=== PATIENT | female | born 1945 | race African-American/Black ===

== ENCOUNTER 2016-09-10 10:45 | Inpatient (IN) ==
--- NOTE | 2016-09-10 11:02 | Emergency Department Note ---
START Narrative - START START: START note for a 70-year-old female that was sent to the emergency department per her court magistrate orders from dialysis after having laboratory results drawn this morning at 0545. The patient was found to have a critically low calcium of 5.0. She states that she did have her full course of dialysis after blood work was drawn. At this time, she does complain of numbness and tingling of her feet and toes as well as hands and fingers bilaterally. Denies any shortness of breath, chest pain, or the sensation of any palpitations. Care of this patient will be transferred to Dr. Graham due to mid-level shift change.
--- NOTE | 2016-09-10 11:06 | Emergency Department Note ---
Disposition Clinical Impression: Weakness, Hypocalcemia Disposition: Admitted As Inpatient Condition: Good Time of Disposition: 12:05 General Adult HPI - General Chief complaint: ED General Medical Stated complaint: Low calcium Time Seen by Provider: 09/10/16 10:58 Source: patient Limitations: no limitations Nursing Notes Reviewed: Yes Vital Signs Reviewed: Yes - History of Present Illness HPI Narrative: 70-year-old female with end-stage renal disease with Thursday dialysis sent in by Dr. Russo for abnormal outpatient calcium of 5 today. She admits to feeling rundown over the last few days with mild sensation of numbness and tingling to her hands and feet bilaterally. Otherwise, she denies any symptoms including headache, confusion, fevers, chest pain or shortness of breath, nausea, vomiting, diarrhea, abdominal pain, change in bowel movements. Patient does not make urine. No rashes or edema. She has not missed any dialysis sessions. She does note that she started Prolia, an injection for osteoporosis about 10 days ago. Pain Scale: 0 - Related Data Home Medications Medication Instructions Recorded Confirmed Acetaminophen [Tylenol] 325 - 650 mg PO Q4HR PRN 03/02/15 09/10/16 Atorvastatin [Lipitor] 10 mg PO HS 03/02/15 09/10/16 Folic Acid 1 mg PO DAILY 03/02/15 09/10/16 Omeprazole [PriLOSEC] 40 mg PO DAILY 03/02/15 09/10/16 Sodium Bicarbonate 650 mg PO BID 03/02/15 09/10/16 predniSONE [Prednisone] 2.5 mg PO BID 03/02/15 09/10/16 Amiodarone [Cordarone] 200 mg PO DAILY 09/18/15 09/10/16 Aspirin 81 mg PO DAILY 12/17/15 09/10/16 B Complex W-C No.20/Folic Acid 1 mg PO DAILY 12/17/15 09/10/16 [Nephrocaps Softgel] Metoprolol [Lopressor] 25 mg PO Q12HR 12/17/15 09/10/16 Ondansetron HCl [Zofran] 4 mg PO Q8HR PRN 12/17/15 09/10/16 traMADol [Ultram] 50 mg PO Q12HR PRN 12/17/15 09/10/16 Carvedilol 12.5 mg PO BID 02/19/16 09/10/16 Loperamide [Imodium] 2 mg PO Q8H PRN 02/19/16 09/10/16 Oxygen 2 l IH HS 02/19/16 09/10/16 Renal Vitamin [Renal Caps Softgel] 1 mg PO DAILY 02/19/16 09/10/16 Amlodipine Besylate 10 mg PO DAILY 09/10/16 09/10/16 Cyclosporine, Modified [Gengraf] 75 mg PO BID 09/10/16 09/10/16 Denosumab [Prolia (For Outpatient 60 mg SQ [id number] 09/10/16 09/10/16 Infusion)] Hydralazine HCl 50 mg PO TID 09/10/16 09/10/16 Oxycodone HCl/Acetaminophen 1 tab PO Q4H PRN 09/10/16 09/10/16 [Percocet 5-325 mg Tablet] Allergies Allergy/AdvReac Type Severity Reaction Status Date / Time Penicillins [PCN] Allergy Hives Verified 06/27/16 14:43 All systems ED: reviewed and negative except as stated. Past Medical History - Past Medical History Attestation: Yes The following information was validated with the patient. Source: patient Medical history: Reports: arthritis, atrial fibrillation, dialysis, osteoporosis , renal disease Surgical history: Reports: appendectomy, herniorrhaphy, other Psychiatric history: Reports: no psych history MEDICAL ANTHROPOLOGY DIRECTOR history: Reports: no MEDICAL ANTHROPOLOGY DIRECTOR history - Social History Smoking Status: Never smoker Smokeless Tobacco Status: No Alcohol use: Reports: none Drug use: Reports: none Physical Exam - Head Head exam: atraumatic, normocephalic, normal inspection - Eye Eye exam: Present: normal appearance, PERRL, EOMI - ENT ENT exam: normal exam, normal oropharynx, mucous membranes moist - Neck Neck exam: Present: normal inspection, full ROM, trachea midline - Chest Chest inspection: Present: normal inspection, symmetric chest wall rise - Respiratory Respiratory exam: Clear to auscultation bilaterally without wheezes rales or rhonchi Cardiovascular Cardiovascular exam: Present: regular rate, normal rhythm, normal heart sounds - Abdominal Exam Abdominal exam: Present: soft, Non-Tender. Absent: tenderness, distention, guarding, rebound, rigidity - Extremities Exam Extremities exam: Present: normal inspection, full ROM - Expanded Lower Extremity Exam Hip/Pelvis exam: Present: normal inspection, full ROM - Back Exam Back exam: Present: normal inspection, full ROM. Absent: tenderness, CVA tenderness (R), CVA tenderness (L) - Neurological Exam Neurological exam: Present: alert, oriented X3, CN II-XII intact. Diffuse hyporeflexivity. Chovstek sign negative. - Psychiatric Psychiatric exam: Present: normal affect, normal mood - Skin Skin exam: Present: warm, dry, intact, normal color - General Limitations: no limitations General appearance: alert, in no apparent distress Course - Reevaluation(s) Reevaluation #1: Calcium is 5.8 here. Patient has no abnormal vitals. Normal exam other than mild global weakness. She will need admitted for the severe hypocalcemia. Case was discussed with Dr. Russo who recommends starting with 1 g of calcium gluconate in the emergency department. Patient will need further calcium while in the hospital. She also requested that we had a PTH and vitamin D hydroxy labs. Case was discussed with Dr. Sims accepting hospitalist. He will follow PTH and vitamin D levels. Time: 12:05 Vital Signs Temperature 99 F 09/10/16 10:47 Pulse Rate 77 09/10/16 10:47 Respiratory Rate 20 09/10/16 10:47 Blood Pressure 111/48 09/10/16 10:47 O2 Sat by Pulse Oximetry 97 09/10/16 10:47 Temperature 98.4 F 09/10/16 14:51 Pulse Rate 76 09/10/16 14:51 Respiratory Rate 16 09/10/16 14:51 Blood Pressure 128/55 09/10/16 14:51 O2 Sat by Pulse Oximetry 96 09/10/16 14:51 Oxygen Delivery Oxygen Delivery Room Air Medical Decision Making - Lab Data Result diagrams: 09/10/16 11:26 09/10/16 11:26 Lab Results 09/10/16 09/10/16 09/10/16 Range/Units 11:26 11:26 12:15 WBC 8.6 (4.3-11.1) K/mcL RBC 3.22 L (3.82-4.97) M/mcL Hgb 10.2 L (11.5-15.4) g/dL Hct 32.6 L (35.3-44.9) % MCV 101.2 H (83.0-100.0) fL MCH 31.7 (28.0-33.3) pg MCHC 31.3 L (31.6-35.5) g/dL RDW 15.9 H (11.5-14.5) % Plt Count 180 (140-400) K/mcL MPV 8.4 L (9.4-12.4) fL Immature Gran % 0.7 (0-4) % Seg Neutrophils % 70.3 % Lymphocytes % 16.6 % Monocytes % 11.1 % Eosinophils % 1.0 % Basophils % 0.3 % Neutrophils # 6.0 (1.6-8.9) K/mcL Lymphocytes # 1.4 (0.6-4.6) K/mcL Monocytes # 1.0 (0.0-1.3) K/mcL Eosinophils # 0.1 (0.0-0.6) K/mcL Basophils # 0.0 (0.0-0.2) K/mcL Sodium 140 (136-145) mEq/L Potassium 3.4 L (3.5-4.5) mEq/L Chloride 102 (98-109) mEq/L Carbon Dioxide 28 (19-29) mEq/L BUN 12 (7-20) mg/dL Creatinine 2.71 H (0.57-1.11) mg/dL Est GFR ( Amer) 21 L (> 60) Est GFR (Non-Af Amer) 17 L (> 60) BUN/Creatinine Ratio 4 L (6-26) Glucose 112 H (70-99) mg/dL Calculated Osmolality 291 (280-300) Calcium 5.8 L* D (8.6-10.8) mg/dL Phosphorus 1.3 L (2.3-4.7) mg/dL Magnesium 1.6 (1.6-2.6) mg/dL Total Bilirubin 0.5 (0.2-1.2) mg/dL AST 15 (5-34) Units/L ALT 9 (0-55) Units/L Alkaline Phosphatase 81 (38-126) Units/L Serum Total Protein 6.3 (6.0-8.3) g/dL Albumin 2.4 L (3.5-5.0) g/dL Globulin 3.9 H (2.4-3.5) g/dL Albumin/Globulin Ratio 0.6 L (1.1-2.2) 25-OH Vitamin D Total 19 L (30-80) ng/mL PTH Intact (8.5-72.5) pg/ml 09/10/16 Range/Units 12:15 WBC (4.3-11.1) K/mcL RBC (3.82-4.97) M/mcL Hgb (11.5-15.4) g/dL Hct (35.3-44.9) % MCV (83.0-100.0) fL MCH (28.0-33.3) pg MCHC (31.6-35.5) g/dL RDW (11.5-14.5) % Plt Count (140-400) K/mcL MPV (9.4-12.4) fL Immature Gran % (0-4) % Seg Neutrophils % % Lymphocytes % % Monocytes % % Eosinophils % % Basophils % % Neutrophils # (1.6-8.9) K/mcL Lymphocytes # (0.6-4.6) K/mcL Monocytes # (0.0-1.3) K/mcL Eosinophils # (0.0-0.6) K/mcL Basophils # (0.0-0.2) K/mcL Sodium (136-145) mEq/L Potassium (3.5-4.5) mEq/L Chloride (98-109) mEq/L Carbon Dioxide (19-29) mEq/L BUN (7-20) mg/dL Creatinine (0.57-1.11) mg/dL Est GFR ( Amer) (> 60) Est GFR (Non-Af Amer) (> 60) BUN/Creatinine Ratio (6-26) Glucose (70-99) mg/dL Calculated Osmolality (280-300) Calcium (8.6-10.8) mg/dL Phosphorus (2.3-4.7) mg/dL Magnesium (1.6-2.6) mg/dL Total Bilirubin (0.2-1.2) mg/dL AST (5-34) Units/L ALT (0-55) Units/L Alkaline Phosphatase (38-126) Units/L Serum Total Protein (6.0-8.3) g/dL Albumin (3.5-5.0) g/dL Globulin (2.4-3.5) g/dL Albumin/Globulin Ratio (1.1-2.2) 25-OH Vitamin D Total (30-80) ng/mL PTH Intact 833.6 H (8.5-72.5) pg/ml - EKG Data EKG #1 EKG attestation: Yes I reviewed and interpreted this EKG. EKG results narrative: Normal sinus rhythm at 76 with left axis deviation. No ST elevation or depression. There is diffuse nonspecific T-wave flattening. T-wave flattening is mildly increased from last EKG on 07/01/2016. Attestation Statement - Attestation Attestation: I examined this patient and my medical decision-making was reviewed with the PHOTOGRAPHIC AIDE/PA/Advanced Practice Nurse/Resident Physician. I agree with the documented findings, disposition and treatment plan as described except to the extent set forth below. Patient emergency department with a low calcium. Was sent in from dialysis. Level was checked prior and she completed her entire cycle. On exam she is awake and alert sitting up in bed, pleasant and conversant in no acute distress. Lungs clear. Abdomen soft. Neurologically intact. Plan. Calcium recheck was 5. Discussed with her credit counselor. We will infuse calcium gluconate. Admitted to medicine. 30 minutes of critical care exclusive of separately billable procedures.
[2016-09-10 11:32] LABS: Basophils % 0.3 %; Eosinophils # 0.1 K/mcL (0.0-0.6); Hematocrit 32.6 % (35.3-44.9); Hemoglobin 10.2 g/dL (11.5-15.4); Immature Granulocytes % 0.7 % (0-4); Lymphocytes # 1.4 K/mcL (0.6-4.6); Lymphocytes % 16.6 %; Mean Corpuscular HGB Conc 31.3 g/dL (31.6-35.5); Mean Corpuscular Hemoglobin 31.7 pg (28.0-33.3); Mean Corpuscular Volume 101.2 fL (83.0-100.0); Mean Platelet Volume 8.4 fL (9.4-12.4); Monocytes % 11.1 %; Platelet Count 180 K/mcL (140-400); Red Blood Count 3.22 M/mcL (3.82-4.97); Red Cell Distribution Width 15.9 % (11.5-14.5); Segmented Neutrophils % 70.3 %
[2016-09-10 11:45] LABS: Albumin 2.4 g/dL (3.5-5.0); Albumin/Globulin Ratio 0.6 (1.1-2.2); Bilirubin,Total 0.5 mg/dL (0.2-1.2); Globulin 3.9 g/dL (2.4-3.5); Magnesium 1.6 mg/dL (1.6-2.6); Phosphorous 1.3 mg/dL (2.3-4.7); Potassium 3.4 mEq/L (3.5-4.5); Total Protein 6.3 g/dL (6.0-8.3)
[2016-09-10 11:47] LABS: Calcium 5.8 mg/dL (8.6-10.8)
[2016-09-10] MEDS ORDERED: Calcium Gluconate 1,000 MG in D5% in Water 100 ML IVPB ONE ×2 (11:55→17:03)
[2016-09-10] MEDS ORDERED: Naloxone 0.4 MG/ML INJ IVP PRN (12:15)
[2016-09-10] MEDS ORDERED: Ondansetron ODT 4 MG TAB.RAPDIS PO PRN (13:29)
[2016-09-10] MEDS ORDERED: traMADol 50 MG TABLET PO PRN (13:29)
[2016-09-10] MEDS ORDERED: *HR* OxyCODONE/APAP 5/325 TABLET PO PRN (13:29)
--- NOTE | 2016-09-10 13:36 | Internal Med History&Physical ---
<Radha Rivero J - Last Filed: 09/10/16 14:10> Date of Encounter: 09/10/16 Time of Encounter: 13:34 Assessment and Plan (1) Hypocalcemia Current visit: Yes Status: Acute found to be hypocalcemic post-HD labs. Ca 5.8 on arrival, calcium gluconate given in the ED. Symptomatic paresthesias of the hands and feet. Monitor on tele , serial CMP. Replace Calcium PRN (2) ESRD (end stage renal disease) Current visit: No Status: Chronic per hx. Anuric. Follows with Dr. Russo. HD M/W/F. Hx failed kidney transplant ( cont home prednisone). Consult Nephrology (3) Hypertension Current visit: No Status: Chronic per hx. BP controlled. Medication list showed 2 BBs (patient conflirmed taking both). Will stop Metoprolol, cont Carvedilol. Cont all other home BP medication. Monitor BP and titrate PRN Qualifiers: Hypertension type: secondary to other renal disorders Qualified Code(s): I15.1 - Hypertension secondary to other renal disorders; N28.89 - Other specified disorders of kidney and ureter (4) A-fib Current visit: No Status: Acute per hx. Rate controlled. Not on anticoagulation with previous abnormal bleeding. Cont home BB, amiodarone. Qualifiers: Atrial fibrillation type: paroxysmal Qualified Code(s): I48.0 - Paroxysmal atrial fibrillation (5) Anemia Current visit: Yes Status: Acute of chronic disease. Hgb 10.2 which appears to be at baseline. Intermittently monitor Qualifiers: Anemia type: other cause Other causes of anemia: chronic disease, kidney Qualified Code(s): N18.9 - Chronic kidney disease, unspecified; D63.1 - Anemia in chronic kidney disease (6) DVT prophylaxis Current visit: Yes Status: Acute heparin Internal Medicine - H&P: HPI Chief complaint: numbness to bilateral feet and hands Admitted From: Home Plans for Post Hospital Care: Home History of present illness: Ms. Moore is a 70 year old female with PMH ESRD on HD, HTN, atrial fibrillation and osteoporosis who presented to [facility] on 09/10/2016 from HD session with critically low calcium. IV calcium was started in the ED and she was placed in observation status for continued electrolyte monitoring. Information obtaiemd from chart review an patient report. Patient says she " feel fine" and actually wants to go home but is agreeable to stay. Says she was at HD session today when routine labs showed critically low calcium. She reports numbness and tingling to bilateral feet and hands earlier but denies on my exam. No CP, no SOB, no ABD pain, no N/V/D Past Med Surg Social Fam HX - Past Medical History Medical history: arthritis, atrial fibrillation, dialysis, osteoporosis, renal disease Psychiatric history: no psych history - Past Surgical History Surgical History: appendectomy, herniorrhaphy, other - Social History Smoking Status: Never smoker Smokeless Tobacco Status: No Alcohol use: none Drug use: none - Additional Family History Additional family history: reviewed and noncontributory Internal Medicine - H&P: Meds Acetaminophen [Tylenol] 325 - 650 mg PO Q4HR PRN 03/02/15 [History] Atorvastatin [Lipitor] 10 mg PO HS 03/02/15 [History] Folic Acid 1 mg PO DAILY 03/02/15 [History] Omeprazole [PriLOSEC] 40 mg PO DAILY 03/02/15 [History] PredniSONE [Prednisone] 2.5 mg PO BID 03/02/15 [History] Sodium Bicarbonate 650 mg PO BID 03/02/15 [History] Amiodarone [Cordarone] 200 mg PO DAILY 09/18/15 [History] Aspirin 81 mg PO DAILY 12/17/15 [History] B Complex W-C No.20/Folic Acid [Nephrocaps Softgel] 1 mg PO DAILY 12/17/15 [ History] Metoprolol [Lopressor] 25 mg PO Q12HR 12/17/15 [History] Ondansetron HCl [Zofran] 4 mg PO Q8HR PRN 12/17/15 [History] traMADol [Ultram] 50 mg PO Q12HR PRN 12/17/15 [History] Carvedilol 12.5 mg PO BID 02/19/16 [History] Loperamide [Imodium] 2 mg PO Q8H PRN 02/19/16 [History] Oxygen 2 l IH HS 02/19/16 [History] Renal Vitamin [Renal Caps Softgel] 1 mg PO DAILY 02/19/16 [History] Amlodipine Besylate 10 mg PO DAILY 09/10/16 [History] Cyclosporine, Modified [Gengraf] 75 mg PO BID 09/10/16 [History] Denosumab [Prolia (For Outpatient Infusion)] 60 mg SQ [id number] 09/10/16 [History ] Hydralazine HCl 50 mg PO TID 09/10/16 [History] Oxycodone HCl/Acetaminophen [Percocet 5-325 mg Tablet] 1 tab PO Q4H PRN [History] Allergies Penicillins [PCN] Allergy (Verified 06/27/16 14:43) Hives All Systems PM: A 10-system review of systems was performed and is negative for pertinent findings except as documented above in the HPI. - Constitutional Constitutional: no chills, no fever(s), no night sweats - EENT Eyes: no change in vision, no discharge, no pain, no photophobia Ears: no ear discharge, no ear pain, no tinnitus Nose, mouth and throat: no dysphagia, no nasal discharge, no neck pain, no sore throat - Cardiovascular Cardiovascular ROS IM: no chest pain, no diaphoresis, no dyspnea, no lightheadedness, no palpitations, no syncope - Respiratory Respiratory: no cough, no dyspnea, no wheezing, no excessive phlegm production - Gastrointestinal Gastrointestinal: no abdominal pain, no diarrhea, no hematemesis, no hematochezia, no melena, no nausea, no vomiting - Genitourinary Genitourinary: no change in urinary stream, no dysuria, no flank pain, no hematuria - Musculoskeletal Musculoskeletal ROS IM: no numbness, no tingling - Integumentary Integumentary IM: no rash, no unusual bruising - Neurological Neurological ROS: paresthesias, no confusion, no convulsions, no focal weakness , no numbness, no tingling, no tremor(s) - Hematologic/Lymphatic Hematologic/Lymphatic: no easy bruising - Constitutional Vitals: Temp Pulse Resp BP Pulse Ox 99 F 77 18 129/51 96 09/10/16 10:47 09/10/16 11:51 09/10/16 13:02 09/10/16 13:02 09/10/16 11:51 General appearance: Present: A&O X 3, no acute distress - Head Head exam: Present: atraumatic, normocephalic - Eye Eye exam: Present: PERRL, conjuntiva pink, sclera anicteric Pupils: Present: PERRL - Neck Neck exam general surgery: Present: supple, trachea midline. Absent: lymphadenopathy - Respiratory Respiratory exam: Present: CTAB. Absent: accessory muscle use, rales, rhonchi, wheezes - Cardiovascular Cardiovascular exam: Present: RRR, +S1, +S2. Absent: diastolic murmur, gallop, rubs, systolic murmur - GI/Abdominal GI/Abdominal exam: Present: normal bowel sounds, soft, no peritoneal signs. Absent: distended, tenderness - Extremities Exam Extremities exam: Present: warm, radial pulses palpable and symetrical. Absent : calf tenderness, cyanotic, pedal edema Additional comments: left arm fistula +/+ - Neurological Exam Neurological exam: Present: CN II-XII intact, oriented X3, no focal deficits. Absent: pronater drift, facial droop, speech deficit - Skin Skin exam: Present: dry, intact Internal Med - H&P Results - Labs CBC & Chem 7: 09/10/16 11:26 09/10/16 11:26 <Stalin Sims - Last Filed: 09/10/16 15:06> Date of Encounter: 09/10/16 Time of Encounter: 14:00 Internal Medicine - H&P: HPI History of present illness: Ms. Moore is a 70 year old female All Systems PM: A 10-system review of systems was performed and is negative for pertinent findings except as documented above in the HPI. - Constitutional Vitals: Temp Pulse Resp BP Pulse Ox 98.4 F 76 16 128/55 96 09/10/16 14:51 09/10/16 14:51 09/10/16 14:51 09/10/16 14:51 09/10/16 14:51 Internal Med - H&P Results - Labs CBC & Chem 7: 09/10/16 11:26 09/10/16 11:26 - Attending Attestation I examined this patient and my medical decision-making was reviewed with the nurse practitioner. I agree with the documented history of present illness, review of systems, past medical, surgical social and family histories and examination findings, disposition and treatment plan as described above except to any changes set forth below. 70-year-old female patient with history of end-stage renal disease was sent over after dialysis due to hypocalcemia. Patient complaining of some paresthesias associated with it. She has just received a dose of Prolia recently for osteoporosis. On examination, patient has a normal heart rate and rhythm, no tremors. Normal sensation and normal strength. Symptomatic Hypocalcemia: Likely due to the use of Prolia. Calcium is 5.8. Corrected calcium is 7.1. Received calcium gluconate in the ER. We will follow calcium levels and replace as needed. Monitor for arrhythmia with telemetry. End-stage renal disease on hemodialysis: Patient was dialyzed today. Consult nephrology for dialysis needs.
--- NOTE | 2016-09-10 15:27 | Electrocardiograph Report ---
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
[2016-09-10] MEDS: hydrALAZINE 25 MG TABLET PO SCH ×2 (16:11→21:34)
[2016-09-10 16:49] LABS: Albumin 2.3 g/dL (3.5-5.0); Albumin/Globulin Ratio 0.6 (1.1-2.2); Bilirubin,Total 0.4 mg/dL (0.2-1.2); Globulin 3.7 g/dL (2.4-3.5); Potassium 3.8 mEq/L (3.5-4.5)
[2016-09-10 16:53] LABS: Calcium 5.9 mg/dL (8.6-10.8)
--- NOTE | 2016-09-10 18:19 | Nephrology Consult Note ---
Date of Encounter: 09/10/16 Time of Encounter: 06:15 Assessment and Plan (1) Hypocalcemia Status: Acute s/p 1gram calcium gluconate in the ED and another planned by primary team Ok to start calcium orally as well, repeat calcium again today. Check ionized calcium as well Will start vitamin d with ergocalciferol Replete phosphorus (2) Hyperparathyroidism Status: Chronic Worse than previous which was 400s as of last month likely due to acute hypocalcemia Will consider giving calcitriol inpatinet and resume hectorol outpatient (3) Vitamin D deficiency Status: Acute Will start ergocalciferol weekly (4) Hypophosphatemia Status: Acute Will replete. Not on phos binder at present (5) ESRD (end stage renal disease) Status: Chronic next HD planned for thursday with higher calcium bath. s/p treatment today outpatient History of Present Illness - Reason for Consult Consult date: 09/10/16 end stage renal disease Requesting physician: Radha Rivero - History of Present Illness 70 y o female with PMH of ESRD on HD after failed renal transplant, HTN, Afib and osteoporosis admitted with generalized weakness and critically low calcium and phosphorous noted on HD labs and verified on repeat 2 days later. Patient reports receiving prolia infusion recently for her osetoporosis ordered by her pcp. She denies any prior history. Her calcium levels have been typically around 8-9 on monthly labs. She also reports tingling up her arms as well. No N/ V/D/C. No fevers or chills. Past Med Surg Social Fam HX - Past Medical History Medical history: arthritis, atrial fibrillation, dialysis, osteoporosis, renal disease Psychiatric history: no psych history - Past Surgical History Surgical History: appendectomy, herniorrhaphy, other - Social History Smoking Status: Never smoker Smokeless Tobacco Status: No Alcohol use: none Drug use: none - Family History Mother Living Status: Hx Family Cardiac Disorders: Yes Medications and Allergies Acetaminophen [Tylenol] 325 - 650 mg PO Q4HR PRN 03/02/15 [History] Atorvastatin [Lipitor] 10 mg PO HS 03/02/15 [History] Folic Acid 1 mg PO DAILY 03/02/15 [History] Omeprazole [PriLOSEC] 40 mg PO DAILY 03/02/15 [History] predniSONE [Prednisone] 2.5 mg PO BID 03/02/15 [History] Amiodarone [Cordarone] 200 mg PO DAILY 09/18/15 [History] Aspirin 81 mg PO DAILY 12/17/15 [History] B Complex W-C No.20/Folic Acid [Nephrocaps Softgel] 1 mg PO DAILY 12/17/15 [ History] Metoprolol [Lopressor] 12.5 mg PO Q12HR 12/17/15 [History] Ondansetron HCl [Zofran] 4 mg PO Q8HR PRN 12/17/15 [History] traMADol [Ultram] 50 mg PO Q12HR PRN 12/17/15 [History] Carvedilol 12.5 mg PO BID 02/19/16 [History] Loperamide [Imodium] 2 mg PO Q8H PRN 02/19/16 [History] Oxygen 2 l IH HS 02/19/16 [History] Renal Vitamin [Renal Caps Softgel] 1 mg PO DAILY 02/19/16 [History] Amlodipine Besylate 10 mg PO DAILY 09/10/16 [History] Cyclosporine, Modified [Gengraf] 75 mg PO BID 09/10/16 [History] Denosumab [Prolia (For Outpatient Infusion)] 60 mg SQ [id number] 09/10/16 [History ] Hydralazine HCl 50 mg PO TID 09/10/16 [History] Ergocalciferol (VITAMIN D2) [Drisdol (50,000 Unit)] 50,000 unit PO QWEEK #4 capsule 09/12/16 [Rx] Calcium Carbonate [Tums] 1,000 mg PO QID 30 Days 09/18/16 [Rx] Oxycodone HCl/Acetaminophen [Percocet 5-325 mg Tablet] 1 tab PO Q4H PRN #20 tablet 09/18/16 [Rx] Allergies Penicillins [PCN] Allergy (Verified 09/14/16 15:26) Hives Review of Systems All Systems: reviewed and no additional remarkable complaints except as stated ( 10 systems reviewed) Exam - Vital Signs Vital signs: Initial Vital Signs Temp Pulse Resp BP Pulse Ox 99 F 77 20 111/48 97 09/10/16 10:47 09/10/16 10:47 09/10/16 10:47 09/10/16 10:47 09/10/16 10:47 Vital Signs - Last 8 Hours Temp Pulse Resp BP Pulse Ox 09/10/16 14:51 98.4 F 76 16 128/55 96 09/10/16 14:02 98.7 F 77 18 128/55 93 09/10/16 13:02 18 129/51 Intake and Output 09/10/16 09/10/16 09/10/16 07:59 15:59 23:59 Intake Total 240 / 240 Balance 240 / 240 Intake: Oral 240 / 240 Other: Meal Dinner Percent of Meal Consumed 100% Weight 61.745 kg Patient Weight 09/10/16 23:59 Weight 61.745 kg - General Appearance General appearance: chronically ill (NAD) EENT: ATNC, mucous membranes moist Neck: no JVD, supple Respiratory: clear Cardiology: no edema, normal S1, normal S2 - Dialysis Access Dialysis Vascular Access: Arteriovenous Fistula thrill: Yes bruit: Yes Gastrointestinal: no tenderness, no guarding Integumentary: no rash, warm and dry Neurologic: no focal deficit Musculoskeletal: no deformities Psychiatric: mood/affect appropriate Results - Lab Results 09/11/16 04:45 09/12/16 04:38 Most recent lab results Calcium 5.9 mg/dL (8.6-10.8) L* 09/10/16 16:18 Phosphorus 1.3 mg/dL (2.3-4.7) L 09/10/16 11:26 Magnesium 1.6 mg/dL (1.6-2.6) 09/10/16 11:26 Consult Discharge Plan - Plan Instructions: Hypocalcemia (DC), Weakness (GEN), Anemia (GEN) Referrals: Abdi Deng MD [Primary Care Provider] - 09/17/16 3:00 pm (Web requested ) Prescriptions: Ergocalciferol (VITAMIN D2) [Drisdol (50,000 Unit)] 50,000 unit PO QWEEK #4 capsule
[2016-09-10] MEDS: CycloSPORINE, Mod (Neoral) 25 MG CAPSULE PO SCH (21:34)
[2016-09-10] MEDS: predniSONE 5 MG TABLET PO SCH (21:35)
[2016-09-11 05:43] LABS: Basophils % 0.4 %; Eosinophils # 0.1 K/mcL (0.0-0.6); Eosinophils % 1.7 %; Hematocrit 34.9 % (35.3-44.9); Hemoglobin 10.9 g/dL (11.5-15.4); Immature Granulocytes % 0.5 % (0-4); Lymphocytes # 1.4 K/mcL (0.6-4.6); Lymphocytes % 18.7 %; Mean Corpuscular HGB Conc 31.2 g/dL (31.6-35.5); Mean Corpuscular Hemoglobin 31.9 pg (28.0-33.3); Mean Platelet Volume 8.4 fL (9.4-12.4); Monocytes # 0.9 K/mcL (0.0-1.3); Monocytes % 11.8 %; Platelet Count 178 K/mcL (140-400); Red Blood Count 3.42 M/mcL (3.82-4.97); Red Cell Distribution Width 16.7 % (11.5-14.5); Segmented Neutrophils % 66.9 %
[2016-09-11 05:59] LABS: Potassium 4.4 mEq/L (3.5-4.5)
[2016-09-11 06:18] LABS: Calcium 5.8 mg/dL (8.6-10.8)
[2016-09-11] MEDS ORDERED: Calcium Gluconate 2,000 MG in D5% in Water 100 ML IVPB ONE (06:32)
[2016-09-11] MEDS: Aspirin 81 MG TAB.CHEW PO SCH (08:07)
[2016-09-11] MEDS: CycloSPORINE, Mod (Neoral) 25 MG CAPSULE PO SCH ×2 (08:07→21:19)
[2016-09-11] MEDS: Renal Vitamin 1 MG CAPSULE PO SCH (08:08)
[2016-09-11] MEDS: *HR* Amiodarone 200 MG TABLET PO SCH (08:08)
[2016-09-11] MEDS: Folic Acid 1 MG TABLET PO SCH (08:08)
[2016-09-11] MEDS: hydrALAZINE 25 MG TABLET PO SCH ×3 (08:09→21:19)
[2016-09-11] MEDS: amLODIPine 5 MG TABLET PO SCH (08:10)
[2016-09-11] MEDS: predniSONE 5 MG TABLET PO SCH ×2 (08:20→21:19)
[2016-09-11] MEDS ORDERED: Renal Vitamin 1 MG CAPSULE PO SCH (09:00)
[2016-09-11] MEDS ORDERED: *HR* OxyCODONE/APAP 5/325 TABLET PO PRN (10:42)
[2016-09-11] MEDS ORDERED: traMADol 50 MG TABLET PO PRN (10:42)
--- NOTE | 2016-09-11 14:40 | Internal Med Progress Note ---
Date of Encounter: 09/11/16 Time of Encounter: 14:38 - Assessment and plan (1) Hypocalcemia Current Visit: Yes Status: Acute Assessment and plan: severe symtpomatic hypocalcemia with hypophosphatemia in setting of esrd on hd and recent therapy with prolia. will continue monitoring calcium levles and follow nephrology recommendations. supplement calcium accordingly and HD arrangement as per nephrology. (2) ESRD (end stage renal disease) Current Visit: No Status: Chronic (3) DVT prophylaxis Current Visit: Yes Status: Acute (4) Hypophosphatemia Current Visit: Yes Status: Acute - Subjective Interval history: 1st ecounter with the patient. feels better, no more tingling. - Constitutional Vitals: Temp Pulse Resp BP Pulse Ox 98.1 F 70 16 141/52 91 09/11/16 11:09 09/11/16 11:09 09/11/16 11:09 09/11/16 11:09 09/11/16 11:09 General appearance: Present: A&O X 3, no acute distress - Head Head exam: Present: atraumatic, normocephalic - Eye Eye exam: Present: PERRL, conjuntiva pink, sclera anicteric Pupils: Present: PERRL - Neck Neck exam general surgery: Present: supple, trachea midline. Absent: lymphadenopathy - Respiratory Respiratory exam: Present: CTAB. Absent: accessory muscle use, rales, rhonchi, wheezes - Cardiovascular Cardiovascular exam: Present: RRR, +S1, +S2. Absent: diastolic murmur, gallop, rubs, systolic murmur - GI/Abdominal GI/Abdominal exam: Present: normal bowel sounds, soft, no peritoneal signs. Absent: distended, tenderness - Extremities Exam Extremities exam: Present: warm, radial pulses palpable and symetrical. Absent : calf tenderness, cyanotic, pedal edema - Neurological Exam Neurological exam: Present: CN II-XII intact, oriented X3, no focal deficits. Absent: pronater drift, facial droop, speech deficit - Skin Skin exam: Present: dry, intact Internal Medicine: Result - Labs CBC & Chem 7: 09/11/16 04:45 09/11/16 04:45 Labs: Short CBC 09/11/16 Range/Units 04:45 WBC 7.4 (4.3-11.1) K/mcL Hgb 10.9 L (11.5-15.4) g/dL Hct 34.9 L (35.3-44.9) % Plt Count 178 (140-400) K/mcL Neutrophils # 5.0 (1.6-8.9) K/mcL BMP 09/10/16 09/11/16 09/11/16 16:18 04:45 11:49 Sodium 136 137 Potassium 3.8 4.4 Chloride 98 99 Carbon Dioxide 26 25 BUN 15 24 H Creatinine 3.17 H 4.16 H Glucose 166 H 101 H Calcium 5.9 L* 5.8 L* 6.1 L Liver Function 09/10/16 Range/Units 16:18 Total Bilirubin 0.4 (0.2-1.2) mg/dL AST 14 (5-34) Units/L ALT 8 (0-55) Units/L Alkaline Phosphatase 80 (38-126) Units/L Albumin 2.3 L (3.5-5.0) g/dL Consult Discharge Plan - Plan Referrals: Abdi Deng MD [Primary Care Provider] - 09/17/16 3:00 pm (Web requested )
--- NOTE | 2016-09-11 16:13 | Nephrology Progress Note ---
Date of Encounter: 09/11/16 Time of Encounter: 14:00 - Assessment and Plan (1) Hypocalcemia Current Visit: Yes Status: Acute Calcium slightly improved but ionized calcium still quite low, continue po calcium supplements s/p ergocalciferol yesterday, will continue weekly (2) Hyperparathyroidism Current Visit: Yes Status: Acute Will address in outpatient HD with hectorol to be adjusted. Will give a dose of calcitriol now (3) Vitamin D deficiency Current Visit: Yes Status: Acute s/p ergocalciferol (4) Hypophosphatemia Current Visit: Yes Status: Acute being repleted with neutraphos (5) ESRD (end stage renal disease) Current Visit: No Status: Chronic next HD planned tomorrow with higher calcium bath (typically runs of 2.0 ca bath ) Subjective Interval history: Pt seen and examined with at bedside feels a little with her weakness and tingling in her fingers. Objective - Vital Signs Vital signs: Vital Signs Temp Pulse Resp BP Pulse Ox 09/11/16 15:46 98.5 F 69 16 135/48 93 Intake and Output 09/11/16 09/11/16 09/11/16 07:59 15:59 23:59 Intake Total 320 / 1040 Balance 320 / 1040 Intake: Oral 320 / 1040 Other: Meal Lunch Percent of Meal Consumed 100% - General Appearance General appearance: Present: chronically ill (NAD), frail EENT: Present: ATNC, mucous membranes moist Neck: Present: no JVD, supple Respiratory: Present: clear Cardiology: Present: no edema, normal S1, normal S2 Dialysis Vascular Access: Arteriovenous Fistula thrill: Yes bruit: Yes Gastrointestinal: Present: no tenderness, no guarding Integumentary: Present: no rash, warm and dry Neurologic: Present: no focal deficit Musculoskeletal: Present: no deformities Psychiatric: Present: mood/affect appropriate, cooperative - Lab 09/11/16 04:45 09/11/16 04:45 Most recent lab results Calcium 6.1 mg/dL (8.6-10.8) L 09/11/16 11:49 Phosphorus 1.3 mg/dL (2.3-4.7) L 09/10/16 11:26 Magnesium 1.6 mg/dL (1.6-2.6) 09/10/16 11:26 Consult Discharge Plan - Plan Referrals: Abdi Deng MD [Primary Care Provider] - 09/17/16 3:00 pm (Web requested )
[2016-09-11] MEDS: *HR* Heparin 5,000 UNIT/ML VIAL SQ SCH (17:39)
[2016-09-12 05:01] LABS: Ionized Calcium 0.75 mmol/L (1.15-1.35)
[2016-09-12 05:11] LABS: Calcium 6.2 mg/dL (8.6-10.8); Magnesium 1.9 mg/dL (1.6-2.6); Potassium 4.9 mEq/L (3.5-4.5)
[2016-09-12] MEDS: Folic Acid 1 MG TABLET PO SCH (06:00)
[2016-09-12] MEDS: Aspirin 81 MG TAB.CHEW PO SCH (06:00)
[2016-09-12] MEDS: CycloSPORINE, Mod (Neoral) 25 MG CAPSULE PO SCH (06:01)
[2016-09-12] MEDS: predniSONE 5 MG TABLET PO SCH (06:01)
[2016-09-12] MEDS: Renal Vitamin 1 MG CAPSULE PO SCH (06:02)
[2016-09-12] MEDS: *HR* Heparin 5,000 UNIT/ML VIAL SQ SCH (06:02)
[2016-09-12] MEDS ORDERED: 0.9 % Sodium Chloride 250 ML IVC PRN (07:05)
--- NOTE | 2016-09-12 10:22 | Nephrology Progress Note ---
Date of Encounter: 09/12/16 Time of Encounter: 08:45 - Assessment and Plan (1) ESRD (end stage renal disease) Status: Chronic HD today for clearance Higher Calcium bath today for the hypocalcemia, that I suspect was secondary to recent bisphosphate. Ergocalciferol and the calcitriol will help raise the serum Ca over time in the coming weeks as well. Would continue Ergocalciferol 50k weekly upon discharge Replete the hypophosphatemia Next HD is planned for Thursday (2) Hyperparathyroidism Status: Acute (3) Hypocalcemia Status: Acute Higher Ca Bath and Ergocalciferol. I've called the outpt HD unit with instructions/verbal orders to increase the Ca bath on dialysis to 2.5 x3 consecutive treatments. (4) Hypophosphatemia Status: Acute (5) Vitamin D deficiency Status: Acute (6) Hypertension Status: Chronic Qualifiers: Hypertension type: secondary to other renal disorders Qualified Code(s): I15.1 - Hypertension secondary to other renal disorders; N28.89 - Other specified disorders of kidney and ureter Subjective Principal diagnosis: ESRD, Hypocalcemia Interval history: Pt was s/e. She did not affirm N/V/D. Was found to have hypocalcemia after bisphosphonate. She did not affirm CP or dyspnea. Objective - Vital Signs Vital signs: Vital Signs Temp Pulse Resp BP Pulse Ox 09/12/16 08:43 95 09/12/16 06:53 98.2 F 77 16 138/51 95 09/12/16 04:13 97.4 F L 74 16 105/57 94 09/12/16 00:05 98.0 F 73 14 126/47 93 09/11/16 21:14 97.7 F 106 15 146/51 95 09/11/16 15:46 98.5 F 69 16 135/48 93 Intake and Output 09/11/16 09/12/16 09/12/16 23:59 07:59 15:59 Intake Total 240 / 240 20 / 20 700 / 700 Output Total 0 / 0 Balance 240 / 240 20 / 20 700 / 700 Intake: Oral 240 / 240 20 / 20 700 / 700 Output: Urine 0 / 0 Other: Meal Dinner Breakfast Percent of Meal Consumed 80% 100% Weight 61.5 kg Patient Weight 09/12/16 23:59 Weight 61.5 kg - General Appearance General appearance: Present: well-developed, well-nourished, appears started age EENT: Present: ATNC, PERRL, mucous membranes moist Neck: Present: supple Cardiology: Present: no edema, regular rate, regular rhythm, normal S1, normal S2 Gastrointestinal: Present: normoactive bowel sounds, no tenderness, no guarding Integumentary: Present: no rash, warm and dry Neurologic: Present: no focal deficit, no asterixis, alert and oriented x3 Musculoskeletal: Present: no deformities, no erythema, no cyanosis Psychiatric: Present: mood/affect appropriate, cooperative - Lab 09/11/16 04:45 09/12/16 04:38 Most recent lab results Calcium 6.2 mg/dL (8.6-10.8) L 09/12/16 04:38 Phosphorus 1.8 mg/dL (2.3-4.7) L 09/12/16 04:38 Magnesium 1.9 mg/dL (1.6-2.6) 09/12/16 04:38 Consult Discharge Plan - Plan Instructions: Hypocalcemia (DC), Weakness (GEN), Anemia (GEN) Referrals: Abdi Deng MD [Primary Care Provider] - 09/17/16 3:00 pm (Web requested ) Prescriptions: Ergocalciferol (VITAMIN D2) [Drisdol (50,000 Unit)] 50,000 unit PO QWEEK #4 capsule
[2016-09-12] MEDS: hydrALAZINE 25 MG TABLET PO SCH (10:59)
[2016-09-12] MEDS: amLODIPine 5 MG TABLET PO SCH (13:08)
[2016-09-12 13:09] VITALS: BP 91/74
[2016-09-12] MEDS: *HR* Amiodarone 200 MG TABLET PO SCH (13:09)
--- NOTE | 2016-09-12 13:14 | Discharge Summary ---
Date of Encounter: 09/12/16 Time of Encounter: 13:13 - Discharge Diagnosis (1) Hypocalcemia Priority: Primary Status: Acute (2) ESRD (end stage renal disease) Priority: Secondary Status: Chronic (3) DVT prophylaxis Priority: Secondary Status: Acute (4) Hypophosphatemia Priority: Secondary Status: Acute - Discharge Medications Prescriptions: Ergocalciferol (VITAMIN D2) [Drisdol (50,000 Unit)] 50,000 unit PO QWEEK #4 capsule Home Medications: Acetaminophen [Tylenol] 325 - 650 mg PO Q4HR PRN 03/02/15 [History] Atorvastatin [Lipitor] 10 mg PO HS 03/02/15 [History] Folic Acid 1 mg PO DAILY 03/02/15 [History] Omeprazole [PriLOSEC] 40 mg PO DAILY 03/02/15 [History] Sodium Bicarbonate 650 mg PO BID 03/02/15 [History] predniSONE [Prednisone] 2.5 mg PO BID 03/02/15 [History] Amiodarone [Cordarone] 200 mg PO DAILY 09/18/15 [History] Aspirin 81 mg PO DAILY 12/17/15 [History] B Complex W-C No.20/Folic Acid [Nephrocaps Softgel] 1 mg PO DAILY 12/17/15 [ History] Metoprolol [Lopressor] 25 mg PO Q12HR 12/17/15 [History] Ondansetron HCl [Zofran] 4 mg PO Q8HR PRN 12/17/15 [History] traMADol [Ultram] 50 mg PO Q12HR PRN 12/17/15 [History] Carvedilol 12.5 mg PO BID 02/19/16 [History] Loperamide [Imodium] 2 mg PO Q8H PRN 02/19/16 [History] Oxygen 2 l IH HS 02/19/16 [History] Renal Vitamin [Renal Caps Softgel] 1 mg PO DAILY 02/19/16 [History] Amlodipine Besylate 10 mg PO DAILY 09/10/16 [History] Cyclosporine, Modified [Gengraf] 75 mg PO BID 09/10/16 [History] Denosumab [Prolia (For Outpatient Infusion)] 60 mg SQ [id number] 09/10/16 [History ] Hydralazine HCl 50 mg PO TID 09/10/16 [History] Oxycodone HCl/Acetaminophen [Percocet 5-325 mg Tablet] 1 tab PO Q4H PRN [History] Ergocalciferol (VITAMIN D2) [Drisdol (50,000 Unit)] 50,000 unit PO QWEEK #4 capsule 09/12/16 [Rx] Allergies/Adverse Reactions: Allergies Penicillins [PCN] Allergy (Verified 06/27/16 14:43) Hives Date of admission: 09/11/16 13:10 Primary care physician: Abdi Deng MD Consults: 09/12/16 07:15 Consult to Dialysis [CONS] ONCE Discharging clinician: Luis Enrique Freeman Anticipated date of discharge: 09/12/16 - Patient Status Disposition: Home Health Service Condition: Good Functional capacity at discharge: independent ambulation Overall status at discharge: patient is back to baseline - Discharge Instructions Follow Up With: Abdi Deng MD [Primary Care Provider] - 09/17/16 3:00 pm (Web requested ) - Diet and Activity Activity: increase activity as tolerated Diet: advance to your usual diet Interval History: Ms. Moore is a 70 year old female with PMH ESRD on HD, HTN, atrial fibrillation and osteoporosis who presented to [facility] on 09/10/2016 from HD session with critically low calcium. IV calcium was started in the ED and she was placed in observation status for continued electrolyte monitoring. Information obtaiemd from chart review an patient report. Patient says she " feel fine" and actually wants to go home but is agreeable to stay. Says she was at HD session today when routine labs showed critically low calcium. She reports numbness and tingling to bilateral feet and hands earlier but denies on my exam. No CP, no SOB, no ABD pain, no N/V/D Hospital course: Ms. Moore is a 70 year old female severe symtpomatic hypocalcemia with hypophosphatemia in setting of esrd on hd and recent therapy with prolia. HD today for clearance Higher Calcium bath today for the hypocalcemia, that I suspect was secondary to recent bisphosphate. Ergocalciferol and the calcitriol will help raise the serum Ca over time in the coming weeks as well. Would continue Ergocalciferol 50k weekly upon discharge Replete the hypophosphatemia Next HD is planned for Thursday Discharge home today. D/W patient. - Time Spent with Patient Total time spent providing and/or coordinating discharge services: - Constitutional Vitals: Temp Pulse Resp BP Pulse Ox 98.3 F 76 16 91/74 91 09/12/16 13:08 09/12/16 13:08 09/12/16 13:08 09/12/16 13:08 09/12/16 13:08 General appearance: Present: A&O X 3, no acute distress - Head Head exam: Present: atraumatic, normocephalic - Eye Eye exam: Present: PERRL, conjuntiva pink, sclera anicteric Pupils: Present: PERRL - Neck Neck exam general surgery: Present: supple, trachea midline. Absent: lymphadenopathy - Respiratory Respiratory exam: Present: CTAB. Absent: accessory muscle use, rales, rhonchi, wheezes - Cardiovascular Cardiovascular exam: Present: RRR, +S1, +S2. Absent: diastolic murmur, gallop, rubs, systolic murmur - GI/Abdominal GI/Abdominal exam: Present: normal bowel sounds, soft, no peritoneal signs. Absent: distended, tenderness - Extremities Exam Extremities exam: Present: warm, radial pulses palpable and symetrical. Absent : calf tenderness, cyanotic, pedal edema - Neurological Exam Neurological exam: Present: CN II-XII intact, oriented X3, no focal deficits. Absent: pronater drift, facial droop, speech deficit - Skin Skin exam: Present: dry, intact
--- NOTE | 2016-09-12 13:30 | Physician Discharge Referral ---
Home Health/Hosp Referral Info Transfer to: Home Health - Diagnosis (1) Hypocalcemia Status: Acute (2) ESRD (end stage renal disease) Status: Chronic (3) DVT prophylaxis Status: Acute (4) Hypophosphatemia Status: Acute - Respiratory Orders Smoking Cessation: Smoking cessation has been advised. For more information, call the [place] Tobacco Quit Line at 9-723-CCBE-NOW. - Diet/Nutrition Diet/Nutrition Orders: Renal - Activity Activity Orders: Ambulate - Services Needed Following services are medically necessary services: Nursing, Home Health Aide, Physical Therapy - Transfer Medications Prescriptions: Ergocalciferol (VITAMIN D2) [Drisdol (50,000 Unit)] 50,000 unit PO QWEEK #4 capsule Home Medications: Acetaminophen [Tylenol] 325 - 650 mg PO Q4HR PRN 03/02/15 [History] Atorvastatin [Lipitor] 10 mg PO HS 03/02/15 [History] Folic Acid 1 mg PO DAILY 03/02/15 [History] Omeprazole [PriLOSEC] 40 mg PO DAILY 03/02/15 [History] Sodium Bicarbonate 650 mg PO BID 03/02/15 [History] predniSONE [Prednisone] 2.5 mg PO BID 03/02/15 [History] Amiodarone [Cordarone] 200 mg PO DAILY 09/18/15 [History] Aspirin 81 mg PO DAILY 12/17/15 [History] B Complex W-C No.20/Folic Acid [Nephrocaps Softgel] 1 mg PO DAILY 12/17/15 [ History] Metoprolol [Lopressor] 25 mg PO Q12HR 12/17/15 [History] Ondansetron HCl [Zofran] 4 mg PO Q8HR PRN 12/17/15 [History] traMADol [Ultram] 50 mg PO Q12HR PRN 12/17/15 [History] Carvedilol 12.5 mg PO BID 02/19/16 [History] Loperamide [Imodium] 2 mg PO Q8H PRN 02/19/16 [History] Oxygen 2 l IH HS 02/19/16 [History] Renal Vitamin [Renal Caps Softgel] 1 mg PO DAILY 02/19/16 [History] Amlodipine Besylate 10 mg PO DAILY 09/10/16 [History] Cyclosporine, Modified [Gengraf] 75 mg PO BID 09/10/16 [History] Denosumab [Prolia (For Outpatient Infusion)] 60 mg SQ [id number] 09/10/16 [History ] Hydralazine HCl 50 mg PO TID 09/10/16 [History] Oxycodone HCl/Acetaminophen [Percocet 5-325 mg Tablet] 1 tab PO Q4H PRN [History] Ergocalciferol (VITAMIN D2) [Drisdol (50,000 Unit)] 50,000 unit PO QWEEK #4 capsule 09/12/16 [Rx] Allergies/Adverse Reactions: Allergies Penicillins [PCN] Allergy (Verified 06/27/16 14:43) Hives Certification: Further, I certify that my clinical findings support that this patient is homebound (i.e. absences from home require considerable and taxing effort and are for medical reasons or christian services or infrequently or short duration when for other reasons) because: Homebound Reason: Patient requires assistance of a person or device to safely leave home, Leaving home requires considerable and taxing effort due to condition, Severity of cardiac or pulmonary status limits activity tolerance Attestation: My signature below is to certify that this patient is under my care and that I, or nurse practitioner, or a physician's medicine assistant working with me, has a face-to -face encounter with this patient.
== END 2016-09-12 14:15 | disposition home health service (06) | DRG 640 ==
LOC: EMEROO 10:45 → 2ANU 10:45
PROVIDERS: ADMIT Internal Medicine; ATTEND Internal Medicine

== ENCOUNTER 2016-09-14 07:50 | Observation (INO) ==
[2016-09-14] MEDS ORDERED: *HR* Morphine 2 MG/ML SYRINGE IM ONE (08:06)
[2016-09-14] MEDS ORDERED: *HR* Morphine 2 MG/ML SYRINGE IVP ONE ×2 (08:09→09:58)
[2016-09-14 08:46] LABS: Basophils % 0.1 %; Eosinophils # 0.2 K/mcL (0.0-0.6); Hematocrit 35.4 % (35.3-44.9); Hemoglobin 11.1 g/dL (11.5-15.4); Immature Granulocytes % 0.4 % (0-4); Lymphocytes # 1.1 K/mcL (0.6-4.6); Lymphocytes % 16.4 %; Mean Corpuscular HGB Conc 31.4 g/dL (31.6-35.5); Mean Corpuscular Hemoglobin 32.2 pg (28.0-33.3); Mean Corpuscular Volume 102.6 fL (83.0-100.0); Mean Platelet Volume 8.3 fL (9.4-12.4); Monocytes # 0.8 K/mcL (0.0-1.3); Monocytes % 11.3 %; Neutrophils # 4.8 K/mcL (1.6-8.9); Platelet Count 166 K/mcL (140-400); Red Blood Count 3.45 M/mcL (3.82-4.97); Red Cell Distribution Width 16.7 % (11.5-14.5); Segmented Neutrophils % 68.8 %
[2016-09-14 08:59] LABS: Calcium 6.1 mg/dL (8.6-10.8)
--- NOTE | 2016-09-14 09:34 | Emergency Department Note ---
Disposition Clinical Impression: Back pain, UTI (urinary tract infection) Disposition: Admitted As Inpatient Condition: Good Referrals: Abdi Deng MD [Primary Care Provider] - Forms: ED Satisfaction Letter Time of Disposition: 10:30 General Adult HPI - General Chief complaint: ED Back Pain/Injury Stated complaint: Unable to walk Source: patient, family, EMS Mode of arrival: ambulatory Limitations: no limitations, physical limitation Nursing Notes Reviewed: Yes Vital Signs Reviewed: Yes - History of Present Illness HPI Narrative: 70-year-old female presents with concerns of increasing back pain and inability to walk. Patient states she was in her usual state of health when 2 days ago she was unable to stand and walk. Patient has been able to move from the chair to a bedside commode with significant pain and a large amount help at home. Step daughter is at home but she is unable to care for the patient throughout the day. Patient denies recent trauma. She denies fever, chills, nausea, vomiting, diarrhea. Patient states she has never had this difficulty before however she does have an MRI in the system from 1 month ago secondary to back pain. Patient states that this is significantly different than the pain is much worse and she is unable to walk. No trauma or cumulative trauma, no recent unexplained weight loss, unexplained fever, IVDU, prolonged steroids, focal neurologic deficits with progress for disabling symptoms or perineal paresthesias or incontinence, not present more than 6 weeks, and no history of AAA. Pain Scale: 10 - Related Data Home Medications Medication Instructions Recorded Confirmed Acetaminophen [Tylenol] 325 - 650 mg PO Q4HR PRN 03/02/15 09/10/16 Atorvastatin [Lipitor] 10 mg PO HS 03/02/15 09/10/16 Folic Acid 1 mg PO DAILY 03/02/15 09/10/16 Omeprazole [PriLOSEC] 40 mg PO DAILY 03/02/15 09/10/16 Sodium Bicarbonate 650 mg PO BID 03/02/15 09/10/16 predniSONE [Prednisone] 2.5 mg PO BID 03/02/15 09/10/16 Amiodarone [Cordarone] 200 mg PO DAILY 09/18/15 09/10/16 Aspirin 81 mg PO DAILY 12/17/15 09/10/16 B Complex W-C No.20/Folic Acid 1 mg PO DAILY 12/17/15 09/10/16 [Nephrocaps Softgel] Metoprolol [Lopressor] 25 mg PO Q12HR 12/17/15 09/10/16 Ondansetron HCl [Zofran] 4 mg PO Q8HR PRN 12/17/15 09/10/16 traMADol [Ultram] 50 mg PO Q12HR PRN 12/17/15 09/10/16 Carvedilol 12.5 mg PO BID 02/19/16 09/10/16 Loperamide [Imodium] 2 mg PO Q8H PRN 02/19/16 09/10/16 Oxygen 2 l IH HS 02/19/16 09/10/16 Renal Vitamin [Renal Caps Softgel] 1 mg PO DAILY 02/19/16 09/10/16 Amlodipine Besylate 10 mg PO DAILY 09/10/16 09/10/16 Cyclosporine, Modified [Gengraf] 75 mg PO BID 09/10/16 09/10/16 Denosumab [Prolia (For Outpatient 60 mg SQ [id number] 09/10/16 09/10/16 Infusion)] Hydralazine HCl 50 mg PO TID 09/10/16 09/10/16 Oxycodone HCl/Acetaminophen 1 tab PO Q4H PRN 09/10/16 09/10/16 [Percocet 5-325 mg Tablet] Previous Rx's Medication Instructions Recorded Ergocalciferol (VITAMIN D2) 50,000 unit PO QWEEK #4 capsule 09/12/16 [Drisdol (50,000 Unit)] Allergies Allergy/AdvReac Type Severity Reaction Status Date / Time Penicillins [PCN] Allergy Hives Verified 06/27/16 14:43 All systems ED: reviewed and negative except as stated. Constitutional: Denies: fever, chills, weakness Cardiovascular: Denies: chest pain, palpitations Respiratory: Denies: cough, dyspnea, wheezes Gastrointestinal: Reports: abdominal pain. Denies: nausea, vomiting Musculoskeletal: Reports: back pain Integumentary: Denies: rash, abrasion Neurological: Denies: headache, weakness Psychiatric: Denies: anxiety, depression Endocrine: Denies: fatigue, heat or cold intolerance Past Medical History - Past Medical History Attestation: Yes The following information was validated with the patient. Source: patient Medical history: Reports: arthritis, atrial fibrillation, diabetes, dialysis, osteoporosis, renal disease Surgical history: Reports: appendectomy, herniorrhaphy, other Psychiatric history: Reports: no psych history ELECTRONIC PAGINATION SYSTEM OPERATOR history: Reports: no ELECTRONIC PAGINATION SYSTEM OPERATOR history - Social History Smoking Status: Never smoker Smokeless Tobacco Status: No Alcohol use: Reports: none Drug use: Reports: none Physical Exam General: Alert and in no acute distress Skin: Warm, dry, intact Head: Normocephalic and atraumatic Neck: Supple, trachea midline and no tenderness Cardiovascular: RRR, no murmur, normal perfusion Respiratory: CTAB, no wheezing, cough, or respiratory distress Musculoskeletal: Normal strength, tenderness to palpation of the L4 midline and right paravertebral musculature. Patient had a MRI of the lumbar spine which showed mild disc protrusion but did not show spinal compression. Patient denies recent injury or other problems in the back. GI: Soft, nontender, nondistended. Bowel sounds present Neuro: A&O to person, place, time and situation. No focal deficits noted on exam Psychiatric: cooperative and appropriate mood and affect. - General Limitations: physical limitation General appearance: alert Course Vital Signs Temperature 97.9 F 09/14/16 07:51 Pulse Rate 72 09/14/16 07:51 Respiratory Rate 18 09/14/16 07:51 Blood Pressure 159/80 09/14/16 07:51 O2 Sat by Pulse Oximetry 95 09/14/16 07:51 Temperature 97.9 F 09/14/16 07:51 Pulse Rate 64 09/14/16 10:07 Respiratory Rate 16 09/14/16 10:07 Blood Pressure 126/56 09/14/16 10:07 O2 Sat by Pulse Oximetry 93 09/14/16 10:07 Oxygen Delivery Oxygen Delivery Room Air Medical Decision Making - MDM Narrative Medical decision making narrative: CT shows a bilateral pleural effusion however patient denies shortness of breath or chest pain or cough or fever. CT also shows mild thickening of the bladder wall and nursing staff had return of purulent material on the straight catheterization. Although I am unable to have a urine sample because the patient does not produce significant amount of urine her symptoms fit with urinary tract infection and the CT supports a possible cystitis. Patient will be started on ceftriaxone emergency department. She states that she has taken cephalosporins in the past without difficulty. Patient was given multiple doses of opiate medication in the emergency department with moderate improvement of her pain however she is still unable to ambulate and will require admission for further care and observation. - Medical Records Medical records reviewed: Yes I reviewed the patient's medical records. - Lab Data Lab results reviewed: Yes I reviewed the patient's lab results. Result diagrams: 09/14/16 08:38 09/14/16 08:38 Lab Results 09/14/16 09/14/16 Range/Units 08:38 08:38 WBC 7.0 (4.3-11.1) K/mcL RBC 3.45 L (3.82-4.97) M/mcL Hgb 11.1 L (11.5-15.4) g/dL Hct 35.4 (35.3-44.9) % MCV 102.6 H (83.0-100.0) fL MCH 32.2 (28.0-33.3) pg MCHC 31.4 L (31.6-35.5) g/dL RDW 16.7 H (11.5-14.5) % Plt Count 166 (140-400) K/mcL MPV 8.3 L (9.4-12.4) fL Immature Gran % 0.4 (0-4) % Seg Neutrophils % 68.8 % Lymphocytes % 16.4 % Monocytes % 11.3 % Eosinophils % 3.0 % Basophils % 0.1 % Neutrophils # 4.8 (1.6-8.9) K/mcL Lymphocytes # 1.1 (0.6-4.6) K/mcL Monocytes # 0.8 (0.0-1.3) K/mcL Eosinophils # 0.2 (0.0-0.6) K/mcL Basophils # 0.0 (0.0-0.2) K/mcL Sodium 135 L (136-145) mEq/L Potassium 5.0 H (3.5-4.5) mEq/L Chloride 94 L (98-109) mEq/L Carbon Dioxide 27 (19-29) mEq/L BUN 36 H (7-20) mg/dL Creatinine 5.50 H (0.57-1.11) mg/dL Est GFR ( Amer) 9 L (> 60) Est GFR (Non-Af Amer) 8 L (> 60) BUN/Creatinine Ratio 7 (6-26) Glucose 93 (70-99) mg/dL Calculated Osmolality 288 (280-300) Calcium 6.1 L (8.6-10.8) mg/dL - Radiology Data Radiology results reviewed: Yes I reviewed the patient's radiology results. - EKG Data EKG #1 EKG attestation: Yes I reviewed and interpreted this EKG. EKG results narrative: ECG - interpreted by ED physician. Rate 69, normal sinus rhythm, no STEMI, PA, QT intervals, and QRS within normal limits
[2016-09-14] MEDS ORDERED: Naloxone 0.4 MG/ML INJ IVP PRN (10:38)
[2016-09-14] MEDS ORDERED: Ondansetron ODT 4 MG TAB.RAPDIS PO PRN (13:09)
[2016-09-14] MEDS ORDERED: Acetaminophen 325 MG TABLET PO PRN (13:09)
[2016-09-14] MEDS ORDERED: traMADol 50 MG TABLET PO PRN (13:09)
--- NOTE | 2016-09-14 14:37 | Internal Med History&Physical ---
Date of Encounter: 09/14/16 Time of Encounter: 14:15 Assessment and Plan (1) Back pain Current visit: Yes Status: Acute Patient with acute low back pain and decreased ambulatory capacity as a result of pain. History of hypocalcemia, osteoporosis and recent Prolia injection. Given the new acute symptoms, will repeat MRI of the lumbar spine to look for any abnormalities. Pain control. Physical therapy evaluation. Patient may require placement to skilled rehabilitation. Qualifiers: Back pain location: low back pain Chronicity: acute Back pain laterality : midline Sciatica presence: unspecified whether sciatica present Qualified Code(s): M54.5 - Low back pain (2) UTI (urinary tract infection) Current visit: Yes Status: Acute Urinalysis appears to show an acute urinary tract infection and cystitis per CT scan findings of gallbladder wall thickening. However patient is a dialysis patient and makes minimal urine and can have abnormal urinalysis at baseline. We will continue antibiotics for now and await culture results. Qualifiers: Urinary tract infection type: acute cystitis Hematuria presence: without hematuria Qualified Code(s): N30.00 - Acute cystitis without hematuria (3) Hypocalcemia Current visit: Yes Status: Acute Check ionized calcium. We will replace with intravenous calcium gluconate (4) ESRD (end stage renal disease) Current visit: Yes Status: Chronic Consult nephrology for dialysis needs. (5) Hypertension Current visit: Yes Status: Chronic Well controlled. Monitor blood pressure and resume home medications. Qualifiers: Hypertension type: secondary to other renal disorders Qualified Code(s): I15.1 - Hypertension secondary to other renal disorders; N28.89 - Other specified disorders of kidney and ureter Internal Medicine - H&P: HPI Chief complaint: Severe back pain and difficulty ambulating Admitted From: Emergency Dept Plans for Post Hospital Care: Transfer Group Home Facility History of present illness: Ms. Moore is a 70 year old female patient with history of end-stage renal disease, hypocalcemia related to recent Prolia injection, osteoporosis, hypertension, hyperlipidemia presented to the ER with complaints of severe back pain along with difficulty ambulating. Her pain began yesterday afternoon and has been progressively getting worse. She is having difficulty performing her activities of daily living at home. She rates the pain 10 out of 10 in severity at its worst. She denies any lower extremity weakness or numbness. No bowel or bladder incontinence. She gets dialyzed on a Thursday and Thursday schedule. She had just been discharged from the hospital 2 days back following an admission for hypocalcemia. At that time she received calcium gluconate and was discharged on oral vitamin D supplements. She felt fine on the day of the discharge and was able to ambulate well. She has had chronic back pain in the past and underwent MRI of the lumbar spine in August which showed mild disc protrusion without any spinal compression. However her current pain is much worse than her chronic pain. She denies any trauma or lifting any heavy objects or weights Past Med Surg Social Fam HX - Past Medical History Attestation: Yes The following information was validated with the patient. Source: patient, old records reviewed Medical history: arthritis, atrial fibrillation, diabetes, dialysis, osteoporosis, renal disease Psychiatric history: no psych history - Past Surgical History Surgical History: appendectomy, herniorrhaphy, other - Social History Smoking Status: Never smoker Smokeless Tobacco Status: No Alcohol use: none Drug use: none - Family History Mother Living Status: Hx Family Cardiac Disorders: Yes Internal Medicine - H&P: Meds Acetaminophen [Tylenol] 325 - 650 mg PO Q4HR PRN 03/02/15 [History] Atorvastatin [Lipitor] 10 mg PO HS 03/02/15 [History] Folic Acid 1 mg PO DAILY 03/02/15 [History] Omeprazole [PriLOSEC] 40 mg PO DAILY 03/02/15 [History] predniSONE [Prednisone] 2.5 mg PO BID 03/02/15 [History] Amiodarone [Cordarone] 200 mg PO DAILY 09/18/15 [History] Aspirin 81 mg PO DAILY 12/17/15 [History] B Complex W-C No.20/Folic Acid [Nephrocaps Softgel] 1 mg PO DAILY 12/17/15 [ History] Metoprolol [Lopressor] 25 mg PO Q12HR 12/17/15 [History] Ondansetron HCl [Zofran] 4 mg PO Q8HR PRN 12/17/15 [History] traMADol [Ultram] 50 mg PO Q12HR PRN 12/17/15 [History] Carvedilol 12.5 mg PO BID 02/19/16 [History] Loperamide [Imodium] 2 mg PO Q8H PRN 02/19/16 [History] Oxygen 2 l IH HS 02/19/16 [History] Renal Vitamin [Renal Caps Softgel] 1 mg PO DAILY 02/19/16 [History] Amlodipine Besylate 10 mg PO DAILY 09/10/16 [History] Cyclosporine, Modified [Gengraf] 75 mg PO BID 09/10/16 [History] Denosumab [Prolia (For Outpatient Infusion)] 60 mg SQ [id number] 09/10/16 [History ] Hydralazine HCl 50 mg PO TID 09/10/16 [History] Oxycodone HCl/Acetaminophen [Percocet 5-325 mg Tablet] 1 tab PO Q4H PRN [History] Ergocalciferol (VITAMIN D2) [Drisdol (50,000 Unit)] 50,000 unit PO QWEEK #4 capsule 09/12/16 [Rx] Allergies Penicillins [PCN] Allergy (Verified 06/27/16 14:43) Hives All Systems PM: A 10-system review of systems was performed and is negative for pertinent findings except as documented above in the HPI. - Constitutional Constitutional: weakness, no chills, no fever(s), no night sweats - EENT Eyes: no change in vision, no discharge, no pain, no photophobia Ears: no ear discharge, no ear pain, no tinnitus Nose, mouth and throat: no dysphagia, no nasal discharge, no neck pain, no sore throat - Cardiovascular Cardiovascular ROS IM: no chest pain, no diaphoresis, no dyspnea, no lightheadedness, no palpitations, no syncope - Respiratory Respiratory: no cough, no dyspnea, no wheezing, no excessive phlegm production - Gastrointestinal Gastrointestinal: no abdominal pain, no diarrhea, no hematemesis, no hematochezia, no melena, no nausea, no vomiting - Genitourinary Genitourinary: no change in urinary stream, no dysuria, no flank pain, no hematuria - Musculoskeletal Musculoskeletal ROS IM: back pain - Integumentary Integumentary IM: no rash, no unusual bruising - Neurological Neurological ROS: no confusion, no convulsions, no focal weakness, no numbness, no tingling, no tremor(s) - Hematologic/Lymphatic Hematologic/Lymphatic: no easy bruising - Constitutional Vitals: Temp Pulse Resp BP Pulse Ox 99 F 63 18 134/63 91 09/14/16 12:46 05/14/17 12:46 09/14/16 12:46 09/14/16 12:46 09/14/16 13:15 General appearance: Present: cooperative, mild distress, A&O X 3, answers questions appropriately - Respiratory Respiratory exam: Present: CTAB. Absent: accessory muscle use, rales, rhonchi, wheezes - Cardiovascular Cardiovascular exam: Present: RRR, +S1, +S2. Absent: diastolic murmur, gallop, rubs, systolic murmur - GI/Abdominal GI/Abdominal exam: Present: normal bowel sounds, soft, no peritoneal signs. Absent: distended, tenderness - Extremities Exam Extremities exam: Present: warm, radial pulses palpable and symetrical. Absent : calf tenderness, cyanotic, pedal edema Additional comments: Pain in her back during straight leg raise test bilaterally but greater on the left - Neurological Exam Neurological exam: Present: alert, oriented X3, no focal deficits. Absent: facial droop, speech deficit - Psychiatric Psychiatric exam: Present: normal affect, normal mood - Skin Skin exam: Present: dry, intact Internal Med - H&P Results - Labs CBC & Chem 7: 09/14/16 08:38 09/14/16 08:38 - Impressions Impressions Abdomen/Pelvis CT 09/14/16 08:12 IMPRESSION: 1. Moderate bilateral pleural effusions, with compressive atelectasis of the bilateral lower lobes. 2. Moderate hiatal hernia. Cardiomegaly. 3. Pancreatic atrophy, with stable 3.5 cm cystic lesion arising from the body of the pancreas. This could be further evaluated by MRI with pancreatic mass protocol, if not previously performed. 4. Cholelithiasis, with retained stone present in the distal common bile duct, stable. 5. Severe atrophy of the [place] kidneys. 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 There is mild dilatation of the transplanted ureter, with no significant pelvicaliectasis at this time. 6. Mild wall thickening of the urinary bladder. D/ / 09/14/2016 09:43:43 Andres Harmon MD / jose e Interpreting Provider: Andres Harmon MD Chest X-Ray 09/14/16 09:37 IMPRESSION: Aeration of the lungs is improved compared to the prior chest x-ray 07/02/2016 with some remaining right pleural effusion and left basilar opacity that could be due to atelectasis and/or effusion. D/ / Mc Glynn MD / Mc Glynn MD Interpreting Provider: Mc Glynn MD - Attending Attestation This document has been at least partially created by PingMD recognition technology by Dr. Sims. Errors in grammar, wording or other phrases may exist. If errors are found after the documentation is signed, they will be addressed individually in the addendum section of this document when appropriate.
[2016-09-14] MEDS ORDERED: Calcium Gluconate 2,000 MG in D5% in Water 100 ML IVPB ONE (14:51)
[2016-09-14] MEDS: hydrALAZINE 25 MG TABLET PO SCH ×2 (15:19→20:24)
[2016-09-14] MEDS: *HR* Heparin 5,000 UNIT/ML VIAL SQ SCH (17:41)
[2016-09-14] MEDS: *HR* OxyCODONE/APAP 5/325 TABLET PO PRN (17:48)
[2016-09-14] MEDS: CycloSPORINE, Mod (Neoral) 25 MG CAPSULE PO SCH (20:24)
[2016-09-14] MEDS: predniSONE 5 MG TABLET PO SCH (20:24)
--- NOTE | 2016-09-14 21:53 | Electrocardiograph Report ---
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
[2016-09-15 04:56] LABS: Basophils % 0.6 %; Eosinophils # 0.3 K/mcL (0.0-0.6); Eosinophils % 4.1 %; Hematocrit 32.9 % (35.3-44.9); Hemoglobin 10.3 g/dL (11.5-15.4); Immature Granulocytes % 0.7 % (0-4); Lymphocytes # 1.2 K/mcL (0.6-4.6); Lymphocytes % 17.9 %; Mean Corpuscular HGB Conc 31.3 g/dL (31.6-35.5); Mean Corpuscular Hemoglobin 32.1 pg (28.0-33.3); Mean Corpuscular Volume 102.5 fL (83.0-100.0); Mean Platelet Volume 8.7 fL (9.4-12.4); Monocytes # 0.9 K/mcL (0.0-1.3); Monocytes % 13.3 %; Neutrophils # 4.3 K/mcL (1.6-8.9); Platelet Count 157 K/mcL (140-400); Red Blood Count 3.21 M/mcL (3.82-4.97); Red Cell Distribution Width 16.3 % (11.5-14.5); Segmented Neutrophils % 63.4 %
[2016-09-15 05:19] LABS: Potassium 5.9 mEq/L (3.5-4.5)
[2016-09-15 05:21] LABS: Calcium 5.9 mg/dL (8.6-10.8)
[2016-09-15] MEDS: *HR* Heparin 5,000 UNIT/ML VIAL SQ SCH ×2 (05:34→18:19)
[2016-09-15] MEDS ORDERED: Calcium Gluconate 2,000 MG in D5% in Water 100 ML IVPB ONE (05:47)
[2016-09-15] MEDS: CycloSPORINE, Mod (Neoral) 25 MG CAPSULE PO SCH ×2 (06:35→21:02)
[2016-09-15] MEDS: predniSONE 5 MG TABLET PO SCH ×2 (06:35→21:02)
[2016-09-15] MEDS ORDERED: 0.9 % Sodium Chloride 250 ML IVC PRN (07:53)
[2016-09-15] MEDS: Folic Acid 1 MG TABLET PO SCH (08:01)
[2016-09-15] MEDS: Aspirin 81 MG TAB.CHEW PO SCH (08:01)
[2016-09-15] MEDS: Renal Vitamin 1 MG CAPSULE PO SCH (08:01)
[2016-09-15] MEDS: *HR* OxyCODONE/APAP 5/325 TABLET PO PRN (08:11)
[2016-09-15] MEDS ORDERED: Renal Vitamin 1 MG CAPSULE PO SCH (09:00)
--- NOTE | 2016-09-15 09:14 | Nephrology Consult Note ---
Date of Encounter: 09/16/16 Time of Encounter: 09:15 Assessment and Plan (1) ESRD (end stage renal disease) Current Visit: Yes Status: Chronic HD today Follow BID calcium (2) Hypocalcemia Current Visit: Yes Status: Acute She will need ongoing IV calcium repletion (3) Back pain Current Visit: Yes Status: Acute As per primary Qualifiers: Back pain location: low back pain Chronicity: acute Back pain laterality : midline Sciatica presence: unspecified whether sciatica present Qualified Code(s): M54.5 - Low back pain (4) Hypertension Current Visit: Yes Status: Chronic Resume home antihypertensive Rx Qualifiers: Hypertension type: secondary to other renal disorders Qualified Code(s): I15.1 - Hypertension secondary to other renal disorders; N28.89 - Other specified disorders of kidney and ureter (5) Hyperparathyroidism Current Visit: No Status: Chronic Resume home Rx History of Present Illness - Reason for Consult Consult date: 09/16/16 end stage renal disease Requesting physician: Hal Bui - Chief Complaint ESRD, Hypocalcemia - History of Present Illness Phyllis Moore is a very pleasant 70 y/o AAF with a pmh of ESRD on HD // who presented with LE weakness. She last had HD on Thursday. Her primary gold stamper is Dr. Russo and she dialyzes at [facility] every M// for 180 min. The LE weakness started a few weeks ago after receiving an osteoporsis medication. She did not affirm N/V/D or uremic symptoms. She did not affirm CP, shortness of breath but has experienced generalized fatigue. Past Med Surg Social Fam HX - Past Medical History Medical history: arthritis, atrial fibrillation, diabetes, dialysis, osteoporosis, renal disease Psychiatric history: no psych history - Past Surgical History Surgical History: appendectomy, herniorrhaphy, other - Social History Smoking Status: Never smoker Smokeless Tobacco Status: No Alcohol use: none Drug use: none - Family History Mother Living Status: Hx Family Cardiac Disorders: Yes Medications and Allergies Acetaminophen [Tylenol] 325 - 650 mg PO Q4HR PRN 03/02/15 [History] Atorvastatin [Lipitor] 10 mg PO HS 03/02/15 [History] Folic Acid 1 mg PO DAILY 03/02/15 [History] Omeprazole [PriLOSEC] 40 mg PO DAILY 03/02/15 [History] predniSONE [Prednisone] 2.5 mg PO BID 03/02/15 [History] Amiodarone [Cordarone] 200 mg PO DAILY 09/18/15 [History] Aspirin 81 mg PO DAILY 12/17/15 [History] B Complex W-C No.20/Folic Acid [Nephrocaps Softgel] 1 mg PO DAILY 12/17/15 [ History] Metoprolol [Lopressor] 12.5 mg PO Q12HR 12/17/15 [History] Ondansetron HCl [Zofran] 4 mg PO Q8HR PRN 12/17/15 [History] traMADol [Ultram] 50 mg PO Q12HR PRN 12/17/15 [History] Carvedilol 12.5 mg PO BID 02/19/16 [History] Loperamide [Imodium] 2 mg PO Q8H PRN 02/19/16 [History] Oxygen 2 l IH HS 02/19/16 [History] Renal Vitamin [Renal Caps Softgel] 1 mg PO DAILY 02/19/16 [History] Amlodipine Besylate 10 mg PO DAILY 09/10/16 [History] Cyclosporine, Modified [Gengraf] 75 mg PO BID 09/10/16 [History] Denosumab [Prolia (For Outpatient Infusion)] 60 mg SQ [id number] 09/10/16 [History ] Hydralazine HCl 50 mg PO TID 09/10/16 [History] Oxycodone HCl/Acetaminophen [Percocet 5-325 mg Tablet] 1 tab PO Q4H PRN [History] Ergocalciferol (VITAMIN D2) [Drisdol (50,000 Unit)] 50,000 unit PO QWEEK #4 capsule 09/12/16 [Rx] Allergies Penicillins [PCN] Allergy (Verified 09/14/16 15:26) Hives Review of Systems All Systems: reviewed and no additional remarkable complaints except as stated Exam - Vital Signs Vital signs: Initial Vital Signs Temp Pulse Resp BP Pulse Ox 97.9 F 72 18 159/80 95 09/14/16 07:51 09/14/16 07:51 09/14/16 07:51 09/14/16 07:51 09/14/16 07:51 Vital Signs - Last 8 Hours Temp Pulse Resp BP Pulse Ox 09/15/16 07:06 97.6 F 64 16 134/47 94 09/15/16 05:15 97.9 F 64 16 97/52 97 Intake and Output 09/14/16 09/15/16 09/15/16 23:59 07:59 15:59 Other: Weight 64.9 kg Patient Weight 09/15/16 23:59 Weight 64.9 kg - General Appearance General appearance: well-developed, appears started age, chronically ill, fatigue, frail EENT: ATNC, PERRL, mucous membranes moist Neck: supple Respiratory: clear Cardiology: no edema, regular rate, regular rhythm, normal S1, normal S2 - Dialysis Access Dialysis Vascular Access: Arteriovenous Graft (Left) thrill: Yes bruit: Yes Gastrointestinal: normoactive bowel sounds, no tenderness, no guarding Integumentary: no rash, warm and dry Neurologic: no asterixis, alert and oriented x3 Musculoskeletal: no deformities, no erythema, no clubbing Psychiatric: cooperative Results - Lab Results 09/15/16 04:06 09/15/16 04:06 Most recent lab results Calcium 5.9 mg/dL (8.6-10.8) L* 09/15/16 04:06 I reviewed the above auto generated data Consult Discharge Plan - Plan Referrals: Abdi Deng MD [Primary Care Provider] - (please call when patient have definite discharge date)
[2016-09-15 12:02] LABS: Ionized Calcium 0.83 mmol/L (1.15-1.35)
[2016-09-15 12:06] LABS: Calcium 6.5 mg/dL (8.6-10.8)
[2016-09-15] MEDS ORDERED: 0.9 % Sodium Chloride 2,000 ML ONE (13:13)
[2016-09-15] MEDS: hydrALAZINE 25 MG TABLET PO SCH ×3 (14:38→21:04)
[2016-09-15] MEDS: amLODIPine 5 MG TABLET PO SCH (14:49)
[2016-09-15] MEDS: *HR* Amiodarone 200 MG TABLET PO SCH (14:49)
--- NOTE | 2016-09-15 17:24 | Internal Med Progress Note ---
Date of Encounter: 09/15/16 Time of Encounter: 17:22 - Assessment and plan (1) ESRD (end stage renal disease) Current Visit: Yes Status: Chronic Assessment and plan: renal on board for maintenance HD. s/p HD today. (2) Weakness Current Visit: No Status: Acute Assessment and plan: Patient c/o acute low back pain and decreased ambulatory capacity as a result of pain. History of hypocalcemia, osteoporosis and recent Prolia injection. MRI lumbar spine shows mild multilevel degenerative spondylosis, no significant lumbar spinal canal or neural foraminal stenosis. PT/OT recommends inpatient rehab. Patient may require placement to skilled rehabilitation (3) Hypocalcemia Current Visit: Yes Status: Acute Assessment and plan: improved after HD. possible 2/2 ESRD. renal following. - Time Spent With Patient 25 - 35 minutes - Subjective Interval history: patient seen at the bedside, reports generalized weakness and says she has back pain she denies chest pain or sob, no cough or fever. she was recently dc from the hospital. - Constitutional Vitals: Temp Pulse Resp BP Pulse Ox 98.6 F 66 16 119/67 94 09/15/16 16:26 09/15/16 16:26 09/15/16 16:26 09/15/16 16:26 09/15/16 16:26 General appearance: Present: cooperative, A&O X 3, answers questions appropriately Exam: - Respiratory Respiratory exam: Present: CTAB. Absent: accessory muscle use, rales, rhonchi, wheezes - Cardiovascular Cardiovascular exam: Present: RRR, +S1, +S2. Absent: diastolic murmur, gallop, rubs, systolic murmur - GI/Abdominal GI/Abdominal exam: Present: normal bowel sounds, soft, no peritoneal signs. Absent: distended, tenderness - Extremities Exam Extremities exam: Present: warm, radial pulses palpable and symetrical. Absent : calf tenderness, cyanotic, pedal edema - Neurological Exam Neurological exam: Present: alert, oriented X3, no focal deficits. Absent: facial droop, speech deficit - Psychiatric Psychiatric exam: Present: normal affect, normal mood - Skin Skin exam: Present: dry, intact Internal Medicine: Result - Labs CBC & Chem 7: 09/15/16 04:06 09/15/16 04:06 Labs: Short CBC 09/15/16 Range/Units 04:06 WBC 6.8 (4.3-11.1) K/mcL Hgb 10.3 L (11.5-15.4) g/dL Hct 32.9 L (35.3-44.9) % Plt Count 157 (140-400) K/mcL Neutrophils # 4.3 (1.6-8.9) K/mcL BMP 09/15/16 09/15/16 04:06 11:15 Sodium 133 L Potassium 5.9 H Chloride 95 L Carbon Dioxide 25 BUN 45 H Creatinine 6.51 H Glucose 87 Calcium 5.9 L* 6.5 L - Impressions Impressions Lumbar Spine MRI 09/15/16 09:21 IMPRESSION: Mild multilevel degenerative spondylosis. Shallow disc bulge at L4-L5. No significant lumbar spinal canal or neural foraminal stenosis. D/ / Kylie Demarco MD / Kylie Demarco MD Interpreting Provider: Kylie Demarco MD Consult Discharge Plan - Plan Referrals: Abdi Deng MD [Primary Care Provider] - (please call when patient have definite discharge date)
[2016-09-15 18:07] LABS: Calcium 6.8 mg/dL (8.6-10.8)
[2016-09-15 18:44] LABS: Ionized Calcium 0.8 mmol/L (1.15-1.35)
[2016-09-16] MEDS: *HR* OxyCODONE/APAP 5/325 TABLET PO PRN ×3 (00:50→20:39)
[2016-09-16 05:24] LABS: Basophils % 0.5 %; Eosinophils # 0.2 K/mcL (0.0-0.6); Eosinophils % 3.8 %; Hematocrit 33.6 % (35.3-44.9); Hemoglobin 10.6 g/dL (11.5-15.4); Immature Granulocytes % 0.3 % (0-4); Lymphocytes # 1.1 K/mcL (0.6-4.6); Lymphocytes % 19.6 %; Mean Corpuscular HGB Conc 31.5 g/dL (31.6-35.5); Mean Corpuscular Volume 101.5 fL (83.0-100.0); Mean Platelet Volume 8.9 fL (9.4-12.4); Monocytes # 0.8 K/mcL (0.0-1.3); Monocytes % 14.1 %; Neutrophils # 3.6 K/mcL (1.6-8.9); Platelet Count 134 K/mcL (140-400); Red Blood Count 3.31 M/mcL (3.82-4.97); Red Cell Distribution Width 15.9 % (11.5-14.5); Segmented Neutrophils % 61.7 %
[2016-09-16 05:25] LABS: Ionized Calcium 0.74 mmol/L (1.15-1.35)
[2016-09-16] MEDS: *HR* Heparin 5,000 UNIT/ML VIAL SQ SCH ×2 (05:31→17:22)
[2016-09-16 05:34] LABS: Calcium 6.5 mg/dL (8.6-10.8)
[2016-09-16 06:01] LABS: Calcium 6.6 mg/dL (8.6-10.8); Potassium 5.2 mEq/L (3.5-4.5)
--- NOTE | 2016-09-16 08:41 | Nephrology Progress Note ---
Date of Encounter: 09/16/16 Time of Encounter: 08:39 - Assessment and Plan (1) ESRD (end stage renal disease) Current Visit: Yes Status: Chronic Plan for HD tomorrow Continue renal diet Avoid nephrotoxins if possible (2) Back pain Current Visit: Yes Status: Acute per primary team Qualifiers: Back pain location: low back pain Chronicity: acute Back pain laterality : midline Sciatica presence: unspecified whether sciatica present Qualified Code(s): M54.5 - Low back pain (3) Hypocalcemia Current Visit: Yes Status: Acute Continue IV calcium Subjective Principal diagnosis: ESRD on dialysis, hypocalcemia, severe back pain Interval history: Patient seen and examined. States she is feeling better but continues with back pain. Objective - Vital Signs Vital signs: Vital Signs Temp Pulse Resp BP Pulse Ox 09/16/16 06:25 98.6 F 60 18 112/45 94 09/16/16 03:45 98.3 F 64 17 115/41 96 09/15/16 23:53 98.1 F 66 16 119/39 97 09/15/16 21:05 96 09/15/16 19:44 98.0 F 63 15 103/52 95 09/15/16 16:26 98.6 F 66 16 119/67 94 09/15/16 14:45 97.9 F 70 16 134/64 96 09/15/16 14:10 97.7 F 14 114/52 09/15/16 14:05 103/42 09/15/16 13:50 99/45 09/15/16 13:35 113/48 09/15/16 13:20 105/41 09/15/16 13:05 106/41 09/15/16 12:50 105/44 09/15/16 12:35 98/42 09/15/16 12:20 114/47 09/15/16 12:05 112/46 09/15/16 11:50 123/50 09/15/16 11:43 97.7 F 63 16 112/46 93 09/15/16 11:35 126/52 09/15/16 11:20 129/51 09/15/16 11:05 97.7 F 14 128/52 Intake and Output 09/15/16 09/16/16 09/16/16 23:59 07:59 15:59 Intake Total 700 / 700 Output Total 100 / 100 Balance 600 / 600 Intake: Oral 700 / 700 Output: Urine 100 / 100 Other: Meal Dinner Percent of Meal Consumed 50% Weight 63.8 kg Patient Weight 09/16/16 23:59 Weight 63.8 kg - General Appearance General appearance: Present: chronically ill, frail EENT: Present: ATNC, mucous membranes moist, hearing intact, vision intact Neck: Present: supple Respiratory: Present: clear Cardiology: Present: no edema, normal S1, normal S2 Dialysis Vascular Access: Arteriovenous Fistula Gastrointestinal: Present: no tenderness, no guarding Integumentary: Present: warm and dry Neurologic: Present: no focal deficit, alert and oriented x3 Psychiatric: Present: mood/affect appropriate, cooperative - Lab 09/16/16 05:09 09/16/16 05:09 Most recent lab results Calcium 6.6 mg/dL (8.6-10.8) L 09/16/16 05:09 Consult Discharge Plan - Plan Referrals: Abdi Deng MD [Primary Care Provider] - (please call when patient have definite discharge date)
[2016-09-16] MEDS: amLODIPine 5 MG TABLET PO SCH (09:12)
[2016-09-16] MEDS: Renal Vitamin 1 MG CAPSULE PO SCH (09:12)
[2016-09-16] MEDS: Folic Acid 1 MG TABLET PO SCH (09:12)
[2016-09-16] MEDS: *HR* Amiodarone 200 MG TABLET PO SCH (09:13)
[2016-09-16] MEDS: hydrALAZINE 25 MG TABLET PO SCH ×3 (09:13→20:35)
[2016-09-16] MEDS: Aspirin 81 MG TAB.CHEW PO SCH (09:13)
[2016-09-16] MEDS: CycloSPORINE, Mod (Neoral) 25 MG CAPSULE PO SCH ×2 (09:30→20:39)
[2016-09-16] MEDS: predniSONE 5 MG TABLET PO SCH ×2 (09:30→20:40)
--- NOTE | 2016-09-16 13:35 | Internal Med Progress Note ---
Date of Encounter: 09/16/16 Time of Encounter: 13:33 - Assessment and plan (1) ESRD (end stage renal disease) Current Visit: Yes Status: Chronic Assessment and plan: renal on board for maintenance HD. s/p HD yesterday, will follow recommendations (2) Weakness Current Visit: No Status: Acute Assessment and plan: Patient c/o acute low back pain and decreased ambulatory capacity as a result of pain. History of hypocalcemia, osteoporosis and recent Prolia injection. MRI lumbar spine shows mild multilevel degenerative spondylosis, no significant lumbar spinal canal or neural foraminal stenosis. PT/OT recommends inpatient rehab. Patient may require placement to skilled rehabilitation. Agreeable to go to [facility], will follow up with social work. (3) Hypocalcemia Current Visit: Yes Status: Acute Assessment and plan: improved after HD. possible 2/2 ESRD. renal following. 4 times a day calcium supplementation as per renal. (4) Cholelithiasis Current Visit: Yes Status: Acute Assessment and plan: CT abdomen done on this admission shows cholelithiasis with distal CBD stone. LFTs done week back shows normal bilirubin and liver enzymes. Discussed with Dr. Marte, will order MRCP, if CBD stone confirmed, will need to get ERCP Qualifiers: Cholelithiasis location: gallbladder and bile duct Cholecystitis presence: without cholecystitis Biliary obstruction: without biliary obstruction Qualified Code(s): K80.70 - Calculus of gallbladder and bile duct without cholecystitis without obstruction - Subjective Interval history: patient seen at the bedside, reports generalized weakness and back pain she denies chest pain or sob, no cough or fever. PT OT recommended inpatient rehabilitation, patient agreeing to go to [facility] if accepted. - Constitutional Vitals: Temp Pulse Resp BP Pulse Ox 98.7 F 58 18 138/66 90 09/16/16 11:43 09/16/16 11:43 09/16/16 11:43 09/16/16 11:43 09/16/16 11:43 General appearance: Present: cooperative, A&O X 3, answers questions appropriately Exam: Exam: - Respiratory Respiratory exam: Present: CTAB. Absent: accessory muscle use, rales, rhonchi, wheezes - Cardiovascular Cardiovascular exam: Present: RRR, +S1, +S2. Absent: diastolic murmur, gallop, rubs, systolic murmur - GI/Abdominal GI/Abdominal exam: Present: normal bowel sounds, soft, no peritoneal signs. Absent: distended, tenderness - Extremities Exam Extremities exam: Present: warm, radial pulses palpable and symetrical. Absent : calf tenderness, cyanotic, pedal edema - Neurological Exam Neurological exam: Present: alert, oriented X3, no focal deficits. Absent: facial droop, speech deficit - Psychiatric Psychiatric exam: Present: normal affect, normal mood - Skin Skin exam: Present: dry, intact Internal Medicine: Result - Labs CBC & Chem 7: 09/16/16 05:09 09/16/16 05:09 Labs: Short CBC 09/16/16 Range/Units 05:09 WBC 5.8 (4.3-11.1) K/mcL Hgb 10.6 L (11.5-15.4) g/dL Hct 33.6 L (35.3-44.9) % Plt Count 134 L (140-400) K/mcL Neutrophils # 3.6 (1.6-8.9) K/mcL BMP 09/15/16 09/16/16 09/16/16 17:48 05:09 05:09 Sodium 131 L Potassium 5.2 H Chloride 93 L Carbon Dioxide 26 BUN 27 H D Creatinine 4.53 H Glucose 105 H Calcium 6.8 L 6.5 L 6.6 L Consult Discharge Plan - Plan Referrals: Abdi Deng MD [Primary Care Provider] - (please call when patient have definite discharge date)
[2016-09-16 17:19] LABS: Ionized Calcium 0.76 mmol/L (1.15-1.35)
[2016-09-16 17:21] LABS: Calcium 6.1 mg/dL (8.6-10.8)
[2016-09-17] MEDS: *HR* OxyCODONE/APAP 5/325 TABLET PO PRN ×4 (00:21→21:08)
[2016-09-17] MEDS: CycloSPORINE, Mod (Neoral) 25 MG CAPSULE PO SCH ×2 (06:20→21:08)
[2016-09-17] MEDS: Aspirin 81 MG TAB.CHEW PO SCH (06:21)
[2016-09-17] MEDS: predniSONE 5 MG TABLET PO SCH ×2 (06:21→21:08)
[2016-09-17] MEDS: Folic Acid 1 MG TABLET PO SCH (06:21)
[2016-09-17] MEDS: *HR* Heparin 5,000 UNIT/ML VIAL SQ SCH ×2 (06:22→17:28)
[2016-09-17] MEDS: Renal Vitamin 1 MG CAPSULE PO SCH (06:22)
[2016-09-17] MEDS ORDERED: 0.9 % Sodium Chloride 250 ML IVC PRN (08:01)
[2016-09-17 10:14] LABS: Basophils % 0.7 %; Immature Granulocytes % 0.7 % (0-4); Mean Corpuscular HGB Conc 31.5 g/dL (31.6-35.5)
[2016-09-17 10:16] LABS: Eosinophils # 0.1 K/mcL (0.0-0.6); Eosinophils % 4.8 %; Hematocrit 29.2 % (35.3-44.9); Hemoglobin 9.2 g/dL (11.5-15.4); Lymphocytes # 0.7 K/mcL (0.6-4.6); Lymphocytes % 43.5 %; Mean Corpuscular Hemoglobin 31.7 pg (28.0-33.3); Mean Corpuscular Volume 100.7 fL (83.0-100.0); Mean Platelet Volume 8.9 fL (9.4-12.4); Monocytes # 0.1 K/mcL (0.0-1.3); Monocytes % 6.1 %; Neutrophils # 0.7 K/mcL (1.6-8.9); Platelet Count 136 K/mcL (140-400); Red Cell Distribution Width 15.1 % (11.5-14.5); Segmented Neutrophils % 44.2 %
[2016-09-17 10:25] LABS: Calcium 6.2 mg/dL (8.6-10.8); Potassium 4.4 mEq/L (3.5-4.5)
--- NOTE | 2016-09-17 10:56 | Nephrology Progress Note ---
Date of Encounter: 09/18/16 Time of Encounter: 10:20 - Assessment and Plan (1) ESRD (end stage renal disease) Current Visit: Yes Status: Chronic HD today for clearance. Using a 3Ca bath (2) Hypocalcemia Current Visit: Yes Status: Acute Using a higher Ca bath (3) Back pain Current Visit: Yes Status: Acute As per primary. Qualifiers: Back pain location: low back pain Chronicity: acute Back pain laterality : midline Sciatica presence: unspecified whether sciatica present Qualified Code(s): M54.5 - Low back pain (4) Hypertension Current Visit: Yes Status: Chronic Continue home Rx Qualifiers: Hypertension type: secondary to other renal disorders Qualified Code(s): I15.1 - Hypertension secondary to other renal disorders; N28.89 - Other specified disorders of kidney and ureter (5) Hyperparathyroidism Current Visit: No Status: Chronic Continue home Rx Subjective Principal diagnosis: ESRD on dialysis, hypocalcemia, severe back pain Interval history: Pt was s/e while on HD. She did not affirm N/V/D or uremic symptoms. Objective - Vital Signs Vital signs: Vital Signs Temp Pulse Resp BP Pulse Ox 09/17/16 07:39 97.8 F 58 16 108/52 94 09/17/16 03:37 98.1 F 58 16 115/42 97 09/16/16 23:19 97.9 F 57 16 99/37 93 09/16/16 19:56 98.3 F 57 16 103/40 92 09/16/16 15:59 98.6 F 61 18 116/42 91 09/16/16 11:43 98.7 F 58 18 138/66 90 Intake and Output 09/16/16 09/17/16 09/17/16 23:59 07:59 15:59 Other: # Voids 1 Weight 59.3 kg Patient Weight 09/17/16 23:59 Weight 59.3 kg - General Appearance General appearance: Present: well-developed, well-nourished, appears started age EENT: Present: ATNC, PERRL Neck: Present: supple Respiratory: Present: clear Cardiology: Present: regular rate, normal S1, normal S2 Gastrointestinal: Present: normoactive bowel sounds, no tenderness Integumentary: Present: no rash, warm and dry Neurologic: Present: no focal deficit, no asterixis Musculoskeletal: Present: no deformities Psychiatric: Present: mood/affect appropriate, cooperative - Lab 09/17/16 09:50 09/18/16 04:54 Most recent lab results Calcium 6.2 mg/dL (8.6-10.8) L 09/17/16 09:50 Consult Discharge Plan - Plan Referrals: Abdi Deng MD [Primary Care Provider] - (please call when patient have definite discharge date)
[2016-09-17 10:57] LABS: Platelet Estimate Slight Decrease (Normal)
[2016-09-17] MEDS ORDERED: 0.9 % Sodium Chloride 2,000 ML ONE (12:27)
[2016-09-17] MEDS: hydrALAZINE 25 MG TABLET PO SCH ×3 (12:32→21:12)
[2016-09-17] MEDS: amLODIPine 5 MG TABLET PO SCH (13:19)
[2016-09-17] MEDS: *HR* Amiodarone 200 MG TABLET PO SCH (13:19)
--- NOTE | 2016-09-17 17:13 | Internal Med Progress Note ---
Date of Encounter: 09/17/16 Time of Encounter: 17:10 - Assessment and plan (1) ESRD (end stage renal disease) Current Visit: Yes Status: Chronic Assessment and plan: renal on board for maintenance HD. s/p HD today, will follow recommendations (2) Weakness Current Visit: No Status: Acute Assessment and plan: Patient c/o acute low back pain and decreased ambulatory capacity as a result of pain. History of hypocalcemia, osteoporosis and recent Prolia injection. MRI lumbar spine shows mild multilevel degenerative spondylosis, no significant lumbar spinal canal or neural foraminal stenosis. PT/OT recommends inpatient rehab. Patient may require placement to skilled rehabilitation. Agreeable to go to [facility], will follow up with social work. (3) Hypocalcemia Current Visit: Yes Status: Acute Assessment and plan: improved . possible 2/2 ESRD. renal following. 4 times a day calcium supplementation as per renal. (4) Cholelithiasis Current Visit: Yes Status: Acute Assessment and plan: CT abdomen done on this admission shows cholelithiasis with distal CBD stone. LFTs done week back shows normal bilirubin and liver enzymes. Discussed with Dr. Marte, MRCP showed pancreatic calcification and no CBD stone, no need of ERCP at this time. Qualifiers: Cholelithiasis location: gallbladder and bile duct Cholecystitis presence: without cholecystitis Biliary obstruction: without biliary obstruction Qualified Code(s): K80.70 - Calculus of gallbladder and bile duct without cholecystitis without obstruction - Subjective Interval history: patient seen at the bedside, reports persistent back pain, s/p HD today she denies chest pain or sob, no cough or fever. PT OT recommended inpatient rehabilitation, patient agreeing to go to [facility] if accepted. - Constitutional Vitals: Temp Pulse Resp BP Pulse Ox 98.6 F 71 16 125/61 95 09/17/16 15:24 09/17/16 15:24 09/17/16 12:45 09/17/16 15:24 09/17/16 15:24 General appearance: Present: cooperative, A&O X 3, answers questions appropriately Exam: neck- supple chest- b/lc lear, noadded sounds CVS-s1 and s2, nomr//g abd-soft, non tender, bs are present ext- b/l pedal edema neuro- no focal defecits Internal Medicine: Result - Labs CBC & Chem 7: 09/17/16 09:50 09/17/16 09:50 Labs: Short CBC 09/17/16 Range/Units 09:50 WBC 1.5 L D (4.3-11.1) K/mcL Hgb 9.2 L (11.5-15.4) g/dL Hct 29.2 L (35.3-44.9) % Plt Count 136 L (140-400) K/mcL Neutrophils # 0.7 L (1.6-8.9) K/mcL BMP 09/16/16 09/17/16 17:03 09:50 Sodium 132 L Potassium 4.4 Chloride 94 L Carbon Dioxide 29 BUN 35 H Creatinine 4.85 H Glucose 152 H Calcium 6.1 L 6.2 L Consult Discharge Plan - Plan Referrals: Abdi Deng MD [Primary Care Provider] - (please call when patient have definite discharge date)
[2016-09-18] MEDS: *HR* Heparin 5,000 UNIT/ML VIAL SQ SCH (05:13)
[2016-09-18 05:54] LABS: Calcium 6.8 mg/dL (8.6-10.8); Potassium 4.8 mEq/L (3.5-4.5)
[2016-09-18] MEDS: Renal Vitamin 1 MG CAPSULE PO SCH (07:51)
[2016-09-18] MEDS: Aspirin 81 MG TAB.CHEW PO SCH (07:51)
[2016-09-18] MEDS: CycloSPORINE, Mod (Neoral) 25 MG CAPSULE PO SCH (07:51)
[2016-09-18] MEDS: *HR* Amiodarone 200 MG TABLET PO SCH (07:51)
[2016-09-18] MEDS: predniSONE 5 MG TABLET PO SCH (07:51)
[2016-09-18] MEDS: hydrALAZINE 25 MG TABLET PO SCH ×2 (07:52→14:38)
[2016-09-18] MEDS: amLODIPine 5 MG TABLET PO SCH (07:52)
[2016-09-18] MEDS: Folic Acid 1 MG TABLET PO SCH (07:52)
[2016-09-18 08:16] LABS: Basophils % 0.5 %; Eosinophils # 0.2 K/mcL (0.0-0.6); Hematocrit 32.4 % (35.3-44.9); Hemoglobin 10.1 g/dL (11.5-15.4); Immature Granulocytes % 0.2 % (0-4); Lymphocytes # 1.1 K/mcL (0.6-4.6); Lymphocytes % 20.6 %; Mean Corpuscular HGB Conc 31.2 g/dL (31.6-35.5); Mean Corpuscular Hemoglobin 31.6 pg (28.0-33.3); Mean Corpuscular Volume 101.3 fL (83.0-100.0); Mean Platelet Volume 8.9 fL (9.4-12.4); Monocytes # 0.8 K/mcL (0.0-1.3); Monocytes % 13.9 %; Platelet Count 152 K/mcL (140-400); Red Cell Distribution Width 15.1 % (11.5-14.5); Segmented Neutrophils % 60.8 %
[2016-09-18 08:18] LABS: Neutrophils # 3.3 K/mcL (1.6-8.9)
--- NOTE | 2016-09-18 08:24 | Nephrology Progress Note ---
Date of Encounter: 09/18/16 Time of Encounter: 08:20 - Assessment and Plan (1) ESRD (end stage renal disease) Current Visit: Yes Status: Chronic Plan for HD tomorrow Continue renal diet Avoid nephrotoxins if possible (2) Back pain Current Visit: Yes Status: Acute per primary team Qualifiers: Back pain location: low back pain Chronicity: acute Back pain laterality : midline Sciatica presence: unspecified whether sciatica present Qualified Code(s): M54.5 - Low back pain (3) Hypocalcemia Current Visit: Yes Status: Acute Ca+ now up to 6.8; now taking Tums p.o. TID Oral route takes longer but IV Ca+ not the best choice in ESRD patients. Ergocalciferol 50,000 units one tab every week Subjective Principal diagnosis: ESRD on dialysis, hypocalcemia, severe back pain Interval history: Patient seen and examined. States she is feeling ok today. Will be discharged to a rehab center. Objective - Vital Signs Vital signs: Vital Signs Temp Pulse Resp BP Pulse Ox 09/18/16 08:01 96 09/18/16 07:42 98.1 F 58 16 119/60 96 09/18/16 03:46 98.4 F 58 16 104/57 100 09/17/16 23:46 98.8 F 64 16 125/48 98 09/17/16 19:17 98.6 F 64 16 107/45 94 09/17/16 17:27 65 118/55 09/17/16 15:24 98.6 F 71 125/61 95 09/17/16 12:45 97.8 F 16 127/50 09/17/16 12:40 104/46 09/17/16 12:25 116/41 09/17/16 12:10 107/49 09/17/16 11:55 117/54 09/17/16 11:40 103/51 09/17/16 11:25 107/50 09/17/16 11:10 115/45 09/17/16 10:55 108/50 09/17/16 10:40 99/44 09/17/16 10:25 96/53 09/17/16 10:10 98/44 09/17/16 09:55 115/45 09/17/16 09:40 97.8 F 16 125/53 Intake and Output 09/17/16 09/18/16 09/18/16 23:59 07:59 15:59 Output Total 0 / 0 0 / 0 Balance 0 / 0 0 / 0 Output: Urine 0 / 0 0 / 0 Other: Stool Size Moderate Stool Consistency soft Stool Color Brown # Bowel Movements 0 Weight 59.5 kg Patient Weight 09/18/16 23:59 Weight 59.5 kg - General Appearance General appearance: Present: cachectic, chronically ill, frail EENT: Present: ATNC, mucous membranes moist, hearing intact, vision intact Neck: Present: supple Respiratory: Present: clear Cardiology: Present: no edema, normal S1, normal S2 Dialysis Vascular Access: Arteriovenous Fistula Gastrointestinal: Present: no tenderness, no guarding Integumentary: Present: warm and dry Neurologic: Present: alert and oriented x3 Psychiatric: Present: mood/affect appropriate, cooperative - Lab 09/18/16 04:54 09/18/16 04:54 Most recent lab results Calcium 6.8 mg/dL (8.6-10.8) L 09/18/16 04:54 Consult Discharge Plan - Plan Referrals: Abdi Deng MD [Primary Care Provider] - (please call when patient have definite discharge date)
--- NOTE | 2016-09-18 10:57 | Discharge Summary ---
Date of Encounter: 09/18/16 Time of Encounter: 10:55 - Discharge Diagnosis (1) ESRD (end stage renal disease) Priority: Secondary Status: Chronic (2) Weakness Priority: Primary Status: Acute (3) Hypocalcemia Priority: Primary Status: Acute (4) Cholelithiasis Priority: Secondary Status: Acute Qualifiers: Cholelithiasis location: gallbladder and bile duct Cholecystitis presence: without cholecystitis Biliary obstruction: without biliary obstruction Qualified Code(s): K80.70 - Calculus of gallbladder and bile duct without cholecystitis without obstruction - Discharge Medications Prescriptions: Calcium Carbonate [Tums] 1,000 mg PO QID 30 Days Oxycodone HCl/Acetaminophen [Percocet 5-325 mg Tablet] 1 tab PO Q4H PRN #20 tablet PRN Reason: Pain Home Medications: Acetaminophen [Tylenol] 325 - 650 mg PO Q4HR PRN 03/02/15 [History] Atorvastatin [Lipitor] 10 mg PO HS 03/02/15 [History] Folic Acid 1 mg PO DAILY 03/02/15 [History] Omeprazole [PriLOSEC] 40 mg PO DAILY 03/02/15 [History] predniSONE [Prednisone] 2.5 mg PO BID 03/02/15 [History] Amiodarone [Cordarone] 200 mg PO DAILY 09/18/15 [History] Aspirin 81 mg PO DAILY 12/17/15 [History] B Complex W-C No.20/Folic Acid [Nephrocaps Softgel] 1 mg PO DAILY 12/17/15 [ History] Metoprolol [Lopressor] 12.5 mg PO Q12HR 12/17/15 [History] Ondansetron HCl [Zofran] 4 mg PO Q8HR PRN 12/17/15 [History] traMADol [Ultram] 50 mg PO Q12HR PRN 12/17/15 [History] Carvedilol 12.5 mg PO BID 02/19/16 [History] Loperamide [Imodium] 2 mg PO Q8H PRN 02/19/16 [History] Oxygen 2 l IH HS 02/19/16 [History] Renal Vitamin [Renal Caps Softgel] 1 mg PO DAILY 02/19/16 [History] Amlodipine Besylate 10 mg PO DAILY 09/10/16 [History] Cyclosporine, Modified [Gengraf] 75 mg PO BID 09/10/16 [History] Denosumab [Prolia (For Outpatient Infusion)] 60 mg SQ [id number] 09/10/16 [History ] Hydralazine HCl 50 mg PO TID 09/10/16 [History] Ergocalciferol (VITAMIN D2) [Drisdol (50,000 Unit)] 50,000 unit PO QWEEK #4 capsule 09/12/16 [Rx] Calcium Carbonate [Tums] 1,000 mg PO QID 30 Days 09/18/16 [Rx] Oxycodone HCl/Acetaminophen [Percocet 5-325 mg Tablet] 1 tab PO Q4H PRN #20 tablet 09/18/16 [Rx] Allergies/Adverse Reactions: Allergies Penicillins [PCN] Allergy (Verified 09/14/16 15:26) Hives Procedures/tests Complete & Pending: Procedures Performed prior 72 hours Category Date Time Status MRCP [MR abdomen wo con] [MR] Routine MRI 09/16/16 11:20 Draft Date of admission: 09/14/16 11:50 Primary care physician: Abdi Deng MD Consults: 09/14/16 13:03 Consult to Nutrition [CONS] Routine Comment: Consulting Provider: NUTRITION Reason for Dietary Consult: MST Score 09/14/16 14:51 Consult to Nephrology [CONS] Routine Consulting Provider: Kidney Debbie/AIDA/JEANNE/LUL Reason for Consult: ESRD pt for DIalysis needs Time Notified: 14:51 Call Completed: Yes 09/15/16 08:00 Consult to Dialysis [CONS] ONCE 09/17/16 08:15 Consult to Dialysis [CONS] ONCE Discharging clinician: Hal Bui Anticipated date of discharge: 09/18/16 - Patient Status Disposition: Transfer Inpatient Rehab Fac Condition: Fair Functional capacity at discharge: uses cane/walker Overall status at discharge: patient is progressing back to baseline - Discharge Instructions Follow Up With: Abdi Deng MD [Primary Care Provider] - (please call when patient have definite discharge date) - Diet and Activity Activity: as per physical therapy Diet: advance to your usual diet Interval History: CMs. Moore is a 70 year old female patient with history of end-stage renal disease, hypocalcemia related to recent Prolia injection, osteoporosis, hypertension, hyperlipidemia presented to the ER with complaints of severe back pain along with difficulty ambulating. She gets dialyzed on a Thursday and Thursday schedule. She had just been discharged from the hospital 2 days back following an admission for hypocalcemia. At that time she received calcium gluconate and was discharged on oral vitamin D supplements. She felt fine on the day of the discharge and was able to ambulate well. She has had chronic back pain in the past and underwent MRI of the lumbar spine in August which showed mild disc protrusion without any spinal compression. However her current pain is much worse than her chronic pain. She denies any trauma or lifting any heavy objects or weights. MRI lumbar spine shows mild multilevel degenerative spondylosis, no significant lumbar spinal canal or neural foraminal stenosis. PT/OT recommends inpatient rehab. The calcium levels are better and she is started on oral supplement. CT abd showed gallstones and possible distal CBD stone, GI was consulted and MRCP was done. However MRCP confirmed that what appeared distal CBD stone in the CAT scan was actually a pancreatic calcification. she still has some back pain however there is no acute pathology in the MRI of the lumbar spine, she is being discharged today in stable condition to [facility]. Hospital course: Ms. Moore is a 70 year old female Time spent discussing smoking cessation with patient: more than 10 minutes - Time Spent with Patient Total time spent providing and/or coordinating discharge services: Greater than 30 minutes - Constitutional Vitals: Temp Pulse Resp BP Pulse Ox 98.1 F 58 16 119/60 96 09/18/16 07:42 09/18/16 07:42 09/18/16 07:42 09/18/16 07:42 09/18/16 08:01 General appearance: Present: cooperative, A&O X 3, answers questions appropriately Exam: neck- supple chest- b/lc lear, noadded sounds CVS-s1 and s2, nomr//g abd-soft, non tender, bs are present ext- b/l pedal edema neuro- no focal defecits
--- NOTE | 2016-09-18 10:58 | Physician Discharge Referral ---
ExtendedCare Referral Info Transfer To: ECF Provider in Charge: claudine sevilla Institutional Level of Care: Intermediate - MR - Diagnosis (1) ESRD (end stage renal disease) Status: Chronic (2) Weakness Status: Acute (3) Hypocalcemia Status: Acute (4) Cholelithiasis Status: Acute - Transfer Medications Prescriptions: Calcium Carbonate [Tums] 1,000 mg PO QID 30 Days Home Medications: Acetaminophen [Tylenol] 325 - 650 mg PO Q4HR PRN 03/02/15 [History] Atorvastatin [Lipitor] 10 mg PO HS 03/02/15 [History] Folic Acid 1 mg PO DAILY 03/02/15 [History] Omeprazole [PriLOSEC] 40 mg PO DAILY 03/02/15 [History] predniSONE [Prednisone] 2.5 mg PO BID 03/02/15 [History] Amiodarone [Cordarone] 200 mg PO DAILY 09/18/15 [History] Aspirin 81 mg PO DAILY 12/17/15 [History] B Complex W-C No.20/Folic Acid [Nephrocaps Softgel] 1 mg PO DAILY 12/17/15 [ History] Metoprolol [Lopressor] 12.5 mg PO Q12HR 12/17/15 [History] Ondansetron HCl [Zofran] 4 mg PO Q8HR PRN 12/17/15 [History] traMADol [Ultram] 50 mg PO Q12HR PRN 12/17/15 [History] Carvedilol 12.5 mg PO BID 02/19/16 [History] Loperamide [Imodium] 2 mg PO Q8H PRN 02/19/16 [History] Oxygen 2 l IH HS 02/19/16 [History] Renal Vitamin [Renal Caps Softgel] 1 mg PO DAILY 02/19/16 [History] Amlodipine Besylate 10 mg PO DAILY 09/10/16 [History] Cyclosporine, Modified [Gengraf] 75 mg PO BID 09/10/16 [History] Denosumab [Prolia (For Outpatient Infusion)] 60 mg SQ [id number] 09/10/16 [History ] Hydralazine HCl 50 mg PO TID 09/10/16 [History] Oxycodone HCl/Acetaminophen [Percocet 5-325 mg Tablet] 1 tab PO Q4H PRN [History] Ergocalciferol (VITAMIN D2) [Drisdol (50,000 Unit)] 50,000 unit PO QWEEK #4 capsule 09/12/16 [Rx] Calcium Carbonate [Tums] 1,000 mg PO QID 30 Days 09/18/16 [Rx] Allergies/Adverse Reactions: Allergies Penicillins [PCN] Allergy (Verified 09/14/16 15:26) Hives - Respiratory Orders Smoking Cessation: Smoking cessation has been advised. For more information, call the [place] Tobacco Quit Line at 7-801-HPDY-NOW. - Advance Directives Code Status: Full Code - Rehabiliation Orders Rehab Potential: Fair Rehab Orders: Evaluation for Physical Therapy, Evaluation for Occupational Therapy - Diet Orders Renal CERTIFICATION: I certify that the transfer of the above named patient to an Extended Care Facility is necessary for the continuing treatment of the diagnosis listed. The above information is true and accurate reflection of patient's current condition. Confidential - Redisclosure prohibited without a patient's written consent.
[2016-09-18 11:55] VITALS: BP 103/57
== END 2016-09-18 14:47 ==
LOC: 2ANU 07:50 → EMEROO 07:50 → 2ANU 12:16
PROVIDERS: ADMIT Internal Medicine; ATTEND Internal Medicine

== ENCOUNTER 2016-10-14 12:50 | Inpatient (IN) ==
--- NOTE | 2016-10-14 13:00 | Emergency Department Note ---
Disposition Clinical Impression: Hyperkalemia, Renal failure, Bradycardia Disposition: Admitted As Inpatient Condition: Serious Referrals: NO,PCP [Non-Partnered Physician] - Forms: ED Satisfaction Letter Time of Disposition: 15:42 General Adult HPI - General Chief complaint: ED Weakness Stated complaint: Lethargic Time Seen by Provider: 10/14/16 12:53 Source: patient, EMS Mode of arrival: EMS Limitations: no limitations Nursing Notes Reviewed: Yes Vital Signs Reviewed: Yes - History of Present Illness HPI Narrative: 70 year-old dialysis patient who was at the [facility] and was having generalized weakness and some lethargy and was sent in for evaluation. Patient describes generalized achiness. She does respond to questions. Pt Subjective Complaint: weakness Onset (ago): day(s) Consistency: constant - Related Data Home Medications Medication Instructions Recorded Confirmed Acetaminophen [Tylenol] 325 - 650 mg PO Q4HR PRN 03/02/15 09/14/16 Atorvastatin [Lipitor] 10 mg PO HS 03/02/15 09/14/16 Folic Acid 1 mg PO DAILY 03/02/15 09/14/16 Omeprazole [PriLOSEC] 40 mg PO DAILY 03/02/15 09/14/16 predniSONE [Prednisone] 2.5 mg PO BID 03/02/15 09/14/16 Amiodarone [Cordarone] 200 mg PO DAILY 09/18/15 09/14/16 Aspirin 81 mg PO DAILY 12/17/15 09/14/16 B Complex W-C No.20/Folic Acid 1 mg PO DAILY 12/17/15 09/14/16 [Nephrocaps Softgel] Metoprolol [Lopressor] 12.5 mg PO Q12HR 12/17/15 09/14/16 Ondansetron HCl [Zofran] 4 mg PO Q8HR PRN 12/17/15 09/14/16 traMADol [Ultram] 50 mg PO Q12HR PRN 12/17/15 09/14/16 Carvedilol 12.5 mg PO BID 02/19/16 09/14/16 Loperamide [Imodium] 2 mg PO Q8H PRN 02/19/16 09/14/16 Oxygen 2 l IH HS 02/19/16 09/14/16 Renal Vitamin [Renal Caps Softgel] 1 mg PO DAILY 02/19/16 09/14/16 Amlodipine Besylate 10 mg PO DAILY 09/10/16 09/14/16 Cyclosporine, Modified [Gengraf] 75 mg PO BID 09/10/16 09/14/16 Denosumab [Prolia (For Outpatient 60 mg SQ [id number] 09/10/16 09/14/16 Infusion)] Hydralazine HCl 50 mg PO TID 09/10/16 09/14/16 Previous Rx's Medication Instructions Recorded Ergocalciferol (VITAMIN D2) 50,000 unit PO QWEEK #4 capsule 09/12/16 [Drisdol (50,000 Unit)] Calcium Carbonate [Tums] 1,000 mg PO QID 30 Days 09/18/16 Oxycodone HCl/Acetaminophen 1 tab PO Q4H PRN #20 tablet 09/18/16 [Percocet 5-325 mg Tablet] Allergies Allergy/AdvReac Type Severity Reaction Status Date / Time Penicillins [PCN] Allergy Hives Verified 09/14/16 15:26 All systems ED: reviewed and negative except as stated. Constitutional: Denies: fever, chills, weakness, weight change Eyes: Denies: eye pain, eye discharge, vision change ENT ED: Denies: ear pain, throat pain, dental pain, hearing loss, epistaxis, congestion, dysphagia Cardiovascular: Denies: chest pain, palpitations, dyspnea on exertion, edema, syncope Respiratory: Denies: cough, dyspnea, wheezes, hemoptysis, stridor Gastrointestinal: Denies: abdominal pain, nausea, vomiting, diarrhea, constipation, hematemesis, melena, hematochezia Genitourinary: Denies: dysuria, frequency, hematuria, discharge Musculoskeletal: Denies: back pain, neck pain, arthralgia, myalgia Integumentary: Denies: rash, abrasion, lesions Neurological: Reports: weakness (Generalized). Denies: headache, numbness, paresthesias, confusion, abnormal gait, vertigo Psychiatric: Denies: anxiety, depression, suicidal thoughts, homicidal thoughts , auditory hallucinations, visual hallucinations Endocrine: Denies: fatigue Hematological/Lymphatic: Denies: easy bleeding, easy bruising Allergic/Immunologic: Denies: facial swelling, urticaria Past Medical History - Past Medical History Medical history: Reports: arthritis, atrial fibrillation, diabetes, dialysis, osteoporosis, renal disease Surgical history: Reports: appendectomy, herniorrhaphy, other Psychiatric history: Reports: no psych history EYELET CUTTER history: Reports: no EYELET CUTTER history - Social History Smoking Status: Never smoker Smokeless Tobacco Status: No Alcohol use: Reports: none Drug use: Reports: none Physical Exam - General Limitations: altered mental status General appearance: lethargic - Head Head exam: atraumatic, normocephalic, normal inspection - Eye Eye exam: Present: normal appearance, PERRL, EOMI - ENT ENT exam: normal exam, normal oropharynx, mucous membranes moist - Neck Neck exam: Present: normal inspection, full ROM, trachea midline - Chest Chest inspection: Present: normal inspection, symmetric chest wall rise - Respiratory Respiratory exam: Present: normal lung sounds bilaterally - Cardiovascular Cardiovascular exam: Present: bradycardia - Abdominal Exam Abdominal exam: Present: soft, Non-Tender. Absent: tenderness, distention, guarding, rebound, rigidity - Extremities Exam Extremities exam: Present: normal inspection, full ROM. Absent: tenderness, pedal edema - Expanded Lower Extremity Exam Neurovascular/Tendon exam: Absent: motor deficit, sensory deficit, tendon deficit Gait: not tested/not observed - Back Exam Back exam: Present: normal inspection - Neurological Exam Neurological exam: Absent: motor sensory deficit - Psychiatric Psychiatric exam: Present: normal affect, normal mood - Skin Skin exam: Present: warm, dry, intact, normal color Course - Reevaluation(s) Reevaluation #1: 70-year-old female with a history of renal failure who comes in with generalized weakness. Patient was found to have a potassium 7.2. This was treated with calcium IV by car insulin glucose. Given albuterol aerosol. Patient obtained with cardiology did not feel pacing was necessary at this time. Will be admitted to the hospitalist. Time: 15:37 - Consultations Consultation #1: Discussed with Dr. Abdi Fatima. Would monitor as she is bradycardic. Her blood pressures stable Time: 15:19 Consultation #2: Discussed with Nikkie Bee nurse practitioner, admit Time: 15:36 Vital Signs Temperature 98.9 F 10/14/16 12:52 Pulse Rate 42 10/14/16 12:52 Respiratory Rate 14 10/14/16 12:52 Blood Pressure 108/52 10/14/16 12:52 O2 Sat by Pulse Oximetry 73 10/14/16 12:52 Temperature 98.9 F 10/14/16 12:52 Pulse Rate 47 10/14/16 15:29 Respiratory Rate 16 10/14/16 15:29 Blood Pressure 120/44 10/14/16 15:29 O2 Sat by Pulse Oximetry 97 10/14/16 15:29 Oxygen Delivery Oxygen Delivery Non Rebreather Mask Medical Decision Making - Lab Data Result diagrams: 10/14/16 14:01 10/14/16 14:01 Lab Results 10/14/16 10/14/16 10/14/16 Range/Units 13:00 13:15 14:01 WBC 9.2 (4.3-11.1) K/mcL RBC 3.33 L (3.82-4.97) M/mcL Hgb 10.1 L (11.5-15.4) g/dL Hct 32.7 L (35.3-44.9) % MCV 98.2 (83.0-100.0) fL MCH 30.3 (28.0-33.3) pg MCHC 30.9 L (31.6-35.5) g/dL RDW 15.9 H (11.5-14.5) % Plt Count 241 (140-400) K/mcL MPV 8.4 L (9.4-12.4) fL Immature Gran % 0.3 (0-4) % Seg Neutrophils % 74.1 % Lymphocytes % 13.8 % Monocytes % 10.4 % Eosinophils % 1.2 % Basophils % 0.2 % Neutrophils # 6.8 (1.6-8.9) K/mcL Lymphocytes # 1.3 (0.6-4.6) K/mcL Monocytes # 1.0 (0.0-1.3) K/mcL Eosinophils # 0.1 (0.0-0.6) K/mcL Basophils # 0.0 (0.0-0.2) K/mcL Immature Plt Fraction 0.7 L (1.1-6.1) % ESR (0-15) mm/hr Sodium (136-145) mEq/L Potassium (3.5-4.5) mEq/L Chloride (98-109) mEq/L Carbon Dioxide (19-29) mEq/L BUN (7-20) mg/dL Creatinine (0.57-1.11) mg/dL Est GFR ( Amer) (> 60) Est GFR (Non-Af Amer) (> 60) BUN/Creatinine Ratio (6-26) Glucose (70-99) mg/dL POC Glucose 136 H (58-89) Calculated Osmolality (280-300) Calcium (8.6-10.8) mg/dL Troponin I (0-0.03) ng/mL Specimen Rejected Miscellaneous 10/14/16 10/14/16 10/14/16 Range/Units 14:01 14:01 14:01 WBC (4.3-11.1) K/mcL RBC (3.82-4.97) M/mcL Hgb (11.5-15.4) g/dL Hct (35.3-44.9) % MCV (83.0-100.0) fL MCH (28.0-33.3) pg MCHC (31.6-35.5) g/dL RDW (11.5-14.5) % Plt Count (140-400) K/mcL MPV (9.4-12.4) fL Immature Gran % (0-4) % Seg Neutrophils % % Lymphocytes % % Monocytes % % Eosinophils % % Basophils % % Neutrophils # (1.6-8.9) K/mcL Lymphocytes # (0.6-4.6) K/mcL Monocytes # (0.0-1.3) K/mcL Eosinophils # (0.0-0.6) K/mcL Basophils # (0.0-0.2) K/mcL Immature Plt Fraction (1.1-6.1) % ESR 42 H (0-15) mm/hr Sodium 131 L (136-145) mEq/L Potassium 7.2 H* (3.5-4.5) mEq/L Chloride 98 (98-109) mEq/L Carbon Dioxide 21 (19-29) mEq/L BUN 88 H (7-20) mg/dL Creatinine 7.93 H (0.57-1.11) mg/dL Est GFR ( Amer) 6 L (> 60) Est GFR (Non-Af Amer) 5 L (> 60) BUN/Creatinine Ratio 11 (6-26) Glucose 113 H (70-99) mg/dL POC Glucose (58-89) Calculated Osmolality 300 (280-300) Calcium 7.4 L (8.6-10.8) mg/dL Troponin I 0.02 (0-0.03) ng/mL Specimen Rejected - EKG Data EKG #1 EKG attestation: Yes I reviewed and interpreted this EKG. Rate: bradycardia Interpretation: no acute changes Critical Care Time Critical Care Time: Yes Total Critical Care Time: 60 Attestation: The high probability of a clinically significant, sudden or life threatening deterioration of the [cardiovascular] system(s) required my full and direct attention, intervention and personal management. The aggregate critical care time was [60] minutes. This time is in addition to time spent performing reported procedures but includes the following: [x] Data Review and interpretation [x] Patient assessment and monitoring of vital signs [x] Documentation [x] Medication orders and management
[2016-10-14 14:10] LABS: Basophils % 0.2 %; Eosinophils # 0.1 K/mcL (0.0-0.6); Eosinophils % 1.2 %; Hematocrit 32.7 % (35.3-44.9); Hemoglobin 10.1 g/dL (11.5-15.4); Immature Granulocytes % 0.3 % (0-4); Immature Platelets 0.7 % (1.1-6.1); Lymphocytes # 1.3 K/mcL (0.6-4.6); Lymphocytes % 13.8 %; Mean Corpuscular HGB Conc 30.9 g/dL (31.6-35.5); Mean Corpuscular Hemoglobin 30.3 pg (28.0-33.3); Mean Corpuscular Volume 98.2 fL (83.0-100.0); Mean Platelet Volume 8.4 fL (9.4-12.4); Monocytes % 10.4 %; Neutrophils # 6.8 K/mcL (1.6-8.9); Platelet Count 241 K/mcL (140-400); Red Blood Count 3.33 M/mcL (3.82-4.97); Red Cell Distribution Width 15.9 % (11.5-14.5); Segmented Neutrophils % 74.1 %
[2016-10-14 14:26] LABS: Calcium 7.4 mg/dL (8.6-10.8)
[2016-10-14 14:30] LABS: Potassium 7.2 mEq/L (3.5-4.5)
[2016-10-14] MEDS ORDERED: Sodium Bicarbonate 50 MEQ/50 ML VIAL ONE (14:34)
[2016-10-14] MEDS ORDERED: *HR* Dextrose 50 % in Water (Syg) 50 ML SYRINGE ONE (14:35)
[2016-10-14] MEDS ORDERED: Albuterol 2.5 MG/3 ML NEBULIZER IH ONE (14:40)
[2016-10-14] MEDS ORDERED: Insulin Human Regular 10 UNIT in 0.9 % Sodium Chloride 10 ML IV ONE (14:40)
[2016-10-14] MEDS ORDERED: *HR* Dextrose 25% in Water (Syg) 10 ML SYRINGE IVP ONE (14:40)
[2016-10-14] MEDS ORDERED: Sodium Bicarbonate 50 MEQ/50 ML VIAL IVP ONE (14:40)
[2016-10-14] MEDS ORDERED: Ondansetron 4 MG/2 ML VIAL ONE (14:48)
[2016-10-14] MEDS ORDERED: Ondansetron 4 MG/2 ML VIAL IVP ONE (14:58)
--- NOTE | 2016-10-14 16:28 | Nephrology Consult Note ---
Date of Encounter: 10/14/16 Time of Encounter: 16:19 Assessment and Plan (1) Hyperkalemia Current Visit: Yes Status: Acute Urgent dialysis-dialysis nurse notified Will run for 3 1/2 hours with first hour on a 1K+ bath then stat K+ level and change to a 2K bath Ultrafiltration of 2-3 kilos as tolereated (2) ESRD (end stage renal disease) on dialysis Current Visit: Yes Status: Acute Urgent HD now Plan for HD again tomorrow Strict I/Os Renal diet Avoid nephrotoxins if possible (3) Bradycardia Current Visit: Yes Status: Acute per primary team History of Present Illness - Reason for Consult Consult date: 10/14/16 - Chief Complaint weakness, ESRD on HD - History of Present Illness Ms Moore is a 70 year old lady well known to our practice who receives hemodialysis at [facility] on ,,; [facility] with generalized weakness and some lethargy. , son and [id number] at bedside; son states she c/o abdominal pain yesterday which they thought was from not eating and taking her Percocet for back pain. Because she did not feel well she did not go to her dialysis treatment yesterday. Patient has a K+ of 7.2 and bradycardia in the ED. [facility] a [facility] and they have not been giving her a renal diet. In the outpatient dialysis unit her K+ has been running a little high and the HD nurse has called the penitentiary several times requesting patient be given a low K+/renal diet. Last K+ at dialysis unit was on 10/01 and was 5.8. Normally patient's K+ runs in the 4s. Nephrology has been consulted to manage hyperkalemia and dialysis while hospitalized. Past Med Surg Social Fam HX - Past Medical History Medical history: arthritis, atrial fibrillation, diabetes, dialysis, osteoporosis, renal disease Psychiatric history: no psych history - Past Surgical History Surgical History: appendectomy, herniorrhaphy, other - Social History Smoking Status: Never smoker Smokeless Tobacco Status: No Alcohol use: none Drug use: none - Family History Mother Living Status: Hx Family Cardiac Disorders: Yes Medications and Allergies Acetaminophen [Tylenol] 325 - 650 mg PO Q4HR PRN 03/02/15 [History] Atorvastatin [Lipitor] 10 mg PO HS 03/02/15 [History] Folic Acid 1 mg PO DAILY 03/02/15 [History] Omeprazole [PriLOSEC] 40 mg PO DAILY 03/02/15 [History] predniSONE [Prednisone] 2.5 mg PO BID 03/02/15 [History] Amiodarone [Cordarone] 200 mg PO DAILY 09/18/15 [History] Aspirin 81 mg PO DAILY 12/17/15 [History] B Complex W-C No.20/Folic Acid [Nephrocaps Softgel] 1 mg PO DAILY 12/17/15 [ History] Metoprolol [Lopressor] 12.5 mg PO Q12HR 12/17/15 [History] Ondansetron HCl [Zofran] 4 mg PO Q8HR PRN 12/17/15 [History] traMADol [Ultram] 50 mg PO Q12HR PRN 12/17/15 [History] Carvedilol 12.5 mg PO BID 02/19/16 [History] Loperamide [Imodium] 2 mg PO Q8H PRN 02/19/16 [History] Oxygen 2 l IH HS 02/19/16 [History] Renal Vitamin [Renal Caps Softgel] 1 mg PO DAILY 02/19/16 [History] Amlodipine Besylate 10 mg PO DAILY 09/10/16 [History] Cyclosporine, Modified [Gengraf] 75 mg PO BID 09/10/16 [History] Denosumab [Prolia (For Outpatient Infusion)] 60 mg SQ [id number] 09/10/16 [History ] Hydralazine HCl 50 mg PO TID 09/10/16 [History] Ergocalciferol (VITAMIN D2) [Drisdol (50,000 Unit)] 50,000 unit PO QWEEK #4 capsule 09/12/16 [Rx] Calcium Carbonate [Tums] 1,000 mg PO QID 30 Days 09/18/16 [Rx] Oxycodone HCl/Acetaminophen [Percocet 5-325 mg Tablet] 1 tab PO Q4H PRN #20 tablet 09/18/16 [Rx] Allergies Penicillins [PCN] Allergy (Verified 09/14/16 15:26) Hives Review of Systems All Systems: reviewed and no additional remarkable complaints except as stated Constitutional: daytime sleepiness, lethargy, weakness Cardiovascular: edema (facial), no chest pain, no dyspnea Respiratory: no wheezing Gastrointestinal: abdominal pain Neurological: confusion (she wakes easily and recognizes me but falls asleep quickly.) Psychiatric: confusion Exam - Vital Signs Vital signs: Initial Vital Signs Temp Pulse Resp BP Pulse Ox 98.9 F 42 14 108/52 73 10/14/16 12:52 10/14/16 12:52 10/14/16 12:52 10/14/16 12:52 10/14/16 12:52 Vital Signs - Last 8 Hours Temp Pulse Resp BP Pulse Ox 10/14/16 15:41 20 97 10/14/16 15:29 47 16 120/44 97 10/14/16 13:24 41 16 114/49 95 10/14/16 12:52 98.9 F 42 14 108/52 73 Intake and Output 10/14/16 10/14/16 10/14/16 07:59 15:59 23:59 Other: Stool Characteristics Normal for Patient Stool Color Brown Weight 65.771 kg Blood Glucose* 136 Patient Weight 10/14/16 23:59 Weight 65.771 kg - General Appearance General appearance: chronically ill, fatigue, frail EENT: ATNC, hearing intact, vision intact Neck: supple Respiratory: clear Cardiology: edema (facial) Additional Comments: bradycardia - Dialysis Access Dialysis Vascular Access: Arteriovenous Graft Gastrointestinal: no tenderness, no guarding Integumentary: warm and dry Neurologic: alert and oriented x3 (she wakes easily and recognizes me but falls asleep quickly.) Psychiatric: mood/affect appropriate, cooperative Results - Lab Results 10/14/16 14:01 10/14/16 14:01 Most recent lab results Calcium 7.4 mg/dL (8.6-10.8) L 10/14/16 14:01 Consult Discharge Plan - Plan Referrals: NO,PCP [Non-Partnered Physician] -
[2016-10-14] MEDS ORDERED: 0.9 % Sodium Chloride 250 ML IVC PRN (16:44)
[2016-10-14] MEDS ORDERED: 0.9 % Sodium Chloride 1,000 ML PRIME SCH (16:45)
--- NOTE | 2016-10-14 16:49 | Internal Med History&Physical ---
<Asif Doe - Last Filed: 10/14/16 18:11> Date of Encounter: 10/14/16 Time of Encounter: 16:49 Assessment and Plan (1) Hyperkalemia Current visit: Yes Status: Acute Patient missed her hemodialysis yesterday, nephrology was consulted from the ER , patient will be taken to urgent hemodialysis tonight and patient will have a scheduled hemodialysis tomorrow, EKG was reviewed, no significant peaked T-wave changes but shows atrial fibrillation with slow ventricular response, patient received potassium chloride IV 2, IV insulin 10 units with the D50, and sodium bicarbonate IV 2, after the hemodialysis tonight, will continue to closely monitor patient's electrolytes. 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 Qualifiers: Qualified Code(s): R10.84 - Generalized abdominal pain (3) Atrial fibrillation with slow ventricular response Current visit: Yes Status: Acute EKG shows atrial fibrillation with slow ventricular response, cardiology was called from the ER, pacing is not necessary at this time, will continue to hold patient's home medications of AV willie blocking agents, hemodynamically she is stable, continued to closely monitor patient's vital signs. (4) ESRD (end stage renal disease) on dialysis Current visit: Yes Status: Acute Patient will be taken to urgent hemodialysis tonight and she will have a scheduled hemodialysis tomorrow. Nephrology is on board. (5) Weakness Current visit: No Status: Acute Patient was discharged from this hospital about a months ago to [facility] due to generalized weakness and low back pain, her current weakness could be related to electrolyte abnormality due to missing hemodialysis yesterday, patient will be taken to the urgent hemodialysis tonight and schedule hemodialysis for tomorrow. Fall precaution. (6) DVT prophylaxis Current visit: Yes Status: Acute Heparin subcutaneous twice a day. Internal Medicine - H&P: HPI Chief complaint: Hyperkalemia, lethargy and weakness Admitted From: Emergency Dept Plans for Post Hospital Care: Transfer [facility] History of present illness: Ms. 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 According to patient's family member at the bedside, patient missed hemodialysis treatment yesterday due to abdominal pain, in the ER she was found to have a hyperkalemia of 7.2 and atrial fibrillation with slow ventricular response. Cardiology was called from the ER and cardiologists do not feel patient needs pacing at this time, nephrology was also consulted and patient will be taken to urgent dialysis tonight. Patient states that since 2 days ago she started to have diffuse abdominal pain with poor appetite, denies nausea/ vomiting/diarrhea. Past Med Surg Social Fam HX - Past Medical History Medical history: arthritis, atrial fibrillation, diabetes, dialysis, osteoporosis, renal disease Psychiatric history: no psych history - Past Surgical History Surgical History: appendectomy, herniorrhaphy, other - Social History Smoking Status: Never smoker Smokeless Tobacco Status: No Alcohol use: none Drug use: none - Family History Mother Living Status: Hx Family Cardiac Disorders: Yes Internal Medicine - H&P: Meds Acetaminophen [Tylenol] 650 mg PO Q4HR PRN 03/02/15 [History] Atorvastatin [Lipitor] 10 mg PO HS 03/02/15 [History] Folic Acid 1 mg PO DAILY 03/02/15 [History] predniSONE [Prednisone] 2.5 mg PO BID 03/02/15 [History] Amiodarone [Cordarone] 200 mg PO DAILY 09/18/15 [History] B Complex W-C No.20/Folic Acid [Nephrocaps Softgel] 1 mg PO DAILY 12/17/15 [ History] Carvedilol 12.5 mg PO BID 02/19/16 [History] Loperamide [Imodium] 2 mg PO Q8H PRN 02/19/16 [History] Oxygen 2 l IH HS 02/19/16 [History] Amlodipine Besylate 10 mg PO DAILY 09/10/16 [History] Cyclosporine, Modified [Gengraf] 75 mg PO BID 09/10/16 [History] Hydralazine HCl 50 mg PO TID 09/10/16 [History] Calcium Carbonate [Tums] 1,000 mg PO QID 30 Days 09/18/16 [Rx] Oxycodone HCl/Acetaminophen [Percocet 5-325 mg Tablet] 1 tab PO Q4H PRN #20 tablet 09/18/16 [Rx] Aspirin Enteric Coated [Aspirin EC] 81 mg PO DAILY 10/14/16 [History] Cyclobenzaprine [Flexeril] 10 mg PO Q8H 10/14/16 [History] Ergocalciferol (VITAMIN D2) [Drisdol (50,000 Unit)] 50,000 unit PO FR 10/14/16 [ History] Lactose-Reduced Food [Ensure Plus] 1 bottle PO 1000,1400 10/14/16 [History] Levothyroxine [Synthroid] 25 mcg PO 0630 10/14/16 [History] Lidocaine Patch [Lidoderm 5% patch] 1 each TP DAILY 10/14/16 [History] Magnesium Hydroxide [Milk of Magnesia] 2,400 mg PO DAILY PRN 10/14/16 [History] Menthol/Zinc Ox/Aloe/Abdirashid Oil [Chamosyn Ointment] 1 appl TP TID PRN 10/14/16 [ History] Omeprazole [PriLOSEC] 40 mg PO DAILY 10/14/16 [History] Ondansetron ODT [Zofran ODT] 4 mg PO Q8H PRN 10/14/16 [History] Prosource Protein Powder 1 packet PO 0800,1600 10/14/16 [History] Allergies Penicillins [PCN] Allergy (Verified 09/14/16 15:26) Hives All Systems PM: A 10-system review of systems was performed and is negative for pertinent findings except as documented above in the HPI. Review of systems: Patient complains of generalized weakness and diffuse abdominal pain, denies fever, chill, headache, shortness of breath, productive cough, chest pain, palpitation, nausea/vomiting, diarrhea or dysuria. - Constitutional Vitals: Temp Pulse Resp BP Pulse Ox 98.9 F 47 20 120/44 97 10/14/16 12:52 10/14/16 15:29 10/14/16 15:41 10/14/16 15:29 10/14/16 15:41 General appearance: Present: cooperative, mild distress, A&O X 3, answers questions appropriately - Head Head exam: Present: atraumatic, normal inspection, normocephalic - Eye Eye exam: Present: EOMI, PERRL Pupils: Present: PERRL - ENT ENT exam: Present: mucous membranes dry, normal external ear exam - Neck Neck exam general surgery: Present: normal inspection, supple, trachea midline. Absent: lymphadenopathy, tenderness - Respiratory Respiratory exam: Present: decreased breath sounds (at base bilateral). Absent : rales, rhonchi, wheezes - Cardiovascular Cardiovascular exam: Present: bradycardia, irregular rhythm, +S1, +S2. Absent: gallop, rubs, systolic murmur - GI/Abdominal GI/Abdominal exam: Present: normal bowel sounds, soft, tenderness (To palpation diffusely). Absent: distended, firm, guarding, rebound, rigid - Extremities Exam Extremities exam: Present: warm, radial pulses palpable and symetrical. Absent : calf tenderness, pedal edema, tenderness - Neurological Exam Neurological exam: Present: alert, CN II-XII intact, oriented X3, no focal deficits, strengths equal and symetr throughout. Absent: altered Internal Med - H&P Results - Labs CBC & Chem 7: 10/14/16 14:01 10/14/16 14:01 Labs: Short CBC 10/14/16 Range/Units 14:01 WBC 9.2 (4.3-11.1) K/mcL Hgb 10.1 L (11.5-15.4) g/dL Hct 32.7 L (35.3-44.9) % Plt Count 241 (140-400) K/mcL Neutrophils # 6.8 (1.6-8.9) K/mcL BMP 10/14/16 14:01 Sodium 131 L Potassium 7.2 H* Chloride 98 Carbon Dioxide 21 BUN 88 H Creatinine 7.93 H Glucose 113 H Calcium 7.4 L Cardiac Enzymes 10/14/16 Range/Units 14:01 Troponin I 0.02 (0-0.03) ng/mL - Impressions ITS Impressions Chest X-Ray 10/14/16 12:53 IMPRESSION: Increased bilateral pleural effusions, left greater than right which appears moderate. Atelectatic changes as well as central vascular congestion and possible mild edema are also noted. D/ / Andres Moran MD / Andres Moran MD Interpreting Provider: Andres Moran MD <Aristides Dougherty - Last Filed: 10/15/16 07:29> Date of Encounter: 10/14/16 Internal Medicine - H&P: HPI History of present illness: Ms. Moore is a 70 year old female All Systems PM: A 10-system review of systems was performed and is negative for pertinent findings except as documented above in the HPI. - Constitutional Vitals: Temp Pulse Resp BP Pulse Ox 98.4 F 72 19 128/45 93 10/15/16 06:35 10/15/16 06:35 10/15/16 06:35 10/15/16 06:35 10/15/16 06:35 Internal Med - H&P Results - Labs CBC & Chem 7: 10/15/16 06:05 10/15/16 06:05 Labs: Short CBC 10/15/16 Range/Units 06:05 WBC 6.4 (4.3-11.1) K/mcL Hgb 9.7 L (11.5-15.4) g/dL Hct 30.8 L (35.3-44.9) % Plt Count 221 (140-400) K/mcL Neutrophils # 4.5 (1.6-8.9) K/mcL BMP 10/14/16 10/15/16 19:45 06:05 Sodium 137 Potassium 3.7 D 4.5 Chloride 96 L Carbon Dioxide 30 H BUN 32 H D Creatinine 3.96 H D Glucose 71 Calcium 7.8 L Liver Function 10/15/16 Range/Units 06:05 Total Bilirubin 0.7 (0.2-1.2) mg/dL AST 354 H (5-34) Units/L ALT 257 H (0-55) Units/L Alkaline Phosphatase 111 (38-126) Units/L Albumin 2.8 L (3.5-5.0) g/dL - Impressions ITS Impressions Abdomen/Pelvis CT 10/14/16 18:04 IMPRESSION: A large amount of stool is seen throughout the colon consistent with constipation. No acute intra-abdominal or intrapelvic abnormality. Acute/subacute appearing L4 superior endplate compression fracture with mild retropulsion. If clinically indicated, MRI may be performed to evaluate for acuity and potential vertebral augmentation. Persistent moderate bilateral pleural effusions with compressive atelectasis of both lower lobes. Cystic lesion is again seen within the body of the pancreas as well as choledocholithiasis and cholelithiasis. There is again noted to be mild hydronephrosis and hydroureter of the transplant kidney, similar in appearance. D/ / Chelsie Gagnon MD / Chelsie Gagnon MD Interpreting Provider: Chelsie Gagnon MD - Attending Attestation I examined this patient and my medical decision-making was reviewed with the Resident Physician on 10/14/16. I agree with the documented findings, disposition and treatment plan as described except to the extent set forth below. Please see event note of 10/14/16 for attestation.
[2016-10-14] MEDS ORDERED: Naloxone 0.4 MG/ML INJ IVP PRN (17:40)
[2016-10-14] MEDS ORDERED: Ondansetron 4 MG/2 ML VIAL IVP PRN (17:40)
[2016-10-14] MEDS ORDERED: *HR* Heparin 5,000 UNIT/ML VIAL SQ SCH (18:00)
--- NOTE | 2016-10-14 18:15 | Event Note ---
Date of Encounter: 10/14/16 Time of Encounter: 17:45 I examined this patient and my medical decision-making was reviewed with the Resident Physician on 10/14/16. I agree with the documented findings, disposition and treatment plan as described except to the extent set forth below. Ms Moore is a 70 y/o female with hx of ESRD following failed renal transplant. She is s/p pancreas-kidney transplant. She developed abd pain and has not felt well. She missed dialysis yesterday. Today she came to ED feeling very weak and continuing to have abd pain. No nausea or vomiting. No fever. Pain is on right side of abdomen and nothing relieves it. In ED she was found to have a K of 7.2 and treated. She is to have dialysis tonight. Currently her issues are continued abd pain and weakness. She is also dyspneic and on 100%NRB. Exam Alert. Comfortable at this time Mucus membranes dry Heart rafael with murmur Lungs with rales Abd - scant bowel sounds. Soft. Tender RUQ, epigastric, RMQ area. No peritoneal signs. Labs reviewed I/P 1. Hyperkalemia 2. ESRD 3. Abd pain - check amylase/lipase, image abdomen tonight 4. Hold metoprolol and amiodarone for heart rate. Pt is very high risk due to the potential for fatal dysrhythmia and abd pain - etiology unclear at this time. She has been admitted inpatient status with planned greater than 2 midnight stay.
[2016-10-14] MEDS ORDERED: Albumin 25% 12.5gm/50mL 25.0 GM/100 ML IV.SOLN ONE (18:24)
[2016-10-14 18:31] LABS: Hepatitis B Surface Antigen Nonreactive (Nonreactive)
[2016-10-14] MEDS ORDERED: Albumin 25% 25gram/100mL 25 GM/100 ML IV.SOLN IVPB ONE (18:33)
[2016-10-14 19:04] LABS: Albumin 2.7 g/dL (3.5-5.0); Albumin/Globulin Ratio 0.7 (1.1-2.2); Bilirubin,Direct 0.3 mg/dL (0.0-0.5); Bilirubin,Indirect 0.2 mg/dL (0.0-1.2); Bilirubin,Total 0.5 mg/dL (0.2-1.2); Globulin 3.8 g/dL (2.4-3.5); Total Protein 6.5 g/dL (6.0-8.3)
[2016-10-14] MEDS: CycloSPORINE, Mod (Neoral) 25 MG CAPSULE PO SCH (22:47)
[2016-10-14] MEDS: predniSONE 5 MG TABLET PO SCH (22:47)
[2016-10-14] MEDS: *HR* Heparin 5,000 UNIT/ML VIAL SQ SCH (22:48)
[2016-10-15] MEDS: predniSONE 5 MG TABLET PO SCH ×3 (03:06→22:17)
[2016-10-15] MEDS: CycloSPORINE, Mod (Neoral) 25 MG CAPSULE PO SCH ×3 (03:06→22:17)
[2016-10-15 06:21] LABS: Basophils % 0.3 %; Eosinophils # 0.2 K/mcL (0.0-0.6); Eosinophils % 2.7 %; Hematocrit 30.8 % (35.3-44.9); Hemoglobin 9.7 g/dL (11.5-15.4); Immature Granulocytes % 0.6 % (0-4); Immature Platelets 0.9 % (1.1-6.1); Mean Corpuscular HGB Conc 31.5 g/dL (31.6-35.5); Mean Corpuscular Hemoglobin 30.7 pg (28.0-33.3); Mean Corpuscular Volume 97.5 fL (83.0-100.0); Mean Platelet Volume 8.5 fL (9.4-12.4); Monocytes # 0.7 K/mcL (0.0-1.3); Monocytes % 11.4 %; Neutrophils # 4.5 K/mcL (1.6-8.9); Platelet Count 221 K/mcL (140-400); Red Blood Count 3.16 M/mcL (3.82-4.97); Red Cell Distribution Width 15.8 % (11.5-14.5)
[2016-10-15 06:44] LABS: Albumin 2.8 g/dL (3.5-5.0); Albumin/Globulin Ratio 0.8 (1.1-2.2); Bilirubin,Total 0.7 mg/dL (0.2-1.2); Calcium 7.8 mg/dL (8.6-10.8); Globulin 3.3 g/dL (2.4-3.5); Magnesium 2.4 mg/dL (1.6-2.6); Potassium 4.5 mEq/L (3.5-4.5); Total Protein 6.1 g/dL (6.0-8.3)
[2016-10-15] MEDS: *HR* OxyCODONE/APAP 5/325 TABLET PO PRN ×3 (07:04→22:21)
--- NOTE | 2016-10-15 08:24 | Internal Med Progress Note ---
<Asif Doe - Last Filed: 10/15/16 11:30> Date of Encounter: 10/15/16 Time of Encounter: 08:24 - Assessment and plan (1) Hyperkalemia Current Visit: Yes Status: Acute Assessment and plan: Patient had urgent hemodialysis last night, patient's potassium came down to 4.5 this morning, she will have another scheduled hemodialysis today. 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 Qualifiers: Qualified Code(s): R10.9 - Unspecified abdominal pain (3) Atrial fibrillation with slow ventricular response Current Visit: Yes Status: Acute Assessment and plan: EKG shows atrial fibrillation with slow ventricular response, cardiology was called from the ER, pacing is not necessary at this time, will continue to hold patient's home medications of AV willie blocking agents, hemodynamically she is stable, continued to closely monitor patient's vital signs. (4) ESRD (end stage renal disease) on dialysis Current Visit: Yes Status: Acute Assessment and plan: Nephrology consulted, patient will have a scheduled hemodialysis today. (5) Compression fracture of L4 lumbar vertebra Current Visit: Yes Status: Acute Assessment and plan: CT scan of the abdomen showed acute/subacute appearing L4 superior endplate compression fracture, orthopedic surgery was consulted, patient will have MRI of the lumbar spine. (6) Weakness Current Visit: No Status: Acute Assessment and plan: Patient was discharged from this hospital about a months ago to [facility] due to generalized weakness and low back pain, PT/OT to see her during this hospital stay, fall precaution. (7) DVT prophylaxis Current Visit: Yes Status: Acute Assessment and plan: Heparin subcutaneous twice a day. - Subjective Interval history: Pt seen and examined, complaints of diffuse abd pain, low back pain around lumbar area, no SOB or active chest pain this AM, pt had HD last night. - Constitutional Vitals: Temp Pulse Resp BP Pulse Ox 98.4 F 72 19 128/45 93 10/15/16 06:35 10/15/16 06:35 10/15/16 06:35 10/15/16 06:35 10/15/16 06:35 General appearance: Present: cooperative, mild distress, A&O X 3, answers questions appropriately - Respiratory Respiratory exam: Present: decreased breath sounds (diffusely b/l). Absent: rales, rhonchi, wheezes - Cardiovascular Cardiovascular exam: Present: RRR, +S1, +S2. Absent: clicks, gallop, rubs, systolic murmur - GI/Abdominal GI/Abdominal exam: Present: soft, tenderness (diffusely mostly on upper area). Absent: distended, firm, guarding, rebound, rigid - Extremities Exam Extremities exam: Present: warm, radial pulses palpable and symetrical. Absent : pedal edema, tenderness - Skin Additional comments: Coccyx stage II ulcer noted on admission yesterday Internal Medicine: Result - Labs CBC & Chem 7: 10/15/16 06:05 10/15/16 06:05 Labs: Short CBC 10/15/16 Range/Units 06:05 WBC 6.4 (4.3-11.1) K/mcL Hgb 9.7 L (11.5-15.4) g/dL Hct 30.8 L (35.3-44.9) % Plt Count 221 (140-400) K/mcL Neutrophils # 4.5 (1.6-8.9) K/mcL BMP 10/14/16 10/15/16 19:45 06:05 Sodium 137 Potassium 3.7 D 4.5 Chloride 96 L Carbon Dioxide 30 H BUN 32 H D Creatinine 3.96 H D Glucose 71 Calcium 7.8 L Liver Function 10/15/16 Range/Units 06:05 Total Bilirubin 0.7 (0.2-1.2) mg/dL AST 354 H (5-34) Units/L ALT 257 H (0-55) Units/L Alkaline Phosphatase 111 (38-126) Units/L Albumin 2.8 L (3.5-5.0) g/dL - Impressions Impressions Abdomen/Pelvis CT 10/14/16 18:04 IMPRESSION: A large amount of stool is seen throughout the colon consistent with constipation. No acute intra-abdominal or intrapelvic abnormality. Acute/subacute appearing L4 superior endplate compression fracture with mild retropulsion. If clinically indicated, MRI may be performed to evaluate for acuity and potential vertebral augmentation. Persistent moderate bilateral pleural effusions with compressive atelectasis of both lower lobes. Cystic lesion is again seen within the body of the pancreas as well as choledocholithiasis and cholelithiasis. There is again noted to be mild hydronephrosis and hydroureter of the transplant kidney, similar in appearance. D/ / Chelsie Gagnon MD / Chelsie Gagnon MD Interpreting Provider: Chelsie Gagnon MD Consult Discharge Plan - Plan Referrals: Abdi Deng MD [Primary Care Provider] - <Aristides Dougherty - Last Filed: 10/15/16 15:21> Date of Encounter: 10/15/16 - Assessment and plan (1) Hyperkalemia Current Visit: Yes Status: Resolved (2) Compression fracture of L4 lumbar vertebra Current Visit: Yes Status: Acute (3) Bradycardia Current Visit: Yes Status: Resolved (4) Abdominal pain Current Visit: Yes Status: Acute Qualifiers: Abdominal location: right upper quadrant Qualified Code(s): R10.11 - Right upper quadrant pain (5) Constipation Current Visit: Yes Status: Acute Qualifiers: Constipation type: unspecified constipation type Qualified Code(s): K59.00 - Constipation, unspecified (6) Cholelithiasis Current Visit: Yes Status: Acute Qualifiers: Cholelithiasis location: gallbladder and bile duct Cholecystitis presence: without cholecystitis Biliary obstruction: without biliary obstruction Qualified Code(s): K80.70 - Calculus of gallbladder and bile duct without cholecystitis without obstruction (7) ESRD (end stage renal disease) on dialysis Current Visit: Yes Status: Acute (8) Hypertension Current Visit: Yes Status: Chronic Qualifiers: Hypertension type: secondary to other renal disorders Qualified Code(s): I15.1 - Hypertension secondary to other renal disorders; N28.89 - Other specified disorders of kidney and ureter - Constitutional Vitals: Temp Pulse Resp BP Pulse Ox 98.4 F 72 16 131/46 93 10/15/16 12:25 10/15/16 06:35 10/15/16 12:25 10/15/16 12:25 10/15/16 09:22 Internal Medicine: Result - Labs CBC & Chem 7: 10/15/16 06:05 10/15/16 06:05 Labs: Short CBC 10/15/16 Range/Units 06:05 WBC 6.4 (4.3-11.1) K/mcL Hgb 9.7 L (11.5-15.4) g/dL Hct 30.8 L (35.3-44.9) % Plt Count 221 (140-400) K/mcL Neutrophils # 4.5 (1.6-8.9) K/mcL BMP 10/14/16 10/15/16 19:45 06:05 Sodium 137 Potassium 3.7 D 4.5 Chloride 96 L Carbon Dioxide 30 H BUN 32 H D Creatinine 3.96 H D Glucose 71 Calcium 7.8 L Liver Function 10/15/16 Range/Units 06:05 Total Bilirubin 0.7 (0.2-1.2) mg/dL AST 354 H (5-34) Units/L ALT 257 H (0-55) Units/L Alkaline Phosphatase 111 (38-126) Units/L Albumin 2.8 L (3.5-5.0) g/dL - Impressions Impressions Abdomen/Pelvis CT 10/14/16 18:04 IMPRESSION: A large amount of stool is seen throughout the colon consistent with constipation. No acute intra-abdominal or intrapelvic abnormality. Acute/subacute appearing L4 superior endplate compression fracture with mild retropulsion. If clinically indicated, MRI may be performed to evaluate for acuity and potential vertebral augmentation. Persistent moderate bilateral pleural effusions with compressive atelectasis of both lower lobes. Cystic lesion is again seen within the body of the pancreas as well as choledocholithiasis and cholelithiasis. There is again noted to be mild hydronephrosis and hydroureter of the transplant kidney, similar in appearance. D/ / Chelsie Gagnon MD / Chelsie Gagnon MD Interpreting Provider: Chelsie Gagnon MD - Attending Attestation I examined this patient and my medical decision-making was reviewed with the Resident Physician on 10/15/16. I agree with the documented findings, disposition and treatment plan as described except to the extent set forth below. Ms. Moore is currently admitted for bradycardia, hyperkalemia and abd pain. She is moderate to high risk due to potential for worsening abd issues and dysrhythmia. Ms. Moore is feeling somewhat better. She is not as bradycardic. Her electrolytes have improved. She still has abd discomfort. No fever No diarrhea Exam Alert. Comfortable Heart irreg - not tachy Lungs diminished Continued R side abd discomfort Labs reviewed I/P 1. Hyperkalemia resolved 2. Abd pain - GI to see 3. Bradycardia - resolved. Further diagnoses and plan as above.
[2016-10-15] MEDS ORDERED: Renal Vitamin 1 MG CAPSULE PO SCH (09:00)
[2016-10-15] MEDS: Sennosides/Docusate Sodium TABLET PO SCH ×2 (09:11→22:16)
[2016-10-15] MEDS: Folic Acid 1 MG TABLET PO SCH (09:12)
[2016-10-15] MEDS: Renal Vitamin 1 MG CAPSULE PO SCH (09:12)
[2016-10-15] MEDS: Aspirin 81 MG TAB.CHEW PO SCH (09:12)
[2016-10-15] MEDS ORDERED: 0.9 % Sodium Chloride 250 ML IVC PRN (09:47)
--- NOTE | 2016-10-15 10:28 | Nephrology Progress Note ---
Date of Encounter: 10/15/16 Time of Encounter: 10:14 - Assessment and Plan (1) Hyperkalemia Current Visit: Yes Status: Acute Patient presented to the ED with weakness and fatigue. Found to have potassium 7.2 secondary to a missed dialysis appointment. Patient underwent urgent dialysis yesterday afternoon. Potassium 4.5 this morning. Continue to monitor potassium and magnesium. 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 Patient of Dr. Ramírez Spears. Hemodialysis M/W/F. Creatinine, BUN and potassium all improved with dialysis yesterday. Plan for hemodialysis session today to keep patient on schedule (3) Anemia Current Visit: No Status: Acute Patient with anemia likely secondary to chronic kidney disease. Hgb 9.7 today. Baseline appears to be 9s-10s. Continue to monitor hemoglobin. Qualifiers: Anemia type: other cause Other causes of anemia: chronic disease, kidney Qualified Code(s): N18.9 - Chronic kidney disease, unspecified; D63.1 - Anemia in chronic kidney disease (4) Abdominal pain Current Visit: Yes Status: Acute Patient reports that she missed dialysis on Thursday due to significant right sided abdominal pain. CT scan showed cystic lesion in the pancreatic head. Sludge and stones in the gallbladder and a stone in the CBD. As well as a large amount of stool in the colon. Amylase elevated at 193. Bilirubin is normal but AST/ALT continue to increase - 354/257 respectively. Management per primary team. Qualifiers: Abdominal location: unspecified location Qualified Code(s): R10.9 - Unspecified abdominal pain (5) Kidney transplant failure Current Visit: No Status: Acute Subjective Principal diagnosis: Abdominal pain, hyperkalemia Interval history: Ms Phyllis Moore is a 7yo female who presented to the ED with weakness. Found to be hyperkalemic with a potassium of 7.2 after missing dialysis Thursday due to abdominal pain. Yesterday patient received emergent dialysis for the elevated potassium. No acute events overnight. Patient is afebrile. Heart rate and blood pressure improved after dialysis. She is requiring 10L high flow oxygen to maintain oxygenation saturation greater than 92%. Potassium appropriate at 4.5 this morning. Patient seen and examined this morning. She is much more awake and able to converse this morning. She tells me that she is feeling better than yesterday but still doesn't feel very good. Patient reports that she missed dialysis Thursday because of abdominal pain. When asked were the pain is located, she points to the right side of her abdomen. She denies any associated nausea or vomiting. She denies diarrhea and actually reports constipation. On exam she is awake and alert. She is tender to palpation on the right side of her abdomen. No pedal edema noted. Objective - Vital Signs Vital signs: Vital Signs Temp Pulse Resp BP Pulse Ox 10/15/16 09:22 93 10/15/16 06:35 98.4 F 72 19 128/45 93 10/15/16 06:26 98 F 68 16 100/62 98 10/15/16 04:55 98.9 F 70 16 141/49 93 10/15/16 01:20 97.9 F 80 14 133/53 95 10/14/16 22:32 98.0 F 81 17 126/52 96 10/14/16 21:29 98.5 F 22 113/47 10/14/16 21:25 108/53 10/14/16 21:10 111/56 10/14/16 20:55 105/53 10/14/16 20:40 104/46 10/14/16 20:25 105/47 10/14/16 20:10 94/62 10/14/16 19:55 103/51 10/14/16 19:40 108/42 10/14/16 19:25 109/55 10/14/16 19:10 105/49 10/14/16 18:55 90/53 10/14/16 18:40 122/60 10/14/16 18:25 99/60 10/14/16 18:10 88/46 10/14/16 17:55 98.3 F 24 97/45 10/14/16 17:27 97.0 F L 56 17 104/44 96 10/14/16 17:12 16 114/69 Intake and Output 10/14/16 10/15/16 10/15/16 23:59 07:59 15:59 Intake Total 600 / 600 Output Total 3600 / 3600 Balance -3000 / -3000 Intake: Oral 0 / 0 Intake, Rinseback and 600 / 600 Flushes Output: Urine 0 / 0 Total Dialysis Output 3600 / 3600 Other: Meal npo Weight 62 kg 61.4 kg Blood Glucose* 83 Hemodialysis Net Fluid 3000 Removed (mL) Patient Weight 10/15/16 23:59 Weight 61.4 kg - General Appearance General appearance: Present: frail EENT: Present: PERRL, mucous membranes moist Neck: Present: no JVD Respiratory: Present: clear. Absent: wheezing, rales, rhonchi Cardiology: Present: no murmurs, no rub, no gallops, no edema, regular rate, regular rhythm Gastrointestinal: Present: tenderness, guarding. Absent: distended Integumentary: Present: warm and dry Neurologic: Present: no focal deficit, alert and oriented x3 Psychiatric: Present: mood/affect appropriate, cooperative - Lab 10/15/16 06:05 10/15/16 06:05 Most recent lab results Calcium 7.8 mg/dL (8.6-10.8) L 10/15/16 06:05 Magnesium 2.4 mg/dL (1.6-2.6) 10/15/16 06:05 Consult Discharge Plan - Plan Referrals: Abdi Deng MD [Primary Care Provider] -
[2016-10-15] MEDS ORDERED: Albumin 25% 25gram/100mL 25 GM/100 ML IV.SOLN IVPB ONE (10:37)
[2016-10-15] MEDS ORDERED: Albumin 25% 12.5gm/50mL 25.0 GM/100 ML IV.SOLN ONE (10:39)
--- NOTE | 2016-10-15 10:40 | Electrocardiograph Report ---
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
[2016-10-15] MEDS ORDERED: 0.9 % Sodium Chloride 2,000 ML ONE (11:00)
[2016-10-15 12:55] LABS: Hepatitis B Surface Antibody 0.21 mIU/mL
--- NOTE | 2016-10-15 14:24 | Gastroenterology Consult Note ---
<Julius Coppola - Last Filed: 10/15/16 14:18> Date of Encounter: 10/15/16 Time of Encounter: 10:55 - Assessment and plan (1) Elevated LFTs Current Visit: Yes Status: Acute Assessment and plan: AST 121 and ALT 83 on admission, and this AM AST [address] A/P shows large amount of stool throughout colon, cystic lesion within the body of the pancreas as well as choledocholithiasis and cholelithiasis. Dr. Rios to review images and determine need for EUS/ERCP. (2) Pancreatic cyst Current Visit: No Status: Chronic Assessment and plan: Dr. Rios to review images to determine need for EUS/ERCP. (3) Abdominal pain Current Visit: Yes Status: Acute Assessment and plan: Secondary to constipation, cystic lesion within the body of the pancreas as well as choledocholithiasis and cholelithiasis. Continue PPI, Miralax. Dr. Rios to determine need for EUS/ERCP. Qualifiers: Abdominal location: unspecified location Qualified Code(s): R10.9 - Unspecified abdominal pain (4) ESRD (end stage renal disease) on dialysis Current Visit: Yes Status: Acute (5) Constipation Current Visit: Yes Status: Acute Assessment and plan: Recommend daily fiber supplement and Miralax up to BID PRN. Qualifiers: Constipation type: unspecified constipation type Qualified Code(s): K59.00 - Constipation, unspecified - Time Spent With Patient Total time spent is greater than 50% in coordination of care (as documented) at patient's floor/unit and/or counseling patient: GI History of Present Illness - Data of Consult Patient: new to practice Consult date: 10/15/16 Requesting Physician: Aristides Dougherty DO - Consult Narrative Reason for consult: Choledocholithiasis History of present illness: Ms. 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 Pt reports diffuse abdominal pain that started 2 days ago. She denies nausea, vomiting, or diarrhea. She missed hemodialysis Thursday due to abdominal pain. CT A/P shows large amount of stool throughout colon, cystic lesion within the body of the pancreas as well as choledocholithiasis and cholelithiasis. Procedures: Colonoscopy 10/09/2009 Dr. Andrew: Tubular adenoma. EGD 02/09/2008 Dr. Andrew midesophagus ulcer, nonspecific inflammation, mild patchy gastritis NSAIDs: None Anticoagulation: None Past Med Surg Social Fam HX - Past Medical History Medical history: arthritis, atrial fibrillation, diabetes, dialysis, osteoporosis, renal disease Psychiatric history: no psych history - Past Surgical History Surgical History: appendectomy, herniorrhaphy, other - Social History Smoking Status: Never smoker Smokeless Tobacco Status: No Alcohol use: none Drug use: none - Family History Mother Living Status: Hx Family Cardiac Disorders: Yes - Gastrointestinal Gastrointestinal: Present: as per HPI - Constitutional Constitutional: as per HPI - EENT Eyes: as per HPI Ears: Present: as per HPI Nose, mouth and throat: Present: as per HPI - Cardiovascular Cardiovascular ROS: Present: as per HPI - Respiratory Respiratory IM: Present: as per HPI - Genitourinary Genitourinary: Absent: change in color, Urinary frequency - Neurological ROS Neurological GI: Present: as per HPI - Hematologic/Lymphatic Hematologic/Lymphatic pediatric: Present: as per HPI - Musculoskeletal Musculoskeletal ROS GI: Present: as per HPI - Integumentary Integumentary GI: Present: as per HPI - Psychiatric ROS Psychiatric GI: Present: as per HPI - Endocrine Endocrine IM: Present: as per HPI - Constitutional Vitals: Temp Pulse Resp BP Pulse Ox 98.4 F 72 16 131/46 93 10/15/16 12:25 10/15/16 06:35 10/15/16 12:25 10/15/16 12:25 10/15/16 09:22 General appearance: Present: cooperative, A&O X 3, no acute distress, answers questions appropriately - Head Head exam: Present: atraumatic, normocephalic - Eye Eye exam: Present: normal appearance, sclera anicteric - ENT ENT exam: Present: mucous membranes dry - Neck Neck exam general surgery: Present: normal inspection, trachea midline - Respiratory Respiratory exam: Present: CTAB. Absent: rales, rhonchi, wheezes - Cardiovascular Cardiovascular exam: Present: RRR, +S1, +S2 - GI/Abdominal GI/Abdominal exam: Present: guarding, normal bowel sounds, soft, tenderness (RUQ ), no peritoneal signs. Absent: distended, firm - Rectal Rectal exam: Present: deferred - Extremities Exam Extremities exam: Present: warm - Neurological Exam Neurological exam: Present: no focal deficits - Psychiatric Psychiatric exam: Present: normal affect, normal mood - Skin Skin exam: Present: dry, intact, normal color, warm Results - Labs CBC & Chem 7: 10/15/16 06:05 10/15/16 06:05 Labs: Last Result ESR 42 mm/hr (0-15) H 10/14/16 14:01 Calcium 7.8 mg/dL (8.6-10.8) L 10/15/16 06:05 Troponin I 0.02 ng/mL (0-0.03) 10/14/16 14:01 Entire Visit Hgb 9.7 g/dL (11.5-15.4) L 10/15/16 06:05 Hct 30.8 % (35.3-44.9) L 10/15/16 06:05 Total Bilirubin 0.7 mg/dL (0.2-1.2) 10/15/16 06:05 AST 354 Units/L (5-34) H 10/15/16 06:05 ALT 257 Units/L (0-55) H 10/15/16 06:05 Amylase 193 Units/L (25-125) H 10/14/16 14:01 Lipase 20 Units/L (8-78) 10/14/16 14:01 - Impressions Impressions Abdomen/Pelvis CT 10/14/16 18:04 IMPRESSION: A large amount of stool is seen throughout the colon consistent with constipation. No acute intra-abdominal or intrapelvic abnormality. Acute/subacute appearing L4 superior endplate compression fracture with mild retropulsion. If clinically indicated, MRI may be performed to evaluate for acuity and potential vertebral augmentation. Persistent moderate bilateral pleural effusions with compressive atelectasis of both lower lobes. Cystic lesion is again seen within the body of the pancreas as well as choledocholithiasis and cholelithiasis. There is again noted to be mild hydronephrosis and hydroureter of the transplant kidney, similar in appearance. D/ / Chelsie Gagnon MD / Chelsie Gagnon MD Interpreting Provider: Chelsie Gagnon MD Consult Discharge Plan - Plan Referrals: Abdi Deng MD [Primary Care Provider] - <Loretta Rios - Last Filed: 10/15/16 18:46> Date of Encounter: 10/15/16 Time of Encounter: 18:00 - Time Spent With Patient Total time spent is greater than 50% in coordination of care (as documented) at patient's floor/unit and/or counseling patient: GI History of Present Illness - Data of Consult Requesting Physician: Aristides Dougherty DO - Consult Narrative History of present illness: Ms. Moore is a 70 year old female - Constitutional Vitals: Temp Pulse Resp BP Pulse Ox 98.4 F 70 18 127/53 97 10/15/16 15:31 10/15/16 15:31 10/15/16 15:31 10/15/16 15:31 10/15/16 15:31 Results - Labs CBC & Chem 7: 10/15/16 06:05 10/15/16 06:05 Labs: Last Result ESR 42 mm/hr (0-15) H 10/14/16 14:01 Calcium 7.8 mg/dL (8.6-10.8) L 10/15/16 06:05 Troponin I 0.02 ng/mL (0-0.03) 10/14/16 14:01 Entire Visit Hgb 9.7 g/dL (11.5-15.4) L 10/15/16 06:05 Hct 30.8 % (35.3-44.9) L 10/15/16 06:05 Total Bilirubin 0.7 mg/dL (0.2-1.2) 10/15/16 06:05 AST 354 Units/L (5-34) H 10/15/16 06:05 ALT 257 Units/L (0-55) H 10/15/16 06:05 Amylase 193 Units/L (25-125) H 10/14/16 14:01 Lipase 20 Units/L (8-78) 10/14/16 14:01 - Impressions Impressions Abdomen/Pelvis CT 10/14/16 18:04 IMPRESSION: A large amount of stool is seen throughout the colon consistent with constipation. No acute intra-abdominal or intrapelvic abnormality. Acute/subacute appearing L4 superior endplate compression fracture with mild retropulsion. If clinically indicated, MRI may be performed to evaluate for acuity and potential vertebral augmentation. Persistent moderate bilateral pleural effusions with compressive atelectasis of both lower lobes. Cystic lesion is again seen within the body of the pancreas as well as choledocholithiasis and cholelithiasis. There is again noted to be mild hydronephrosis and hydroureter of the transplant kidney, similar in appearance. D/ / Chelsie Gagnon MD / Chelsie Gagnon MD Interpreting Provider: Chelsie Gagnon MD - Attending Attestation I examined this patient and my medical decision-making was reviewed with the HEALTH SOCIAL WORK PROFESSOR/PA/Advanced Practice Nurse/Resident Physician. I agree with the documented findings, disposition and treatment plan as described except to the extent set forth below. Patient with abnormal imaging of the bile duct suspicious for a CBD stone. Patient imaging reviewed with the radiologist. Recommendation is ERCP.
[2016-10-15] MEDS: *HR* Heparin 5,000 UNIT/ML VIAL SQ SCH (14:35)
[2016-10-15] MEDS: Levothyroxine 25 MCG TABLET PO SCH (14:35)
[2016-10-16] MEDS: *HR* Heparin 5,000 UNIT/ML VIAL SQ SCH ×3 (00:09→23:59)
[2016-10-16 04:42] LABS: Basophils % 0.2 %; Eosinophils # 0.2 K/mcL (0.0-0.6); Eosinophils % 3.3 %; Hemoglobin 9.5 g/dL (11.5-15.4); Immature Granulocytes % 0.4 % (0-4); Lymphocytes # 0.9 K/mcL (0.6-4.6); Lymphocytes % 15.6 %; Mean Corpuscular HGB Conc 30.6 g/dL (31.6-35.5); Mean Corpuscular Hemoglobin 29.8 pg (28.0-33.3); Mean Corpuscular Volume 97.2 fL (83.0-100.0); Mean Platelet Volume 8.4 fL (9.4-12.4); Monocytes # 0.7 K/mcL (0.0-1.3); Monocytes % 12.4 %; Neutrophils # 3.9 K/mcL (1.6-8.9); Platelet Count 182 K/mcL (140-400); Red Blood Count 3.19 M/mcL (3.82-4.97); Red Cell Distribution Width 15.4 % (11.5-14.5); Segmented Neutrophils % 68.1 %
[2016-10-16 04:57] LABS: Albumin/Globulin Ratio 0.9 (1.1-2.2); Bilirubin,Total 0.9 mg/dL (0.2-1.2); Calcium 7.6 mg/dL (8.6-10.8); Globulin 3.2 g/dL (2.4-3.5); Potassium 4.8 mEq/L (3.5-4.5); Total Protein 6.2 g/dL (6.0-8.3)
[2016-10-16] MEDS: Levothyroxine 25 MCG TABLET PO SCH (05:42)
--- NOTE | 2016-10-16 08:27 | Nephrology Progress Note ---
Date of Encounter: 10/16/16 Time of Encounter: 08:27 - Assessment and Plan (1) Hyperkalemia Current Visit: Yes Status: Acute Patient presented to the ED with weakness and fatigue. Found to have potassium 7.2 secondary to a missed dialysis appointment. Patient underwent urgent dialysis. Potassium 4.8 this morning. Continue to monitor potassium and magnesium. 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 Patient of Dr. Ramírez Spears. Hemodialysis M/W/F. Plan for hemodialysis session Monday 10/16 (3) Anemia Current Visit: No Status: Acute Patient with anemia likely secondary to chronic kidney disease. Hgb 9.5 today. Baseline appears to be 9s-10s. Continue to monitor hemoglobin. Qualifiers: Anemia type: other cause Other causes of anemia: chronic disease, kidney Qualified Code(s): N18.9 - Chronic kidney disease, unspecified; D63.1 - Anemia in chronic kidney disease (4) Abdominal pain Current Visit: Yes Status: Acute Patient reports that she missed dialysis on Thursday due to significant right sided abdominal pain. CT scan showed cystic lesion in the pancreatic head. Sludge and stones in the gallbladder and a stone in the CBD. As well as a large amount of stool in the colon. Amylase elevated at 193. Bilirubin is normal but AST/ALT continue to increase - 354/257 respectively. GI recommends an ERCP Management per primary team. Qualifiers: Abdominal location: right upper quadrant Qualified Code(s): R10.11 - Right upper quadrant pain (5) Vertebral compression fracture Current Visit: Yes Status: Chronic Patient complains of back pain. MRI of lumbar spine revealed a subacute L4 superior endplate fracture. Spine surgery consulted. Management per surgery and primary team. Qualifiers: Encounter type: initial encounter Qualified Code(s): M48.50XA - Collapsed vertebra, not elsewhere classified, site unspecified, initial encounter for fracture (6) Kidney transplant failure Current Visit: No Status: Acute Subjective Principal diagnosis: Abdominal pain, hyperkalemia Interval history: Ms Phyllis Moore is a 7yo female who presented to the ED with weakness. Found to be hyperkalemic with a potassium of 7.2 after missing dialysis due to abdominal pain. Yesterday patient had another dialysis session. No acute events overnight. Afebrile. Heart rate and blood pressure appropriate. Oxygenations is improving , she is down to 6L supplemental oxygen. Potassium 4.8 this morning. Patient seen and examined this morning. She is awake and alert, conversing appropriately. She reports that her back hers and she still has right sided abdominal pain. She does say that her breathing has improved. On exam, lungs are diminished bilaterally with diffuse rhonchi. Abdomen tender on the right side. No pedal edema noted. Objective - Vital Signs Vital signs: Vital Signs Temp Pulse Resp BP Pulse Ox 10/16/16 03:00 98.0 F 66 16 127/51 94 10/15/16 22:25 94 10/15/16 20:00 98.2 F 60 18 113/51 91 10/15/16 15:31 98.4 F 70 18 127/53 97 10/15/16 12:25 98.4 F 16 131/46 10/15/16 12:15 117/43 10/15/16 12:00 122/31 10/15/16 11:45 110/41 10/15/16 11:30 96/40 10/15/16 11:15 97/43 10/15/16 11:00 103/37 10/15/16 10:45 102/38 10/15/16 10:30 106/39 10/15/16 10:15 98.4 F 18 97/40 10/15/16 09:22 93 Intake and Output 10/15/16 10/16/16 10/16/16 23:59 07:59 15:59 Intake Total 60 / 60 Balance 60 / 60 Intake: Oral 60 / 60 Other: Weight 60.7 kg Blood Glucose* 107 Patient Weight 10/16/16 23:59 Weight 60.7 kg - General Appearance General appearance: Present: frail EENT: Present: PERRL, mucous membranes moist Neck: Present: no JVD Respiratory: Present: course breath sounds, rhonchi Cardiology: Present: no murmurs, no rub, no gallops, no edema, regular rate, regular rhythm Gastrointestinal: Present: tenderness. Absent: distended Integumentary: Present: warm and dry Neurologic: Present: no focal deficit, alert and oriented x3 Psychiatric: Present: mood/affect appropriate, cooperative - Lab 10/16/16 03:55 10/16/16 03:55 Most recent lab results Calcium 7.6 mg/dL (8.6-10.8) L 10/16/16 03:55 Magnesium 2.4 mg/dL (1.6-2.6) 10/15/16 06:05 Consult Discharge Plan - Plan Referrals: Mason Mixon MD [Non-Partnered Physician] - 10/31/16 10:00 am
[2016-10-16] MEDS: Sennosides/Docusate Sodium TABLET PO SCH ×2 (08:52→22:36)
[2016-10-16] MEDS: Renal Vitamin 1 MG CAPSULE PO SCH (08:53)
[2016-10-16] MEDS: predniSONE 5 MG TABLET PO SCH ×2 (08:53→22:36)
[2016-10-16] MEDS: Folic Acid 1 MG TABLET PO SCH (08:53)
[2016-10-16] MEDS: *HR* OxyCODONE/APAP 5/325 TABLET PO PRN (08:53)
[2016-10-16] MEDS: Aspirin 81 MG TAB.CHEW PO SCH (08:54)
[2016-10-16] MEDS: CycloSPORINE, Mod (Neoral) 25 MG CAPSULE PO SCH ×2 (09:00→22:36)
--- NOTE | 2016-10-16 09:06 | Orthopedic Consult Note ---
<Anastasia Padgett E - Last Filed: 10/16/16 09:08> Date of Encounter: 10/16/16 Time of Encounter: 08:00 Assessment and Plan (1) Vertebral compression fracture Current Visit: Yes Status: Chronic May pursue kyphoplasty inpatient if approved by Dr. Hall and hospitalist team. If not appropriate at this time, may consider when outpatient. Awaiting further discussion with Dr. Hall. Qualifiers: Encounter type: initial encounter Qualified Code(s): M48.50XA - Collapsed vertebra, not elsewhere classified, site unspecified, initial encounter for fracture History of Present Illness Chief complaint: low back pain HPI: Ms. Moore is a 70 year old female admitted following a fall with multiple comorbities. She states "I guess I fell". She states her back has hurt more since her fall and states today that her pain is not well controlled. She states she is not very hungry because she does not feel well. She denies a history of back surgery. On examination she is resting comfortably in bed. She is alert and oriented x3. Her left hand is in a splint - she states she broke her hand as well when she fell. She has intact motion and sensation in her bilateral lower extremities and is neurovascularly intact. On exam of her back, no skin abnormalities noted, but point tenderness overlying the lower lumbar spine is observed. MRI reviewed and discussed with patient. MR/MR lumbar spine wo con IMPRESSION: 1. Subacute L4 superior endplate compression fracture, slightly worsened from 09/15/2016 study where there is about 25% vertebral body height loss centrally, now about 33% centrally. 2. Mild degenerative spondylosis throughout the lumbar spine without high-grade lumbar spinal canal or neural foraminal stenosis. 3. Partial visualization of known peripancreatic fluid collection. The findings were sent to the Radiology Results Communication [facility] at 7:48 pm on 10/15/2016to be communicated to a licensed caregiver. D/ / 10/15/2016 19:50:34 Kylie Demarco MD / jose e Interpreting Provider: Kylie Demarco MD Discussion of treatment options was had with Ms. Moore. She states that pain medication is not adequately helping her pain. In discussion of options, she states that she would pursue kyphoplasty if Dr. Hall and her hospitalist team believe she would be appropriate for this surgery. Will discuss further with Dr. Hall and provide further recommendations. Thank you for this consultation. Past Med Surg Social Fam HX - Past Medical History Medical history: arthritis, atrial fibrillation, diabetes, dialysis, osteoporosis, renal disease Psychiatric history: no psych history - Past Surgical History Surgical History: appendectomy, herniorrhaphy, other - Social History Smoking Status: Never smoker Smokeless Tobacco Status: No Alcohol use: none Drug use: none - Family History Mother Living Status: Hx Family Cardiac Disorders: Yes Medications and Allergies Acetaminophen [Tylenol] 650 mg PO Q4HR PRN 03/02/15 [History] Atorvastatin [Lipitor] 10 mg PO HS 03/02/15 [History] Folic Acid 1 mg PO DAILY 03/02/15 [History] predniSONE [Prednisone] 2.5 mg PO BID 03/02/15 [History] Amiodarone [Cordarone] 200 mg PO DAILY 09/18/15 [History] B Complex W-C No.20/Folic Acid [Nephrocaps Softgel] 1 mg PO DAILY 12/17/15 [ History] Carvedilol 12.5 mg PO BID 02/19/16 [History] Loperamide [Imodium] 2 mg PO Q8H PRN 02/19/16 [History] Oxygen 2 l IH HS 02/19/16 [History] Amlodipine Besylate 10 mg PO DAILY 09/10/16 [History] Cyclosporine, Modified [Gengraf] 75 mg PO BID 09/10/16 [History] Hydralazine HCl 50 mg PO TID 09/10/16 [History] Calcium Carbonate [Tums] 1,000 mg PO QID 30 Days 09/18/16 [Rx] Oxycodone HCl/Acetaminophen [Percocet 5-325 mg Tablet] 1 tab PO Q4H PRN #20 tablet 09/18/16 [Rx] Aspirin Enteric Coated [Aspirin EC] 81 mg PO DAILY 10/14/16 [History] Cyclobenzaprine [Flexeril] 10 mg PO Q8H 10/14/16 [History] Ergocalciferol (VITAMIN D2) [Drisdol (50,000 Unit)] 50,000 unit PO FR 10/14/16 [ History] Lactose-Reduced Food [Ensure Plus] 1 bottle PO 1000,1400 10/14/16 [History] Levothyroxine [Synthroid] 25 mcg PO 0630 10/14/16 [History] Lidocaine Patch [Lidoderm 5% patch] 1 each TP DAILY 10/14/16 [History] Magnesium Hydroxide [Milk of Magnesia] 2,400 mg PO DAILY PRN 10/14/16 [History] Menthol/Zinc Ox/Aloe/Abdirashid Oil [Chamosyn Ointment] 1 appl TP TID PRN 10/14/16 [ History] Omeprazole [PriLOSEC] 40 mg PO DAILY 10/14/16 [History] Ondansetron ODT [Zofran ODT] 4 mg PO Q8H PRN 10/14/16 [History] Prosource Protein Powder 1 packet PO 0800,1600 10/14/16 [History] Allergies Penicillins [PCN] Allergy (Verified 09/14/16 15:26) Hives All Systems Reviewed: A 10-system review of systems was performed and is negative for pertinent findings except as documented above in the HPI. Physical Exam - Constitutional Vitals: Temp Pulse Resp BP Pulse Ox 97.5 F L 66 16 113/36 97 10/16/16 08:25 10/16/16 08:25 10/16/16 08:25 10/16/16 08:25 10/16/16 08:25 General appearance IM: cooperative, A&O X 3, no acute distress, answers questions appropriately Results - Labs Result Diagrams: 10/16/16 03:55 10/16/16 03:55 Labs: Abnormal lab results RBC 3.19 M/mcL (3.82-4.97) L 10/16/16 03:55 Hgb 9.5 g/dL (11.5-15.4) L 10/16/16 03:55 Hct 31.0 % (35.3-44.9) L 10/16/16 03:55 MCHC 30.6 g/dL (31.6-35.5) L 10/16/16 03:55 RDW 15.4 % (11.5-14.5) H 10/16/16 03:55 MPV 8.4 fL (9.4-12.4) L 10/16/16 03:55 Immature Plt Fraction 0.9 % (1.1-6.1) L 10/15/16 06:05 ESR 42 mm/hr (0-15) H 10/14/16 14:01 Sodium 132 mEq/L (136-145) L 10/16/16 03:55 Potassium 4.8 mEq/L (3.5-4.5) H 10/16/16 03:55 Chloride 93 mEq/L (98-109) L 10/16/16 03:55 Carbon Dioxide 30 mEq/L (19-29) H 10/16/16 03:55 BUN 29 mg/dL (7-20) H 10/16/16 03:55 Creatinine 3.72 mg/dL (0.57-1.11) H 10/16/16 03:55 Est GFR ( Amer) 15 (> 60) L 10/16/16 03:55 Est GFR (Non-Af Amer) 12 (> 60) L 10/16/16 03:55 POC Glucose 107 (58-89) H 10/15/16 19:56 Calculated Osmolality 279 (280-300) L 10/16/16 03:55 Calcium 7.6 mg/dL (8.6-10.8) L 10/16/16 03:55 AST 309 Units/L (5-34) H 10/16/16 03:55 ALT 274 Units/L (0-55) H 10/16/16 03:55 Albumin 3.0 g/dL (3.5-5.0) L 10/16/16 03:55 Albumin/Globulin Ratio 0.9 (1.1-2.2) L 10/16/16 03:55 Amylase 193 Units/L (25-125) H 10/14/16 14:01 H & H 10/16/16 Range/Units 03:55 Hgb 9.5 L (11.5-15.4) g/dL Hct 31.0 L (35.3-44.9) % All other labs normal. Consult Discharge Plan - Plan Referrals: Mason Mixon MD [Non-Partnered Physician] - 10/31/16 10:00 am <Asif Hall Jr - Last Filed: 10/16/16 11:54> Date of Encounter: 10/16/16 History of Present Illness HPI: Dr Hall has reviewed and agree with above. Due to her failure of non operative treatment I find it reasonable to consider surgery in the form of a Kyphoplasty L4. Risks and benefits were discussed and the patient would like to proceed. All Systems Reviewed: A 10-system review of systems was performed and is negative for pertinent findings except as documented above in the HPI. Physical Exam - Constitutional Vitals: Temp Pulse Resp BP Pulse Ox 97.5 F L 66 16 113/36 97 10/16/16 08:25 10/16/16 08:25 10/16/16 08:25 10/16/16 08:25 10/16/16 08:25 Results - Labs Result Diagrams: 10/16/16 03:55 10/16/16 03:55 Labs: Abnormal lab results RBC 3.19 M/mcL (3.82-4.97) L 10/16/16 03:55 Hgb 9.5 g/dL (11.5-15.4) L 10/16/16 03:55 Hct 31.0 % (35.3-44.9) L 10/16/16 03:55 MCHC 30.6 g/dL (31.6-35.5) L 10/16/16 03:55 RDW 15.4 % (11.5-14.5) H 10/16/16 03:55 MPV 8.4 fL (9.4-12.4) L 10/16/16 03:55 Immature Plt Fraction 0.9 % (1.1-6.1) L 10/15/16 06:05 ESR 42 mm/hr (0-15) H 10/14/16 14:01 Sodium 132 mEq/L (136-145) L 10/16/16 03:55 Potassium 4.8 mEq/L (3.5-4.5) H 10/16/16 03:55 Chloride 93 mEq/L (98-109) L 10/16/16 03:55 Carbon Dioxide 30 mEq/L (19-29) H 10/16/16 03:55 BUN 29 mg/dL (7-20) H 10/16/16 03:55 Creatinine 3.72 mg/dL (0.57-1.11) H 10/16/16 03:55 Est GFR ( Amer) 15 (> 60) L 10/16/16 03:55 Est GFR (Non-Af Amer) 12 (> 60) L 10/16/16 03:55 POC Glucose 107 (58-89) H 10/15/16 19:56 Calculated Osmolality 279 (280-300) L 10/16/16 03:55 Calcium 7.6 mg/dL (8.6-10.8) L 10/16/16 03:55 AST 309 Units/L (5-34) H 10/16/16 03:55 ALT 274 Units/L (0-55) H 10/16/16 03:55 Albumin 3.0 g/dL (3.5-5.0) L 10/16/16 03:55 Albumin/Globulin Ratio 0.9 (1.1-2.2) L 10/16/16 03:55 Amylase 193 Units/L (25-125) H 10/14/16 14:01 H & H 10/16/16 Range/Units 03:55 Hgb 9.5 L (11.5-15.4) g/dL Hct 31.0 L (35.3-44.9) % All other labs normal.
--- NOTE | 2016-10-16 12:11 | Internal Med Progress Note ---
Date of Encounter: 10/16/16 Time of Encounter: 12:09 - Assessment and plan (1) Hyperkalemia Current Visit: Yes Status: Acute Assessment and plan: Patient had urgent hemodialysis on the day of admission, patient's potassium came down to 4.5 yesterday, she will have another scheduled hemodialysis tomorrow. 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 Qualifiers: Abdominal location: right upper quadrant Qualified Code(s): R10.11 - Right upper quadrant pain (3) Atrial fibrillation with slow ventricular response Current Visit: Yes Status: Acute Assessment and plan: EKG shows atrial fibrillation with slow ventricular response, cardiology was called from the ER, pacing is not necessary at this time, will continue to hold patient's home medications of AV willie blocking agents, hemodynamically she is stable, continued to closely monitor patient's vital signs. (4) ESRD (end stage renal disease) on dialysis Current Visit: Yes Status: Acute Assessment and plan: Nephrology consulted, patient will have a scheduled hemodialysis tomorrow. (5) Compression fracture of L4 lumbar vertebra Current Visit: Yes Status: Acute Assessment and plan: CT scan of the abdomen showed acute/subacute appearing L4 superior endplate compression fracture, orthopedic surgery was consulted, patient will have kyphoplasty after hemodialysis tomorrow. (6) Weakness Current Visit: No Status: Acute Assessment and plan: Patient was discharged from this hospital about a months ago to alf due to generalized weakness and low back pain, PT/OT to see her during this hospital stay, fall precaution. (7) DVT prophylaxis Current Visit: Yes Status: Acute Assessment and plan: Heparin subcutaneous twice a day. - Subjective Interval history: Pt seen and examined, her abdominal pain is better than yesterday, still has low back pain around lumbar area, no SOB or active chest pain this AM. - Constitutional Vitals: Temp Pulse Resp BP Pulse Ox 97.4 F L 65 16 132/40 95 10/16/16 11:47 10/16/16 11:47 10/16/16 11:47 10/16/16 11:47 10/16/16 11:47 General appearance: Present: cooperative, mild distress, A&O X 3, answers questions appropriately - Head Head exam: Present: atraumatic, normocephalic - Eye Eye exam: Present: PERRL, conjuntiva pink, sclera anicteric Pupils: Present: PERRL - Neck Neck exam general surgery: Present: supple, trachea midline. Absent: lymphadenopathy - Respiratory Respiratory exam: Present: CTAB. Absent: accessory muscle use, rales, rhonchi, wheezes - Cardiovascular Cardiovascular exam: Present: RRR, +S1, +S2. Absent: diastolic murmur, gallop, rubs, systolic murmur - GI/Abdominal GI/Abdominal exam: Present: normal bowel sounds, soft, tenderness (On right upper quadrant), no peritoneal signs. Absent: distended - Extremities Exam Extremities exam: Present: warm, radial pulses palpable and symetrical. Absent : calf tenderness, cyanotic, pedal edema - Neurological Exam Neurological exam: Present: CN II-XII intact, oriented X3, no focal deficits - Skin Skin exam: Present: dry, intact Internal Medicine: Result - Labs CBC & Chem 7: 10/16/16 03:55 10/16/16 03:55 Labs: Short CBC 10/16/16 Range/Units 03:55 WBC 5.7 (4.3-11.1) K/mcL Hgb 9.5 L (11.5-15.4) g/dL Hct 31.0 L (35.3-44.9) % Plt Count 182 (140-400) K/mcL Neutrophils # 3.9 (1.6-8.9) K/mcL BMP 10/16/16 03:55 Sodium 132 L Potassium 4.8 H Chloride 93 L Carbon Dioxide 30 H BUN 29 H Creatinine 3.72 H Glucose 85 Calcium 7.6 L Liver Function 10/16/16 Range/Units 03:55 Total Bilirubin 0.9 (0.2-1.2) mg/dL AST 309 H (5-34) Units/L ALT 274 H (0-55) Units/L Alkaline Phosphatase 112 (38-126) Units/L Albumin 3.0 L (3.5-5.0) g/dL - Impressions Impressions Lumbar Spine MRI 10/15/16 13:00 IMPRESSION: 1. Subacute L4 superior endplate compression fracture, slightly worsened from 09/15/2016 study where there is about 25% vertebral body height loss centrally, now about 33% centrally. 2. Mild degenerative spondylosis throughout the lumbar spine without high-grade lumbar spinal canal or neural foraminal stenosis. 3. Partial visualization of known peripancreatic fluid collection. The findings were sent to the Radiology Results Communication Center at 7:48 pm on 10/15/2016to be communicated to a licensed caregiver. D/ / 10/15/2016 19:50:34 Kylie Demarco MD / jose e Interpreting Provider: Kylie Demarco MD Consult Discharge Plan - Plan Referrals: Mason Mixon MD [Non-Partnered Physician] - 10/31/16 10:00 am
--- NOTE | 2016-10-16 21:11 | Anesthesia Evaluation PreOp ---
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 DESIGN ENGINEER History: TIA, Other (Residual RtLE weakness) Other Medical History: Renal (CKD), Diabetes Type II, GERD Anesthesia History: No Prior Anesthetic Complications Alcohol Use: none Drug use: none Medications and Allergies Acetaminophen [Tylenol] 650 mg PO Q4HR PRN 03/02/15 [History] Atorvastatin [Lipitor] 10 mg PO HS 03/02/15 [History] Folic Acid 1 mg PO DAILY 03/02/15 [History] predniSONE [Prednisone] 2.5 mg PO BID 03/02/15 [History] Amiodarone [Cordarone] 200 mg PO DAILY 09/18/15 [History] B Complex W-C No.20/Folic Acid [Nephrocaps Softgel] 1 mg PO DAILY 12/17/15 [ History] Carvedilol 12.5 mg PO BID 02/19/16 [History] Loperamide [Imodium] 2 mg PO Q8H PRN 02/19/16 [History] Oxygen 2 l IH HS 02/19/16 [History] Amlodipine Besylate 10 mg PO DAILY 09/10/16 [History] Cyclosporine, Modified [Gengraf] 75 mg PO BID 09/10/16 [History] Hydralazine HCl 50 mg PO TID 09/10/16 [History] Calcium Carbonate [Tums] 1,000 mg PO QID 30 Days 09/18/16 [Rx] Oxycodone HCl/Acetaminophen [Percocet 5-325 mg Tablet] 1 tab PO Q4H PRN #20 tablet 09/18/16 [Rx] Aspirin Enteric Coated [Aspirin EC] 81 mg PO DAILY 10/14/16 [History] Cyclobenzaprine [Flexeril] 10 mg PO Q8H 10/14/16 [History] Ergocalciferol (VITAMIN D2) [Drisdol (50,000 Unit)] 50,000 unit PO FR 10/14/16 [ History] Lactose-Reduced Food [Ensure Plus] 1 bottle PO 1000,1400 10/14/16 [History] Levothyroxine [Synthroid] 25 mcg PO 0630 10/14/16 [History] Lidocaine Patch [Lidoderm 5% patch] 1 each TP DAILY 10/14/16 [History] Magnesium Hydroxide [Milk of Magnesia] 2,400 mg PO DAILY PRN 10/14/16 [History] Menthol/Zinc Ox/Aloe/Abdirashid Oil [Chamosyn Ointment] 1 appl TP TID PRN 10/14/16 [ History] Omeprazole [PriLOSEC] 40 mg PO DAILY 10/14/16 [History] Ondansetron ODT [Zofran ODT] 4 mg PO Q8H PRN 10/14/16 [History] Prosource Protein Powder 1 packet PO 0800,1600 10/14/16 [History] Allergies Penicillins [PCN] Allergy (Verified 09/14/16 15:26) Hives - Meds/Allergy Pre-op Review Medications Reviewed: Yes Allergies Reviewed: Yes Beta Blockers on Current Med List: No Anesthesia Results - Labs 10/16/16 03:55 10/16/16 03:55 - Imaging EKG: report reviewed (AFib with slow ventricular response) Anesthesia Exam O2 Sat Weight 60.7 kg O2 Sat by Pulse Oximetry 96 O2 Sat by Pulse Oximetry 95 O2 Sat by Pulse Oximetry 97 O2 Sat by Pulse Oximetry 94 O2 Sat by Pulse Oximetry 94 Vital Signs Temp Pulse Resp BP Pulse Ox 98.9 F 42 14 108/52 73 10/14/16 12:52 10/14/16 12:52 10/14/16 12:52 10/14/16 12:52 10/14/16 12:52 Height: 5'4 Weight: 133 lbs NPO (# of Hours): MN Pain Scale: 0 - HEENT Pupil (Motor): Pupils equal, EOMI Mallampati: III Teeth: Missing Oral Opening: Less than or equal to 3 - CONTROLS DESIGN ENGINEER LOC: Oriented CONTROLS DESIGN ENGINEER Motor: Normal RUE, Normal LUE, Normal RLE, Normal LLE, Normal Face CONTROLS DESIGN ENGINEER Sensory: Normal: RUE, LUE, RLE, LLE, Face - Cardiac Rhythm: Regular Murmur: None JVD: No Carotid Bruit: No - Pulmonary Breath Sounds: bilateral Clear Respiratory Effort: Symmetrical Anesthesia Assess/Plan ASA Score: 4 (AFib, COPD on home oxygen, DM) Modified [place] Scale for Level of Consciousness: Cooperative, oriented, and tranquil Anesthetic Plan: General Monitoring Plan: Standard Monitors Recovery Plan: PACU (Discussed GA, agrees to proceed)
[2016-10-17] MEDS: Levothyroxine 25 MCG TABLET PO SCH (05:12)
[2016-10-17 06:30] LABS: Basophils % 0.2 %; Eosinophils # 0.1 K/mcL (0.0-0.6); Eosinophils % 1.4 %; Hematocrit 31.5 % (35.3-44.9); Immature Granulocytes % 0.5 % (0-4); Lymphocytes # 0.8 K/mcL (0.6-4.6); Lymphocytes % 18.5 %; Mean Corpuscular HGB Conc 31.7 g/dL (31.6-35.5); Mean Corpuscular Hemoglobin 30.1 pg (28.0-33.3); Mean Corpuscular Volume 94.9 fL (83.0-100.0); Mean Platelet Volume 8.5 fL (9.4-12.4); Monocytes # 0.4 K/mcL (0.0-1.3); Monocytes % 10.1 %; Platelet Count 195 K/mcL (140-400); Red Blood Count 3.32 M/mcL (3.82-4.97); Red Cell Distribution Width 15.1 % (11.5-14.5); Segmented Neutrophils % 69.3 %
[2016-10-17 06:36] LABS: Albumin 2.9 g/dL (3.5-5.0); Albumin/Globulin Ratio 0.8 (1.1-2.2); Bilirubin,Total 0.6 mg/dL (0.2-1.2); Calcium 7.3 mg/dL (8.6-10.8); Globulin 3.5 g/dL (2.4-3.5); Potassium 5.3 mEq/L (3.5-4.5); Total Protein 6.4 g/dL (6.0-8.3)
[2016-10-17] MEDS ORDERED: Clindamycin 600 MG in D5% in Water 50 ML IVPB ONE (07:00)
[2016-10-17] MEDS ORDERED: Clindamycin 600 MG/50 ML 600 MG/50 ML IV.SOLN IVPB ONE (07:00)
--- NOTE | 2016-10-17 08:15 | Orthopedics Progress Note ---
Date of Encounter: 10/17/16 Time of Encounter: 08:00 - Assessment and Plan (1) Vertebral compression fracture Current Visit: Yes Status: Chronic Kyphoplasty L4 later today with Dr. Hall following dialysis. Pre-anesthesia exam completed by Dr. Kidd 10/16/16. Qualifiers: Encounter type: subsequent encounter Fracture healing: with delayed healing Qualified Code(s): M48.50XG - Collapsed vertebra, not elsewhere classified, site unspecified, subsequent encounter for fracture with delayed healing Subjective Principal diagnosis: low back pain Interval history: Patient scheduled for surgery - kyphoplasty of L4 by Dr. Hall later today. Pre-anesthesia exam completed by Dr. Kidd on 10/16/16. Patient resting in bed on examination this morning. Awoken easily. States she is aware of plan of surgery today. Denies questions or concerns regarding surgery. Admits to some left lower quadrant pain - she denies having a bowel movement since being admitted to [facility]. Neurovascularly intact with regard to all extremities. Tenderness to palpation of the back - stable from yesterday. Discussed patient's abdominal pain with her nurse. Requested if patient has not in fact had BM since admission, for nurse to please contact hospitalist. Continue with plan for surgery today following dialysis. Objective Vital signs: Vital Signs Temp Pulse Resp BP Pulse Ox 10/17/16 07:05 97.9 F 68 18 131/45 97 10/17/16 03:00 97.9 F 67 16 166/53 99 10/16/16 20:00 98.1 F 65 16 138/58 97 10/16/16 15:05 97.9 F 64 16 142/63 96 10/16/16 11:47 97.4 F L 65 16 132/40 95 10/16/16 08:25 97.5 F L 66 16 113/36 97 Intake and Output 10/16/16 10/17/16 10/17/16 23:59 07:59 15:59 Other: Weight 61.9 kg Blood Glucose* 159 100 Patient Weight 10/17/16 23:59 Weight 61.9 kg - Labs CBC & BMP: 10/17/16 04:30 10/17/16 06:22 Labs: Abnormal lab results RBC 3.32 M/mcL (3.82-4.97) L 10/17/16 04:30 Hgb 10.0 g/dL (11.5-15.4) L 10/17/16 04:30 Hct 31.5 % (35.3-44.9) L 10/17/16 04:30 RDW 15.1 % (11.5-14.5) H 10/17/16 04:30 MPV 8.5 fL (9.4-12.4) L 10/17/16 04:30 Immature Plt Fraction 0.9 % (1.1-6.1) L 10/15/16 06:05 ESR 42 mm/hr (0-15) H 10/14/16 14:01 Sodium 128 mEq/L (136-145) L 10/17/16 06:22 Potassium 5.3 mEq/L (3.5-4.5) H 10/17/16 06:22 Chloride 91 mEq/L (98-109) L 10/17/16 06:22 BUN 44 mg/dL (7-20) H D 10/17/16 06:22 Creatinine 5.20 mg/dL (0.57-1.11) H 10/17/16 06:22 Est GFR ( Amer) 10 (> 60) L 10/17/16 06:22 Est GFR (Non-Af Amer) 8 (> 60) L 10/17/16 06:22 Glucose 103 mg/dL (70-99) H 10/17/16 06:22 POC Glucose 159 (58-89) H 10/16/16 21:19 Calculated Osmolality 277 (280-300) L 10/17/16 06:22 Calcium 7.3 mg/dL (8.6-10.8) L 10/17/16 06:22 AST 124 Units/L (5-34) H 10/17/16 06:22 ALT 167 Units/L (0-55) H 10/17/16 06:22 Albumin 2.9 g/dL (3.5-5.0) L 10/17/16 06:22 Albumin/Globulin Ratio 0.8 (1.1-2.2) L 10/17/16 06:22 Amylase 193 Units/L (25-125) H 10/14/16 14:01 Consult Discharge Plan - Plan Referrals: Mason Mixon MD [Non-Partnered Physician] - 10/31/16 10:00 am
--- NOTE | 2016-10-17 08:28 | Internal Med Progress Note ---
<Asif Doe - Last Filed: 10/17/16 13:09> Date of Encounter: 10/17/16 Time of Encounter: 08:28 - Assessment and plan (1) Hyperkalemia Current Visit: Yes Status: Acute Assessment and plan: Patient had urgent hemodialysis on the day of admission, she will have another scheduled hemodialysis today. 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, MRCP 1 months ago showed mild dilation of the distal common bile duct without discrete filling defect and pancreatic parenchymal calcification adjacent to the duct, multiple cystic pancreatic lesion, and cholelithiasis, this time patient presented with a diffuse abdominal pain since 2 days ago, CT scan of the abdomen showed a large amount of stool throughout the colon, cystic lesion within the body of the pancreas as well as choledocholithiasis and cholelithiasis, GI has been consulted and they will hold off of ERCP for now, her elevated aminotransferase levels continue to improve, will speak to GI team again next Thursday about ERCP. Qualifiers: Abdominal location: right upper quadrant Qualified Code(s): R10.11 - Right upper quadrant pain (3) Atrial fibrillation with slow ventricular response Current Visit: Yes Status: Acute Assessment and plan: EKG shows atrial fibrillation with slow ventricular response, cardiology was called from the ER, pacing is not necessary at this time, will continue to hold patient's home medications of AV willie blocking agents, hemodynamically she is stable, continued to closely monitor patient's vital signs. (4) ESRD (end stage renal disease) on dialysis Current Visit: Yes Status: Acute Assessment and plan: Nephrology consulted, patient will have a scheduled hemodialysis today. (5) Compression fracture of L4 lumbar vertebra Current Visit: Yes Status: Acute Assessment and plan: CT scan of the abdomen showed acute/subacute appearing L4 superior endplate compression fracture, orthopedic surgery was consulted, patient will have kyphoplasty after hemodialysis today. (6) Weakness Current Visit: No Status: Acute Assessment and plan: Patient was discharged from this hospital about a months ago to [facility] due to generalized weakness and low back pain, PT/OT to see her during this hospital stay, fall precaution. (7) DVT prophylaxis Current Visit: Yes Status: Acute Assessment and plan: Heparin subcutaneous twice a day. - Subjective Interval history: Pt seen and examined, her abdominal pain is better than yesterday, still has low back pain around lumbar area, no SOB or active chest pain this AM. - Constitutional Vitals: Temp Pulse Resp BP Pulse Ox 97.9 F 68 18 131/45 97 10/17/16 07:05 10/17/16 07:05 10/17/16 07:05 10/17/16 07:05 10/17/16 07:05 General appearance: Present: cooperative, mild distress, A&O X 3, answers questions appropriately - Head Head exam: Present: atraumatic, normocephalic - Eye Eye exam: Present: PERRL, conjuntiva pink, sclera anicteric Pupils: Present: PERRL - Neck Neck exam general surgery: Present: supple, trachea midline. Absent: lymphadenopathy - Respiratory Respiratory exam: Present: CTAB. Absent: accessory muscle use, rales, rhonchi, wheezes - Cardiovascular Cardiovascular exam: Present: RRR, +S1, +S2. Absent: diastolic murmur, gallop, rubs, systolic murmur - GI/Abdominal GI/Abdominal exam: Present: normal bowel sounds, soft, tenderness (Slightly in the right upper quadrant), no peritoneal signs. Absent: distended, firm, guarding, rebound, rigid - Extremities Exam Extremities exam: Present: warm, radial pulses palpable and symetrical. Absent : calf tenderness, cyanotic, pedal edema - Neurological Exam Neurological exam: Present: CN II-XII intact, oriented X3, no focal deficits. Absent: pronater drift, facial droop, speech deficit - Skin Skin exam: Present: dry, intact Internal Medicine: Result - Labs CBC & Chem 7: 10/17/16 04:30 10/17/16 06:22 Labs: Short CBC 10/17/16 Range/Units 04:30 WBC 4.3 (4.3-11.1) K/mcL Hgb 10.0 L (11.5-15.4) g/dL Hct 31.5 L (35.3-44.9) % Plt Count 195 (140-400) K/mcL Neutrophils # 3.0 (1.6-8.9) K/mcL BMP 10/17/16 06:22 Sodium 128 L Potassium 5.3 H Chloride 91 L Carbon Dioxide 27 BUN 44 H D Creatinine 5.20 H Glucose 103 H Calcium 7.3 L Liver Function 10/17/16 Range/Units 06:22 Total Bilirubin 0.6 (0.2-1.2) mg/dL AST 124 H (5-34) Units/L ALT 167 H (0-55) Units/L Alkaline Phosphatase 119 (38-126) Units/L Albumin 2.9 L (3.5-5.0) g/dL - Impressions Impressions Chest X-Ray 10/16/16 10:16 IMPRESSION: Persistent bilateral pulmonary opacities and pleural effusions. Slight decrease in the left pleural effusions since the prior study. Mild increase in the right effusion. D/ / 10/16/2016 14:07:51 Indy Carroll MD / Helga Vargas Interpreting Provider: Indy Carroll MD Consult Discharge Plan - Plan Referrals: Anastasia Padgett PAC [Physician Filling Station Equipment Mechanic] - 11/05/16 9:00 am Mason Mixon MD [Non-Partnered Physician] - 10/31/16 10:00 am <Chio Stevens - Last Filed: 10/17/16 15:29> Date of Encounter: 10/17/16 - Constitutional Vitals: Temp Pulse Resp BP Pulse Ox 97.9 F 68 18 110/53 97 10/17/16 07:05 10/17/16 07:05 10/17/16 07:05 10/17/16 12:35 10/17/16 07:05 Internal Medicine: Result - Labs CBC & Chem 7: 10/17/16 04:30 10/17/16 06:22 Labs: Short CBC 10/17/16 Range/Units 04:30 WBC 4.3 (4.3-11.1) K/mcL Hgb 10.0 L (11.5-15.4) g/dL Hct 31.5 L (35.3-44.9) % Plt Count 195 (140-400) K/mcL Neutrophils # 3.0 (1.6-8.9) K/mcL BMP 10/17/16 06:22 Sodium 128 L Potassium 5.3 H Chloride 91 L Carbon Dioxide 27 BUN 44 H D Creatinine 5.20 H Glucose 103 H Calcium 7.3 L Liver Function 10/17/16 Range/Units 06:22 Total Bilirubin 0.6 (0.2-1.2) mg/dL AST 124 H (5-34) Units/L ALT 167 H (0-55) Units/L Alkaline Phosphatase 119 (38-126) Units/L Albumin 2.9 L (3.5-5.0) g/dL - Impressions Impressions Chest X-Ray 10/16/16 10:16 IMPRESSION: Persistent bilateral pulmonary opacities and pleural effusions. Slight decrease in the left pleural effusions since the prior study. Mild increase in the right effusion. D/ / 10/16/2016 14:07:51 Indy Carroll MD / Helga Vargas Interpreting Provider: Indy Carroll MD - Attending Attestation I saw and examined pt. I have discussed with Resident Dr Doe regarding pt's management plan. I agree with the documentation. Pt will have L vertebral surgery today. Cont close monitoring. HR stable after holding beta john.
[2016-10-17] MEDS ORDERED: 0.9 % Sodium Chloride 250 ML IVC PRN (09:18)
[2016-10-17] MEDS ORDERED: 0.9 % Sodium Chloride 1,000 ML PRIME SCH (09:30)
[2016-10-17] MEDS: CycloSPORINE, Mod (Neoral) 25 MG CAPSULE PO SCH ×2 (10:53→20:56)
[2016-10-17] MEDS: predniSONE 5 MG TABLET PO SCH ×2 (10:53→20:56)
[2016-10-17] MEDS: Sennosides/Docusate Sodium TABLET PO SCH ×2 (10:53→20:57)
[2016-10-17] MEDS ORDERED: *HR* Propofol 200 MG/20 ML VIAL IVP ONE (13:19)
[2016-10-17] MEDS ORDERED: *HR* FentaNYL (PF) 100 MCG/2 ML VIAL ONE ×2 (13:19→14:54)
[2016-10-17] MEDS ORDERED: Lidocaine -MPF 4% 5 ML AMPUL ONE (13:20)
[2016-10-17] MEDS ORDERED: Dexamethasone 4 MG/ML VIAL ONE (13:20)
[2016-10-17] MEDS ORDERED: Lidocaine -MPF 2% 2 ML VIAL ONE (13:20)
[2016-10-17] MEDS ORDERED: Ondansetron 4 MG/2 ML VIAL ONE (13:20)
[2016-10-17] MEDS ORDERED: *HR* Rocuronium Bromide 50 MG/5 ML VIAL ONE (13:20)
[2016-10-17] MEDS ORDERED: *HR* Phenylephrine 10 MG/ML VIAL ONE (13:23)
[2016-10-17] MEDS ORDERED: EPHEDrine 50 MG/ML VIAL ONE (13:24)
[2016-10-17] MEDS ORDERED: Neostigmine Methylsulfate 3 MG/3 ML SYRINGE ONE (15:45)
--- NOTE | 2016-10-17 15:45 | Orthopedic Operative Note ---
Date of procedure: 10/17/16 Pre-op diagnosis: Osteopenia, vertebral compression fracture Post-op diagnosis: same Operation/Findings: Kyphoplasty L4:The patient was brought to the operative theater where successful endotracheal anesthesia was performed. The patient was given antibiotics prior to the start of the procedure. Compression boots and stockings were used for deep vein thrombosis prophylaxis. Patient was then turned prone on a well-padded Chano table. The back was prepped and draped in the usual sterile fashion. 2 C-arm fluorographic devices were brought into position such that simultaneous AP and lateral views centered over the involved L4 vertebral body could be performed. A stab incision was made over the superior-lateral aspect of the left L4 pedicle. We introduced a Jamshidi needle into the L4 vertebral body via a transpedicular route. We took biplanar images of the L4 vertebral body using fluorography. The needle was found to be in appropriate position and within the confines of the L4 vertebral body. We then introduced a biopsy trocar and obtained a biopsy specimen of the L4 vertebral body. This was sent for pathologic evaluation. We then removed the biopsy trocar and introduced a Kyphon balloon. The balloon was insufflated to approximately 5 mL volume and subsequently deflated. The balloon was seen to expand within the confines of the L4 vertebral body on biplanar fluorographic views. The balloon was then removed. We then inserted cement trochars and sequentially placed bone cement within the confines of the L4 vertebral body. We took intermittent fluorographic views which confirmed satisfactory placement of the cement. After completion of the cementation process, the trocar was removed. We took final AP and lateral fluorographic views. We then closed the stab incision with 2-0 nylon suture. A Band-Aid was placed over the wound. The patient was turned supine on a hospital bed and extubated. All sponge instrument and needle counts were correct at the end of the procedure. The patient tolerated the procedure well without complications. Anesthesia: GETA Surgeon: Asif Hall Jr Estimated blood loss (cc): 4 Specimen: L4 vertebral biopsy Condition: stable Disposition: PACU
[2016-10-17] MEDS: *HR* HYDROmorphone (PF) 1 MG/ML SYRINGE IVP PRN ×2 (15:55→16:05)
[2016-10-17] MEDS ORDERED: *HR* HYDROmorphone (PF) 1 MG/ML SYRINGE ONE (15:55)
[2016-10-17] MEDS ORDERED: Ondansetron 4 MG/2 ML VIAL IVP PRN (15:57)
[2016-10-17] MEDS ORDERED: Albuterol 2.5 MG/3 ML NEBULIZER IH PRN (15:57)
--- NOTE | 2016-10-17 16:28 | Anesthesia Evaluation Post Op ---
Date of Encounter: 10/17/16 Time of Encounter: 16:27 - Vital Signs Vital Signs: Vital Signs/O2 Sat, Most Current Temp Pulse Resp BP Pulse Ox 97.7 F 69 16 137/43 93 10/17/16 16:20 10/17/16 16:20 10/17/16 16:20 10/17/16 16:20 10/17/16 16:20 - Lungs Lungs: Clear Ascult./Percussion - Airway Airway: Non-obstructed - Cardiovascular Regular Rate - Mental Status Mental Status: Asleep with brisk response to light stimulation - Pain Pain Scale: 3 Pain Scale used: Numeric (1 - 10) - Nausea Vomiting Nausea Vomiting: Not Present - Hydration Hydration: NPO, Has not voided - Discharge PostOp Status: Transfer Patient to floor
[2016-10-17] MEDS: Renal Vitamin 1 MG CAPSULE PO SCH (17:28)
[2016-10-17] MEDS: Folic Acid 1 MG TABLET PO SCH (17:28)
[2016-10-17] MEDS: Aspirin 81 MG TAB.CHEW PO SCH (17:29)
[2016-10-17] MEDS: *HR* Heparin 5,000 UNIT/ML VIAL SQ SCH (17:29)
[2016-10-17] MEDS: *HR* OxyCODONE/APAP 5/325 TABLET PO PRN ×2 (17:29→22:52)
--- NOTE | 2016-10-17 17:47 | Nephrology Progress Note ---
Date of Encounter: 10/17/16 Time of Encounter: 17:45 - Assessment and Plan (1) ESRD (end stage renal disease) on dialysis Current Visit: Yes Status: Acute Patient was seen on dialysis. No new complaint. Will continue with dialysis MWF and as needed. (2) Hyperkalemia Current Visit: Yes Status: Resolved improved with dialysis. Subjective Principal diagnosis: low back pain Interval history: patient was seen on dialysis. She has no new complaint. Objective - Vital Signs Vital signs: Vital Signs Temp Pulse Resp BP Pulse Ox 10/17/16 16:45 97 F L 10/17/16 16:40 70 16 146/52 94 10/17/16 16:20 97.7 F 69 16 137/43 93 10/17/16 16:10 67 16 137/44 92 10/17/16 16:00 68 16 153/65 92 10/17/16 15:50 97.7 F 71 16 141/46 100 10/17/16 15:00 98.3 F 20 113/66 10/17/16 14:05 106/56 10/17/16 13:50 105/56 10/17/16 13:35 110/56 10/17/16 13:20 110/56 10/17/16 13:05 120/53 10/17/16 12:50 112/54 10/17/16 12:35 110/53 10/17/16 12:20 113/61 10/17/16 12:05 112/45 10/17/16 11:50 115/52 10/17/16 11:35 124/50 10/17/16 11:20 117/48 10/17/16 07:05 97.9 F 68 18 131/45 97 10/17/16 03:00 97.9 F 67 16 166/53 99 10/16/16 20:00 98.1 F 65 16 138/58 97 Intake and Output 10/17/16 10/17/16 10/17/16 07:59 15:59 23:59 Output Total 3604 / 3604 Balance -3604 / -3604 Output: Urine 0 / 0 Total Dialysis (HD) 3600 / 3600 Output Estimated Blood Loss 4 / 4 Other: Meal npo Percent of Meal Consumed 0% Weight 61.9 kg Blood Glucose* 100 78 Hemodialysis Net Fluid 3000 Removed (mL) Patient Weight 10/17/16 23:59 Weight 61.9 kg - General Appearance General appearance: Present: well-developed, well-nourished EENT: Present: ATNC Neck: Present: supple Respiratory: Present: clear (anteriorly) Cardiology: Present: regular rate Integumentary: Present: warm and dry Neurologic: Present: alert and oriented x3 - Lab 10/17/16 04:30 10/17/16 06:22 Most recent lab results Calcium 7.3 mg/dL (8.6-10.8) L 10/17/16 06:22 Magnesium 2.4 mg/dL (1.6-2.6) 10/15/16 06:05 Consult Discharge Plan - Plan Referrals: Anastasia Padgett PAC [Physician Business Loan Processor] - 11/05/16 9:00 am Mason Mixon MD [Non-Partnered Physician] - 10/31/16 10:00 am
[2016-10-17] MEDS ORDERED: Acetaminophen 325 MG TABLET PO ONE (20:49)
[2016-10-18] MEDS: *HR* Heparin 5,000 UNIT/ML VIAL SQ SCH ×3 (00:18→22:57)
[2016-10-18] MEDS: *HR* OxyCODONE/APAP 5/325 TABLET PO PRN ×4 (03:00→16:37)
[2016-10-18 05:00] LABS: Basophils % 0.2 %; Eosinophils % 0.8 %; Hemoglobin 9.7 g/dL (11.5-15.4); Immature Granulocytes % 0.4 % (0-4); Lymphocytes # 0.8 K/mcL (0.6-4.6); Lymphocytes % 15.2 %; Mean Corpuscular HGB Conc 31.3 g/dL (31.6-35.5); Mean Corpuscular Hemoglobin 30.4 pg (28.0-33.3); Mean Corpuscular Volume 97.2 fL (83.0-100.0); Mean Platelet Volume 8.5 fL (9.4-12.4); Monocytes # 0.4 K/mcL (0.0-1.3); Monocytes % 8.4 %; Neutrophils # 3.9 K/mcL (1.6-8.9); Platelet Count 172 K/mcL (140-400); Red Blood Count 3.19 M/mcL (3.82-4.97); Red Cell Distribution Width 15.3 % (11.5-14.5)
[2016-10-18 05:21] LABS: Albumin 2.7 g/dL (3.5-5.0); Albumin/Globulin Ratio 0.8 (1.1-2.2); Bilirubin,Total 0.5 mg/dL (0.2-1.2); Calcium 7.7 mg/dL (8.6-10.8); Globulin 3.4 g/dL (2.4-3.5); Total Protein 6.1 g/dL (6.0-8.3)
[2016-10-18] MEDS: Levothyroxine 25 MCG TABLET PO SCH (05:35)
[2016-10-18] MEDS: CycloSPORINE, Mod (Neoral) 25 MG CAPSULE PO SCH ×2 (08:14→22:56)
[2016-10-18] MEDS: Sennosides/Docusate Sodium TABLET PO SCH ×2 (08:15→22:56)
[2016-10-18] MEDS: predniSONE 5 MG TABLET PO SCH ×2 (08:15→22:57)
[2016-10-18] MEDS: Renal Vitamin 1 MG CAPSULE PO SCH (08:15)
[2016-10-18] MEDS: Aspirin 81 MG TAB.CHEW PO SCH (08:16)
[2016-10-18] MEDS: Folic Acid 1 MG TABLET PO SCH (08:16)
--- NOTE | 2016-10-18 09:24 | Internal Med Progress Note ---
<Asif Doe - Last Filed: 10/18/16 09:21> Date of Encounter: 10/18/16 Time of Encounter: 09:22 - Assessment and plan (1) Hyperkalemia Current Visit: Yes Status: Acute Assessment and plan: Patient had urgent hemodialysis on the day of admission, she will have scheduled hemodialysis Thursday. 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, MRCP 1 months ago showed mild dilation of the distal common bile duct without discrete filling defect and pancreatic parenchymal calcification adjacent to the duct, multiple cystic pancreatic lesion, and cholelithiasis, this time patient presented with a diffuse abdominal pain since 2 days ago, CT scan of the abdomen showed a large amount of stool throughout the colon, cystic lesion within the body of the pancreas as well as choledocholithiasis and cholelithiasis, GI has been consulted and they will hold off of ERCP for now, her elevated aminotransferase levels continue to improve, will speak to GI team again next Thursday about ERCP because patient continued to have abdominal pain in the right upper quadrant area. Qualifiers: Abdominal location: right upper quadrant Qualified Code(s): R10.11 - Right upper quadrant pain (3) Atrial fibrillation with slow ventricular response Current Visit: Yes Status: Acute Assessment and plan: EKG shows atrial fibrillation with slow ventricular response, cardiology was called from the ER, pacing is not necessary at this time, will continue to hold patient's home medications of AV willie blocking agents, hemodynamically she is stable, continued to closely monitor patient's vital signs. (4) ESRD (end stage renal disease) on dialysis Current Visit: Yes Status: Acute Assessment and plan: Nephrology consulted, patient will have a scheduled hemodialysis Thursday. (5) Compression fracture of L4 lumbar vertebra Current Visit: Yes Status: Acute Assessment and plan: CT scan of the abdomen showed acute/subacute appearing L4 superior endplate compression fracture, orthopedic surgery was consulted, patient is status post kyphoplasty , postop day 1, continue supportive care. (6) Weakness Current Visit: No Status: Acute Assessment and plan: Patient was discharged from this hospital about a months ago to care home due to generalized weakness and low back pain, PT/OT to see her during this hospital stay, fall precaution. (7) DVT prophylaxis Current Visit: Yes Status: Acute Assessment and plan: Heparin subcutaneous twice a day. - Subjective Interval history: Pt seen and examined, her abdominal pain is still there, mostly in the right upper quadrant area, no SOB or active chest pain this AM. - Constitutional Vitals: Temp Pulse Resp BP Pulse Ox 98.3 F 69 18 147/54 97 10/18/16 07:49 10/18/16 07:49 10/18/16 07:49 10/18/16 07:49 10/18/16 08:27 General appearance: Present: cooperative, A&O X 3, answers questions appropriately - Head Head exam: Present: atraumatic, normocephalic - Eye Eye exam: Present: PERRL, conjuntiva pink, sclera anicteric Pupils: Present: PERRL - Neck Neck exam general surgery: Present: supple, trachea midline. Absent: lymphadenopathy - Respiratory Respiratory exam: Present: CTAB. Absent: accessory muscle use, rales, rhonchi, wheezes - Cardiovascular Cardiovascular exam: Present: RRR, +S1, +S2. Absent: diastolic murmur, gallop, rubs, systolic murmur - GI/Abdominal GI/Abdominal exam: Present: normal bowel sounds, soft, tenderness (Diffusely but mostly in the right upper quadrant). Absent: distended, firm, guarding, rebound, rigid - Extremities Exam Extremities exam: Present: warm, radial pulses palpable and symetrical. Absent : calf tenderness, cyanotic, pedal edema - Neurological Exam Neurological exam: Present: CN II-XII intact, oriented X3, no focal deficits - Skin Skin exam: Present: dry, intact Internal Medicine: Result - Labs CBC & Chem 7: 10/18/16 04:28 10/18/16 04:28 Labs: Short CBC 10/18/16 Range/Units 04:28 WBC 5.1 (4.3-11.1) K/mcL Hgb 9.7 L (11.5-15.4) g/dL Hct 31.0 L (35.3-44.9) % Plt Count 172 (140-400) K/mcL Neutrophils # 3.9 (1.6-8.9) K/mcL BMP 10/18/16 04:28 Sodium 134 L Potassium 5.0 H Chloride 99 Carbon Dioxide 26 BUN 23 H D Creatinine 3.60 H Glucose 90 Calcium 7.7 L Liver Function 06/17/17 Range/Units 04:28 Total Bilirubin 0.5 (0.2-1.2) mg/dL AST 64 H (5-34) Units/L ALT 93 H (0-55) Units/L Alkaline Phosphatase 114 (38-126) Units/L Albumin 2.7 L (3.5-5.0) g/dL - Impressions Impressions Fluoroscopy 10/17/16 00:00 IMPRESSION: Intraprocedural fluoroscopic spot images as above. See separate procedure report for more information. D/ / 10/17/2016 15:56:34 Shaun Ross MD / jose e Interpreting Provider: Shaun Ross MD Lumbar Spine X-Ray 10/17/16 00:00 IMPRESSION: Intraprocedural fluoroscopic spot image as above. See separate procedure report for more information. D/ / 10/17/2016 16:05:16 Freddy Persaud MD / mariia Interpreting Provider: Freddy Persaud MD Xray Preliminary Report 10/17/16 00:00 IMPRESSION: Intraprocedural fluoroscopic spot image as above. See separate procedure report for more information. D/ / 10/17/2016 16:05:16 Freddy Persaud MD / mariia Interpreting Provider: Freddy Persaud MD Consult Discharge Plan - Plan Referrals: Anastasia Padgett PAC [Physician Waiter/Waitress Informal] - 11/05/16 9:00 am Mason Mixon MD [Non-Partnered Physician] - 10/31/16 10:00 am <Chio Stevens - Last Filed: 10/18/16 15:57> Date of Encounter: 10/18/16 - Constitutional Vitals: Temp Pulse Resp BP Pulse Ox 98.1 F 72 18 136/57 98 10/18/16 11:00 10/18/16 11:00 10/18/16 11:00 10/18/16 11:00 10/18/16 11:00 Internal Medicine: Result - Labs CBC & Chem 7: 10/18/16 04:28 10/18/16 04:28 Labs: Short CBC 10/18/16 Range/Units 04:28 WBC 5.1 (4.3-11.1) K/mcL Hgb 9.7 L (11.5-15.4) g/dL Hct 31.0 L (35.3-44.9) % Plt Count 172 (140-400) K/mcL Neutrophils # 3.9 (1.6-8.9) K/mcL BMP 10/18/16 04:28 Sodium 134 L Potassium 5.0 H Chloride 99 Carbon Dioxide 26 BUN 23 H D Creatinine 3.60 H Glucose 90 Calcium 7.7 L Liver Function 10/18/16 Range/Units 04:28 Total Bilirubin 0.5 (0.2-1.2) mg/dL AST 64 H (5-34) Units/L ALT 93 H (0-55) Units/L Alkaline Phosphatase 114 (38-126) Units/L Albumin 2.7 L (3.5-5.0) g/dL - Impressions Impressions Fluoroscopy 10/17/16 00:00 IMPRESSION: Intraprocedural fluoroscopic spot images as above. See separate procedure report for more information. D/ / 10/17/2016 15:56:34 Shaun Ross MD / jose e Interpreting Provider: Shaun Ross MD Lumbar Spine X-Ray 10/17/16 00:00 IMPRESSION: Intraprocedural fluoroscopic spot image as above. See separate procedure report for more information. D/ / 10/17/2016 16:05:16 Freddy Persaud MD / [email or web address] Interpreting Provider: Freddy Persaud MD Xray Preliminary Report 10/17/16 00:00 IMPRESSION: Intraprocedural fluoroscopic spot image as above. See separate procedure report for more information. D/ / 10/17/2016 16:05:16 Freddy Persaud MD / mariia Interpreting Provider: Freddy Persaud MD - Attending Attestation I saw and examined pt. I have discussed with Resident Dr Doe regarding pt's management plan. I agree with the documentation. S/P kyphoplasty, stable after surgery. Mild abd pain, improving liver function. GI reevaluate pt on Thursday. HR stable at 72, sinus rhythem. Pt said she had A Fib before and was placed on coumadin, coumadin was discontinued because of hematuria.
--- NOTE | 2016-10-18 12:43 | Nephrology Progress Note ---
Date of Encounter: 10/19/16 Time of Encounter: 10:15 - Assessment and Plan (1) ESRD (end stage renal disease) on dialysis Current Visit: Yes Status: Chronic S/p HD yesterday (Thursday). No need for extra HD today, but will need to monitor the serum Na and K+. Low potassium diet recommended. Will be available this weekend if needed. (2) Hyponatremia Current Visit: Yes Status: Acute (3) Anemia of chronic disease Current Visit: Yes Status: Acute (4) Compression fracture of L4 lumbar vertebra Current Visit: Yes Status: Acute (5) Hyperkalemia Current Visit: Yes Status: Acute (6) Hypertension Current Visit: Yes Status: Chronic Qualifiers: Hypertension type: secondary to other renal disorders Qualified Code(s): I15.1 - Hypertension secondary to other renal disorders; N28.89 - Other specified disorders of kidney and ureter (7) Hypocalcemia Current Visit: No Status: Acute Subjective Principal diagnosis: low back pain Interval history: Pt was s/e. She did not affirm N/V/D. She recently underwent back surgery. Objective - Vital Signs Vital signs: Vital Signs Temp Pulse Resp BP Pulse Ox 10/18/16 11:00 98.1 F 72 18 136/57 98 10/18/16 08:27 97 10/18/16 07:49 98.3 F 69 18 147/54 97 10/18/16 04:22 67 17 123/47 93 10/17/16 21:13 97.7 F 70 16 144/48 98 10/17/16 17:15 68 16 139/49 96 10/17/16 17:00 69 16 137/47 10/17/16 16:45 97 F L 71 16 145/51 96 10/17/16 16:40 70 16 146/52 94 10/17/16 16:20 97.7 F 69 16 137/43 93 10/17/16 16:10 67 16 137/44 92 10/17/16 16:00 68 16 153/65 92 10/17/16 15:50 97.7 F 71 16 141/46 100 10/17/16 15:00 98.3 F 20 113/66 10/17/16 14:05 106/56 10/17/16 13:50 105/56 10/17/16 13:35 110/56 10/17/16 13:20 110/56 10/17/16 13:05 120/53 10/17/16 12:50 112/54 Intake and Output 10/17/16 10/18/16 10/18/16 23:59 07:59 15:59 Other: Blood Glucose* 90 83 78 - General Appearance General appearance: Present: appears started age, chronically ill, fatigue, frail EENT: Present: ATNC, PERRL, mucous membranes moist Neck: Present: supple Respiratory: Present: clear Cardiology: Present: no edema, regular rate, regular rhythm, normal S1, normal S2 Dialysis Vascular Access: Arteriovenous Fistula thrill: Yes bruit: Yes Gastrointestinal: Present: normoactive bowel sounds, no tenderness, no guarding Integumentary: Present: no rash, warm and dry Neurologic: Present: no focal deficit, no asterixis, alert and oriented x3 Musculoskeletal: Present: no deformities, no erythema, no cyanosis Psychiatric: Present: mood/affect appropriate, cooperative - Lab 10/18/16 04:28 10/19/16 03:24 Most recent lab results Calcium 7.7 mg/dL (8.6-10.8) L 10/18/16 04:28 Magnesium 2.4 mg/dL (1.6-2.6) 10/15/16 06:05 Consult Discharge Plan - Plan Referrals: Anastasia Padgett PAC [Physician Certified Coding Specialist] - 11/05/16 9:00 am Mason Mixon MD [Non-Partnered Physician] - 10/31/16 10:00 am
[2016-10-19 04:25] LABS: Albumin 2.7 g/dL (3.5-5.0); Albumin/Globulin Ratio 0.8 (1.1-2.2); Bilirubin,Total 0.5 mg/dL (0.2-1.2); Calcium 7.7 mg/dL (8.6-10.8); Globulin 3.6 g/dL (2.4-3.5); Potassium 5.9 mEq/L (3.5-4.5); Total Protein 6.3 g/dL (6.0-8.3)
[2016-10-19] MEDS: Levothyroxine 25 MCG TABLET PO SCH (05:44)
--- NOTE | 2016-10-19 07:21 | Internal Med Progress Note ---
<Asif Doe - Last Filed: 10/19/16 08:49> Date of Encounter: 10/19/16 Time of Encounter: 07:20 - Assessment and plan (1) Hyperkalemia Current Visit: Yes Status: Acute Assessment and plan: Patient had urgent hemodialysis on the day of admission, she will have scheduled hemodialysis Thursday, with constipation, patient will get Kayexalate 1 this morning. 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, MRCP 1 months ago showed mild dilation of the distal common bile duct without discrete filling defect and pancreatic parenchymal calcification adjacent to the duct, multiple cystic pancreatic lesion, and cholelithiasis, this time patient presented with a diffuse abdominal pain since 2 days ago, CT scan of the abdomen showed a large amount of stool throughout the colon, cystic lesion within the body of the pancreas as well as choledocholithiasis and cholelithiasis, GI has been consulted and they will hold off of ERCP for now, her elevated aminotransferase levels continue to improve, will speak to GI team again next Thursday about ERCP because patient continued to have abdominal pain in the right upper quadrant area, meanwhile will obtain right upper quadrant ultrasound today. Qualifiers: Abdominal location: right upper quadrant Qualified Code(s): R10.11 - Right upper quadrant pain (3) Atrial fibrillation with slow ventricular response Current Visit: Yes Status: Acute Assessment and plan: EKG shows atrial fibrillation with slow ventricular response, cardiology was called from the ER, pacing is not necessary at this time, will continue to hold patient's home medications of AV willie blocking agents, hemodynamically she is stable, continued to closely monitor patient's vital signs. (4) ESRD (end stage renal disease) on dialysis Current Visit: Yes Status: Chronic Assessment and plan: Nephrology consulted, patient will have a scheduled hemodialysis Thursday. (5) Compression fracture of L4 lumbar vertebra Current Visit: Yes Status: Acute Assessment and plan: CT scan of the abdomen showed acute/subacute appearing L4 superior endplate compression fracture, orthopedic surgery was consulted, patient is status post kyphoplasty , postop day 2, continue supportive care. (6) Weakness Current Visit: No Status: Acute Assessment and plan: Patient was [facility] due to generalized weakness and low back pain, PT/OT to see her during this hospital stay, fall precaution. (7) DVT prophylaxis Current Visit: Yes Status: Acute Assessment and plan: Heparin subcutaneous twice a day. - Subjective Interval history: Pt seen and examined, her abdominal pain is still there, mostly in the right upper quadrant area, no SOB or active chest pain this AM. - Constitutional Vitals: Temp Pulse Resp BP Pulse Ox 98.4 F 74 16 142/51 94 10/19/16 06:57 10/19/16 06:57 10/19/16 06:57 10/19/16 06:57 10/19/16 06:57 General appearance: Present: cooperative, A&O X 3, no acute distress, answers questions appropriately - Head Head exam: Present: atraumatic, normocephalic - Eye Eye exam: Present: PERRL, conjuntiva pink, sclera anicteric Pupils: Present: PERRL - Neck Neck exam general surgery: Present: supple, trachea midline. Absent: lymphadenopathy - Respiratory Respiratory exam: Present: CTAB. Absent: accessory muscle use, rales, rhonchi, wheezes - Cardiovascular Cardiovascular exam: Present: RRR, +S1, +S2. Absent: diastolic murmur, gallop, rubs, systolic murmur - GI/Abdominal GI/Abdominal exam: Present: normal bowel sounds, soft, tenderness (To palpation in right upper quadrant), no peritoneal signs. Absent: distended, firm, guarding - Extremities Exam Extremities exam: Present: warm, radial pulses palpable and symetrical. Absent : calf tenderness, cyanotic, pedal edema - Neurological Exam Neurological exam: Present: CN II-XII intact, oriented X3, no focal deficits. Absent: pronater drift, facial droop, speech deficit - Skin Skin exam: Present: dry, intact Internal Medicine: Result - Labs CBC & Chem 7: 10/18/16 04:28 10/19/16 03:24 Labs: BMP 10/19/16 03:24 Sodium 132 L Potassium 5.9 H Chloride 98 Carbon Dioxide 22 BUN 35 H D Creatinine 5.12 H Glucose 84 Calcium 7.7 L Liver Function 10/19/16 Range/Units 03:24 Total Bilirubin 0.5 (0.2-1.2) mg/dL AST 44 H (5-34) Units/L ALT 35 (0-55) Units/L Alkaline Phosphatase 116 (38-126) Units/L Albumin 2.7 L (3.5-5.0) g/dL - VTE Documentation of Mechanical Device: Intermittent pneumatic compression device Consult Discharge Plan - Plan Referrals: Anastasia Padgett PAC [Physician Ballistic Technician] - 11/05/16 9:00 am Mason Mixon MD [Non-Partnered Physician] - 10/31/16 10:00 am <Chio Stevens - Last Filed: 10/19/16 14:42> Date of Encounter: 10/19/16 - Constitutional Vitals: Temp Pulse Resp BP Pulse Ox 97.9 F 83 18 121/87 93 10/19/16 11:27 10/19/16 11:27 10/19/16 11:27 10/19/16 11:27 10/19/16 11:27 Internal Medicine: Result - Labs CBC & Chem 7: 10/18/16 04:28 10/19/16 03:24 Labs: BMP 10/19/16 03:24 Sodium 132 L Potassium 5.9 H Chloride 98 Carbon Dioxide 22 BUN 35 H D Creatinine 5.12 H Glucose 84 Calcium 7.7 L Liver Function 10/19/16 Range/Units 03:24 Total Bilirubin 0.5 (0.2-1.2) mg/dL AST 44 H (5-34) Units/L ALT 35 (0-55) Units/L Alkaline Phosphatase 116 (38-126) Units/L Albumin 2.7 L (3.5-5.0) g/dL - Attending Attestation I saw and examined pt. I have discussed with Resident Dr Doe regarding pt's management plan. I agree with the documentation. Pt c/o abd pain getting worse, on exam, there is RLQ tenderness with mild guarding. SpO2 slightly get down and pt has cough. Will order CT chest and repeat CT abd.
[2016-10-19] MEDS: *HR* OxyCODONE/APAP 5/325 TABLET PO PRN ×2 (09:48→19:38)
[2016-10-19] MEDS: Sennosides/Docusate Sodium TABLET PO SCH ×2 (09:48→19:38)
[2016-10-19] MEDS: CycloSPORINE, Mod (Neoral) 25 MG CAPSULE PO SCH ×2 (09:48→19:38)
[2016-10-19] MEDS: Renal Vitamin 1 MG CAPSULE PO SCH (09:48)
[2016-10-19] MEDS: Aspirin 81 MG TAB.CHEW PO SCH (09:49)
[2016-10-19] MEDS: predniSONE 5 MG TABLET PO SCH ×2 (09:49→19:38)
[2016-10-19] MEDS: Folic Acid 1 MG TABLET PO SCH (09:49)
[2016-10-19] MEDS ORDERED: Milk and Molasses Enema 200 ML RC ONE (15:55)
[2016-10-19] MEDS: *HR* Heparin 5,000 UNIT/ML VIAL SQ SCH (17:51)
[2016-10-20] MEDS: *HR* Heparin 5,000 UNIT/ML VIAL SQ SCH ×3 (00:32→23:53)
[2016-10-20 07:59] LABS: Calcium 7.5 mg/dL (8.6-10.8); Potassium 5.7 mEq/L (3.5-4.5)
--- NOTE | 2016-10-20 08:07 | Internal Med Progress Note ---
Date of Encounter: 10/20/16 Time of Encounter: 08:07 - Assessment and plan (1) Hyperkalemia Current Visit: Yes Status: Acute (2) Abdominal pain Current Visit: Yes Status: Acute Qualifiers: Abdominal location: right upper quadrant Qualified Code(s): R10.11 - Right upper quadrant pain (3) Atrial fibrillation with slow ventricular response Current Visit: Yes Status: Acute (4) ESRD (end stage renal disease) on dialysis Current Visit: Yes Status: Chronic (5) Compression fracture of L4 lumbar vertebra Current Visit: Yes Status: Acute (6) Weakness Current Visit: No Status: Acute (7) DVT prophylaxis Current Visit: Yes Status: Acute - Subjective Interval history: Pt seen and examined, her abdominal pain is still there, mostly in the right upper quadrant area, no SOB or active chest pain this AM. - Constitutional Vitals: Temp Pulse Resp BP Pulse Ox 97.9 F 73 16 151/58 95 10/20/16 06:33 10/20/16 06:33 10/20/16 06:33 10/20/16 06:33 10/20/16 06:33 General appearance: Present: cooperative, A&O X 3, no acute distress, answers questions appropriately Internal Medicine: Result - Labs CBC & Chem 7: 10/18/16 04:28 10/20/16 07:40 Labs: BMP 10/20/16 07:40 Sodium 133 L Potassium 5.7 H Chloride 94 L Carbon Dioxide 27 BUN 54 H D Creatinine 6.47 H Glucose 106 H Calcium 7.5 L - Impressions Impressions Chest CT 10/19/16 14:33 IMPRESSION: 1. Large right and moderate left pleural effusions with bibasilar consolidative opacities compatible atelectasis versus pneumonia. 2. No acute abnormality in the abdomen or pelvis. 3. Mildly increased colonic stool. 4. Cholelithiasis. Retained stone within the distal common duct versus adjacent pancreatic head calcification unchanged from the previous study. No biliary ductal dilatation. 5. Unchanged 3.5 cm pancreatic body cyst dating back to 12/17/2015. 6. 2.2 cm left adnexal cyst unchanged from 10/25/2015. 7. Status post interval L4 vertebroplasty without complication. D/ / Yovany Andrew MD / Yovany Andrew MD Interpreting Provider: Yovany Andrew MD Abdomen/Pelvis CT 10/19/16 14:34 IMPRESSION: 1. Large right and moderate left pleural effusions with bibasilar consolidative opacities compatible atelectasis versus pneumonia. 2. No acute abnormality in the abdomen or pelvis. 3. Mildly increased colonic stool. 4. Cholelithiasis. Retained stone within the distal common duct versus adjacent pancreatic head calcification unchanged from the previous study. No biliary ductal dilatation. 5. Unchanged 3.5 cm pancreatic body cyst dating back to 12/17/2015. 6. 2.2 cm left adnexal cyst unchanged from 10/25/2015. 7. Status post interval L4 vertebroplasty without complication. D/ / Yovany Andrew MD / Yovany Andrew MD Interpreting Provider: Yovany Andrew MD - VTE Documentation of Mechanical Device: Intermittent pneumatic compression device Consult Discharge Plan - Plan Referrals: Anastasia Padgett PAC [Physician Electric Meter Repairer Helper] - 11/05/16 9:00 am Mason Mixon MD [Non-Partnered Physician] - 10/31/16 10:00 am
[2016-10-20 08:12] LABS: Basophils % 0.3 %; Eosinophils # 0.1 K/mcL (0.0-0.6); Eosinophils % 1.4 %; Hematocrit 31.7 % (35.3-44.9); Hemoglobin 10.1 g/dL (11.5-15.4); Immature Granulocytes % 0.9 % (0-4); Mean Corpuscular HGB Conc 31.9 g/dL (31.6-35.5); Mean Corpuscular Hemoglobin 30.2 pg (28.0-33.3); Mean Corpuscular Volume 94.9 fL (83.0-100.0); Mean Platelet Volume 8.7 fL (9.4-12.4); Monocytes # 0.5 K/mcL (0.0-1.3); Monocytes % 7.2 %; Neutrophils # 4.9 K/mcL (1.6-8.9); Platelet Count 169 K/mcL (140-400); Red Blood Count 3.34 M/mcL (3.82-4.97); Red Cell Distribution Width 15.4 % (11.5-14.5); Segmented Neutrophils % 75.2 %
[2016-10-20] MEDS ORDERED: 0.9 % Sodium Chloride 250 ML IVC PRN (09:29)
[2016-10-20] MEDS ORDERED: 0.9 % Sodium Chloride 2,000 ML ONE (10:40)
[2016-10-20] MEDS ORDERED: Albumin 25% 25gram/100mL 25 GM/100 ML IV.SOLN IVPB ONE (11:05)
[2016-10-20] MEDS ORDERED: Albumin 25% 12.5gm/50mL 25.0 GM/100 ML IV.SOLN ONE (11:08)
--- NOTE | 2016-10-20 11:20 | Nephrology Progress Note ---
Date of Encounter: 10/20/16 Time of Encounter: 11:16 - Assessment and Plan (1) ESRD (end stage renal disease) on dialysis Current Visit: Yes Status: Chronic Patient was seen on dialysis. No new complaint. Will continue with dialysis MWF and as needed. (2) Hyperkalemia Current Visit: Yes Status: Resolved Manage with dialysis. (3) Anemia of chronic disease Current Visit: Yes Status: Acute Monitor. May need KATHY. Check iron stores vit b12 and folate. (4) Hyperparathyroidism Current Visit: No Status: Chronic check pth, vitamin b12 and folate. Subjective Principal diagnosis: low back pain Interval history: patient was seen on dialysis. She has no new complaint. Objective - Vital Signs Vital signs: Vital Signs Temp Pulse Resp BP Pulse Ox 10/20/16 10:30 99/41 10/20/16 10:15 117/52 10/20/16 10:00 98.1 F 18 129/51 10/20/16 06:33 97.9 F 73 16 151/58 95 10/20/16 05:49 98.6 F 72 19 145/57 94 10/19/16 20:52 98.5 F 77 20 146/50 93 10/19/16 15:47 98.2 F 76 16 131/53 93 10/19/16 11:27 97.9 F 83 18 121/87 93 Intake and Output 10/19/16 10/20/16 10/20/16 23:59 07:59 15:59 Intake Total 600 / 600 Balance 600 / 600 Intake: Oral 0 / 0 Intake, Rinseback and 600 / 600 Flushes Other: Stool Size Large Moderate Stool Consistency formed soft Stool Characteristics Normal for Patient Stool Color Devante Colored Brown # Voids 1 # Urine Diapers 1 # Bowel Movement Diapers 1 Weight 59.6 kg Blood Glucose* 102 102 Hemodialysis Net Fluid 765 Removed (mL) Patient Weight 10/20/16 23:59 Weight 59.6 kg - General Appearance General appearance: Present: well-developed, well-nourished, chronically ill EENT: Present: ATNC Neck: Present: supple Respiratory: Present: clear Cardiology: Present: no edema, regular rate, regular rhythm Dialysis Vascular Access: Arteriovenous Fistula (Left upper arm.) Integumentary: Present: warm and dry Musculoskeletal: Present: no cyanosis - Lab 10/20/16 07:40 10/20/16 07:40 Most recent lab results Calcium 7.5 mg/dL (8.6-10.8) L 10/20/16 07:40 Magnesium 2.4 mg/dL (1.6-2.6) 10/15/16 06:05 - VTE Documentation of Mechanical Device: Intermittent pneumatic compression device Consult Discharge Plan - Plan Referrals: Anastasia Padgett PAC [Physician Wheel Cutter] - 11/05/16 9:00 am Mason Mixon MD [Non-Partnered Physician] - 10/31/16 10:00 am
--- NOTE | 2016-10-20 11:49 | Gastroenterology Progress Note ---
Date of Encounter: 10/20/16 Time of Encounter: 10:15 - Assessment and plan (1) Elevated LFTs Current Visit: Yes Status: Acute Assessment and plan: LFTs improved and pain improved. No indication for ERCP at this time. (2) Abdominal pain Current Visit: Yes Status: Acute Assessment and plan: Pain improved and LFTs improved. No indication for ERCP at this time. Qualifiers: Abdominal location: right upper quadrant Qualified Code(s): R10.11 - Right upper quadrant pain (3) Constipation Current Visit: Yes Status: Acute Assessment and plan: Pt given milk and molasses enema yesterday. Increase MiraLAX to twice a day. Qualifiers: Constipation type: unspecified constipation type Qualified Code(s): K59.00 - Constipation, unspecified (4) ESRD (end stage renal disease) on dialysis Current Visit: Yes Status: Chronic Assessment and plan: Management per Nephrology. - Time Spent With Patient Total time spent is greater than 50% in coordination of care (as documented) at patient's floor/unit and/or counseling patient: - Subjective Interval history: Pt with no new complaints. She states her abdominal pain has improved. - Constitutional Vitals: Temp Pulse Resp BP Pulse Ox 98.1 F 73 18 137/52 95 10/20/16 10:00 10/20/16 06:33 10/20/16 10:00 10/20/16 11:30 10/20/16 06:33 General appearance: Present: cooperative, A&O X 3, no acute distress, answers questions appropriately - Head Head exam: Present: atraumatic, normocephalic - Eye Eye exam: Present: normal appearance, sclera anicteric - ENT ENT exam: Present: mucous membranes moist - Neck Neck exam general surgery: Present: normal inspection, trachea midline - Respiratory Respiratory exam: Present: decreased breath sounds, CTAB. Absent: rales, rhonchi - Cardiovascular Cardiovascular exam: Present: RRR, +S1, +S2 - GI/Abdominal GI/Abdominal exam: Present: soft, tenderness (improved), no peritoneal signs. Absent: distended, firm, guarding - Rectal Rectal exam: Present: deferred - Extremities Exam Extremities exam: Present: warm - Neurological Exam Neurological exam: Present: no focal deficits - Psychiatric Psychiatric exam: Present: normal affect, normal mood - Skin Skin exam: Present: dry, intact, normal color, warm Results - Labs CBC & Chem 7: 10/20/16 07:40 10/20/16 07:40 Labs: Last Result ESR 42 mm/hr (0-15) H 10/14/16 14:01 Calcium 7.5 mg/dL (8.6-10.8) L 10/20/16 07:40 Troponin I 0.02 ng/mL (0-0.03) 10/14/16 14:01 Entire Visit Hgb 10.1 g/dL (11.5-15.4) L 10/20/16 07:40 Hct 31.7 % (35.3-44.9) L 10/20/16 07:40 Total Bilirubin 0.5 mg/dL (0.2-1.2) 10/19/16 03:24 AST 44 Units/L (5-34) H 10/19/16 03:24 ALT 35 Units/L (0-55) 10/19/16 03:24 Amylase 193 Units/L (25-125) H 10/14/16 14:01 Lipase 20 Units/L (8-78) 10/14/16 14:01 - Impressions Impressions Chest CT 10/19/16 14:33 IMPRESSION: 1. Large right and moderate left pleural effusions with bibasilar consolidative opacities compatible atelectasis versus pneumonia. 2. No acute abnormality in the abdomen or pelvis. 3. Mildly increased colonic stool. 4. Cholelithiasis. Retained stone within the distal common duct versus adjacent pancreatic head calcification unchanged from the previous study. No biliary ductal dilatation. 5. Unchanged 3.5 cm pancreatic body cyst dating back to 12/17/2015. 6. 2.2 cm left adnexal cyst unchanged from 10/25/2015. 7. Status post interval L4 vertebroplasty without complication. D/ / Yovany Andrew MD / Yovany Andrew MD Interpreting Provider: Yovany Andrew MD Abdomen/Pelvis CT 10/19/16 14:34 IMPRESSION: 1. Large right and moderate left pleural effusions with bibasilar consolidative opacities compatible atelectasis versus pneumonia. 2. No acute abnormality in the abdomen or pelvis. 3. Mildly increased colonic stool. 4. Cholelithiasis. Retained stone within the distal common duct versus adjacent pancreatic head calcification unchanged from the previous study. No biliary ductal dilatation. 5. Unchanged 3.5 cm pancreatic body cyst dating back to 12/17/2015. 6. 2.2 cm left adnexal cyst unchanged from 10/25/2015. 7. Status post interval L4 vertebroplasty without complication. D/ / Yovany Andrew MD / Yovany Andrew MD Interpreting Provider: Yovany Andrew MD - VTE Documentation of Mechanical Device: Intermittent pneumatic compression device Consult Discharge Plan - Plan Referrals: Anastasia Padgett PAC [Physician Hydraulic Riveter] - 11/05/16 9:00 am Mason Mixon MD [Non-Partnered Physician] - 10/31/16 10:00 am
[2016-10-20] MEDS: CycloSPORINE, Mod (Neoral) 25 MG CAPSULE PO SCH ×2 (13:42→21:53)
[2016-10-20] MEDS: Folic Acid 1 MG TABLET PO SCH (13:42)
[2016-10-20] MEDS: Aspirin 81 MG TAB.CHEW PO SCH (13:42)
[2016-10-20] MEDS: predniSONE 5 MG TABLET PO SCH ×2 (13:42→21:54)
[2016-10-20] MEDS: Levothyroxine 25 MCG TABLET PO SCH (13:42)
[2016-10-20] MEDS: Sennosides/Docusate Sodium TABLET PO SCH ×2 (13:42→21:54)
[2016-10-20] MEDS: Renal Vitamin 1 MG CAPSULE PO SCH (13:42)
[2016-10-20] MEDS: *HR* OxyCODONE/APAP 5/325 TABLET PO PRN (13:52)
--- NOTE | 2016-10-20 15:08 | Discharge Summary ---
<Asif Doe - Last Filed: 10/20/16 15:02> Date of Encounter: 10/20/16 Time of Encounter: 15:02 - Discharge Diagnosis (1) Hyperkalemia Priority: Primary Status: Acute (2) Abdominal pain Priority: Secondary Status: Acute Qualifiers: Abdominal location: right upper quadrant Qualified Code(s): R10.11 - Right upper quadrant pain (3) Atrial fibrillation with slow ventricular response Priority: Secondary Status: Acute (4) ESRD (end stage renal disease) on dialysis Priority: Primary Status: Chronic (5) Compression fracture of L4 lumbar vertebra Priority: Primary Status: Acute (6) Weakness Priority: Secondary Status: Acute (7) DVT prophylaxis Priority: Secondary Status: Acute - Discharge Medications Prescriptions: Oxycodone HCl/Acetaminophen [Percocet 5-325 mg Tablet] 1 tab PO Q4H PRN #20 tablet PRN Reason: Pain Home Medications: Acetaminophen [Tylenol] 650 mg PO Q4HR PRN 03/02/15 [History] Atorvastatin [Lipitor] 10 mg PO HS 03/02/15 [History] Folic Acid 1 mg PO DAILY 03/02/15 [History] predniSONE [Prednisone] 2.5 mg PO BID 03/02/15 [History] Amiodarone [Cordarone] 200 mg PO DAILY 09/18/15 [History] B Complex W-C No.20/Folic Acid [Nephrocaps Softgel] 1 mg PO DAILY 12/17/15 [ History] Carvedilol 12.5 mg PO BID 02/19/16 [History] Loperamide [Imodium] 2 mg PO Q8H PRN 02/19/16 [History] Oxygen 2 l IH HS 02/19/16 [History] Amlodipine Besylate 10 mg PO DAILY 09/10/16 [History] Cyclosporine, Modified [Gengraf] 75 mg PO BID 09/10/16 [History] Calcium Carbonate [Tums] 1,000 mg PO QID 30 Days 09/18/16 [Rx] Aspirin Enteric Coated [Aspirin EC] 81 mg PO DAILY 10/14/16 [History] Cyclobenzaprine [Flexeril] 10 mg PO Q8H 10/14/16 [History] Ergocalciferol (VITAMIN D2) [Drisdol (50,000 Unit)] 50,000 unit PO FR 10/14/16 [ History] Lactose-Reduced Food [Ensure Plus] 1 bottle PO 1000,1400 10/14/16 [History] Levothyroxine [Synthroid] 25 mcg PO 0630 10/14/16 [History] Lidocaine Patch [Lidoderm 5% patch] 1 each TP DAILY 10/14/16 [History] Magnesium Hydroxide [Milk of Magnesia] 2,400 mg PO DAILY PRN 10/14/16 [History] Menthol/Zinc Ox/Aloe/Abdirashid Oil [Chamosyn Ointment] 1 appl TP TID PRN 10/14/16 [ History] Omeprazole [PriLOSEC] 40 mg PO DAILY 10/14/16 [History] Ondansetron ODT [Zofran ODT] 4 mg PO Q8H PRN 10/14/16 [History] Prosource Protein Powder 1 packet PO 0800,1600 10/14/16 [History] Oxycodone HCl/Acetaminophen [Percocet 5-325 mg Tablet] 1 tab PO Q4H PRN #20 tablet 10/20/16 [Rx] Allergies/Adverse Reactions: Allergies Penicillins [PCN] Allergy (Verified 09/14/16 15:26) Hives Procedures/tests Complete & Pending: Procedures Performed prior 72 hours Category Date Time Status CT abd pelvis wo no iv no oral [CT] Stat Cat Scan 10/19/16 14:[address] chest wo con [CT] Stat Cat Scan 10/19/16 14:33 Completed Date of admission: 10/14/16 17:04 Primary care physician: Abdi Deng MD Consults: 10/14/16 17:44 Consult to Nutrition [CONS] Routine Comment: Consulting Provider: NUTRITION Reason for Dietary Consult: MST Score Consult to Thread Separator [CONS] Routine Reason for SW Consult: Discharge planning 10/15/16 08:02 Consult to Gastroenterology [CONS] Routine Consulting Provider: Gastroenterology Debbie Reason for Consult: Choledoholithiasis, elevated LFTs and abd pain Call Completed: Yes 10/15/16 08:14 Consult to Orthopedic Surgery [CONS] Routine Consulting Provider: Asif Hall Jr Reason for Consult: L4 compression fracture Call Completed: Yes 10/15/16 10:00 Consult to Dialysis [CONS] ONCE 10/17/16 09:30 Consult to Dialysis [CONS] ONCE 10/18/16 07:47 Consult to Physical Therapy [CONS] Routine Comment: Evaluate, develop and implement POC Reason for Consult: weakness OT [Consult to Occupational Therapy] [CONS] Routine Comment: Evaluate, develop and implement POC Reason for Consult: weakness 10/20/16 09:30 Consult to Dialysis [CONS] ONCE 10/21/16 09:30 Consult to Dialysis [CONS] ONCE Discharging clinician: Asif Doe Anticipated date of discharge: 10/20/16 - Patient Status Disposition: Transfer SNF Condition: Fair Functional capacity at discharge: uses cane/walker (Up with assistance and fall precaution) Overall status at discharge: patient is progressing back to baseline - Discharge Instructions Follow Up With: Anastasia Padgett PAC [Physician [employer]] - 11/05/16 9:00 am (Follow-up in a week for hospital discharge follow-up.) Mason Mixon MD [Non-Partnered Physician] - 10/31/16 10:00 am (Follow-up for her next scheduled appointment for status post kyphoplasty of L4.) Additional Instructions: Patient will continue to have scheduled hemodialysis Thursday. - Diet and Activity Activity: as per physical therapy, wear oxygen at all times Diet: other (Renal diet plus nepro with breakfast and dinner) Hospital course: Ms. 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 Patient missed her hemodialysis the day before she came to this hospital and she presented with hyperkalemia of 7.2 and atrial fibrillation with slow ventricular response. Cardiology was called from the ER and cardiologists do not feel patient needs pacing at that time, nephrology was also consulted and patient was taken to urgent dialysis that night. CT scan of the abdomen during this hospital stay showed incidental finding of subacute compression fracture fracture of L4 therefore orthopedic surgery was consulted and patient was taken to the OR for kyphoplasty procedure. Patient did well postprocedure, hyperkalemia resolved to her baseline after she had urgent and scheduled hemodialysis Thursday. CT scan of abdomen also showed possible choledocholithiasis, GI was consulted and each day her LFT levels progressively got better and after she had a large bowel movement with the bowel regimen medications, patient's abdominal pain improved therefore GI did not think that ERCP was indicated during this hospital stay with improvement of her LFT numbers. I spoke to the patient and patient's about cholelithiasis which can cause pain occasionally and in the future if she continued to have pain in right upper quadrant area she should be seen and evaluated by surgery office as outpatient, and they showed understanding. They did not want to do any invasive procedures such as cholecystectomy at this time. PT/OT recommended rehabilitation therefore patient will be discharged to rehabilitation facility in stable condition today. - Time Spent with Patient Total time spent providing and/or coordinating discharge services: - Constitutional Vitals: Temp Pulse Resp BP Pulse Ox 98.0 F 89 18 132/41 98 10/20/16 13:52 10/20/16 13:52 10/20/16 13:52 10/20/16 13:52 10/20/16 13:52 General appearance: Present: cooperative, A&O X 3, no acute distress, answers questions appropriately - Head Head exam: Present: atraumatic, normocephalic - Eye Eye exam: Present: PERRL, conjuntiva pink, sclera anicteric Pupils: Present: PERRL - Neck Neck exam general surgery: Present: supple, trachea midline. Absent: lymphadenopathy - Respiratory Respiratory exam: Present: CTAB. Absent: accessory muscle use, rales, rhonchi, wheezes - Cardiovascular Cardiovascular exam: Present: RRR, +S1, +S2. Absent: diastolic murmur, gallop, rubs, systolic murmur - GI/Abdominal GI/Abdominal exam: Present: normal bowel sounds, soft, no peritoneal signs. Absent: distended, tenderness - Extremities Exam Extremities exam: Present: warm, radial pulses palpable and symetrical. Absent : calf tenderness, cyanotic, pedal edema - Neurological Exam Neurological exam: Present: CN II-XII intact, oriented X3, no focal deficits - Skin Skin exam: Present: dry, intact - VTE Documentation of Mechanical Device: Intermittent pneumatic compression device <Chio Stevens - Last Filed: 10/20/16 15:30> Date of Encounter: 10/20/16 Procedures/tests Complete & Pending: Procedures Performed prior 72 hours Category Date Time Status CT abd pelvis wo no iv no oral [CT] Stat Cat Scan 10/19/16 14:[address] chest wo con [CT] Stat Cat Scan 10/19/16 14:33 Completed Date of admission: 10/14/16 17:04 Primary care physician: Abdi Deng MD Consults: 10/14/16 17:44 Consult to Nutrition [CONS] Routine Comment: Consulting Provider: NUTRITION Reason for Dietary Consult: MST Score Consult to Thread Separator [CONS] Routine Reason for SW Consult: Discharge planning 10/15/16 08:02 Consult to Gastroenterology [CONS] Routine Consulting Provider: Gastroenterology Winslow Reason for Consult: Choledoholithiasis, elevated LFTs and abd pain Call Completed: Yes 10/15/16 08:14 Consult to Orthopedic Surgery [CONS] Routine Consulting Provider: Asif Hall Jr Reason for Consult: L4 compression fracture Call Completed: Yes 10/15/16 10:00 Consult to Dialysis [CONS] ONCE 10/17/16 09:30 Consult to Dialysis [CONS] ONCE 10/18/16 07:47 Consult to Physical Therapy [CONS] Routine Comment: Evaluate, develop and implement POC Reason for Consult: weakness OT [Consult to Occupational Therapy] [CONS] Routine Comment: Evaluate, develop and implement POC Reason for Consult: weakness 10/20/16 09:30 Consult to Dialysis [CONS] ONCE 10/21/16 09:30 Consult to Dialysis [CONS] ONCE Hospital course: Ms. Moore is a 70 year old female - Time Spent with Patient Total time spent providing and/or coordinating discharge services: - Constitutional Vitals: Temp Pulse Resp BP Pulse Ox 98.0 F 89 18 132/41 98 10/20/16 13:52 10/20/16 13:52 10/20/16 13:52 10/20/16 13:52 10/20/16 13:52 - Attending Attestation I saw and examined pt. I have discussed with Resident Dr Adams regarding the management plan. Agree with the documentation. Pt had BM yesterday. Abd pain improved. Vitals stable. GI consult appreciated and thought not necessary to perform ERCP as liver function has improved. Pt and family also don't want any further aggressive test/procedure. Will consider d/c to ECF and cont f/u with PCP as outpatient. DWAYNE working on discharge plan.
--- NOTE | 2016-10-20 15:25 | Physician Discharge Referral ---
ExtendedCare Referral Info Transfer To: ECF/SNF Provider in Charge: dr. claudio Provider in Charge after Transfer: PCP Institutional Level of Care: Skilled - Diagnosis (1) Hyperkalemia Priority: Primary Status: Acute (2) Abdominal pain Status: Acute (3) Atrial fibrillation with slow ventricular response Status: Acute (4) ESRD (end stage renal disease) on dialysis Status: Chronic (5) Compression fracture of L4 lumbar vertebra Status: Acute (6) Weakness Status: Acute (7) DVT prophylaxis Status: Acute - Transfer Medications Prescriptions: Oxycodone HCl/Acetaminophen [Percocet 5-325 mg Tablet] 1 tab PO Q4H PRN #20 tablet PRN Reason: Pain Home Medications: Acetaminophen [Tylenol] 650 mg PO Q4HR PRN 03/02/15 [History] Atorvastatin [Lipitor] 10 mg PO HS 03/02/15 [History] Folic Acid 1 mg PO DAILY 03/02/15 [History] predniSONE [Prednisone] 2.5 mg PO BID 03/02/15 [History] Amiodarone [Cordarone] 200 mg PO DAILY 09/18/15 [History] B Complex W-C No.20/Folic Acid [Nephrocaps Softgel] 1 mg PO DAILY 12/17/15 [ History] Carvedilol 12.5 mg PO BID 02/19/16 [History] Loperamide [Imodium] 2 mg PO Q8H PRN 02/19/16 [History] Oxygen 2 l IH HS 02/19/16 [History] Amlodipine Besylate 10 mg PO DAILY 09/10/16 [History] Cyclosporine, Modified [Gengraf] 75 mg PO BID 09/10/16 [History] Calcium Carbonate [Tums] 1,000 mg PO QID 30 Days 09/18/16 [Rx] Aspirin Enteric Coated [Aspirin EC] 81 mg PO DAILY 10/14/16 [History] Cyclobenzaprine [Flexeril] 10 mg PO Q8H 10/14/16 [History] Ergocalciferol (VITAMIN D2) [Drisdol (50,000 Unit)] 50,000 unit PO FR 10/14/16 [ History] Lactose-Reduced Food [Ensure Plus] 1 bottle PO 1000,1400 10/14/16 [History] Levothyroxine [Synthroid] 25 mcg PO 0630 10/14/16 [History] Lidocaine Patch [Lidoderm 5% patch] 1 each TP DAILY 10/14/16 [History] Magnesium Hydroxide [Milk of Magnesia] 2,400 mg PO DAILY PRN 10/14/16 [History] Menthol/Zinc Ox/Aloe/Abdirashid Oil [Chamosyn Ointment] 1 appl TP TID PRN 10/14/16 [ History] Omeprazole [PriLOSEC] 40 mg PO DAILY 10/14/16 [History] Ondansetron ODT [Zofran ODT] 4 mg PO Q8H PRN 10/14/16 [History] Prosource Protein Powder 1 packet PO 0800,1600 10/14/16 [History] Oxycodone HCl/Acetaminophen [Percocet 5-325 mg Tablet] 1 tab PO Q4H PRN #20 tablet 10/20/16 [Rx] Allergies/Adverse Reactions: Allergies Penicillins [PCN] Allergy (Verified 09/14/16 15:26) Hives - Respiratory Orders Oxygen / L per min (3) Smoking Cessation: Smoking cessation has been advised. For more information, call the [employer] Tobacco Quit Line at 5-882-BEFK-NOW. - Ancillary Orders May use pressure relief devices daily prn, May go on DARREN w/family/respon republican w /meds at nurse discretion PRN, May consult with Dentist, Caseworker Protective Services, Meat Clerk PRN - Advance Directives Code Status: Full Code - Mobility Orders Ambulate (Up with assistance and fall precaution, with walker) - Rehabiliation Orders Rehab Potential: Fair Rehab Orders: ROM Exercises, Evaluation for Physical Therapy, Evaluation for Occupational Therapy - Treatments Skin tear care topically daily PRN per policy, May check for fecal impaction rectally daily PRN, Fleet enema rectally every other day PRN cleansing purposes - Diet Orders Renal (plus nepro with breakfast and dinner) CERTIFICATION: I certify that the transfer of the above named patient to an Extended Care Facility is necessary for the continuing treatment of the diagnosis listed. The above information is true and accurate reflection of patient's current condition. Confidential - Redisclosure prohibited without a patient's written consent.
[2016-10-21] MEDS: Levothyroxine 25 MCG TABLET PO SCH (05:49)
[2016-10-21 06:19] LABS: Ionized Calcium 0.86 mmol/L (1.15-1.35)
[2016-10-21 06:27] LABS: Phosphorous 1.6 mg/dL (2.3-4.7); Potassium 4.6 mEq/L (3.5-4.5)
[2016-10-21 07:02] LABS: Folate 19.5 ng/mL (7.0-31.4)
[2016-10-21 07:26] VITALS: BP 167/70
[2016-10-21] MEDS: Renal Vitamin 1 MG CAPSULE PO SCH (09:13)
[2016-10-21] MEDS: predniSONE 5 MG TABLET PO SCH (09:13)
[2016-10-21] MEDS: Folic Acid 1 MG TABLET PO SCH (09:14)
[2016-10-21] MEDS: Sennosides/Docusate Sodium TABLET PO SCH (09:14)
[2016-10-21] MEDS: Aspirin 81 MG TAB.CHEW PO SCH (09:14)
[2016-10-21] MEDS: CycloSPORINE, Mod (Neoral) 25 MG CAPSULE PO SCH (09:14)
--- NOTE | 2016-10-21 10:31 | Nephrology Progress Note ---
Date of Encounter: 10/21/16 Time of Encounter: 10:28 - Assessment and Plan (1) ESRD (end stage renal disease) on dialysis Current Visit: Yes Status: Chronic Plan for dialysis tomorrow in outpatient dialysis unit-[facility] Continue renal diet Avoid nephrotoxins (2) Hyperkalemia Current Visit: Yes Status: Resolved Please make sure ECF understands patient needs a renal diet which includes low K + diet Subjective Principal diagnosis: low back pain; ESRD on dialysis Interval history: Patient seen and examined. States she is being discharged today to ECF. Feeling better Objective - Vital Signs Vital signs: Vital Signs Temp Pulse Resp BP Pulse Ox 10/21/16 07:22 98.3 F 82 18 167/70 986 10/21/16 05:18 98.5 F 84 14 151/52 92 10/20/16 19:13 98.6 F 76 14 129/41 96 10/20/16 15:34 97.8 F 91 18 124/56 98 10/20/16 13:52 98.0 F 89 18 132/41 98 10/20/16 13:36 98.3 F 22 143/54 10/20/16 13:00 133/64 10/20/16 12:45 131/73 10/20/16 12:30 116/80 10/20/16 12:15 139/72 10/20/16 12:00 106/51 10/20/16 11:45 133/51 10/20/16 11:30 137/52 10/20/16 11:15 124/80 10/20/16 11:00 92/41 10/20/16 10:45 105/49 10/20/16 10:30 99/41 Intake and Output 10/20/16 10/21/16 10/21/16 23:59 07:59 15:59 Intake Total 240 / 240 240 / 240 Balance 240 / 240 240 / 240 Intake: Oral 240 / 240 240 / 240 Other: Meal Dinner Breakfast Percent of Meal Consumed 5% 30% Stool Size Moderate Stool Consistency soft Stool Characteristics Pasty Stool Color Brown # Voids 1 # Bowel Movements 1 Blood Glucose* 96 91 - General Appearance General appearance: Present: chronically ill, frail EENT: Present: ATNC, mucous membranes moist, hearing intact, vision intact Neck: Present: supple Respiratory: Present: clear Cardiology: Present: no edema, normal S1, normal S2 Dialysis Vascular Access: Arteriovenous Fistula Gastrointestinal: Present: no tenderness, no guarding Integumentary: Present: warm and dry Neurologic: Present: alert and oriented x3 Psychiatric: Present: mood/affect appropriate, cooperative - Lab 10/20/16 07:40 10/21/16 05:23 Most recent lab results Calcium 8.0 mg/dL (8.6-10.8) L 10/21/16 05:23 Phosphorus 1.6 mg/dL (2.3-4.7) L 10/21/16 05:23 Magnesium 2.4 mg/dL (1.6-2.6) 10/15/16 06:05 - VTE Documentation of Mechanical Device: Intermittent pneumatic compression device Consult Discharge Plan - Plan Additional Instructions: Patient will continue to have scheduled hemodialysis Thursday. Referrals: Anastasia Padgett PAC [Physician [employer]] - 11/05/16 9:00 am (Follow-up in a week for hospital discharge follow-up.) Mason Mixon MD [Non-Partnered Physician] - 10/31/16 10:00 am (Follow-up for her next scheduled appointment for status post kyphoplasty of L4.) Prescriptions: Oxycodone HCl/Acetaminophen [Percocet 5-325 mg Tablet] 1 tab PO Q4H PRN #20 tablet PRN Reason: Pain
== END 2016-10-21 11:36 | DRG 515 ==
LOC: EMEROO 12:50 → 2NENU 12:50 → SUATTDRO 17:04 → 2NENU 17:33
PROVIDERS: ADMIT Nurse Practitioner Family; ATTEND Internal Medicine

== ENCOUNTER 2017-02-17 10:50 | Inpatient (IN) ==
--- NOTE | 2017-02-17 10:55 | Emergency Department Note ---
Disposition Clinical Impression: ESRD (end stage renal disease), Acute encephalopathy Osteomyelitis Qualifiers: Osteomyelitis type: unspecified type Osteomyelitis location: foot Laterality: right Qualified Code(s): M86.9 - Osteomyelitis, unspecified Acute and chronic respiratory failure Qualifiers: Respiratory failure complication: unspecified whether with hypoxia or hypercapnia Qualified Code(s): J96.20 - Acute and chronic respiratory failure, unspecified whether with hypoxia or hypercapnia Pulmonary edema Qualifiers: Chronicity: acute Qualified Code(s): J81.0 - Acute pulmonary edema Disposition: Admitted As Inpatient Condition: Critical Time of Disposition: 15:21 Weakness HPI - General Chief complaint: ED Nausea/Vomiting/Diarrhea Stated complaint: nausea, vomitting, weakness Time Seen by Provider: 02/17/17 10:53 Source: family, EMS Limitations: altered mental status Nursing Notes Reviewed: Yes Vital Signs Reviewed: Yes - History of Present Illness HPI Narrative: 71-year-old female ESRD, presents with generalized weakness, her son who is at bedside is the primary historian, patient can give much of a history she does dialysis with Dr. 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 Pt Subjective Complaint: generalized weakness/fatigue Onset (ago): day(s) Duration: gradually worsening Location: generalized Pain Severity: moderate Improves with: none Worsens with: none Associated symptoms: Reports: confusion, fever/chills. Denies: chest pain, dark stools, diaphoresis, dysuria, easy bruising, headaches, loss of appetite, shortness of breath - Related Data Home Medications Medication Instructions Recorded Confirmed Acetaminophen [Tylenol] 650 mg PO Q4HR PRN 03/02/15 02/17/17 Atorvastatin [Lipitor] 10 mg PO HS 03/02/15 02/17/17 Folic Acid 1 mg PO DAILY 03/02/15 02/17/17 predniSONE [Prednisone] 2.5 mg PO BID 03/02/15 02/17/17 Amiodarone [Cordarone] 200 mg PO DAILY 09/18/15 02/17/17 B Complex W-C No.20/Folic Acid 1 mg PO DAILY 12/17/15 02/17/17 [Nephrocaps Softgel] Carvedilol 12.5 mg PO BID 02/19/16 02/17/17 Loperamide [Imodium] 2 mg PO Q8H PRN 02/19/16 02/17/17 Oxygen 2 l IH HS 02/19/16 02/17/17 Cyclosporine, Modified [Gengraf] 75 mg PO BID 09/10/16 02/17/17 Aspirin Enteric Coated [Aspirin EC] 81 mg PO DAILY 10/14/16 02/17/17 Ergocalciferol (VITAMIN D2) 50,000 unit PO FR 10/14/16 02/17/17 [Drisdol (50,000 Unit)] Lactose-Reduced Food [Ensure Plus] 1 bottle PO 1000,1400 10/14/16 02/17/17 Levothyroxine [Synthroid] 25 mcg PO 0630 10/14/16 02/17/17 Magnesium Hydroxide [Milk of 2,400 mg PO DAILY PRN 10/14/16 02/17/17 Magnesia] Menthol/Zinc Ox/Aloe/Abdirashid Oil 1 appl TP TID PRN 10/14/16 02/17/17 [Chamosyn Ointment] Omeprazole [PriLOSEC] 40 mg PO DAILY 10/14/16 02/17/17 Ondansetron ODT [Zofran ODT] 4 mg PO Q8H PRN 10/14/16 02/17/17 Denosumab [Prolia (For Outpatient 60 mg SQ Q6M 02/17/17 02/17/17 Infusion)] Hydralazine HCl 50 mg PO TID 02/17/17 02/17/17 Metoprolol [Lopressor] 12.5 mg PO BID 02/17/17 02/17/17 Oxycodone HCl/Acetaminophen 1 tab PO Q6H PRN 02/17/17 02/17/17 [Percocet 5-325 mg Tablet] Previous Rx's Medication Instructions Recorded Calcium Carbonate [Tums] 1,000 mg PO QID 30 Days tab.chew 09/18/16 Allergies Allergy/AdvReac Type Severity Reaction Status Date / Time Penicillins [PCN] Allergy Hives Verified 09/14/16 15:26 Limitations: ROS unobtainable due to patients medical condition Past Medical History - Past Medical History Medical history: Reports: arthritis, atrial fibrillation, diabetes, dialysis, osteoporosis, renal disease Surgical history: Reports: appendectomy, herniorrhaphy, other Psychiatric history: Reports: no psych history APPRENTICE CARPENTER history: Reports: no APPRENTICE CARPENTER history - Social History Smoking Status: Never smoker Smokeless Tobacco Status: No Alcohol use: Reports: none Drug use: Reports: none Physical Exam - General Limitations: altered mental status General appearance: lethargic, in distress - Head Head exam: atraumatic - Eye Eye exam: Present: normal appearance - ENT ENT exam: normal exam - Neck Neck exam: Present: normal inspection, full ROM - Chest Chest inspection: Present: normal inspection - Respiratory Respiratory exam: Present: normal lung sounds bilaterally. Absent: respiratory distress - Cardiovascular Cardiovascular exam: Present: regular rate - Abdominal Exam Abdominal exam: Present: soft. Absent: Non-Tender - Expanded Lower Extremity Exam Foot/toe exam: Present: other (ulcerated right foot with no crepitus) Neurovascular/Tendon exam: Present: normal capillary refill. Absent: pulse deficit, motor deficit, sensory deficit - Back Exam Back exam: Present: normal inspection, full ROM - Neurological Exam Neurological exam: Absent: oriented X3 - Expanded Neurological Exam Coma Scale Eye Opening: To Voice Coma Scale Motor Response: Localizes to Pain Coma Scale Verbal Response: Inappropriate Coma Scale Total: 11 Course Course Narrative: 71-year-old female with generalized weakness, head CT chest x-ray, x-ray of the right foot, basic lab work including septic workup given that she has ESRD response to myelitis, this when she is no evidence of hypotension however we have initial 500 mL bolus she is very tenuous with her volume status given ESRD , we will defer full 30 mL her kilogram bolus given ESRD and no evidence of hypotension - Reevaluation(s) Reevaluation #1: Patient required BiPAP no evidence of acidemia, her elevated carbon dioxide, but still fairly somnolent with a GCS of 12, at I did place a right 16-gauge EJ and no vascular access in her internal jugular, patient was admitted to the ICU still pending CT imaging at this time Time: 15:26 - Consultations Consultation #1: Local Dr. Ruby who, the hospitalist, he recommended the patient be admitted to the ICU, I then called the distribution sales manager who accepted the patient for admission, delineation additional CT scan of abdomen is obese that she had some abdominal pain however the patient had no guarding a soft abdomen on initial exam this was then added to the workup, additionally added a CT thorax for evaluation of pleural effusion. Vital Signs Temperature 97.9 F 02/17/17 10:52 Pulse Rate 80 02/17/17 10:52 Respiratory Rate 16 02/17/17 10:52 Blood Pressure 243/108 02/17/17 10:52 O2 Sat by Pulse Oximetry 95 02/17/17 10:52 Temperature 98.8 F 02/18/17 15:47 Pulse Rate 106 02/18/17 16:19 Respiratory Rate 16 02/18/17 14:00 Blood Pressure 160/90 02/18/17 14:00 O2 Sat by Pulse Oximetry 97 02/18/17 14:00 Oxygen Delivery Oxygen Delivery Bipap Weakness - Differential Diagnosis Differential Diagnosis: Likely: acute myocardial infarction, sepsis/infection, metabolic - Medical Records Medical records reviewed: Yes I reviewed the patient's medical records. - Lab Data Lab results reviewed: Yes I reviewed the patient's lab results. Result diagrams: 02/18/17 06:53 02/18/17 06:53 Lab Results 02/17/17 02/17/17 02/17/17 Range/Units 11:01 11:01 11:01 WBC 12.6 H (4.3-11.1) K/mcL RBC 3.63 L (3.82-4.97) M/mcL Hgb 10.9 L (11.5-15.4) g/dL Hct 36.0 (35.3-44.9) % MCV 99.2 (83.0-100.0) fL MCH 30.0 (28.0-33.3) pg MCHC 30.3 L (31.6-35.5) g/dL RDW 17.1 H (11.5-14.5) % Plt Count 273 (140-400) K/mcL MPV 8.4 L (9.4-12.4) fL Immature Gran % 0.5 (0-4) % Seg Neutrophils % 78.4 % Lymphocytes % 13.1 % Monocytes % 6.7 % Eosinophils % 1.0 % Basophils % 0.3 % Neutrophils # 9.8 H (1.6-8.9) K/mcL Lymphocytes # 1.6 (0.6-4.6) K/mcL Monocytes # 0.8 (0.0-1.3) K/mcL Eosinophils # 0.1 (0.0-0.6) K/mcL Basophils # 0.0 (0.0-0.2) K/mcL Sodium 138 (136-145) mEq/L Potassium 4.0 (3.5-4.5) mEq/L Chloride 99 (98-109) mEq/L Carbon Dioxide 26 (19-29) mEq/L BUN 16 (7-20) mg/dL Creatinine 3.78 H (0.57-1.11) mg/dL Est GFR ( Amer) 14 L (> 60) Est GFR (Non-Af Amer) 12 L (> 60) BUN/Creatinine Ratio 4 L (6-26) Glucose 97 (70-99) mg/dL POC Glucose (58-89) Calculated Osmolality 287 (280-300) Lactic Acid 1.5 (0.5-2.2) mmol/L Calcium 8.4 L (8.6-10.8) mg/dL Phosphorus 3.6 (2.3-4.7) mg/dL Magnesium 1.7 (1.6-2.6) mg/dL Total Bilirubin 0.7 (0.2-1.2) mg/dL AST 17 (5-34) Units/L ALT 7 (0-55) Units/L Alkaline Phosphatase 150 H (38-126) Units/L Creatine Kinase 8 L (29-168) Units/L Troponin I (0-0.03) ng/mL Serum Total Protein 6.6 (6.0-8.3) g/dL Albumin 2.2 L (3.5-5.0) g/dL Globulin 4.4 H (2.4-3.5) g/dL Albumin/Globulin Ratio 0.5 L (1.1-2.2) TSH 28.667 H (0.350-4.840) mcIU/mL Urine Color (Yellow) Urine Clarity (Clear) Urine pH (5.0-8.0) pH Units Ur Specific [place] (1.010-1.025) Urine Protein (Neg-Trace) mg/dL Urine Glucose (UA) (Normal) mg/dL Urine Ketones (Negative) mg/dL Urine Blood (Negative) Urine Nitrite (Negative) Urine Bilirubin (Negative) Urine Urobilinogen (Normal) mg/dL Ur Leukocyte Esterase (Negative) Urine Microscopic RBC (0-3) per hpf Urine Microscopic WBC (0-3) per hpf Ur Squamous Epith Cells (None-Few) per lpf Urine Bacteria (None-Few) per hpf Ur Culture Indicated? (NO) 02/17/17 02/17/17 02/17/17 Range/Units 11:01 11:19 11:53 WBC (4.3-11.1) K/mcL RBC (3.82-4.97) M/mcL Hgb (11.5-15.4) g/dL Hct (35.3-44.9) % MCV (83.0-100.0) fL MCH (28.0-33.3) pg MCHC (31.6-35.5) g/dL RDW (11.5-14.5) % Plt Count (140-400) K/mcL MPV (9.4-12.4) fL Immature Gran % (0-4) % Seg Neutrophils % % Lymphocytes % % Monocytes % % Eosinophils % % Basophils % % Neutrophils # (1.6-8.9) K/mcL Lymphocytes # (0.6-4.6) K/mcL Monocytes # (0.0-1.3) K/mcL Eosinophils # (0.0-0.6) K/mcL Basophils # (0.0-0.2) K/mcL Sodium (136-145) mEq/L Potassium (3.5-4.5) mEq/L Chloride (98-109) mEq/L Carbon Dioxide (19-29) mEq/L BUN (7-20) mg/dL Creatinine (0.57-1.11) mg/dL Est GFR ( Amer) (> 60) Est GFR (Non-Af Amer) (> 60) BUN/Creatinine Ratio (6-26) Glucose (70-99) mg/dL POC Glucose 91 H (58-89) Calculated Osmolality (280-300) Lactic Acid (0.5-2.2) mmol/L Calcium (8.6-10.8) mg/dL Phosphorus (2.3-4.7) mg/dL Magnesium (1.6-2.6) mg/dL Total Bilirubin (0.2-1.2) mg/dL AST (5-34) Units/L ALT (0-55) Units/L Alkaline Phosphatase (38-126) Units/L Creatine Kinase (29-168) Units/L Troponin I 0.01 (0-0.03) ng/mL Serum Total Protein (6.0-8.3) g/dL Albumin (3.5-5.0) g/dL Globulin (2.4-3.5) g/dL Albumin/Globulin Ratio (1.1-2.2) TSH (0.350-4.840) mcIU/mL Urine Color Yellow (Yellow) Urine Clarity Clear (Clear) Urine pH 7.5 (5.0-8.0) pH Units Ur Specific [place] 1.014 (1.010-1.025) Urine Protein Trace (Neg-Trace) mg/dL Urine Glucose (UA) Normal (Normal) mg/dL Urine Ketones Negative (Negative) mg/dL Urine Blood Moderate H (Negative) Urine Nitrite Negative (Negative) Urine Bilirubin Negative (Negative) Urine Urobilinogen Normal (Normal) mg/dL Ur Leukocyte Esterase Large H (Negative) Urine Microscopic RBC 30-50 H (0-3) per hpf Urine Microscopic WBC 5-15 H (0-3) per hpf Ur Squamous Epith Cells Moderate H (None-Few) per lpf Urine Bacteria None Seen (None-Few) per hpf Ur Culture Indicated? YES A (NO) - Radiology Data Radiology results reviewed: Yes I reviewed the patient's radiology results. Chest X-Ray 02/17/17 10:54 IMPRESSION: 1. Pulmonary edema, compatible with CHF. 2. Moderate bilateral pleural effusions, with overlying atelectasis versus pneumonia. D/ / Pipo Snowden MD / Pipo Snowden MD Interpreting Provider: Pipo Snowden MD Foot X-Ray 02/17/17 11:38 IMPRESSION: Increased soft tissue swelling adjacent to 1st digit MTP joint. Unchanged osseous destruction of the 1st digit proximal and distal phalanx. D/ / Parth Benitez MD / Parth Benitez MD Interpreting Provider: Parth Benitez MD Chest X-Ray 02/17/17 10:54 IMPRESSION: 1. Pulmonary edema, compatible with CHF. 2. Moderate bilateral pleural effusions, with overlying atelectasis versus pneumonia. D/ / Pipo Snowden MD / Pipo Snowden MD Interpreting Provider: Pipo Snowden MD Head CT 02/17/17 10:54 IMPRESSION: No acute intracranial abnormality. D/ / 02/17/2017 15:30:08 Pipo Berg MD / [facility] Interpreting Provider: Pipo Berg MD Foot X-Ray 02/17/17 11:38 IMPRESSION: Increased soft tissue swelling adjacent to 1st digit MTP joint. Unchanged osseous destruction of the 1st digit proximal and distal phalanx. D/ / Parth Benitez MD / Parth Benitez MD Interpreting Provider: Parth Benitez MD Abdomen/Pelvis CT 02/17/17 13:31 IMPRESSION: 1. No definite acute intra-abdominal or intrapelvic process. 2. Stable pancreatic pseudocyst. 3. Cholelithiasis. 4. Chronic bilateral renal atrophy, with an unremarkable appearance of a left lower quadrant transplant kidney. 5. Stable 2.1 cm cystic lesion within the left adnexal space, almost certainly benign, and requiring no imaging follow-up. D/ / 02/17/2017 15:32:43 Pipo Berg MD / [facility] Interpreting Provider: Pipo Berg MD Chest CT 02/17/17 14:38 IMPRESSION: 1. Large bilateral pleural effusions, left greater than right. Associated opacities may represent compressive atelectasis, although superimposed aspiration or early pneumonia remains a possibility. 2. Additionally, there are ground-glass pulmonary opacities with associated pulmonary nodules within bilateral lungs, new since previous examination. There is and interlobular lobe septal thickening. Differential includes pulmonary edema, or atypical infection. Follow-up examination is recommended to ensure resolution of this finding when clinically appropriate. 3. Interval increase in size of mediastinal lymph nodes. 4. Please see separate report for CT abdomen. D/ / Parth Benitez MD / Parth Benitez MD Interpreting Provider: Parth Benitez MD - EKG Data EKG attestation: Yes I reviewed and interpreted this EKG. EKG shows normal: sinus rhythm Rate: normal Rhythm: NSR [place]/QRS: normal Interpretation: no acute changes, unchanged when compared to prior tracing (date ) (LBBB no acute changes on EKG) - Core Measures AMI Core Measures Followed: No
[2017-02-17 11:10] LABS: Basophils % 0.3 %; Eosinophils # 0.1 K/mcL (0.0-0.6); Hemoglobin 10.9 g/dL (11.5-15.4); Immature Granulocytes % 0.5 % (0-4); Lymphocytes # 1.6 K/mcL (0.6-4.6); Lymphocytes % 13.1 %; Mean Corpuscular HGB Conc 30.3 g/dL (31.6-35.5); Mean Corpuscular Volume 99.2 fL (83.0-100.0); Mean Platelet Volume 8.4 fL (9.4-12.4); Monocytes # 0.8 K/mcL (0.0-1.3); Monocytes % 6.7 %; Neutrophils # 9.8 K/mcL (1.6-8.9); Platelet Count 273 K/mcL (140-400); Red Blood Count 3.63 M/mcL (3.82-4.97); Red Cell Distribution Width 17.1 % (11.5-14.5); Segmented Neutrophils % 78.4 %
[2017-02-17 11:26] LABS: Albumin 2.2 g/dL (3.5-5.0); Albumin/Globulin Ratio 0.5 (1.1-2.2); Bilirubin,Total 0.7 mg/dL (0.2-1.2); Calcium 8.4 mg/dL (8.6-10.8); Globulin 4.4 g/dL (2.4-3.5); Magnesium 1.7 mg/dL (1.6-2.6); Phosphorous 3.6 mg/dL (2.3-4.7); Total Protein 6.6 g/dL (6.0-8.3)
[2017-02-17] MEDS ORDERED: 0.9 % Sodium Chloride 500 ML IVC ONE (11:34)
[2017-02-17] MEDS ORDERED: Piperacillin/Tazobactam 3.375 GM in D5% in Water (Mini-Bag+) 100 ML IVPB ONE (11:36)
[2017-02-17] MEDS ORDERED: Vancomycin 1,000 MG in D5% in Water 250 ML IVPB ONE (11:36)
[2017-02-17 11:47] LABS: Thyroid Stimulating Hormone 28.667 mcIU/mL (0.350-4.840)
[2017-02-17 12:06] LABS: Bilirubin,Urine Negative (Negative); Blood,Urine Moderate (Negative); Clarity,Urine Clear (Clear); Color,Urine Yellow (Yellow); Glucose,Urine (UA) Normal (Normal); Ketones,Urine Negative (Negative); Leukocyte Esterase,Urine Large (Negative); Nitrite,Urine Negative (Negative); PH,Urine 7.5 pH Units (5.0-8.0); Protein,Urine Trace mg/dL (Neg-Trace); Specific Gravity,Urine 1.014 (1.010-1.025); Urobilinogen,Urine Normal (Normal)
[2017-02-17 12:08] LABS: Bacteria,Urine None Seen per hpf (None-Few); RBC,Urine 30-50 per hpf (0-3); Squamous Epithelial Cell,Urine Moderate per lpf (None-Few)
--- NOTE | 2017-02-17 12:20 | Emergency Department Note ---
START Narrative - START START: I examined this patient and my medical decision-making was reviewed with the Resident Physician. I agree with the documented findings, disposition and treatment plan as described except to the extent set forth below. Patient to ED vomiting diarrhea. Patient recently started on vancomycin for osteomyelitis in her foot. On examination she is awake alert. Mildly tachypneic. Decreased air exchange. Skin breakdown over the sacrum. Plan. Patient with known osteomyelitis. Septic workup performed. She does have an elevated white blood cell count. We will give IV antibiotics. Likely admit. Patient declining. Less responsive this still opens eyes to verbal stimulus. Traveling on BiPAP. Sending ABG. Will admit to ICU. Broad spectrum antibiotics.
[2017-02-17] MEDS ORDERED: Furosemide 40 MG/4 ML VIAL IVP ONE (12:39)
[2017-02-17] MEDS ORDERED: Levothyroxine Sodium 200 MCG VIAL IVP ONE (12:48)
[2017-02-17 13:24] LABS: ABG Base Excess -1 mEq/L (-2 to 3); ABG HCO3 25 mEq/L (21-27); ABG Oxygen Saturation 98 % (95-98); ABG PCO2 45 mmHg (35-45); ABG PH 7.36 pH Units (7.32-7.45); ABG PO2 106 mmHg (85-104); ABG TCO2 26 mEq/L (20-26)
--- NOTE | 2017-02-17 13:25 | Nephrology Consult Note ---
<Radha Perea - Last Filed: 02/17/17 13:52> Date of Encounter: 02/17/17 Time of Encounter: 13:22 Assessment and Plan (1) ESRD (end stage renal disease) on dialysis Current Visit: No Status: Chronic Plan on dialysis tomorrow Renal diet when diet advanced Avoid nephrotoxins if possible Strict I/Os (2) Pulmonary edema Current Visit: Yes Status: Acute Lasix 80mg IV now. EDW 58kg; left dialysis yesterday at 57.9 kg Urgent dialysis not immediately indicated Qualifiers: Chronicity: acute Qualified Code(s): J81.0 - Acute pulmonary edema (3) Osteomyelitis Current Visit: Yes Status: Acute per podiatry/primary team Qualifiers: Osteomyelitis type: unspecified type Osteomyelitis location: foot Laterality: unspecified laterality Qualified Code(s): M86.9 - Osteomyelitis, unspecified (4) Hypertension Current Visit: No Status: Chronic per primary team Qualifiers: Hypertension type: secondary to other renal disorders Qualified Code(s): I15.1 - Hypertension secondary to other renal disorders; N28.89 - Other specified disorders of kidney and ureter History of Present Illness - Reason for Consult Consult date: 02/17/17 - Chief Complaint dyspnea, ESRD on dialysis - History of Present Illness Ms Moore is a 71 year old lady well known to our practice who has ESRD and is on dialysis three days a week at [facility]. She presented to the ED today with c/o "dry heaves", diarrhea, not feeling well since after her dialysis treatment yesterday. Patient received Vanco IV yesterday for osteomylitis of foot. Patient's EDW is 58 kg; she went in yesterday at 58.4 kg and left at 57.9 kg. Hypotension has been an issue in dialysis going as low as 72/85. Patient received a full HD treatment and was fine until she went home. Chest xray shows pulmonary edema and bilat pleural effusions. Past Med Surg Social Fam HX - Past Medical History Medical history: arthritis, atrial fibrillation, diabetes, dialysis, osteoporosis, renal disease Psychiatric history: no psych history - Past Surgical History Surgical History: appendectomy, herniorrhaphy, other - Social History Smoking Status: Never smoker Smokeless Tobacco Status: No Alcohol use: none Drug use: none - Family History Mother Living Status: Hx Family Cardiac Disorders: Yes Medications and Allergies Acetaminophen [Tylenol] 650 mg PO Q4HR PRN 03/02/15 [History] Atorvastatin [Lipitor] 10 mg PO HS 03/02/15 [History] Folic Acid 1 mg PO DAILY 03/02/15 [History] predniSONE [Prednisone] 2.5 mg PO BID 03/02/15 [History] Amiodarone [Cordarone] 200 mg PO DAILY 09/18/15 [History] B Complex W-C No.20/Folic Acid [Nephrocaps Softgel] 1 mg PO DAILY 12/17/15 [ History] Carvedilol 12.5 mg PO BID 02/19/16 [History] Loperamide [Imodium] 2 mg PO Q8H PRN 02/19/16 [History] Oxygen 2 l IH HS 02/19/16 [History] Cyclosporine, Modified [Gengraf] 75 mg PO BID 09/10/16 [History] Calcium Carbonate [Tums] 1,000 mg PO QID 30 Days tab.chew 09/18/16 [Rx] Aspirin Enteric Coated [Aspirin EC] 81 mg PO DAILY 10/14/16 [History] Ergocalciferol (VITAMIN D2) [Drisdol (50,000 Unit)] 50,000 unit PO FR 10/14/16 [ History] Lactose-Reduced Food [Ensure Plus] 1 bottle PO 1000,1400 10/14/16 [History] Levothyroxine [Synthroid] 25 mcg PO 0630 10/14/16 [History] Magnesium Hydroxide [Milk of Magnesia] 2,400 mg PO DAILY PRN 10/14/16 [History] Menthol/Zinc Ox/Aloe/Abdirashid Oil [Chamosyn Ointment] 1 appl TP TID PRN 10/14/16 [ History] Omeprazole [PriLOSEC] 40 mg PO DAILY 10/14/16 [History] Ondansetron ODT [Zofran ODT] 4 mg PO Q8H PRN 10/14/16 [History] Denosumab [Prolia (For Outpatient Infusion)] 60 mg SQ Q6M 02/17/17 [History] Hydralazine HCl 50 mg PO TID 02/17/17 [History] Metoprolol [Lopressor] 12.5 mg PO BID 02/17/17 [History] Oxycodone HCl/Acetaminophen [Percocet 5-325 mg Tablet] 1 tab PO Q6H PRN [History] 3 Allergy/AdvReac Type Severity Reaction Status Date / Time Penicillins [PCN] Allergy Hives Verified 09/14/16 15:26 Review of Systems All Systems: reviewed and no additional remarkable complaints except as stated Constitutional: lethargy, malaise, no fever(s) Cardiovascular: dyspnea, no chest pain Respiratory: dyspnea Gastrointestinal: diarrhea, nausea Neurological: no behavioral changes Exam - Vital Signs Vital signs: Initial Vital Signs Temp Pulse Resp BP Pulse Ox 97.9 F 80 16 243/108 95 02/17/17 10:52 02/17/17 10:52 02/17/17 10:52 02/17/17 10:52 02/17/17 10:52 - General Appearance General appearance: cachectic, chronically ill, frail Neck: supple (neck glands appear swollen), adenopathy Respiratory: course breath sounds, rhonchi Cardiology: no edema, normal S1, normal S2 - Dialysis Access Dialysis Vascular Access: Arteriovenous Fistula Gastrointestinal: no guarding Results - Lab Results 02/17/17 11:01 02/17/17 11:01 Most recent lab results Calcium 8.4 mg/dL (8.6-10.8) L 02/17/17 11:01 Phosphorus 3.6 mg/dL (2.3-4.7) 02/17/17 11:01 Magnesium 1.7 mg/dL (1.6-2.6) 02/17/17 11:01 Consult Discharge Plan - Plan Referrals: NONE,PCP [Primary Care Provider] - <Cally Calderon - Last Filed: 02/19/17 15:06> Date of Encounter: 02/17/17 Assessment and Plan (1) Acute and chronic respiratory failure Current Visit: Yes Status: Acute Qualifiers: Respiratory failure complication: unspecified whether with hypoxia or hypercapnia Qualified Code(s): J96.20 - Acute and chronic respiratory failure , unspecified whether with hypoxia or hypercapnia (2) ESRD (end stage renal disease) Current Visit: Yes Status: Chronic (3) Osteomyelitis Current Visit: Yes Status: Acute Qualifiers: Osteomyelitis type: unspecified type Osteomyelitis location: foot Laterality: right Qualified Code(s): M86.9 - Osteomyelitis, unspecified Exam - Vital Signs Vital signs: Initial Vital Signs Temp Pulse Resp BP Pulse Ox 97.9 F 80 16 243/108 95 02/17/17 10:52 02/17/17 10:52 02/17/17 10:52 02/17/17 10:52 02/17/17 10:52 Vital Signs - Last 8 Hours Temp Pulse Resp BP Pulse Ox 02/19/17 12:08 97.4 F L 59 18 162/49 98 02/19/17 08:46 98.5 F 02/19/17 07:19 60 16 174/50 Intake and Output 02/18/17 02/19/17 02/19/17 23:59 07:59 15:59 Intake Total 304 / 304 0 / 0 480 / 480 Output Total 20 / 20 0 / 0 0 / 0 Balance 284 / 284 0 / 0 480 / 480 Intake: IV Fluids 104 / 104 Magnesium Sulfate 2 GM In 104 / 104 Dextrose 5% 100 ML @ 50 mls/hr IVPB Q6H PRN Rx#:[id number] Oral 200 / 200 0 / 0 480 / 480 Output: Urine 20 / 20 0 / 0 0 / 0 Other: Meal Lunch Percent of Meal Consumed 10% # Voids 2 # Bowel Movements 0 0 Weight 56 kg Results - Lab Results 02/19/17 03:03 02/19/17 03:03 Most recent lab results ABG pH 7.36 pH Units (7.32-7.45) 02/17/17 13:20 ABG pCO2 45 mmHg (35-45) 02/17/17 13:20 ABG pO2 106 mmHg (85-104) H 02/17/17 13:20 ABG HCO3 25 mEq/L (21-27) 02/17/17 13:20 ABG O2 Saturation 98 % (95-98) 02/17/17 13:20 Calcium 8.4 mg/dL (8.6-10.8) L 02/19/17 03:03 Phosphorus 4.3 mg/dL (2.3-4.7) 02/18/17 06:53 Magnesium 1.8 mg/dL (1.6-2.6) 02/18/17 06:53 - Attending Attestation I examined this patient and my medical decision-making was reviewed with the Resident Physician/WEB OPERATIONS SPECIALIST. I agree with the documented findings, disposition and treatment plan as described except to the extent set forth below. Pt seen and examined with PMH of ESRD on HD (last treated yesterday with no complications) along with failure to thrive, recurrent hospital stays this year and newly diagnosed ostemyelitis per podiatry started on vanco yesterday after HD admitted with worsening weakness and lethargy after HD yesterday and unable to protect airway requiring biPAP per ED. Renal consulted for concern of pulm edema with bilateral pleural effusion on a well dialyzed patient. CT chest results shows significant moderate to large bilateral effusion and ground-glass opacities possibly PNA vs pulm edema. On exam frail with moderate distress on biPAP with no LE edema noted. 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 Plan to dialyze in am with UF as tolerated.
[2017-02-17] MEDS: Levothyroxine Sodium 100 MCG VIAL IVP SCH (13:26)
[2017-02-17] MEDS ORDERED: Furosemide 80 MG in 0.9 % Sodium Chloride 50 ML IVPB ONE (13:50)
--- NOTE | 2017-02-17 14:33 | Electrocardiograph Report ---
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
--- NOTE | 2017-02-17 15:30 | Pulmonology History & Physical ---
<Jhonny Stevens - Last Filed: 02/17/17 18:23> Date of Encounter: 02/17/17 Time of Encounter: 15:28 Assessment and Plan (1) Osteomyelitis Current visit: Yes Status: Acute Dx'd with Right foot osteomyelitis by Foot XR on 02/03 and today repeat XR today in ED. Patient began Vancomycin treatment yesterday. Patient was started on IV Vancomycin and Ceftriaxone in the ED. Patient has EJ in right side and peripheral on the left. ID consulted, will see patient tomorrow. Continue on Ceftriaxone, Vancomycin, and start on levaquin. Qualifiers: Osteomyelitis type: unspecified type Osteomyelitis location: foot Laterality: right Qualified Code(s): M86.9 - Osteomyelitis, unspecified (2) Sepsis Current visit: No Status: Acute Concern for recent osteomyelitis and AMS. DDx includes UTI vs PNA vs osteomyelitis. Blood cultures and urine cultures sent. Patient started on antibiotics as above. Patient is hypertensive at this time, vitals otherwise stable. Patient was placed on BiPAP in ED due to being somnolent. However, ABG was normal pH 7.36, pCO2 45, pO2 106, HCO3 25, Total CO2 26 BE -1 Patient has an EJ in the right side and peripheral in the left. Due to vitals being stable and no pressor support at this time, Patient will be seen by PICC team in the morning and if they can't place line will consult IR. CT Abd/Pelv - No definite acute intra-abdominal or intrapelvic process. Qualifiers: Sepsis type: sepsis due to unspecified organism Qualified Code(s): A41.9 - Sepsis, unspecified organism (3) Altered mental status Current visit: No Status: Acute Patient arrived to the ED somonolent and only shaking her head yes and no to questions. Placed on BiPAP. Answers questions approriately in the ED. Qualifiers: Altered mental status type: somnolence Qualified Code(s): R40.0 - Somnolence (4) Pulmonary edema Current visit: Yes Status: Acute Chest CT - Large bilateral pleural effusions. Associated opacities may represent compressive atelectasis, although superimposed asipration or early pneumonia remains a possibility. Also, ground-glass pulmonary opacities with associated pulmonary nodules bilaterally. New since previous. Consider pulmonary edema or atypical infection. On antibiotics as discussed above Lasix 80mg IV today per nephrology Qualifiers: Chronicity: acute Qualified Code(s): J81.0 - Acute pulmonary edema (5) Acute and chronic respiratory failure Current visit: Yes Status: Acute Patient required BiPAP in the ED due to somnolence, ABG was unimpressive. No evidence of acedemia. GCS of 12 at the time. Avoid intubation at all cost due to patient immunosuppression Qualifiers: Respiratory failure complication: unspecified whether with hypoxia or hypercapnia Qualified Code(s): J96.20 - Acute and chronic respiratory failure , unspecified whether with hypoxia or hypercapnia (6) ESRD (end stage renal disease) on dialysis Current visit: No Status: Chronic Patient undergoes dialysis three times a week MWF, last was yesterday 02/16 Nephrology is following, dialysis tomorrow. Urgent dialysis not indicated at this time. (7) Hypertension Current visit: No Status: Chronic PRN Lopressor and Hydralazine. Goal systolic < 160 >140. Stop of HR <60 Qualifiers: Hypertension type: secondary to other renal disorders Qualified Code(s): I15.1 - Hypertension secondary to other renal disorders; N28.89 - Other specified disorders of kidney and ureter (8) DVT prophylaxis Current visit: No Status: Acute History of Present Illness Chief complaint: Osteomyelitis HPI: Ms. Moore is a 71 year old female MHxs of ESRD, renal and pancreas transplant , presenting with generalized weakness and AMS. Patient son and were the primary historians. Patient undergoes dialysis MWF with Dr. Russo, she was diagnosed with osteomyelitis of the right foot about 2 weeks ago and was started on antibiotics yesterday. Today she was feeling ill and requesting to come to the ED, on arrival she was somnolent and unable to provide history. In the ICU, patient remains on BiPAP and she is now able to provide some history and correcting some of her history. Followed by Dr. Hall with podiatry. Past Med Surg Social Fam HX - Past Medical History Medical history: arthritis, atrial fibrillation, diabetes, dialysis, osteoporosis, renal disease Psychiatric history: no psych history - Past Surgical History Surgical History: appendectomy, herniorrhaphy, other - Social History Smoking Status: Never smoker Smokeless Tobacco Status: No Alcohol use: none Drug use: none - Family History Mother Living Status: Hx Family Cardiac Disorders: Yes Medications and Allergies Acetaminophen [Tylenol] 650 mg PO Q4HR PRN 03/02/15 [History] Atorvastatin [Lipitor] 10 mg PO HS 03/02/15 [History] Folic Acid 1 mg PO DAILY 03/02/15 [History] predniSONE [Prednisone] 2.5 mg PO BID 03/02/15 [History] Amiodarone [Cordarone] 200 mg PO DAILY 09/18/15 [History] B Complex W-C No.20/Folic Acid [Nephrocaps Softgel] 1 mg PO DAILY 12/17/15 [ History] Carvedilol 12.5 mg PO BID 02/19/16 [History] Loperamide [Imodium] 2 mg PO Q8H PRN 02/19/16 [History] Oxygen 2 l IH HS 02/19/16 [History] Cyclosporine, Modified [Gengraf] 75 mg PO BID 09/10/16 [History] Calcium Carbonate [Tums] 1,000 mg PO QID 30 Days tab.chew 09/18/16 [Rx] Aspirin Enteric Coated [Aspirin EC] 81 mg PO DAILY 10/14/16 [History] Ergocalciferol (VITAMIN D2) [Drisdol (50,000 Unit)] 50,000 unit PO FR 10/14/16 [ History] Lactose-Reduced Food [Ensure Plus] 1 bottle PO 1000,1400 10/14/16 [History] Levothyroxine [Synthroid] 25 mcg PO 0630 10/14/16 [History] Magnesium Hydroxide [Milk of Magnesia] 2,400 mg PO DAILY PRN 10/14/16 [History] Menthol/Zinc Ox/Aloe/Abdirashid Oil [Chamosyn Ointment] 1 appl TP TID PRN 10/14/16 [ History] Omeprazole [PriLOSEC] 40 mg PO DAILY 10/14/16 [History] Ondansetron ODT [Zofran ODT] 4 mg PO Q8H PRN 10/14/16 [History] Denosumab [Prolia (For Outpatient Infusion)] 60 mg SQ Q6M 02/17/17 [History] Hydralazine HCl 50 mg PO TID 02/17/17 [History] Metoprolol [Lopressor] 12.5 mg PO BID 02/17/17 [History] Oxycodone HCl/Acetaminophen [Percocet 5-325 mg Tablet] 1 tab PO Q6H PRN [History] 3 Allergy/AdvReac Type Severity Reaction Status Date / Time Penicillins [PCN] Allergy Hives Verified 09/14/16 15:26 ROS unobtainable: due to mental status All Systems: A 10-system review of systems was performed and is negative for pertinent findings except as documented above in the HPI. Physical Examination Vital Signs: Vital Signs, Last 4 Hours Pulse Resp BP Pulse Ox 02/17/17 15:20 15 206/72 02/17/17 15:09 22 188/78 100 02/17/17 14:10 74 204/82 100 General appearance: alert, other (somnolent) Eyes: nonicteric ENT: oropharynx dry Neck: supple Effort: other (On BiPAP) Inspection: normal Auscultation: bilateral: rales (in the bases bilaterally) Cardiovascular: regular rate and rhythm Gastrointestinal: normoactive bowel sounds, soft, non-tender, non-distended Integumentary: normal Extremities: no cyanosis, no edema, no clubbing, pink and warm, pulses normal, no ischemia or petechiae, other (No obvious wound on foot) Musculoskeletal: no deformities unable to assess due to mental status Results - Laboratory Findings CBC and BMP: 02/17/17 11:01 02/17/17 11:01 ABG ABG pH 7.36 pH Units (7.32-7.45) 02/17/17 13:20 ABG pCO2 45 mmHg (35-45) 02/17/17 13:20 ABG pO2 106 mmHg (85-104) H 02/17/17 13:20 ABG O2 Saturation 98 % (95-98) 02/17/17 13:20 Abnormal lab findings: Abnormal lab results WBC 12.6 K/mcL (4.3-11.1) H 02/17/17 11:01 RBC 3.63 M/mcL (3.82-4.97) L 02/17/17 11:01 Hgb 10.9 g/dL (11.5-15.4) L 02/17/17 11:01 MCHC 30.3 g/dL (31.6-35.5) L 02/17/17 11:01 RDW 17.1 % (11.5-14.5) H 02/17/17 11:01 MPV 8.4 fL (9.4-12.4) L 02/17/17 11:01 Neutrophils # 9.8 K/mcL (1.6-8.9) H 02/17/17 11:01 ABG pO2 106 mmHg (85-104) H 02/17/17 13:20 Creatinine 3.78 mg/dL (0.57-1.11) H 02/17/17 11:01 Est GFR ( Amer) 14 (> 60) L 02/17/17 11:01 Est GFR (Non-Af Amer) 12 (> 60) L 02/17/17 11:01 BUN/Creatinine Ratio 4 (6-26) L 02/17/17 11:01 POC Glucose 91 (58-89) H 02/17/17 11:19 Calcium 8.4 mg/dL (8.6-10.8) L 02/17/17 11:01 Alkaline Phosphatase 150 Units/L (38-126) H 02/17/17 11:01 Creatine Kinase 8 Units/L (29-168) L 02/17/17 11:01 Albumin 2.2 g/dL (3.5-5.0) L 02/17/17 11:01 Globulin 4.4 g/dL (2.4-3.5) H 02/17/17 11:01 Albumin/Globulin Ratio 0.5 (1.1-2.2) L 02/17/17 11:01 TSH 28.667 mcIU/mL (0.350-4.840) H 02/17/17 11:01 Urine Blood Moderate (Negative) H 02/17/17 11:53 Ur Leukocyte Esterase Large (Negative) H 02/17/17 11:53 Urine Microscopic RBC 30-50 per hpf (0-3) H 02/17/17 11:53 Urine Microscopic WBC 5-15 per hpf (0-3) H 02/17/17 11:53 Ur Squamous Epith Cells Moderate per lpf (None-Few) H 02/17/17 11:53 Ur Culture Indicated? YES (NO) A 02/17/17 11:53 - Diagnostic Findings CT scan - chest: pending <Jodee Conway S - Last Filed: 02/17/17 18:44> Date of Encounter: 02/17/17 History of Present Illness HPI: Ms. Moore is a 71 year old female All Systems: A 10-system review of systems was performed and is negative for pertinent findings except as documented above in the HPI. Physical Examination Vital Signs: Vital Signs, Last 4 Hours Temp Pulse Resp BP Pulse Ox 02/17/17 17:00 68 18 182/85 97 02/17/17 16:00 69 18 172/90 97 02/17/17 15:47 96 02/17/17 15:34 73 02/17/17 15:30 98.0 F 73 20 142/90 95 02/17/17 15:20 15 206/72 02/17/17 15:09 22 188/78 100 Results - Laboratory Findings CBC and BMP: 02/17/17 11:01 02/17/17 11:01 ABG ABG pH 7.36 pH Units (7.32-7.45) 02/17/17 13:20 ABG pCO2 45 mmHg (35-45) 02/17/17 13:20 ABG pO2 106 mmHg (85-104) H 02/17/17 13:20 ABG O2 Saturation 98 % (95-98) 02/17/17 13:20 PT/INR, D-dimer PT 12.0 Seconds (9.4-12.1) 02/17/17 17:40 Abnormal lab findings: Abnormal lab results WBC 12.6 K/mcL (4.3-11.1) H 02/17/17 11:01 RBC 3.63 M/mcL (3.82-4.97) L 02/17/17 11:01 Hgb 10.9 g/dL (11.5-15.4) L 02/17/17 11:01 MCHC 30.3 g/dL (31.6-35.5) L 02/17/17 11:01 RDW 17.1 % (11.5-14.5) H 02/17/17 11:01 MPV 8.4 fL (9.4-12.4) L 02/17/17 11:01 Neutrophils # 9.8 K/mcL (1.6-8.9) H 02/17/17 11:01 ABG pO2 106 mmHg (85-104) H 02/17/17 13:20 Creatinine 3.78 mg/dL (0.57-1.11) H 02/17/17 11:01 Est GFR ( Amer) 14 (> 60) L 02/17/17 11:01 Est GFR (Non-Af Amer) 12 (> 60) L 02/17/17 11:01 BUN/Creatinine Ratio 4 (6-26) L 02/17/17 11:01 POC Glucose 91 (58-89) H 02/17/17 11:19 Calcium 8.4 mg/dL (8.6-10.8) L 02/17/17 11:01 Alkaline Phosphatase 150 Units/L (38-126) H 02/17/17 11:01 Creatine Kinase 8 Units/L (29-168) L 02/17/17 11:01 Albumin 2.2 g/dL (3.5-5.0) L 02/17/17 11:01 Globulin 4.4 g/dL (2.4-3.5) H 02/17/17 11:01 Albumin/Globulin Ratio 0.5 (1.1-2.2) L 02/17/17 11:01 TSH 28.667 mcIU/mL (0.350-4.840) H 02/17/17 11:01 Urine Blood Moderate (Negative) H 02/17/17 11:53 Ur Leukocyte Esterase Large (Negative) H 02/17/17 11:53 Urine Microscopic RBC 30-50 per hpf (0-3) H 02/17/17 11:53 Urine Microscopic WBC 5-15 per hpf (0-3) H 02/17/17 11:53 Ur Squamous Epith Cells Moderate per lpf (None-Few) H 02/17/17 11:53 Ur Culture Indicated? YES (NO) A 02/17/17 11:53 - Attending Attestation I saw the patient with the resident agree with History and Physical exam findings. 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 NECK : No JVD appreciated Pulmonary : Patient is hypoxic and hypercarbic on BIPAP gas exchange adequate , oxygenation stable no need of intubation for now . Non invasive ventilation is the ventilation of choice. CT scan showed bilateral pleural effusion with superimposed atelectasis /pneumonia , patient has ground glass opacities bilateral with pulmonary nodules with thickening of interlobular septa can be due to fluid overload /atypical pneumonia Cardiac : Hypertensive will control with IV prn lopressor and hydralazine Nutrition/GI: Patient is NPO , PPI prophylaxis. Patient had Nausea , vomitting and diarrhea no acute process in the CT abdomen Lactate was normal Renal : ESRD dialysis tomorrow for fluid overlaod access is fistula Heme onc : No acute issues ID : Patient has Right foot osteomyelitis , all blood cultures are pending , UC pending , no sputum production will cover with renally dosed Vanc , Ceftriaxone and Levofloxacin Will consult ID for penitentiary antibiotics .Eariy sepsis , patient is immunocompromised will follow cultures access in a issues all Central veins IJ is narrowed , has collateral with big EJ she might have some central occlusion if she needs extermination 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 Endo: Diabetes on insulin , TSH is high low suspicion for myxedema coma will give IV leveothyroxine 100 microgram and reasses Musculo skeletal : Patient has Right foot osteomyelitis Disposition : Critical Code status: Full Code Family/POA: discussed with about the current condition , patient will like to pursue with full code for now . Spent 35 minutes of Critical care time in direct care of this patient this is excluding the family meeting i did.
[2017-02-17] MEDS ORDERED: Naloxone 0.4 MG/ML INJ IVP PRN (15:52)
[2017-02-17 16:36] LABS: Amphetamine Screen,Urine Negative ng/mL (Cutoff=1000); Barbiturate Screen,Urine Negative ng/mL (Cutoff=200); Benzodiazepines Screen,Urine Negative ng/mL (Cutoff=200); Cannabinoid Screen,Urine Negative ng/mL (Cutoff = 50); Cocaine Screen,Urine Negative ng/mL (Cutoff= 300); Opiate Screen,Urine Negative ng/mL (Cutoff=300); Phencyclidine Screen,Urine Negative ng/mL (Cutoff=25)
--- NOTE | 2017-02-17 17:21 | Podiatry Consult Note ---
Date of Encounter: 02/17/17 Time of Encounter: 04:45 Assessment and Plan (1) Osteomyelitis Current visit: Yes Status: Acute reviewed with the patient's condition and my findings. xray consistent with osteomyelitis of the right hallux, also discussed the calcified arteries able to be seen in the digits. patient has no open wound or clinical evidence of an abscess. discussed patient with Dr. Hall who was treating her and in agreement her propensity to heal a surgery to remove the infected bone would be poor with her comorbid conditions. recommend getting infectious disease input on antibiotics for her to be on after dialysis for treatment of the osteomyelitis of her right big toe. Qualifiers: Osteomyelitis type: unspecified type Osteomyelitis location: foot Laterality: right Qualified Code(s): M86.9 - Osteomyelitis, unspecified History of Present Illness Chief complaint: consulted for right big toe HPI: Ms. Moore is a 71 year old diabetic female who has a history of a-fib and ESRD on HD. She is being treated for osteomyelitis of her right big toe by Dr. Hall. Patient received vancomycin yesterday at her dialysis session. is bedside and said that yesterday she started not feeling well and they brought her to the hospital and she was subsequently admitted today. Podiatry consulted for evaluation and to follow the foot. Past Med Surg Social Fam HX - Past Medical History Medical history: arthritis, atrial fibrillation, diabetes, dialysis, osteoporosis, renal disease Psychiatric history: no psych history - Past Surgical History Surgical History: appendectomy, herniorrhaphy, other - Social History Smoking Status: Never smoker Smokeless Tobacco Status: No Alcohol use: none Drug use: none - Family History Mother Living Status: Hx Family Cardiac Disorders: Yes Medications and Allergies Acetaminophen [Tylenol] 650 mg PO Q4HR PRN 03/02/15 [History] Atorvastatin [Lipitor] 10 mg PO HS 03/02/15 [History] Folic Acid 1 mg PO DAILY 03/02/15 [History] predniSONE [Prednisone] 2.5 mg PO BID 03/02/15 [History] Amiodarone [Cordarone] 200 mg PO DAILY 09/18/15 [History] B Complex W-C No.20/Folic Acid [Nephrocaps Softgel] 1 mg PO DAILY 12/17/15 [ History] Carvedilol 12.5 mg PO BID 02/19/16 [History] Loperamide [Imodium] 2 mg PO Q8H PRN 02/19/16 [History] Oxygen 2 l IH HS 02/19/16 [History] Cyclosporine, Modified [Gengraf] 75 mg PO BID 09/10/16 [History] Calcium Carbonate [Tums] 1,000 mg PO QID 30 Days tab.chew 09/18/16 [Rx] Aspirin Enteric Coated [Aspirin EC] 81 mg PO DAILY 10/14/16 [History] Ergocalciferol (VITAMIN D2) [Drisdol (50,000 Unit)] 50,000 unit PO FR 10/14/16 [ History] Lactose-Reduced Food [Ensure Plus] 1 bottle PO 1000,1400 10/14/16 [History] Levothyroxine [Synthroid] [place] [address]/14/16 [History] Magnesium Hydroxide [Milk of Magnesia] 2,400 mg PO DAILY PRN 10/14/16 [History] Menthol/Zinc Ox/Aloe/Abdirashid Oil [Chamosyn Ointment] 1 appl TP TID PRN 10/14/16 [ History] Omeprazole [PriLOSEC] 40 mg PO DAILY 10/14/16 [History] Ondansetron ODT [Zofran ODT] 4 mg PO Q8H PRN 10/14/16 [History] Denosumab [Prolia (For Outpatient Infusion)] 60 mg SQ Q6M 02/17/17 [History] Hydralazine HCl 50 mg PO TID 02/17/17 [History] Metoprolol [Lopressor] 12.5 mg PO BID 02/17/17 [History] Oxycodone HCl/Acetaminophen [Percocet 5-325 mg Tablet] 1 tab PO Q6H PRN [History] 3 Allergy/AdvReac Type Severity Reaction Status Date / Time Penicillins [PCN] Allergy Hives Verified 09/14/16 15:26 All Systems Reviewed: A 10-system review of systems was performed and is negative for pertinent findings except as documented above in the HPI. - Constitutional Constitutional: as per HPI - Cardiovascular Cardiovascular: as per HPI - Respiratory Respiratory: as per HPI - Musculoskeletal Musculoskeletal: as per HPI Physical Exam - Constitutional Vitals: Temp Pulse Resp BP Pulse Ox 98.0 F 68 18 182/85 97 02/17/17 15:30 02/17/17 17:00 02/17/17 17:00 02/17/17 17:00 02/17/17 17:00 Exam: well developed and nourished female resting in bed in no acute distress feet are warm to touch. right hallux has mild edema. there is no open lesion on the right hallux. there is no drainage from the right hallux does not appear to elicit pain when palpated. patient unable to participate in neuro exam due to condition. xrays-calcified digital arteries, osseous destruction proximal and distal phalanx of right hallux. Results - Labs Result Diagrams: 02/17/17 11:01 02/17/17 11:01 Labs: Abnormal lab results WBC 12.6 K/mcL (4.3-11.1) H 02/17/17 11:01 RBC 3.63 M/mcL (3.82-4.97) L 02/17/17 11:01 Hgb 10.9 g/dL (11.5-15.4) L 02/17/17 11:01 MCHC 30.3 g/dL (31.6-35.5) L 02/17/17 11:01 RDW 17.1 % (11.5-14.5) H 02/17/17 11:01 MPV 8.4 fL (9.4-12.4) L 02/17/17 11:01 Neutrophils # 9.8 K/mcL (1.6-8.9) H 02/17/17 11:01 ABG pO2 106 mmHg (85-104) H 02/17/17 13:20 Creatinine 3.78 mg/dL (0.57-1.11) H 02/17/17 11:01 Est GFR ( Amer) 14 (> 60) L 02/17/17 11:01 Est GFR (Non-Af Amer) 12 (> 60) L 02/17/17 11:01 BUN/Creatinine Ratio 4 (6-26) L 02/17/17 11:01 POC Glucose 91 (58-89) H 02/17/17 11:19 Calcium 8.4 mg/dL (8.6-10.8) L 02/17/17 11:01 Alkaline Phosphatase 150 Units/L (38-126) H 02/17/17 11:01 Creatine Kinase 8 Units/L (29-168) L 02/17/17 11:01 Albumin 2.2 g/dL (3.5-5.0) L 02/17/17 11:01 Globulin 4.4 g/dL (2.4-3.5) H 02/17/17 11:01 Albumin/Globulin Ratio 0.5 (1.1-2.2) L 02/17/17 11:01 TSH 28.667 mcIU/mL (0.350-4.840) H 02/17/17 11:01 Urine Blood Moderate (Negative) H 02/17/17 11:53 Ur Leukocyte Esterase Large (Negative) H 02/17/17 11:53 Urine Microscopic RBC 30-50 per hpf (0-3) H 02/17/17 11:53 Urine Microscopic WBC 5-15 per hpf (0-3) H 02/17/17 11:53 Ur Squamous Epith Cells Moderate per lpf (None-Few) H 02/17/17 11:53 Ur Culture Indicated? YES (NO) A 02/17/17 11:53 All other labs normal. - Diagnostic results Ankle/Foot x-ray: report reviewed, image reviewed Consult Discharge Plan - Plan Referrals: NONE,PCP [Primary Care Provider] -
[2017-02-17] MEDS: *HR* Metoprolol 5 MG/5 ML VIAL IVP PRN (17:48)
[2017-02-17 17:54] LABS: INR 1.1
[2017-02-17] MEDS ORDERED: Piperacillin/Tazobactam 3.375 GM in D5% in Water (Mini-Bag+) 100 ML IVPB SCH (18:00)
[2017-02-17] MEDS ORDERED: Levofloxacin 750 MG/150 ML 750 MG/150 ML BAG IVPB ONE (19:00)
[2017-02-17] MEDS ORDERED: Ondansetron 4 MG/2 ML VIAL IVP PRN (20:10)
[2017-02-17] MEDS ORDERED: hydrALAZINE 25 MG TABLET PO SCH (21:00)
[2017-02-18] MEDS: *HR* Heparin 5,000 UNIT/ML VIAL SQ SCH ×2 (06:12→17:37)
[2017-02-18] MEDS: Levothyroxine Sodium 100 MCG VIAL IVP SCH (06:12)
[2017-02-18] MEDS ORDERED: 0.9 % Sodium Chloride 1,000 ML PRIME SCH ×3 (07:30→18:54)
[2017-02-18] MEDS ORDERED: *HR* Heparin 10,000 UNIT/10 ML VIAL IV PRN ×3 (07:30→18:54)
[2017-02-18] MEDS ORDERED: 0.9 % Sodium Chloride 250 ML IVC PRN ×6 (07:30→18:54)
[2017-02-18 07:59] LABS: Calcium 8.1 mg/dL (8.6-10.8); Magnesium 1.8 mg/dL (1.6-2.6); Phosphorous 4.3 mg/dL (2.3-4.7); Potassium 3.7 mEq/L (3.5-4.5)
[2017-02-18 08:00] LABS: Basophils % 0.4 %; Eosinophils # 0.1 K/mcL (0.0-0.6); Eosinophils % 1.3 %; Hematocrit 31.9 % (35.3-44.9); Hemoglobin 9.6 g/dL (11.5-15.4); Immature Granulocytes % 0.5 % (0-4); Mean Corpuscular HGB Conc 30.1 g/dL (31.6-35.5); Mean Corpuscular Hemoglobin 30.2 pg (28.0-33.3); Mean Corpuscular Volume 100.3 fL (83.0-100.0); Mean Platelet Volume 8.5 fL (9.4-12.4); Monocytes # 0.7 K/mcL (0.0-1.3); Monocytes % 7.6 %; Neutrophils # 7.4 K/mcL (1.6-8.9); Platelet Count 207 K/mcL (140-400); Red Blood Count 3.18 M/mcL (3.82-4.97); Red Cell Distribution Width 16.9 % (11.5-14.5); Segmented Neutrophils % 79.2 %
[2017-02-18] MEDS ORDERED: Vancomycin 750 MG in D5% in Water 250 ML IVPB SCH (08:00)
--- NOTE | 2017-02-18 08:00 | Pulmonology Progress Note ---
<Jhonny Stevens - Last Filed: 02/18/17 18:32> Date of Encounter: 02/18/17 Time of Encounter: 07:55 Assessment and Plan (1) Osteomyelitis Current Visit: Yes Status: Acute Patient accepted by [facility] Asenc[facility] to 2A for transfer out of ICU. Right foot, first digit proximal and distal phalanx Patient is immunosuppressed - coverage for gram negative and positive Continue Vancomycin IV, start Cefepime 2 grams IV on HD days only, to be given after HD. Stop the Ceftriaxone. Likely 6 weeks of treatment pending clinical picture ID is on board for recommendations. Qualifiers: Osteomyelitis type: unspecified type Osteomyelitis location: foot Laterality: right Qualified Code(s): M86.9 - Osteomyelitis, unspecified (2) Sepsis Current Visit: No Status: Acute Concern for recent osteomyelitis. DDx includes UTI vs PNA Blood cultures and urine cultures sent. Patient started on antibiotics as above. Patient was placed on PO home meds for blood pressure overnight. Those were stopped. Will continue prn meds as discussed below. Patient continuing on BiPAP Patient has an EJ in the right side and peripheral in the left. Due to vitals being stable and no pressor support at this time Originally patient was going to consult IR for a mcfp line for antibiotics, however antibiotics will now be dosed with HD. CT Abd/Pelv - No definite acute intra-abdominal or intrapelvic process. Qualifiers: Sepsis type: sepsis due to unspecified organism Qualified Code(s): A41.9 - Sepsis, unspecified organism (3) Altered mental status Current Visit: No Status: Acute Patient arrived to the ED somonolent and only shaking her head yes and no to questions. Placed on BiPAP. Answers questions approriately in the ICU. Head CT was negative. Continue to monitor. Neuro consult if not improving. Qualifiers: Altered mental status type: somnolence Qualified Code(s): R40.0 - Somnolence (4) Bilateral pleural effusion Current Visit: Yes Status: Acute Chest CT showed large bilateral pleural effusions. Possible atelectasis vs pneumonia vs atypical infection. On antibiotics as discussed above Lasix 40mg IV today Attempted thoracentesis today of the left side without success. Post-procedural CXR showed improvement in her pulmonary edema and CXR overall compared to yesterday. Due to patient being stable, will monitor the pleural effusion and won't attempt thoracentesis again at this time. (5) Acute and chronic respiratory failure Current Visit: Yes Status: Acute Patient required BiPAP in the ED due to somnolence, ABG was unimpressive. No evidence of acedemia. Currently on NC. Qualifiers: Respiratory failure complication: unspecified whether with hypoxia or hypercapnia Qualified Code(s): J96.20 - Acute and chronic respiratory failure , unspecified whether with hypoxia or hypercapnia (6) ESRD (end stage renal disease) on dialysis Current Visit: No Status: Chronic Patient undergoes dialysis three times a week MWF, last was 02/16 Nephrology is following, dialysis today. Urgent dialysis not indicated at this time. (7) TSH elevation Current Visit: Yes Status: Acute Patient had TSH of 28.7 in the ED. Given 100mcg IV today. Will start the patient on 50mcg IV tomorrow. (8) Hypertension Current Visit: No Status: Chronic PRN Lopressor and Hydralazine. Goal systolic < 160 >140. Stop of HR <60 Home medications were started last night. Will hold those and keep PRN medications. Qualifiers: Hypertension type: secondary to other renal disorders Qualified Code(s): I15.1 - Hypertension secondary to other renal disorders; N28.89 - Other specified disorders of kidney and ureter (9) DVT prophylaxis Current Visit: No Status: Acute 5000 units heparin Q12 Subjective Principal diagnosis: Osteomyelitis/Sepsis Interval history: Ms. Moore is a 71F with a Hx of ESRD on dialysis MWF, renal and pancreas transplant, afib, and HTN presenting this morning with AMS and osteomyelitis. The patient was diagnosed with osteomyelitis of the hallux of her right foot on 02/03 and initiated antibiotic treatment on 02/16 with vancomycin. According to patient , she stated she wasn't feeling well this morning and asked her daughter to do her hair because she needed to go to the hospital. Patient was placed on BiPAP in the ED due to somnolence, ABG was WNL except pO2 106. Patient was started on IV antibiotics. Plan today is to gain access for long- term IV antibiotic administration and consult with ID for recommendations of coverage. Nephrology and Podiatry are both on board. Objective PUL Vital signs: Last Vital Signs Temp 98.6 F 02/18/17 07:18 Pulse 62 02/18/17 07:36 Resp 20 02/18/17 07:00 BP 118/62 02/18/17 07:00 Pulse Ox 98 02/18/17 07:00 General appearance: alert, other (Patient is ill appearing, however she speaks in full sentences and responds approriately) Eyes: nonicteric ENT: oropharynx dry Neck: supple Effort: normal Auscultation: left: diminished breath sounds, bilateral: rales Percussion: left: dull Cardiovascular: irregular rhythm (Afib) Gastrointestinal: normoactive bowel sounds, soft, non-tender, non-distended Integumentary: normal Extremities: no cyanosis, no edema, pink and warm, other (mild soft tissue swelling over lateral halux of right foot.) normal mental status, non-focal exam, pupils equal and round, motor strength normal and symmetric mood appropriate, affect normal Results - Laboratory Findings CBC and BMP: 02/18/17 06:53 02/18/17 06:53 ABG ABG pH 7.36 pH Units (7.32-7.45) 02/17/17 13:20 ABG pCO2 45 mmHg (35-45) 02/17/17 13:20 ABG pO2 106 mmHg (85-104) H 02/17/17 13:20 ABG O2 Saturation 98 % (95-98) 02/17/17 13:20 PT/INR, D-dimer PT 12.0 Seconds (9.4-12.1) 02/17/17 17:40 Abnormal lab findings: Abnormal lab results WBC 12.6 K/mcL (4.3-11.1) H 02/17/17 11:01 RBC 3.63 M/mcL (3.82-4.97) L 02/17/17 11:01 Hgb 10.9 g/dL (11.5-15.4) L 02/17/17 11:01 MCHC 30.3 g/dL (31.6-35.5) L 02/17/17 11:01 RDW 17.1 % (11.5-14.5) H 02/17/17 11:01 MPV 8.4 fL (9.4-12.4) L 02/17/17 11:01 Neutrophils # 9.8 K/mcL (1.6-8.9) H 02/17/17 11:01 ABG pO2 106 mmHg (85-104) H 02/17/17 13:20 Creatinine 3.78 mg/dL (0.57-1.11) H 02/17/17 11:01 Est GFR ( Amer) 14 (> 60) L 02/17/17 11:01 Est GFR (Non-Af Amer) 12 (> 60) L 02/17/17 11:01 BUN/Creatinine Ratio 4 (6-26) L 02/17/17 11:01 POC Glucose 113 (58-89) H 02/17/17 15:30 Calcium 8.4 mg/dL (8.6-10.8) L 02/17/17 11:01 Alkaline Phosphatase 150 Units/L (38-126) H 02/17/17 11:01 Creatine Kinase 8 Units/L (29-168) L 02/17/17 11:01 Albumin 2.2 g/dL (3.5-5.0) L 02/17/17 11:01 Globulin 4.4 g/dL (2.4-3.5) H 02/17/17 11:01 Albumin/Globulin Ratio 0.5 (1.1-2.2) L 02/17/17 11:01 TSH 28.667 mcIU/mL (0.350-4.840) H 02/17/17 11:01 Urine Blood Moderate (Negative) H 02/17/17 11:53 Ur Leukocyte Esterase Large (Negative) H 02/17/17 11:53 Urine Microscopic RBC 30-50 per hpf (0-3) H 02/17/17 11:53 Urine Microscopic WBC 5-15 per hpf (0-3) H 02/17/17 11:53 Ur Squamous Epith Cells Moderate per lpf (None-Few) H 02/17/17 11:53 Ur Culture Indicated? YES (NO) A 02/17/17 11:53 - Diagnostic Findings Chest x-ray: report reviewed, image reviewed CT scan - chest: report reviewed, image reviewed - Clinical Findings Intake & Output: Intake & Output 02/17/17 02/17/17 02/18/17 15:59 23:59 07:59 Intake Total 250 / 750 0 / 0 Output Total 60 / 60 50 / 50 Balance 250 / 750 -60 / -60 -50 / -50 Consult Discharge Plan - Plan Referrals: NONE,PCP [Primary Care Provider] - <Jodee Conway - Last Filed: 02/18/17 18:58> Date of Encounter: 02/18/17 Objective PUL Vital signs: Last Vital Signs Temp 98.8 F 02/18/17 15:47 Pulse 109 02/18/17 17:00 Resp 18 02/18/17 17:00 BP 134/60 02/18/17 17:00 Pulse Ox 100 02/18/17 17:00 Results - Laboratory Findings CBC and BMP: 02/18/17 06:53 02/18/17 06:53 ABG ABG pH 7.36 pH Units (7.32-7.45) 02/17/17 13:20 ABG pCO2 45 mmHg (35-45) 02/17/17 13:20 ABG pO2 106 mmHg (85-104) H 02/17/17 13:20 ABG O2 Saturation 98 % (95-98) 02/17/17 13:20 PT/INR, D-dimer PT 12.0 Seconds (9.4-12.1) 02/17/17 17:40 Abnormal lab findings: Abnormal lab results RBC 3.18 M/mcL (3.82-4.97) L 02/18/17 06:53 Hgb 9.6 g/dL (11.5-15.4) L 02/18/17 06:53 Hct 31.9 % (35.3-44.9) L 02/18/17 06:53 MCV 100.3 fL (83.0-100.0) H 02/18/17 06:53 MCHC 30.1 g/dL (31.6-35.5) L 02/18/17 06:53 RDW 16.9 % (11.5-14.5) H 02/18/17 06:53 MPV 8.5 fL (9.4-12.4) L 02/18/17 06:53 ABG pO2 106 mmHg (85-104) H 02/17/17 13:20 Sodium 135 mEq/L (136-145) L 02/18/17 06:53 Creatinine 4.40 mg/dL (0.57-1.11) H 02/18/17 06:53 Est GFR ( Amer) 12 (> 60) L 02/18/17 06:53 Est GFR (Non-Af Amer) 10 (> 60) L 02/18/17 06:53 BUN/Creatinine Ratio 5 (6-26) L 02/18/17 06:53 Glucose 44 mg/dL (70-99) L 02/18/17 06:53 POC Glucose 113 (58-89) H 02/17/17 15:30 Calcium 8.1 mg/dL (8.6-10.8) L 02/18/17 06:53 Ionized Calcium 1.00 mmol/L (1.15-1.35) L 02/18/17 06:53 Alkaline Phosphatase 150 Units/L (38-126) H 02/17/17 11:01 Creatine Kinase 8 Units/L (29-168) L 02/17/17 11:01 Albumin 2.2 g/dL (3.5-5.0) L 02/17/17 11:01 Globulin 4.4 g/dL (2.4-3.5) H 02/17/17 11:01 Albumin/Globulin Ratio 0.5 (1.1-2.2) L 02/17/17 11:01 TSH 28.667 mcIU/mL (0.350-4.840) H 02/17/17 11:01 Urine Blood Moderate (Negative) H 02/17/17 11:53 Ur Leukocyte Esterase Large (Negative) H 02/17/17 11:53 Urine Microscopic RBC 30-50 per hpf (0-3) H 02/17/17 11:53 Urine Microscopic WBC 5-15 per hpf (0-3) H 02/17/17 11:53 Ur Squamous Epith Cells Moderate per lpf (None-Few) H 02/17/17 11:53 Ur Culture Indicated? YES (NO) A 02/17/17 11:53 - Clinical Findings Intake & Output: Intake & Output 02/18/17 02/18/17 02/18/17 07:59 15:59 23:59 Intake Total 700 / 700 304 / 304 Output Total 50 / 50 3600 / 3600 Balance -50 / -50 -2900 / -2900 304 / 304 - Attending Attestation saw the patient with the resident agree with History and Physical exam findings. Labs and Radiology were reviewed Patient is on and off BIPAP with minimal ventilatory support [employer]: Patient is conscious oriented NECK : No JVD appreciated Pulmonary : Patient is hypoxic and hypercarbic on and off BIPAP , patient is more alert and oriented , CXR and CT scan more towards to fluid overload , tried thoracentesis able to tap 10 ml of fluid which looks like concentrate attempting for therapeutic thoracentesis while advancing the cathteter got kinked since patient V/Q mismatch was improving the procedure was aborted repeat CXR looks lot better no evidence of pneumothorax Cardiac : During dialysis he flipped to A fib with RVR will continue amiodarone prn lopressor Nutrition/GI: Patient is on diabetic renal diet Renal : Had a dialysis today removed 2-3 litres fluid feeling lot better , CXR improved pleural effusion Heme onc : No acute issues ID : Patient has Right foot osteomyelitis , on top of that possible pneumonia ID recommended Cefepime and Vancomycin which can be dosed with dialysis so she wont need a senior care access Endo: Diabetes on insulin , TSH is high low suspicion for myxedema coma will give IV leveothyroxine 100 microgram and reasses Musculo skeletal : Patient has Right foot osteomyelitis Disposition : Guarded Code status: Full Code Family/POA: discussed with about the current condition , patient will like to pursue with full code for now .
[2017-02-18] MEDS ORDERED: Folic Acid 1 MG TABLET PO SCH (09:00)
[2017-02-18] MEDS ORDERED: Aspirin Enteric Coated 81 MG Tablet PO SCH (09:00)
[2017-02-18] MEDS ORDERED: *HR* Amiodarone 200 MG TABLET PO SCH (09:00)
[2017-02-18] MEDS ORDERED: Pantoprazole 40 MG VIAL IVP SCH (09:00)
[2017-02-18] MEDS ORDERED: Levofloxacin 750 MG/150 ML 750 MG/150 ML BAG IVPB ONE (09:00)
[2017-02-18] MEDS ORDERED: Magnesium Sulfate 2 GM in D5% in Water 100 ML IVPB PRN ×3 (09:14→18:54)
[2017-02-18] MEDS ORDERED: Calcium Gluconate 1,000 MG in D5% in Water 100 ML IVPB PRN ×3 (09:14→18:54)
[2017-02-18] MEDS ORDERED: Potassium Phosphate 44 MEQ in 0.9 % Sodium Chloride 250 ML IVPB PRN ×3 (09:14→18:54)
[2017-02-18] MEDS ORDERED: *HR* Dextrose 50 % in Water (Syg) 50 ML SYRINGE ONE (09:22)
[2017-02-18] MEDS ORDERED: Dextrose Gel 15 GM PO PRN ×6 (09:31→18:54)
[2017-02-18] MEDS ORDERED: D5% in Water 1,000 ML IVC PRN ×3 (09:31→18:54)
[2017-02-18] MEDS: *HR* Dextrose 50 % in Water (Syg) 50 ML SYRINGE IVP PRN ×2 (09:42→12:26)
[2017-02-18] MEDS ORDERED: Albumin 25% 25gram/100mL 25 GM/100 ML IV.SOLN IVPB ONE (11:52)
[2017-02-18] MEDS ORDERED: 0.9 % Sodium Chloride 2,000 ML ONE (11:57)
[2017-02-18] MEDS ORDERED: Albumin 25% 12.5gm/50mL 25.0 GM/100 ML IV.SOLN ONE (11:57)
[2017-02-18 12:12] LABS: Hepatitis B Surface Antigen Nonreactive (Nonreactive)
--- NOTE | 2017-02-18 13:06 | Nephrology Progress Note ---
Date of Encounter: 02/18/17 Time of Encounter: 11:00 - Assessment and Plan (1) Acute and chronic respiratory failure Current Visit: Yes Status: Acute Continue biPAP per primary team Discussed repeat CXR after HD and whether thoracentesis needed for pleural effusion with primary team Qualifiers: Respiratory failure complication: unspecified whether with hypoxia or hypercapnia Qualified Code(s): J96.20 - Acute and chronic respiratory failure , unspecified whether with hypoxia or hypercapnia (2) ESRD (end stage renal disease) Current Visit: Yes Status: Chronic Continue HD today with UF gaol of 2-3kg as tolerated Concerned for dropping BP readings on HD suggesting possibly reaching dry weight , will dose with albumin (3) Osteomyelitis Current Visit: Yes Status: Acute antibiotic recs per infectious disease Qualifiers: Osteomyelitis type: unspecified type Osteomyelitis location: foot Laterality: right Qualified Code(s): M86.9 - Osteomyelitis, unspecified Subjective Principal diagnosis: Osteomyelitis/Sepsis Interval history: Pt seen and examined receiving HD, awake and alert with biPAP in place. present at bedside. Objective - Vital Signs Vital signs: Vital Signs Temp Pulse Resp BP Pulse Ox 02/18/17 12:45 154/69 02/18/17 12:37 97.4 F L 02/18/17 12:30 123/62 02/18/17 12:15 111/65 02/18/17 12:00 71 20 127/53 97 02/18/17 11:45 85/63 02/18/17 11:30 121/58 02/18/17 11:19 66 02/18/17 11:15 108/43 02/18/17 11:00 67 18 102/50 98 02/18/17 10:45 105/47 02/18/17 10:30 114/54 02/18/17 10:15 108/52 02/18/17 10:00 66 18 125/54 98 02/18/17 09:45 151/61 02/18/17 09:30 164/62 02/18/17 09:15 98.2 F 19 169/69 02/18/17 09:00 61 20 162/70 99 02/18/17 08:00 63 20 122/35 100 02/18/17 07:36 62 02/18/17 07:18 98.6 F 02/18/17 07:00 62 20 118/62 98 02/18/17 06:00 77 18 115/43 94 02/18/17 04:56 69 21 95/43 93 02/18/17 04:00 69 21 100/46 99 02/18/17 03:52 97.8 F 02/18/17 03:45 21 108/38 99 02/18/17 03:00 56 15 111/38 97 02/18/17 01:05 55 15 112/44 97 02/18/17 00:00 55 15 105/41 97 02/17/17 23:41 15 109/42 97 02/17/17 23:26 58 02/17/17 23:00 59 15 103/28 97 02/17/17 22:00 68 16 118/48 96 02/17/17 20:45 71 25 125/60 96 02/17/17 20:00 81 25 108/88 97 02/17/17 19:00 97.8 F 70 19 117/77 96 02/17/17 18:00 71 20 157/60 96 02/17/17 17:00 68 18 182/85 97 02/17/17 16:00 69 18 172/90 97 02/17/17 15:47 96 02/17/17 15:34 73 02/17/17 15:30 98.0 F 73 20 142/90 95 02/17/17 15:20 15 206/72 02/17/17 15:09 22 188/78 100 02/17/17 14:10 74 204/82 100 Intake and Output 02/17/17 02/18/17 02/18/17 23:59 07:59 15:59 Intake Total 0 / 0 600 / 600 Output Total 60 / 60 50 / 50 Balance -60 / -60 -50 / -50 600 / 600 Intake: Oral 0 / 0 0 / 0 Intake, Rinseback and Flushes 600 / 600 Output: Urine 0 / 0 Catheter 60 / 60 50 / 50 Other: Stool Size Small Stool Consistency loose Stool Color Brown # Bowel Movements 1 Blood Glucose* 67 Hemodialysis Net Fluid Removed 3600 (mL) - General Appearance General appearance: Present: moderate distress (on biPAP), fatigue, frail EENT: Present: ATNC Neck: Present: supple Respiratory: Present: course breath sounds Cardiology: Present: no edema, normal S1, normal S2 Dialysis Vascular Access: Arteriovenous Fistula thrill: Yes bruit: Yes Additional Comments: JAYME Gastrointestinal: Present: no guarding Integumentary: Present: warm and dry Neurologic: Present: no focal deficit Musculoskeletal: Present: no deformities Psychiatric: Present: mood/affect appropriate, cooperative - Lab 02/19/17 03:03 02/19/17 03:03 Most recent lab results ABG pH 7.36 pH Units (7.32-7.45) 02/17/17 13:20 ABG pCO2 45 mmHg (35-45) 02/17/17 13:20 ABG pO2 106 mmHg (85-104) H 02/17/17 13:20 ABG HCO3 25 mEq/L (21-27) 02/17/17 13:20 ABG O2 Saturation 98 % (95-98) 02/17/17 13:20 Calcium 8.1 mg/dL (8.6-10.8) L 02/18/17 06:53 Phosphorus 4.3 mg/dL (2.3-4.7) 02/18/17 06:53 Magnesium 1.8 mg/dL (1.6-2.6) 02/18/17 06:53 Consult Discharge Plan - Plan Referrals: NONE,PCP [Primary Care Provider] -
[2017-02-18] MEDS: *HR* Metoprolol 5 MG/5 ML VIAL IVP PRN (14:15)
[2017-02-18] MEDS ORDERED: Lidocaine -MPF 2% 5 ML VIAL ONE (14:44)
--- NOTE | 2017-02-18 15:33 | Infectious Disease Consult ---
Date of Encounter: 02/18/17 Time of Encounter: 11:00 Assessment and Plan (1) Leukocytosis Status: Resolved Assessment and plan: WBC elevated at 12.6 with neutrophilic predominance on admission. Etiology unclear: PNA vs. UTI vs. Osteomyelitis vs. other. Resolved. WBC normal this morning. Continue to trend. Qualifiers: Leukocytosis type: unspecified Qualified Code(s): D72.829 - Elevated white blood cell count, unspecified (2) Osteomyelitis Status: Acute Assessment and plan: Location: Left foot first digit proximal and distal phalanx. Etiology unclear. Causative organism unclear. No cultures have been obtained and the patient has no open wounds. Patient was previously following the podiatry who recommended starting IV Vanc with HD to treat. Review of the medical record reveals that the podiatry team feels that the patient is too high risk for surgery so we will attempt to treat with IV antibiotics only. Given that the patient is immunosuppressed, we will need to cover both gram negative and gram positive bacteria. X-ray in the ER shows increased soft tissue swelling and unchanged osseous destruction of the 1st digit proximal and distal phalanx. Podiatry consulted and following. Check ESR and CRP. Continue Vancomycin IV. Pharmacy to dose. Goal trough ~15. Start Cefepime 2 grams IV on HD days only, given after HD. Discontinue Rocephin. Duration of treatment depends on the clinical picture, but likely 6 weeks of IV antibiotics. Dose-adjust antibiotics for HD. Qualifiers: Osteomyelitis type: unspecified type Osteomyelitis location: foot Laterality: right Qualified Code(s): M86.9 - Osteomyelitis, unspecified (3) Pneumonia Status: Acute Assessment and plan: Causative organism unclear. CT of the chest shows large bilateral pleural effusions, left greater than right and ground glass opacities with associated pulmonary nodules bilaterally. Difficult to discern if the patient was having respiratory symptoms prior to admission or not. Discussed with the pulmonology team. Get sputum culture if the patient is able to provide an adequate specimen. Check S. pneumo and Legionella UAT. Continue antibiotics as above. Continue Levaquin 500mg IV Q48H as well. Duration of treatment depends on the clinical picture. Qualifiers: Qualified Code(s): J18.9 - Pneumonia, unspecified organism (4) UTI (urinary tract infection) Status: Ruled-out Assessment and plan: Causative organism unclear. Urinalysis positive for leukocyte esterase. The patient is difficult to get ROS information from and I am unclear if she was having urinary symptoms prior to admission. Await urine culture. Continue antibiotics as above for now. Qualifiers: Urinary tract infection type: acute cystitis Hematuria presence: without hematuria Qualified Code(s): N30.00 - Acute cystitis without hematuria (5) Acute encephalopathy Status: Acute Assessment and plan: Etiology unclear. ABG unimpressive. CT head negative. Infectious etiology vs. other. No nuchal rigidity or meningeal signs to indicate SANITARIAN infection. Continue to monitor closely. Low threshold for neurology consultation if no improvement. (6) Bilateral pleural effusion Status: Acute Assessment and plan: Etiology unclear, but likely secondary to fluid overload. CT scan shows large, bilateral pleural effusions, left greater than right. Defer management to the pulmonology team. (7) Acute and chronic respiratory failure Status: Acute Assessment and plan: Required BIPAP on admission, but is currently on O2 via nasal cannula. Likely multifactorial: PNA + pleural effusions + AMS. Improved. Further management per the pulmonology team. Qualifiers: Respiratory failure complication: unspecified whether with hypoxia or hypercapnia Qualified Code(s): J96.20 - Acute and chronic respiratory failure , unspecified whether with hypoxia or hypercapnia (8) Pulmonary edema Status: Acute Qualifiers: Chronicity: acute Qualified Code(s): J81.0 - Acute pulmonary edema (9) Diarrhea Status: Acute Assessment and plan: Etiology unclear: antibiotics vs. infectious. Clinically, does not appear to be C. diff. The patient has had only one diarrhea stool today. If number of stools increases to >=4 in a 24 hour period, send stool for C. diff. Qualifiers: Diarrhea type: unspecified type Qualified Code(s): R19.7 - Diarrhea, unspecified (10) Abdominal pain Status: Acute Assessment and plan: Etiology unclear. CT of the abdomen and pelvis negative for acute findings. Supportive care per the primary team's recommendations. Qualifiers: Abdominal location: lower abdomen, unspecified Qualified Code(s): R10.30 - Lower abdominal pain, unspecified (11) TSH elevation Status: Acute (12) Status post simultaneous kidney and pancreas transplant Status: Acute Assessment and plan: Status post renal and pancreas transplant in 2000 at [facility]. Currently on cyclosporine at home dose. (13) Immunosuppressed status Status: Acute Assessment and plan: Secondary to renal/pancreas transplant and cyclosporine. (14) ESRD (end stage renal disease) on dialysis Status: Deleted Assessment and plan: Follows with [facility]. Gets HD M/W/F. Nephrology consulted and following. (15) Anemia of chronic disease Status: Acute Assessment and plan: Hgb stable. No evidence of bleeding noted on exam. Further management per the primary team. (16) A-fib Status: Acute Assessment and plan: Rate controlled. Management per the primary team. Qualifiers: Atrial fibrillation type: paroxysmal Qualified Code(s): I48.0 - Paroxysmal atrial fibrillation Infectious Disease HPI - Data of Consult Patient: new to practice Consult date: 02/18/17 Requesting Physician: Jodee Conway MD Primary Care Provider: PCP NONE - Consult Narrative Reason for consult: Osteomyelitis right foot History of present illness: Ms. 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 The patient was admitted to the hospital for AMS, acute respiratory failure, and pulmonary edema. We are consulted 02/18/17 for antibiotic recommendations for right foot osteomyelitis. The patient is a 71 year old female with a past medical history as stated above. The patient was diagnosed about 2 weeks ago with OM of the right great toe after she had some toe swelling. There was no open wound and the etiology of the infection is not entirely clear. No cultures were obtained. She was started on IV Vancomycin with HD on the day of admission. She reports that while at HD, she began to feel weak, nauseated and had vomiting, and had abdominal pain with diarrhea. She had no PO intake. The next morning, her symptoms continued and she asked her to bring her to the ED. Upon arrival, she was afebrile and hypertensive. WBC was elevated at 12.6 with neutrophilic predominance. Lactic acid was normal. TSH was markedly elevated at 26.667. The patient was somnolent and difficult to arouse. CT of the head was negative. CT of the chest showed large bilateral pleural effusions and ground glass opacities with associated pulmonary nodules bilaterally. CT of the abdomen and pelvis was negative. Right foot XR showed increased soft tissue welling and unchanged osseous destruction of the 1st digit proximal and distal phalanx. She was placed on BIPAP although her ABG was unimpressive. She was started on IV Vanc, Levaquin, and Rocephin and admitted to the ICU. Since admission, her WBC has normalized. She still appears very ill and weak and most of the information comes from her . Nephrology and podiatry have been consulted. She complains of abdominal pain and she is incontinent of stool during my exam. Her tells me that she does still make a small amount of urine, but she can't tell me if she has had urinary symptoms. She denies pain at the site of the osteomyelitis. Her only complaint is abdominal pain at this time. Additional ROS information unobtainable due to the patient's frail condition and AMS. According to her , the patient lives at home with him. Up until 9 months ago, she was ambulatory and her health was relatively good. He states that now she is not bed bound and that she can help with transferring from bed to chair and take a few steps with assistance. 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 He is unable to give me additional details about this and states he thinks she was treated here for this. CC: Jodee Conway MD Past Med Surg Social Fam HX - Past Medical History Attestation: Yes The following information was validated with the patient. Source: patient, old records reviewed, obtained from family, nursing notes reviewed Medical history: arthritis, atrial fibrillation, diabetes, dialysis, osteoporosis, renal disease Psychiatric history: no psych history - Past Surgical History Surgical History: appendectomy, herniorrhaphy, other (renal/pancreas transplant 2000) - Social History Smoking Status: Never smoker Smokeless Tobacco Status: No Alcohol use: none Drug use: none Occupational status: unemployed Current living situation: Home, With Family Activity Level: Wheelchair bound Recent Out of Country Travel Within the Last 8 Weeks: No Exposure or Possible Exposure to Illness During Travel: No - Family History Mother Living Status: Hx Family Cardiac Disorders: Yes Infectious Disease-CN:Meds Acetaminophen [Tylenol] 650 mg PO Q4HR PRN 03/02/15 [History] Atorvastatin [Lipitor] 10 mg PO HS 03/02/15 [History] Folic Acid 1 mg PO DAILY 03/02/15 [History] predniSONE [Prednisone] 2.5 mg PO BID 03/02/15 [History] Amiodarone [Cordarone] 200 mg PO DAILY 09/18/15 [History] B Complex W-C No.20/Folic Acid [Nephrocaps Softgel] 1 mg PO DAILY 12/17/15 [ History] Carvedilol 12.5 mg PO BID 02/19/16 [History] Loperamide [Imodium] 2 mg PO Q8H PRN 02/19/16 [History] Oxygen 2 l IH HS 02/19/16 [History] Cyclosporine, Modified [Gengraf] 75 mg PO BID 09/10/16 [History] Calcium Carbonate [Tums] 1,000 mg PO QID 30 Days tab.chew 09/18/16 [Rx] Aspirin Enteric Coated [Aspirin EC] 81 mg PO DAILY 10/14/16 [History] Ergocalciferol (VITAMIN D2) [Drisdol (50,000 Unit)] 50,000 unit PO FR 10/14/16 [ History] Lactose-Reduced Food [Ensure Plus] 1 bottle PO 1000,1400 10/14/16 [History] Levothyroxine [Synthroid] 25 mcg PO 0630 10/14/16 [History] Magnesium Hydroxide [Milk of Magnesia] 2,400 mg PO DAILY PRN 10/14/16 [History] Menthol/Zinc Ox/Aloe/Abdirashid Oil [Chamosyn Ointment] 1 appl TP TID PRN 10/14/16 [ History] Omeprazole [PriLOSEC] 40 mg PO DAILY 10/14/16 [History] Ondansetron ODT [Zofran ODT] 4 mg PO Q8H PRN 10/14/16 [History] Denosumab [Prolia (For Outpatient Infusion)] 60 mg SQ Q6M 02/17/17 [History] Hydralazine HCl 50 mg PO TID 02/17/17 [History] Metoprolol [Lopressor] 12.5 mg PO BID 02/17/17 [History] Oxycodone HCl/Acetaminophen [Percocet 5-325 mg Tablet] 1 tab PO Q6H PRN [History] 3 Allergy/AdvReac Type Severity Reaction Status Date / Time Penicillins [PCN] Allergy Hives Verified 09/14/16 15:26 All systems: reviewed and no additional remarkable complaints except as stated Exam - Constitutional Vitals: Temp Pulse Resp BP Pulse Ox 97.4 F L 135 16 160/90 97 02/18/17 12:55 02/18/17 14:00 02/18/17 14:00 02/18/17 14:00 02/18/17 14:00 General appearance: average body habitus, cooperative, no acute distress Exam: Chronically-ill appearing female. - Head Head exam: Present: atraumatic, normal inspection, normocephalic - Eye Eye exam: Present: EOMI, normal appearance, PERRL Pupils: Present: normal accommodation - ENT ENT exam: Present: mucous membranes dry - Neck Neck exam: Present: normal inspection - Respiratory Respiratory exam: Present: decreased breath sounds (throughout). Absent: rales , respiratory distress, rhonchi, wheezes - Cardiovascular Cardiovascular exam: Present: RRR, +S1, +S2 - GI/Abdominal GI/Abdominal exam: Present: normal bowel sounds, soft, tenderness (lower abdomen ). Absent: distended Additional comments: Patient incontinent of loose brown stool during my exam. - Extremities Exam Extremities exam: Present: normal inspection. Absent: joint swelling, pedal edema, tenderness Additional comments: Right great toe edema without erythema, warmth, or tenderness. AV fistula noted to the RUE + bruit, -thrill. AV fistula to the LUE currently accessed for HD. - Neurological Exam Neurological exam: Present: alert, oriented X3 Additional comments: Follows commands, answers questions appropriately, but appears weak. - Skin Skin exam: Present: dry, intact, normal color, warm Infectious Disease CN: Results - Labs CBC & Chem 7: 02/19/17 03:03 02/19/17 03:03 Serology: Serology 02/18/17 Range/Units 07:49 Hep Bs Antigen Nonreactive (Nonreactive) Hep Bs Antibody 0.50 mIU/mL Consult Discharge Plan - Plan Referrals: NONE,PCP [Primary Care Provider] - - Attending Attestation I examined this patient and my medical decision-making was reviewed with the Resident Physician. I agree with the documented findings, disposition and treatment plan as described except to the extent set forth below. This is an addendum to original report. By Sol Mascorro CNP. Please refer to Sol hernandez for full details. Patient is a 71-year-old woman who has an extensive past medical history mentioned above including history of renal and pancreatic transplant in 2000 that appears to have failed because patient is back on dialysis Thursday and Thursday, also history of osteoporosis, diabetes mellitus and A. fib came into the hospital with altered mental status, acute respiratory failure and pulmonary edema. Since arrival patient has been noted to have elevated WBC, no fever and she was hypertensive. Patient also had an elevated TSH at 26.6. Workup revealed negative CT of the head. CT of the chest showed large bilateral pleural effusion and ground glass opacities with associated pulmonary nodules bilaterally. CT of the abdomen and pelvis was negative. Patient apparently was started on vancomycin on the of the month because of osteomyelitis of the right great toe. No biopsy was done and patient was started on vancomycin empirically. On physical exam really there rate toe is deformed from chronic arthritis but there is no erythema there is no edema not warm to touch and there is no active drainage. Clinically there does not appear to be an obvious infection on the superficial part. Patient does have a callus on the medial side. On further questioning, family tells me that the patient has been on cyclosporine was renewed a few months ago by her transplant team at [facility]. I did call down pharmacy and asked if we can cyclosporine here and they said yes so I spoke with the ICU team and they said they will restart it. The thoracentesis was attempted on the patients but minimal straw-colored fluid was removed. No obvious signs of infection. At this point Im not sure what caused the patients altered mental status, are not his thyroid limited related. I will have discussed discussed with Dr. Hall to see if the patient has osteomyelitis versus other. If she has osteomyelitis would probably have to do broad-spectrum antibiotics including vancomycin and cefepime. The good thing about Vanco and cefepime as we continue do it 3 times a week dosing after dialysis. In the meantime check baseline labs. Discussed at length with family members.
[2017-02-18] MEDS ORDERED: Hydrocortisone Sodium Succ 100 MG/2 ML VIAL IVP SCH (16:00)
[2017-02-18] MEDS ORDERED: Vancomycin 750 MG in D5% in Water 250 ML IVPB ONE (16:00)
[2017-02-18] MEDS ORDERED: Ondansetron 4 MG/2 ML VIAL IVP PRN ×2 (18:05→18:54)
[2017-02-18] MEDS ORDERED: *HR* Dextrose 50 % in Water (Syg) 50 ML SYRINGE IVP PRN ×2 (18:05→18:54)
[2017-02-18] MEDS ORDERED: Naloxone 0.4 MG/ML INJ IVP PRN ×2 (18:05→18:54)
[2017-02-18] MEDS ORDERED: *HR* Metoprolol 5 MG/5 ML VIAL IVP PRN ×2 (18:05→18:54)
[2017-02-18] MEDS ORDERED: Furosemide 40 MG/4 ML VIAL IVP ONE ×2 (18:17→18:54)
[2017-02-18] MEDS: CycloSPORINE, Mod (Neoral) 25 MG CAPSULE PO SCH (19:49)
[2017-02-18] MEDS ORDERED: CycloSPORINE, Mod (Neoral) 25 MG CAPSULE PO SCH (21:00)
[2017-02-18] MEDS: Hydrocortisone Sodium Succ 100 MG/2 ML VIAL IVP SCH (23:14)
[2017-02-19] MEDS ORDERED: Hydrocortisone Sodium Succ 100 MG/2 ML VIAL IVP SCH
[2017-02-19 03:23] LABS: Hematocrit 29.5 % (35.3-44.9); Immature Platelets 0.8 % (1.1-6.1); Mean Corpuscular HGB Conc 30.5 g/dL (31.6-35.5); Mean Corpuscular Hemoglobin 30.3 pg (28.0-33.3); Mean Corpuscular Volume 99.3 fL (83.0-100.0); Mean Platelet Volume 8.3 fL (9.4-12.4); Red Blood Count 2.97 M/mcL (3.82-4.97); Red Cell Distribution Width 16.6 % (11.5-14.5)
[2017-02-19 04:45] LABS: Calcium 8.4 mg/dL (8.6-10.8); Potassium 3.7 mEq/L (3.5-4.5)
[2017-02-19 04:54] LABS: Vancomycin,Random 30.1 mcg/mL
[2017-02-19] MEDS: *HR* Heparin 5,000 UNIT/ML VIAL SQ SCH ×2 (05:19→18:10)
[2017-02-19] MEDS ORDERED: *HR* Heparin 5,000 UNIT/ML VIAL SQ SCH (06:00)
[2017-02-19] MEDS ORDERED: Levothyroxine Sodium 100 MCG VIAL IVP SCH ×2 (06:30)
[2017-02-19] MEDS ORDERED: Vancomycin 1 EACH in EMPTY BAG 1 EACH IVPB SCH ×3 (08:00)
--- NOTE | 2017-02-19 08:27 | Internal Med Progress Note ---
Date of Encounter: 02/19/17 Time of Encounter: 08:23 - Assessment and plan (1) Sepsis Current Visit: No Status: Acute Assessment and plan: Mostly due to Pneumonia + Osteomyelitis of Rt foot proximal and distal phalanx Improving Cont empirical broad spec abx blood cx - P Urine cx - No growth Qualifiers: Sepsis type: sepsis due to unspecified organism Qualified Code(s): A41.9 - Sepsis, unspecified organism (2) Acute and chronic respiratory failure with hypoxia Current Visit: Yes Status: Acute Assessment and plan: Multi factorial Improving (3) Osteomyelitis Current Visit: Yes Status: Acute Assessment and plan: Rt foot 1st digit proximal and distal phalanx Cont broad spec abx Vanco and Cefepime on HD days after HD x 6 weeks #[id number] ID is on board [employer] wanted try medical and conservative management first Qualifiers: Osteomyelitis type: unspecified type Osteomyelitis location: foot Laterality: right Qualified Code(s): M86.9 - Osteomyelitis, unspecified (4) Acute encephalopathy Current Visit: Yes Status: Acute Assessment and plan: Mostly toxic encephalopathy Improved (5) Pneumonia Current Visit: Yes Status: Acute Assessment and plan: Mostly aspirational ..superimposed by bacterial cont broad spec abx Cefepime, vanco and Levaquin - renally dosed Duoneb and O2 Qualifiers: Qualified Code(s): J18.9 - Pneumonia, unspecified organism (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 Current Visit: Yes Status: Acute Assessment and plan: She does have pelural effusion / ulm edema - could be due to volume overload / Combine CHF exacerbation Her pleural effusions are improving Reviewed 2D [place] from 12/17 showed LVEF 50%, Mild diastolic dysfucntion repeat 2 D Echo Cont ASA, Metoprolol and statin Qualifiers: Congestive heart failure chronicity: acute on chronic Qualified Code(s): I50.43 - Acute on chronic combined systolic (congestive) and diastolic ( congestive) heart failure (7) ESRD (end stage renal disease) Current Visit: Yes Status: Chronic Assessment and plan: HD as per Nephro (8) UTI (urinary tract infection) Current Visit: No Status: Ruled-out Assessment and plan: UA - no bacteria Urine cx- no growth ruled out UTI Qualifiers: Urinary tract infection type: acute cystitis Hematuria presence: without hematuria Qualified Code(s): N30.00 - Acute cystitis without hematuria (9) Hypertension Current Visit: No Status: Chronic Assessment and plan: fluctuation cont close monitoring resumed home med Metoprolol cont Hydrazine IV PRN for now Qualifiers: Hypertension type: secondary to other renal disorders Qualified Code(s): I15.1 - Hypertension secondary to other renal disorders; N28.89 - Other specified disorders of kidney and ureter (10) Pulmonary edema Current Visit: Yes Status: Acute Assessment and plan: Due to PNA + CHF exacerbation Improving Qualifiers: Chronicity: acute Qualified Code(s): J81.0 - Acute pulmonary edema (11) Bilateral pleural effusion Current Visit: Yes Status: Acute Assessment and plan: Improving..No need of thoracentesis now (12) Paroxysmal atrial fibrillation Current Visit: Yes Status: Acute Assessment and plan: rate controlled with Metoprolol and Amiodarone not a good candidate for anticoag cont ASA (13) Hypothyroidism (acquired) Current Visit: Yes Status: Acute Assessment and plan: Elevated TSH Inc Levothyroxine to 50mcg (14) Status post simultaneous kidney and pancreas transplant Current Visit: Yes Status: Acute (15) DVT prophylaxis Current Visit: No Status: Acute Assessment and plan: on SQ Heparin - Subjective Interval history: Ms. Moore is a 71F with a Hx of ESRD on dialysis MWF, renal and pancreas transplant, afib, and HTN admitted to the ICU with AMS, Sepsis, Pneumonia, Acute hypoxic resp failure and osteomyelitis. The patient was diagnosed with osteomyelitis of the hallux of her right foot on 02/03 and initiated antibiotic treatment on 02/16 with vancomycin.Pt also happened to have BP issues, was little hypotensive y/d morning. She was placed on IV Abx Cefepime, Vancomycin after HD days. Today pt is alert, awake and O x 3. She still c/o Rt sided chest congestion. Denied any GI / complaints. - Constitutional Vitals: Temp Pulse Resp BP Pulse Ox 98.0 F 60 16 174/50 99 02/19/17 03:00 02/19/17 07:19 02/19/17 07:19 02/19/17 07:19 02/19/17 03:00 General appearance: Present: A&O X 3, no acute distress, answers questions appropriately - Head Head exam: Present: atraumatic, normal inspection - Respiratory Respiratory exam: Present: decreased breath sounds, wheezes. Absent: rales, respiratory distress, rhonchi - Cardiovascular Cardiovascular exam: Present: RRR, +S1, +S2. Absent: systolic murmur - GI/Abdominal GI/Abdominal exam: Present: normal bowel sounds, soft. Absent: distended, guarding, rebound, rigid, tenderness - Extremities Exam Extremities exam: Absent: calf tenderness, pedal edema, tenderness Additional comments: swollen Rt great toe.. No tenderness..no open wound noticed - Back Exam Back exam: Absent: CVA tenderness (L), CVA tenderness (R) - Neurological Exam Neurological exam: Present: alert, oriented X3 - Psychiatric Psychiatric exam: Present: depressed Internal Medicine: Result - Labs CBC & Chem 7: 02/19/17 03:03 02/19/17 03:03 Labs: Short CBC 02/19/17 Range/Units 03:03 WBC 8.1 (4.3-11.1) K/mcL Hgb 9.0 L (11.5-15.4) g/dL Hct 29.5 L (35.3-44.9) % Plt Count 224 (140-400) K/mcL BMP 02/19/17 03:03 Sodium 135 L Potassium 3.7 Chloride 96 L Carbon Dioxide 26 BUN 11 Creatinine 3.08 H Glucose 137 H Calcium 8.4 L - ABG Interpretation ABG results: ABG ABG pH 7.36 pH Units (7.32-7.45) 02/17/17 13:20 ABG pCO2 45 mmHg (35-45) 02/17/17 13:20 ABG pO2 106 mmHg (85-104) H 02/17/17 13:20 ABG O2 Saturation 98 % (95-98) 02/17/17 13:20 PT/INR, D-dimer PT 12.0 Seconds (9.4-12.1) 02/17/17 17:40 - Impressions Impressions Chest X-Ray 02/18/17 16:03 IMPRESSION: Decrease in pleural effusions. No pneumothorax. D/ / Isidra Rodriguez MD / Isidra Rodriguez MD Interpreting Provider: Isidra Rodriguez MD Consult Discharge Plan - Plan Referrals: NONE,PCP [Primary Care Provider] -
[2017-02-19] MEDS ORDERED: Pantoprazole 40 MG VIAL IVP SCH ×2 (09:00)
[2017-02-19] MEDS ORDERED: Cefepime HCl 2,000 MG in D5% in Water (Mini-Bag+) 100 ML IVPB ONE (09:00)
[2017-02-19] MEDS ORDERED: *HR* Amiodarone 200 MG TABLET PO SCH (09:00)
[2017-02-19] MEDS ORDERED: Folic Acid 1 MG TABLET PO SCH (09:00)
[2017-02-19] MEDS ORDERED: Aspirin Enteric Coated 81 MG Tablet PO SCH (09:00)
[2017-02-19] MEDS: Aspirin Enteric Coated 81 MG Tablet PO SCH (09:19)
[2017-02-19] MEDS: CycloSPORINE, Mod (Neoral) 25 MG CAPSULE PO SCH ×2 (09:19→21:21)
[2017-02-19] MEDS: *HR* Amiodarone 200 MG TABLET PO SCH (09:19)
[2017-02-19] MEDS: Hydrocortisone Sodium Succ 100 MG/2 ML VIAL IVP SCH ×2 (09:20→16:21)
[2017-02-19] MEDS: Folic Acid 1 MG TABLET PO SCH (09:20)
[2017-02-19] MEDS: Acetaminophen 325 MG TABLET PO PRN (09:20)
--- NOTE | 2017-02-19 10:57 | Nephrology Progress Note ---
<EliazarRadha A - Last Filed: 02/19/17 10:58> Date of Encounter: 02/19/17 Time of Encounter: 10:55 - Assessment and Plan (1) ESRD (end stage renal disease) on dialysis Current Visit: No Status: Deleted Plan for HD tomorrow Continue renal diet Avoid nephrotoxins if possible (2) Pulmonary edema Current Visit: Yes Status: Acute Awaiting echo--not done yet per primary team Qualifiers: Chronicity: acute Qualified Code(s): J81.0 - Acute pulmonary edema (3) Osteomyelitis Current Visit: Yes Status: Acute per podiatry and infectious disease teams Qualifiers: Osteomyelitis type: unspecified type Osteomyelitis location: foot Laterality: right Qualified Code(s): M86.9 - Osteomyelitis, unspecified (4) Hypertension Current Visit: No Status: Chronic Qualifiers: Hypertension type: secondary to other renal disorders Qualified Code(s): I15.1 - Hypertension secondary to other renal disorders; N28.89 - Other specified disorders of kidney and ureter Subjective Principal diagnosis: Osteomyelitis/Sepsis Interval history: Patient seen and examined. Smiling and talking today, says she feels better. To be transfered to a 2A bed today. Objective - Vital Signs Vital signs: Vital Signs Temp Pulse Resp BP Pulse Ox 02/19/17 08:46 98.5 F 02/19/17 07:19 60 16 174/50 02/19/17 03:00 98.0 F 66 16 166/58 99 02/18/17 23:30 98.7 F 70 16 173/68 99 02/18/17 19:45 98.5 F 64 18 166/55 98 02/18/17 17:00 109 18 134/60 100 02/18/17 16:19 106 02/18/17 16:00 106 20 117/63 100 02/18/17 15:47 98.8 F 02/18/17 15:00 105 18 135/88 98 02/18/17 14:00 135 16 160/90 97 02/18/17 12:55 97.4 F L 21 170/84 02/18/17 12:45 154/69 02/18/17 12:37 97.4 F L 02/18/17 12:30 123/62 02/18/17 12:15 111/65 02/18/17 12:00 71 20 127/53 97 02/18/17 11:45 85/63 02/18/17 11:30 121/58 02/18/17 11:19 66 02/18/17 11:15 108/43 02/18/17 11:00 67 18 102/50 98 Intake and Output 02/18/17 02/19/17 02/19/17 23:59 07:59 15:59 Intake Total 304 / 304 0 / 0 240 / 240 Output Total 20 / 20 0 / 0 Balance 284 / 284 0 / 0 240 / 240 Intake: IV Fluids 104 / 104 Magnesium Sulfate 2 GM In 104 / 104 Dextrose 5% 100 ML @ 50 mls/hr IVPB Q6H PRN Rx#:[id number] Oral 200 / 200 0 / 0 240 / 240 Output: Urine / 20 0 / 0 Other: Meal Breakfast Percent of Meal Consumed 10% # Voids 2 # Bowel Movements 0 0 Weight 56 kg - General Appearance General appearance: Present: chronically ill, fatigue, frail EENT: Present: ATNC, hearing intact, vision intact Neck: Present: supple Respiratory: Present: clear Cardiology: Present: no edema, normal S1, normal S2 Dialysis Vascular Access: Arteriovenous Fistula Gastrointestinal: Present: no tenderness, no guarding Integumentary: Present: warm and dry Neurologic: Present: alert and oriented x3 Psychiatric: Present: mood/affect appropriate, cooperative - Lab 02/19/17 03:03 02/19/17 03:03 Most recent lab results ABG pH 7.36 pH Units (7.32-7.45) 02/17/17 13:20 ABG pCO2 45 mmHg (35-45) 02/17/17 13:20 ABG pO2 106 mmHg (85-104) H 02/17/17 13:20 ABG HCO3 25 mEq/L (21-27) 02/17/17 13:20 ABG O2 Saturation 98 % (95-98) 02/17/17 13:20 Calcium 8.4 mg/dL (8.6-10.8) L 02/19/17 03:03 Phosphorus 4.3 mg/dL (2.3-4.7) 02/18/17 06:53 Magnesium 1.8 mg/dL (1.6-2.6) 02/18/17 06:53 Consult Discharge Plan - Plan Referrals: NONE,PCP [Primary Care Provider] - <Orimilikwe,Njideka Rafaela - Last Filed: 02/19/17 14:57> Date of Encounter: 02/19/17 - Assessment and Plan (1) Acute and chronic respiratory failure Current Visit: Yes Status: Acute Qualifiers: Respiratory failure complication: unspecified whether with hypoxia or hypercapnia Qualified Code(s): J96.20 - Acute and chronic respiratory failure , unspecified whether with hypoxia or hypercapnia (2) ESRD (end stage renal disease) Current Visit: Yes Status: Chronic (3) Osteomyelitis Current Visit: Yes Status: Acute Qualifiers: Osteomyelitis type: unspecified type Osteomyelitis location: foot Laterality: right Qualified Code(s): M86.9 - Osteomyelitis, unspecified Objective - Vital Signs Vital signs: Vital Signs Temp Pulse Resp BP Pulse Ox 02/19/17 12:08 97.4 F L 59 18 162/49 98 02/19/17 08:46 98.5 F 02/19/17 07:19 60 16 174/50 02/19/17 03:00 98.0 F 66 16 166/58 99 02/18/17 23:30 98.7 F 70 16 173/68 99 02/18/17 19:45 98.5 F 64 18 166/55 98 02/18/17 17:00 109 18 134/60 100 02/18/17 16:19 106 02/18/17 16:00 106 20 117/63 100 02/18/17 15:47 98.8 F 02/18/17 15:00 105 18 135/88 98 Intake and Output 02/18/17 02/19/17 02/19/17 23:59 07:59 15:59 Intake Total 304 / 304 0 / 0 480 / 480 Output Total 20 / 20 0 / 0 0 / 0 Balance 284 / 284 0 / 0 480 / 480 Intake: IV Fluids 104 / 104 Magnesium Sulfate 2 GM In 104 / 104 Dextrose 5% 100 ML @ 50 mls/hr IVPB Q6H PRN Rx#:[id number] Oral 200 / 200 0 / 0 480 / 480 Output: Urine 20 / 20 0 / 0 0 / 0 Other: Meal Lunch Percent of Meal Consumed 10% # Voids 2 # Bowel Movements 0 0 Weight 56 kg - Lab 02/19/17 03:03 02/19/17 03:03 Most recent lab results ABG pH 7.36 pH Units (7.32-7.45) 02/17/17 13:20 ABG pCO2 45 mmHg (35-45) 02/17/17 13:20 ABG pO2 106 mmHg (85-104) H 02/17/17 13:20 ABG HCO3 25 mEq/L (21-27) 02/17/17 13:20 ABG O2 Saturation 98 % (95-98) 02/17/17 13:20 Calcium 8.4 mg/dL (8.6-10.8) L 02/19/17 03:03 Phosphorus 4.3 mg/dL (2.3-4.7) 02/18/17 06:53 Magnesium 1.8 mg/dL (1.6-2.6) 02/18/17 06:53 - Attending Attestation I examined this patient and my medical decision-making was reviewed with the Resident Physician/CENTRIFU[employer] SEPARATOR TENDER. I agree with the documented findings, disposition and treatment plan as described except to the extent set forth below. Pt seen and examined feeling better today with less SOB off biPAP s/p HD yesterday with 3kg UF. s/p attempted thoracentesis complicated with on;y 10- 15cc fluid removed. On exam improved areation noted with no LE edema. Appreciate podiatry and ID recs as well. Plan for next HD tomorrow with UF as tolerated.
--- NOTE | 2017-02-19 13:45 | Infectious Disease Progress No ---
Date of Encounter: 02/19/17 Time of Encounter: 13:42 - Assessment and Plan (1) Leukocytosis Current Visit: Yes Status: Resolved WBC elevated at 12.6 with neutrophilic predominance on admission. Etiology unclear: PNA vs. UTI vs. Osteomyelitis vs. other. Resolved. WBC normal this morning. Continue to trend. Qualifiers: Leukocytosis type: unspecified Qualified Code(s): D72.829 - Elevated white blood cell count, unspecified (2) Osteomyelitis Current Visit: Yes Status: Acute Location: Left foot first digit proximal and distal phalanx. Etiology unclear. Causative organism unclear. No cultures have been obtained and the patient has no open wounds. Patient was previously following with podiatry who recommended starting IV Vanc with HD to treat. Review of the medical record reveals that the podiatry team feels that the patient is too high risk for surgery and recommended treating empirically with IV antibiotics. Given that the patient is immunosuppressed, we will need to cover both gram negative and gram positive bacteria. X-ray in the ER shows increased soft tissue swelling and unchanged osseous destruction of the 1st digit proximal and distal phalanx. Podiatry consulted and following. ESR 67, CRP 199. Continue Vancomycin IV. Pharmacy to dose. Goal trough ~15. Continue Cefepime 2 grams IV on HD days only, given after HD. Duration of treatment depends on the clinical picture, but likely 6 weeks of IV antibiotics. Dose-adjust antibiotics for HD. Qualifiers: Osteomyelitis type: unspecified type Osteomyelitis location: foot Laterality: right Qualified Code(s): M86.9 - Osteomyelitis, unspecified (3) Pneumonia Current Visit: Yes Status: Acute Causative organism unclear. CT of the chest shows large bilateral pleural effusions, left greater than right and ground glass opacities with associated pulmonary nodules bilaterally. Difficult to discern if the patient was having respiratory symptoms prior to admission or not. Discussed with the pulmonology team. Get sputum culture if the patient is able to provide an adequate specimen. Check S. pneumo and Legionella UAT if the patient is able to give a urine specimen. Continue antibiotics as above. Continue Levaquin 500mg IV Q48H as well. Duration of treatment depends on the clinical picture. Qualifiers: Pneumonia type: due to unspecified organism Laterality: bilateral Lung location: unspecified part of lung Qualified Code(s): J18.9 - Pneumonia, unspecified organism (4) UTI (urinary tract infection) Current Visit: No Status: Ruled-out Urine culture negative. Qualifiers: Urinary tract infection type: acute cystitis Hematuria presence: without hematuria Qualified Code(s): N30.00 - Acute cystitis without hematuria (5) Acute encephalopathy Current Visit: Yes Status: Acute Etiology unclear, but overall the patient has improved. ABG unimpressive. CT head negative. Infectious etiology vs. other. 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 Continue to monitor closely. (6) Bilateral pleural effusion Current Visit: Yes Status: Acute Etiology unclear, but likely secondary to fluid overload. CT scan shows large, bilateral pleural effusions, left greater than right. Status post bedside thoracentesis by the pulmonology team, but only a small amount of fluid drained. No specimen sent for cell count or culture. Repeat CXR shows minimal improvement. Defer management to the pulmonology team. (7) Acute and chronic respiratory failure Current Visit: Yes Status: Acute Required BIPAP on admission, but is currently on O2 via nasal cannula. Likely multifactorial: PNA + pleural effusions + AMS. Improved. Further management per the pulmonology team. Qualifiers: Respiratory failure complication: unspecified whether with hypoxia or hypercapnia Qualified Code(s): J96.20 - Acute and chronic respiratory failure , unspecified whether with hypoxia or hypercapnia (8) Pulmonary edema Current Visit: Yes Status: Acute Qualifiers: Chronicity: acute Qualified Code(s): J81.0 - Acute pulmonary edema (9) Diarrhea Current Visit: Yes Status: Acute Etiology unclear: antibiotics vs. infectious. Improved. No diarrhea since yesterday. Clinically, does not appear to be C. diff. If number of stools increases to >=4 in a 24 hour period, send stool for C. diff. Qualifiers: Diarrhea type: unspecified type Qualified Code(s): R19.7 - Diarrhea, unspecified (10) Abdominal pain Current Visit: No Status: Acute Etiology unclear. Alk phos mildly elevated, but other LFTs normal. CT of the abdomen and pelvis negative for acute findings. Supportive care per the primary team's recommendations. Qualifiers: Abdominal location: lower abdomen, unspecified Qualified Code(s): R10.30 - Lower abdominal pain, unspecified (11) TSH elevation Current Visit: Yes Status: Acute (12) Status post simultaneous kidney and pancreas transplant Current Visit: Yes Status: Acute Status post renal and pancreas transplant in 2000 at [facility]. Currently on cyclosporine at home dose. (13) Immunosuppressed status Current Visit: Yes Status: Acute Secondary to renal/pancreas transplant and cyclosporine. (14) ESRD (end stage renal disease) on dialysis Current Visit: No Status: Deleted Follows with [facility]. Gets HD M/W/F. Nephrology consulted and following. (15) Anemia of chronic disease Current Visit: No Status: Acute Hgb stable. No evidence of bleeding noted on exam. Further management per the primary team. (16) A-fib Current Visit: No Status: Acute Rate controlled. Management per the primary team. Qualifiers: Atrial fibrillation type: paroxysmal Qualified Code(s): I48.0 - Paroxysmal atrial fibrillation - Subjective Interval history: Patient seen and examined. No acute events noted overnight. Patient resting quietly in bed. Less somnolent today and states she feels better. Complains of chronic back pain. Denies fevers, chills. Denies chest pain or shortness of breath, but reports a cough productive of clear sputum that started a couple of weeks ago. She denies nausea, vomiting, or diarrhea today. She states her last BM was yesterday and was diarrhea. She denies abdominal pain and states they took out her rosas catheter earlier today. She denies upper or lower extremity pain. She denies oral thrush or new skin lesions. Infect Dis PN-Objective Data - Labs CBC & Chem 7: 02/23/17 03:50 02/23/17 03:50 Labs: Laboratory Results - last 24 hr 02/18/17 02/18/17 02/18/17 09:20 10:31 11:33 WBC RBC Hgb Hct MCV MCH MCHC RDW Plt Count MPV Immature Plt Fraction ESR Sodium Potassium Chloride Carbon Dioxide BUN Creatinine Est GFR ( Amer) Est GFR (Non-Af Amer) BUN/Creatinine Ratio Glucose POC Glucose 51 L 71 67 Calculated Osmolality Calcium C-Reactive Protein Random Vancomycin 02/18/17 02/19/17 02/19/17 23:33 03:03 03:03 WBC 8.1 RBC 2.97 L Hgb 9.0 L Hct 29.5 L MCV 99.3 MCH 30.3 MCHC 30.5 L RDW 16.6 H Plt Count 224 MPV 8.3 L Immature Plt Fraction 0.8 L ESR Sodium 135 L Potassium 3.7 Chloride 96 L Carbon Dioxide 26 BUN 11 Creatinine 3.08 H Est GFR ( Amer) 18 L Est GFR (Non-Af Amer) 15 L BUN/Creatinine Ratio 4 L Glucose 137 H POC Glucose 113 H Calculated Osmolality 282 Calcium 8.4 L C-Reactive Protein 199 H Random Vancomycin 30.1 02/19/17 03:03 WBC RBC Hgb Hct MCV MCH MCHC RDW Plt Count MPV Immature Plt Fraction ESR 67 H Sodium Potassium Chloride Carbon Dioxide BUN Creatinine Est GFR ( Amer) Est GFR (Non-Af Amer) BUN/Creatinine Ratio Glucose POC Glucose Calculated Osmolality Calcium C-Reactive Protein Random Vancomycin Cultures: Serology 02/18/17 Range/Units 07:49 Hep Bs Antigen Nonreactive (Nonreactive) Hep Bs Antibody 0.50 mIU/mL - Impressions Impressions Chest X-Ray 02/18/17 16:03 IMPRESSION: Decrease in pleural effusions. No pneumothorax. D/ / Isidra Rodriguez MD / Isidra Rodriguez MD Interpreting Provider: Isidra Rodriguez MD Exam - Constitutional Vitals: Temp Pulse Resp BP Pulse Ox 97.4 F L 59 18 162/49 98 02/19/17 12:08 02/19/17 12:08 02/19/17 12:08 02/19/17 12:08 02/19/17 12:08 General appearance: average body habitus, cooperative, no acute distress - Head Head exam: Present: atraumatic, normal inspection, normocephalic - Eye Eye exam: Present: EOMI, normal appearance, PERRL Pupils: Present: normal accommodation - ENT ENT exam: Present: mucous membranes moist - Neck Neck exam: Present: normal inspection - Respiratory Respiratory exam: Present: CTAB. Absent: rales, respiratory distress, rhonchi, wheezes - Cardiovascular Cardiovascular exam: Present: RRR, +S1, +S2 - GI/Abdominal GI/Abdominal exam: Present: normal bowel sounds, soft, tenderness (generalized) . Absent: distended - Extremities Exam Extremities exam: Absent: joint swelling, pedal edema, tenderness Additional comments: Right great toe mildly edematous but not warm to touch or erythematous. - Neurological Exam Neurological exam: Present: alert, oriented X3, no focal deficits - Psychiatric Psychiatric exam: Present: normal affect, normal mood - Skin Skin exam: Present: dry, intact, normal color, warm Consult Discharge Plan - Plan Referrals: NONE,PCP [Primary Care Provider] -
[2017-02-19] MEDS ORDERED: Levofloxacin 500 MG/100 ML 500 MG/100 ML BAG IVPB ONE (19:00)
[2017-02-20] MEDS: Hydrocortisone Sodium Succ 100 MG/2 ML VIAL IVP SCH ×2 (00:18→08:48)
[2017-02-20 03:57] LABS: Hematocrit 30.3 % (35.3-44.9); Hemoglobin 9.3 g/dL (11.5-15.4); Immature Granulocytes % 0.6 % (0-4); Lymphocytes # 0.6 K/mcL (0.6-4.6); Lymphocytes % 7.1 %; Mean Corpuscular HGB Conc 30.7 g/dL (31.6-35.5); Mean Corpuscular Hemoglobin 30.1 pg (28.0-33.3); Mean Corpuscular Volume 98.1 fL (83.0-100.0); Mean Platelet Volume 8.4 fL (9.4-12.4); Monocytes # 0.3 K/mcL (0.0-1.3); Monocytes % 3.6 %; Neutrophils # 6.9 K/mcL (1.6-8.9); Platelet Count 168 K/mcL (140-400); Red Blood Count 3.09 M/mcL (3.82-4.97); Red Cell Distribution Width 16.4 % (11.5-14.5); Segmented Neutrophils % 88.7 %
[2017-02-20 04:14] LABS: Potassium 4.3 mEq/L (3.5-4.5)
[2017-02-20] MEDS: *HR* Heparin 5,000 UNIT/ML VIAL SQ SCH ×2 (05:20→16:29)
[2017-02-20] MEDS ORDERED: Levothyroxine Sodium 100 MCG VIAL IVP SCH (06:30)
[2017-02-20] MEDS ORDERED: 0.9 % Sodium Chloride 250 ML IVC PRN (08:00)
[2017-02-20] MEDS ORDERED: Albumin 25% 12.5gm/50mL 12.5 GM/50 ML IV.SOLN IVPB PRN (08:00)
[2017-02-20] MEDS ORDERED: 0.9 % Sodium Chloride 1,000 ML PRIME SCH (08:00)
[2017-02-20] MEDS: CycloSPORINE, Mod (Neoral) 25 MG CAPSULE PO SCH ×2 (08:47→20:47)
[2017-02-20] MEDS: *HR* HYDROcodone/Acet 5/325 mg TABLET PO PRN (08:47)
[2017-02-20] MEDS: Folic Acid 1 MG TABLET PO SCH (08:48)
[2017-02-20] MEDS: *HR* Amiodarone 200 MG TABLET PO SCH (08:48)
[2017-02-20] MEDS: Aspirin Enteric Coated 81 MG Tablet PO SCH (08:48)
[2017-02-20] MEDS ORDERED: Cefepime HCl 2,000 MG in D5% in Water (Mini-Bag+) 100 ML IVPB SCH ×2 (09:00)
--- NOTE | 2017-02-20 09:23 | Nephrology Progress Note ---
Date of Encounter: 02/20/17 Time of Encounter: 09:05 - Assessment and Plan (1) ESRD (end stage renal disease) Current Visit: Yes Status: Chronic ESRD on HD M/W/F and d/t for HD today as already ordered by my colleague Dr. Russo. Will plan for UF tomorrow to challenge her dry weight. Not sure why she did not have an extra UF yesterday given such HTN and hypervolemia. Though she does not have LE pitting edema on exam, she is hypervolemic. The hyponatremia and pleural effusions support the concern for a hypervolemic volume status. She said she only dialyzes for 3 hrs per treatment, which likely would be sufficient for clearance but she may need longer HD treatments for better volume status management. Continue home BP meds Hx of anemia of CKD: with goal Hgb 10-11. Will provide Aranesp only while as an inpatient otherwise at discharge she may return to using the outpatient Epo at the [facility] HD unit Will follow with you. Thank you. (2) Bilateral pleural effusion Current Visit: Yes Status: Acute (3) Hypertension Current Visit: No Status: Chronic Qualifiers: Hypertension type: secondary to other renal disorders Qualified Code(s): I15.1 - Hypertension secondary to other renal disorders; N28.89 - Other specified disorders of kidney and ureter (4) Anemia in chronic kidney disease Current Visit: Yes Status: Chronic Qualifiers: Chronic kidney disease stage: on chronic dialysis Qualified Code(s): N18.6 - End stage renal disease; D63.1 - Anemia in chronic kidney disease; D63.1 - Anemia in chronic kidney disease; Z99.2 - Dependence on renal dialysis; Z99.2 - Dependence on renal dialysis; Z99.2 - Dependence on renal dialysis; Z99.2 - Dependence on renal dialysis (5) Hyponatremia Current Visit: Yes Status: Chronic See above (6) Kidney transplant failure Current Visit: No Status: Chronic Hx of prior renal transplant. Subjective Principal diagnosis: Osteomyelitis/Sepsis Interval history: Pt was s/e while on HD. She did not affirm N/V/D or cramping. Objective - Vital Signs Vital signs: Vital Signs Temp Pulse Resp BP Pulse Ox 02/20/17 07:13 97.6 F 64 15 168/58 97 02/20/17 03:50 97.9 F 62 12 184/80 95 02/19/17 23:26 98.3 F 62 12 150/71 93 02/19/17 19:39 98.1 F 60 12 176/76 96 02/19/17 16:49 98.2 F 76 16 180/81 91 02/19/17 12:08 97.4 F L 59 18 162/49 98 Intake and Output 02/19/17 02/20/17 02/20/17 23:59 07:59 15:59 Intake Total 360 / 360 60 / 60 Output Total 100 / 100 Balance 360 / 360 -40 / -40 Intake: Oral 360 / 360 60 / 60 Output: Urine 100 / 100 Other: Meal Dinner Percent of Meal Consumed 15% Stool Size Small Stool Consistency loose Stool Color Brown Weight 60.3 kg Blood Glucose* 174 146 Patient Weight 02/20/17 23:59 Weight 60.3 kg - General Appearance General appearance: Present: well-developed, well-nourished, chronically ill EENT: Present: ATNC, PERRL, mucous membranes moist Neck: Present: supple Respiratory: Present: course breath sounds Cardiology: Present: regular rate, regular rhythm, normal S1, normal S2 Dialysis Vascular Access: Arteriovenous Fistula (Left upper arm) thrill: Yes bruit: Yes Gastrointestinal: Present: normoactive bowel sounds, no tenderness, no guarding Integumentary: Present: warm and dry Neurologic: Present: no focal deficit, no asterixis, alert and oriented x3 Musculoskeletal: Present: no deformities, no erythema, no cyanosis Psychiatric: Present: mood/affect appropriate, cooperative - Lab 02/20/17 03:44 02/20/17 03:44 Most recent lab results ABG pH 7.36 pH Units (7.32-7.45) 02/17/17 13:20 ABG pCO2 45 mmHg (35-45) 02/17/17 13:20 ABG pO2 106 mmHg (85-104) H 02/17/17 13:20 ABG HCO3 25 mEq/L (21-27) 02/17/17 13:20 ABG O2 Saturation 98 % (95-98) 02/17/17 13:20 Calcium 9.0 mg/dL (8.6-10.8) 02/20/17 03:44 Phosphorus 4.3 mg/dL (2.3-4.7) 02/18/17 06:53 Magnesium 2.3 mg/dL (1.6-2.6) 02/20/17 03:44 Consult Discharge Plan - Plan Referrals: NONE,PCP [Primary Care Provider] -
--- NOTE | 2017-02-20 11:48 | Infectious Disease Progress No ---
Date of Encounter: 02/20/17 Time of Encounter: 11:45 - Assessment and Plan (1) Leukocytosis Current Visit: Yes Status: Resolved WBC elevated at 12.6 with neutrophilic predominance on admission. Etiology unclear: PNA vs. UTI vs. Osteomyelitis vs. other. Resolved. WBC normal this morning. Continue to trend. Qualifiers: Leukocytosis type: unspecified Qualified Code(s): D72.829 - Elevated white blood cell count, unspecified (2) Osteomyelitis Current Visit: Yes Status: Acute Location: Left foot first digit proximal and distal phalanx. Etiology unclear. Causative organism unclear. No cultures have been obtained and the patient has no open wounds. Patient was previously following with podiatry who recommended starting IV Vanc with HD to treat. Review of the medical record reveals that the podiatry team feels that the patient is too high risk for surgery and recommended treating empirically with IV antibiotics. Given that the patient is immunosuppressed, we will need to cover both gram negative and gram positive bacteria. X-ray in the ER shows increased soft tissue swelling and unchanged osseous destruction of the 1st digit proximal and distal phalanx. Podiatry consulted and following. ESR 67, CRP 199. Continue Vancomycin IV. Pharmacy to dose. Goal trough ~15. Continue Cefepime 2 grams IV on HD days only, given after HD. Duration of treatment depends on the clinical picture, but likely 6 weeks of IV antibiotics. Hopefully, we can give her antibiotics with dialysis. Dose-adjust antibiotics for HD. Qualifiers: Osteomyelitis type: unspecified type Osteomyelitis location: foot Laterality: right Qualified Code(s): M86.9 - Osteomyelitis, unspecified (3) Pneumonia Current Visit: Yes Status: Acute Causative organism unclear. CT of the chest shows large bilateral pleural effusions, left greater than right and ground glass opacities with associated pulmonary nodules bilaterally. Difficult to discern if the patient was having respiratory symptoms prior to admission or not. Discussed with the pulmonology team. Discontinue levaquin. Repeat CXR in the AM. Qualifiers: Pneumonia type: due to unspecified organism Laterality: bilateral Lung location: unspecified part of lung Qualified Code(s): J18.9 - Pneumonia, unspecified organism (4) UTI (urinary tract infection) Current Visit: No Status: Ruled-out Urine culture negative. Qualifiers: Urinary tract infection type: acute cystitis Hematuria presence: without hematuria Qualified Code(s): N30.00 - Acute cystitis without hematuria (5) Acute encephalopathy Current Visit: Yes Status: Acute Etiology unclear, but overall the patient has improved. ABG unimpressive. CT head negative. Infectious etiology vs. other. No nuchal rigidity or meningeal signs to indicate [employer] infection. Continue to monitor closely. (6) Bilateral pleural effusion Current Visit: Yes Status: Acute Etiology unclear, but likely secondary to fluid overload. CT scan shows large, bilateral pleural effusions, left greater than right. Status post bedside thoracentesis by the pulmonology team, but only a small amount of fluid drained. No specimen sent for cell count or culture. Repeat CXR shows minimal improvement. Defer management to the pulmonology team. (7) Acute and chronic respiratory failure Current Visit: Yes Status: Acute Required BIPAP on admission, but is currently on O2 via nasal cannula. Likely multifactorial: PNA + pleural effusions + AMS. Improved. Further management per the pulmonology team. Qualifiers: Respiratory failure complication: unspecified whether with hypoxia or hypercapnia Qualified Code(s): J96.20 - Acute and chronic respiratory failure , unspecified whether with hypoxia or hypercapnia (8) Pulmonary edema Current Visit: Yes Status: Acute Qualifiers: Chronicity: acute Qualified Code(s): J81.0 - Acute pulmonary edema (9) Diarrhea Current Visit: Yes Status: Acute Etiology unclear: antibiotics vs. infectious. Improved. Clinically, does not appear to be C. diff. If number of stools increases to >=4 in a 24 hour period, send stool for C. diff. Qualifiers: Diarrhea type: unspecified type Qualified Code(s): R19.7 - Diarrhea, unspecified (10) Abdominal pain Current Visit: No Status: Acute Etiology unclear. Alk phos mildly elevated, but other LFTs normal. CT of the abdomen and pelvis negative for acute findings. Supportive care per the primary team's recommendations. Qualifiers: Abdominal location: lower abdomen, unspecified Qualified Code(s): R10.30 - Lower abdominal pain, unspecified (11) TSH elevation Current Visit: Yes Status: Acute (12) Status post simultaneous kidney and pancreas transplant Current Visit: Yes Status: Acute Status post renal and pancreas transplant in 2000 at [facility]. Currently on cyclosporine at home dose. (13) Immunosuppressed status Current Visit: Yes Status: Acute Secondary to renal/pancreas transplant and cyclosporine. (14) ESRD (end stage renal disease) on dialysis Current Visit: No Status: Deleted Follows with [facility]. Gets HD M/W/F. Nephrology consulted and following. (15) Anemia of chronic disease Current Visit: No Status: Acute Hgb stable. No evidence of bleeding noted on exam. Further management per the primary team. (16) A-fib Current Visit: No Status: Acute Rate controlled. Management per the primary team. Qualifiers: Atrial fibrillation type: paroxysmal Qualified Code(s): I48.0 - Paroxysmal atrial fibrillation - Subjective Interval history: Patient seen and examined. No acute events noted overnight. Patient resting quietly in bed in the HD unit. Less somnolent today and states she feels better. Complains of chronic back pain and chronic left chest pain, worse with movement, deep inspiration, or cough. Denies fevers, chills. Reports some mild shortness of breath and a cough productive of clear sputum that started a couple of weeks ago. She denies nausea, vomiting. She states her last BM was this morning and was loose. She denies abdominal pain or urinary complaints. She denies upper or lower extremity pain. She denies oral thrush or new skin lesions. Infect Dis PN-Objective Data - Labs CBC & Chem 7: 02/20/17 03:44 02/20/17 03:44 Labs: Laboratory Results - last 24 hr 02/18/17 02/18/17 02/18/17 09:20 10:31 11:33 WBC RBC Hgb Hct MCV MCH MCHC RDW Plt Count MPV Immature Gran % Seg Neutrophils % Lymphocytes % Monocytes % Eosinophils % Basophils % Neutrophils # Lymphocytes # Monocytes # Eosinophils # Basophils # Sodium Potassium Chloride Carbon Dioxide BUN Creatinine Est GFR ( Amer) Est GFR (Non-Af Amer) BUN/Creatinine Ratio Glucose POC Glucose 51 L 71 67 Calculated Osmolality Calcium Magnesium 02/18/17 02/20/17 02/20/17 23:33 03:44 03:44 WBC 7.8 RBC 3.09 L Hgb 9.3 L Hct 30.3 L MCV 98.1 MCH 30.1 MCHC 30.7 L RDW 16.4 H Plt Count 168 MPV 8.4 L Immature Gran % 0.6 Seg Neutrophils % 88.7 Lymphocytes % 7.1 Monocytes % 3.6 Eosinophils % 0.0 Basophils % 0.0 Neutrophils # 6.9 Lymphocytes # 0.6 Monocytes # 0.3 Eosinophils # 0.0 Basophils # 0.0 Sodium 131 L Potassium 4.3 Chloride 95 L Carbon Dioxide 27 BUN 19 Creatinine 4.23 H Est GFR ( Amer) 13 L Est GFR (Non-Af Amer) 10 L BUN/Creatinine Ratio 4 L Glucose 150 H POC Glucose 113 H Calculated Osmolality 277 L Calcium 9.0 Magnesium 02/20/17 02/20/17 03:44 07:12 WBC RBC Hgb Hct MCV MCH MCHC RDW Plt Count MPV Immature Gran % Seg Neutrophils % Lymphocytes % Monocytes % Eosinophils % Basophils % Neutrophils # Lymphocytes # Monocytes # Eosinophils # Basophils # Sodium Potassium Chloride Carbon Dioxide BUN Creatinine Est GFR ( Amer) Est GFR (Non-Af Amer) BUN/Creatinine Ratio Glucose POC Glucose 146 H Calculated Osmolality Calcium Magnesium 2.3 Cultures: Serology 02/18/17 Range/Units 07:49 Hep Bs Antigen Nonreactive (Nonreactive) Hep Bs Antibody 0.50 mIU/mL - Impressions Impressions Echocardiogram 02/19/17 08:46 Impressions: LVEF 45-50%. Normal LV chamber size and wall thickness. Low normal-mildly reduced LV systolic function. Moderate left ventricular diastolic dysfunction. Normal right ventricular structure and function. No evidence of pulmonary hypertension. No significant valvular dysfunction. Large pleural effusion. Left Ventricular Wall Motion: Rest Echo Findings The apex, apical inferior, mid inferior, basal inferior, apical anterior, mid anterior, basal anterior, apical septal, mid inferior septal, basal inferior septal, apical lateral, mid anterior lateral, basal anterior lateral, mid anterior septal, mid inferior lateral, basal anterior septal and basal inferior lateral ray were hypokinetic. Findings: Study Quality * Technically adequate exam. ECG Findings * Normal sinus rhythm. Left Ventricle * LVEF 45-50%. * Normal LV chamber size and wall thickness. Low normal-mildly reduced LV systolic function. * Moderate left ventricular diastolic dysfunction. Right Ventricle * Normal right ventricular structure and function. Left Atrium * Mildly dilated left atrium. Right Atrium * Normal right atrial size. Aortic Valve * Grossly, trileaflet appearing aortic valve. * Mildly calcified aortic annulus. * No aortic regurgitation. * No aortic stenosis. Mitral Valve * Mildly thickened anterior mitral valve leaflet. * No mitral stenosis. * Trace mitral regurgitation. Tricuspid Valve * Normal tricuspid valve structure and function. * Trace tricuspid regurgitation. Pulmonic Valve * Pulmonic valve is not well visualized. * No pulmonic regurgitation. Aorta * Normally sized aortic root. Pericardium * The pericardium appears normal. IVC * The IVC is not dilated. * < 50% respiratory change. Pulmonary Artery * Normal visualized portions of the main pulmonary artery. Pleural Effusion * Large pleural effusion. Exam - Constitutional Vitals: Temp Pulse Resp BP Pulse Ox 97.9 F 64 18 166/62 97 02/20/17 09:00 02/20/17 07:13 02/20/17 09:00 02/20/17 10:00 02/20/17 07:13 General appearance: average body habitus, cooperative, no acute distress - Head Head exam: Present: atraumatic, normal inspection, normocephalic - Eye Eye exam: Present: EOMI, normal appearance, PERRL Pupils: Present: normal accommodation - ENT ENT exam: Present: mucous membranes moist - Neck Neck exam: Present: normal inspection - Respiratory Respiratory exam: Present: CTAB. Absent: rales, respiratory distress, rhonchi, wheezes - Cardiovascular Cardiovascular exam: Present: RRR, +S1, +S2 - GI/Abdominal GI/Abdominal exam: Present: normal bowel sounds, soft, tenderness (generalized) . Absent: distended - Extremities Exam Extremities exam: Present: normal inspection. Absent: joint swelling, pedal edema, tenderness Additional comments: Right great toe edema and discoloration noted, but no warmth or erythema noted. Fistula noted to the LUE that is currently accessed for HD. RUE fistual + bruit, - thrill. - Neurological Exam Neurological exam: Present: alert, oriented X3, no focal deficits - Psychiatric Psychiatric exam: Present: normal affect, normal mood - Skin Skin exam: Present: dry, intact, normal color, warm Consult Discharge Plan - Plan Referrals: NONE,PCP [Primary Care Provider] -
[2017-02-20] MEDS ORDERED: 0.9 % Sodium Chloride 1,000 ML ONE (13:50)
--- NOTE | 2017-02-20 14:02 | Internal Med Progress Note ---
Date of Encounter: 02/20/17 Time of Encounter: 14:00 - Assessment and plan (1) Sepsis Current Visit: No Status: Acute Assessment and plan: Mostly due to Pneumonia + Osteomyelitis of Rt foot proximal and distal phalanx Improving Cont empirical broad spec abx blood cx - No growth so far Urine cx - No growth Qualifiers: Sepsis type: sepsis due to unspecified organism Qualified Code(s): A41.9 - Sepsis, unspecified organism (2) Acute and chronic respiratory failure with hypoxia Current Visit: Yes Status: Acute Assessment and plan: Multi factorial Improving..Still on 4 lit o2 she does use 2 lit O2 at home (3) Osteomyelitis Current Visit: Yes Status: Acute Assessment and plan: Rt foot 1st digit proximal and distal phalanx Cont broad spec abx Vanco and Cefepime on HD days after HD x 6 weeks # ID is on board [facility] wanted try medical and conservative management first Qualifiers: Osteomyelitis type: unspecified type Osteomyelitis location: foot Laterality: right Qualified Code(s): M86.9 - Osteomyelitis, unspecified (4) Acute encephalopathy Current Visit: Yes Status: Acute Assessment and plan: Mostly toxic encephalopathy Improved (5) Pneumonia Current Visit: Yes Status: Acute Assessment and plan: Mostly aspirational ..superimposed by bacterial cont broad spec abx Cefepime, vanco and Levaquin - renally dosed Duoneb and O2 Qualifiers: Pneumonia type: due to unspecified organism Laterality: bilateral Lung location: unspecified part of lung Qualified Code(s): J18.9 - Pneumonia, unspecified organism (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 Current Visit: Yes Status: Acute Assessment and plan: She does have pleural effusion / pulm edema - could be due to volume overload / Combine CHF exacerbation Her pleural effusions are improving Reviewed 2D Ech from 12/17 showed LVEF 45 -50% mild systolic dysfunction and mild diastolic dysfunction repeat 2 D Echo Cont ASA, Metoprolol and statin Qualifiers: Congestive heart failure chronicity: acute on chronic Qualified Code(s): I50.43 - Acute on chronic combined systolic (congestive) and diastolic ( congestive) heart failure (7) ESRD (end stage renal disease) Current Visit: Yes Status: Chronic Assessment and plan: HD as per Nephro (8) UTI (urinary tract infection) Current Visit: No Status: Ruled-out Assessment and plan: UA - no bacteria Urine cx- no growth ruled out UTI Qualifiers: Urinary tract infection type: acute cystitis Hematuria presence: without hematuria Qualified Code(s): N30.00 - Acute cystitis without hematuria (9) Hypertension Current Visit: No Status: Chronic Assessment and plan: stable cont close monitoring cont home med Metoprolol cont Hydrazine IV PRN for now Qualifiers: Hypertension type: secondary to other renal disorders Qualified Code(s): I15.1 - Hypertension secondary to other renal disorders; N28.89 - Other specified disorders of kidney and ureter (10) Pulmonary edema Current Visit: Yes Status: Acute Assessment and plan: Due to PNA + CHF exacerbation Improving Qualifiers: Chronicity: acute Qualified Code(s): J81.0 - Acute pulmonary edema (11) Bilateral pleural effusion Current Visit: Yes Status: Acute Assessment and plan: Pulm tried to do thoracocentesis in the ICU but were unsuccessful Improving..No need of thoracentesis now (12) Paroxysmal atrial fibrillation Current Visit: Yes Status: Acute Assessment and plan: rate controlled with Metoprolol and Amiodarone not a good candidate for anticoag cont ASA (13) Hypothyroidism (acquired) Current Visit: Yes Status: Acute Assessment and plan: Elevated TSH Inc Levothyroxine to 50mcg (14) Status post simultaneous kidney and pancreas transplant Current Visit: Yes Status: Acute (15) DVT prophylaxis Current Visit: No Status: Acute Assessment and plan: on SQ Heparin - Subjective Interval history: Ms. Moore is a 71F with a Hx of ESRD on dialysis MWF, renal and pancreas transplant, afib, and HTN admitted to the ICU with AMS, Sepsis, Pneumonia, Acute hypoxic resp failure and osteomyelitis. The patient was diagnosed with osteomyelitis of the hallux of her right foot on 02/03 and initiated antibiotic treatment on 02/16 with vancomycin.Pt also happened to have BP issues, was little hypotensive y/d morning. She was placed on IV Abx Cefepime, Vancomycin after HD days. Today pt is alert, awake and O x 3. She still c/o Rt sided chest congestion. Denied any GI / complaints. Feeling better today - Constitutional Vitals: Temp Pulse Resp BP Pulse Ox 97.4 F L 64 18 128/52 97 02/20/17 12:35 02/20/17 07:13 02/20/17 09:00 02/20/17 12:35 02/20/17 07:13 General appearance: Present: A&O X 3, no acute distress, answers questions appropriately - Head Head exam: Present: atraumatic, normal inspection - Neck Neck exam general surgery: Present: supple - Respiratory Respiratory exam: Present: decreased breath sounds, rhonchi (mild), wheezes ( mild). Absent: rales, respiratory distress - Cardiovascular Cardiovascular exam: Present: RRR, +S1, +S2. Absent: systolic murmur - GI/Abdominal GI/Abdominal exam: Present: soft. Absent: rebound, rigid, tenderness - Extremities Exam Extremities exam: Absent: calf tenderness, pedal edema, tenderness - Back Exam Back exam: Absent: CVA tenderness (L), CVA tenderness (R) - Neurological Exam Neurological exam: Present: alert, oriented X3 - Psychiatric Psychiatric exam: Present: normal affect Internal Medicine: Result - Labs CBC & Chem 7: 02/20/17 03:44 02/20/17 03:44 Labs: Short CBC 02/20/17 Range/Units 03:44 WBC 7.8 (4.3-11.1) K/mcL Hgb 9.3 L (11.5-15.4) g/dL Hct 30.3 L (35.3-44.9) % Plt Count 168 (140-400) K/mcL Neutrophils # 6.9 (1.6-8.9) K/mcL BMP 02/20/17 03:44 Sodium 131 L Potassium 4.3 Chloride 95 L Carbon Dioxide 27 BUN 19 Creatinine 4.23 H Glucose 150 H Calcium 9.0 - ABG Interpretation ABG results: ABG ABG pH 7.36 pH Units (7.32-7.45) 02/17/17 13:20 ABG pCO2 45 mmHg (35-45) 02/17/17 13:20 ABG pO2 106 mmHg (85-104) H 02/17/17 13:20 ABG O2 Saturation 98 % (95-98) 02/17/17 13:20 PT/INR, D-dimer PT 12.0 Seconds (9.4-12.1) 02/17/17 17:40 - Impressions Impressions Echocardiogram 02/19/17 08:46 Impressions: LVEF 45-50%. Normal LV chamber size and wall thickness. Low normal-mildly reduced LV systolic function. Moderate left ventricular diastolic dysfunction. Normal right ventricular structure and function. No evidence of pulmonary hypertension. No significant valvular dysfunction. Large pleural effusion. Left Ventricular Wall Motion: Rest Echo Findings The apex, apical inferior, mid inferior, basal inferior, apical anterior, mid anterior, basal anterior, apical septal, mid inferior septal, basal inferior septal, apical lateral, mid anterior lateral, basal anterior lateral, mid anterior septal, mid inferior lateral, basal anterior septal and basal inferior lateral ray were hypokinetic. Findings: Study Quality * Technically adequate exam. ECG Findings * Normal sinus rhythm. Left Ventricle * LVEF 45-50%. * Normal LV chamber size and wall thickness. Low normal-mildly reduced LV systolic function. * Moderate left ventricular diastolic dysfunction. Right Ventricle * Normal right ventricular structure and function. Left Atrium * Mildly dilated left atrium. Right Atrium * Normal right atrial size. Aortic Valve * Grossly, trileaflet appearing aortic valve. * Mildly calcified aortic annulus. * No aortic regurgitation. * No aortic stenosis. Mitral Valve * Mildly thickened anterior mitral valve leaflet. * No mitral stenosis. * Trace mitral regurgitation. Tricuspid Valve * Normal tricuspid valve structure and function. * Trace tricuspid regurgitation. Pulmonic Valve * Pulmonic valve is not well visualized. * No pulmonic regurgitation. Aorta * Normally sized aortic root. Pericardium * The pericardium appears normal. IVC * The IVC is not dilated. * < 50% respiratory change. Pulmonary Artery * Normal visualized portions of the main pulmonary artery. Pleural Effusion * Large pleural effusion. Consult Discharge Plan - Plan Referrals: NONE,PCP [Primary Care Provider] -
[2017-02-20] MEDS: Levofloxacin 500 MG/100 ML 500 MG/100 ML BAG IVPB SCH (16:28)
[2017-02-20] MEDS: Cefepime HCl 2,000 MG in D5% in Water (Mini-Bag+) 100 ML IVPB SCH (16:28)
[2017-02-20] MEDS ORDERED: Levofloxacin 500 MG/100 ML 500 MG/100 ML BAG IVPB SCH ×2 (17:00)
[2017-02-21 04:46] LABS: Calcium 8.8 mg/dL (8.6-10.8); Potassium 4.2 mEq/L (3.5-4.5)
[2017-02-21 05:16] LABS: Hemoglobin 8.8 g/dL (11.5-15.4); Mean Corpuscular HGB Conc 30.3 g/dL (31.6-35.5); Mean Platelet Volume 8.6 fL (9.4-12.4); Platelet Count 183 K/mcL (140-400); Red Blood Count 2.93 M/mcL (3.82-4.97); Red Cell Distribution Width 16.1 % (11.5-14.5)
[2017-02-21] MEDS: *HR* Heparin 5,000 UNIT/ML VIAL SQ SCH ×2 (05:46→16:52)
[2017-02-21] MEDS ORDERED: 0.9 % Sodium Chloride 250 ML IVC PRN (07:24)
[2017-02-21] MEDS: Folic Acid 1 MG TABLET PO SCH (08:42)
[2017-02-21] MEDS: Aspirin Enteric Coated 81 MG Tablet PO SCH (08:42)
[2017-02-21] MEDS: CycloSPORINE, Mod (Neoral) 25 MG CAPSULE PO SCH ×2 (08:42→21:21)
[2017-02-21] MEDS ORDERED: predniSONE 20 MG TABLET PO SCH (09:00)
--- NOTE | 2017-02-21 09:33 | Nephrology Progress Note ---
Date of Encounter: 02/21/17 Time of Encounter: 08:15 - Assessment and Plan (1) ESRD (end stage renal disease) Current Visit: Yes Status: Chronic UF today for challenging her dry weight. Though she does not have LE pitting edema on exam, she is hypervolemic. The hyponatremia and pleural effusions support the concern for a hypervolemic volume status. She said she only dialyzes for 3 hrs per treatment, which likely would be sufficient for clearance but she may need longer HD treatments for better volume status management. Continue home BP meds Hx of anemia of CKD: with goal Hgb 10-11. Will provide Aranesp only while as an inpatient otherwise at discharge she may return to using the outpatient Epo at the [facility] HD unit Will follow with you. Thank you. (2) Bilateral pleural effusion Current Visit: Yes Status: Acute status post thoracentesis. (3) Hypertension Current Visit: No Status: Chronic Still elevated, so would have her undergo UF today. Qualifiers: Hypertension type: secondary to other renal disorders Qualified Code(s): I15.1 - Hypertension secondary to other renal disorders; N28.89 - Other specified disorders of kidney and ureter (4) Anemia in chronic kidney disease Current Visit: Yes Status: Chronic Goal Hgb is 10-11. Will monitor. Qualifiers: Chronic kidney disease stage: on chronic dialysis Qualified Code(s): N18.6 - End stage renal disease; D63.1 - Anemia in chronic kidney disease; D63.1 - Anemia in chronic kidney disease; Z99.2 - Dependence on renal dialysis; Z99.2 - Dependence on renal dialysis; Z99.2 - Dependence on renal dialysis; Z99.2 - Dependence on renal dialysis (5) Hyponatremia Current Visit: Yes Status: Chronic See above (6) Kidney transplant failure Current Visit: No Status: Chronic Hx of prior renal transplant. Subjective Principal diagnosis: Osteomyelitis/Sepsis Interval history: Pt was s/e earlier this AM in her room on 2A. She did not affirm N/V and said that HD went smoothly without cramping yesterday. She voiced that her shortness of breath was mildly improved. Objective - Vital Signs Vital signs: Vital Signs Temp Pulse Resp BP Pulse Ox 02/21/17 08:00 98 F 58 18 152/50 99 02/21/17 04:25 97.6 F 60 16 180/75 99 02/21/17 00:29 98.3 F 60 16 172/67 98 02/20/17 19:05 98.4 F 60 16 182/62 92 02/20/17 15:53 97.5 F L 63 17 176/89 96 02/20/17 12:35 97.4 F L 128/52 02/20/17 12:00 110/48 02/20/17 11:30 133/48 02/20/17 11:00 149/59 02/20/17 10:30 160/62 02/20/17 10:00 166/62 02/20/17 09:30 183/68 Intake and Output 02/20/17 02/21/17 02/21/17 23:59 07:59 15:59 Intake Total 150 / 150 Output Total 0 / 0 Balance 150 / 150 Intake: Oral 150 / 150 Output: Urine 0 / 0 Other: Stool Size Small Stool Consistency soft # Voids 1 # Bowel Movement Diapers 1 Weight 57.5 kg Blood Glucose* 105 88 Patient Weight 02/21/17 23:59 Weight 57.5 kg - General Appearance General appearance: Present: appears started age, cachectic, chronically ill, frail EENT: Present: ATNC, PERRL, mucous membranes moist Neck: Present: adenopathy Respiratory: Present: clear Cardiology: Present: no edema, regular rate, regular rhythm, normal S1, normal S2 Dialysis Vascular Access: Arteriovenous Fistula (Left AVF with +thrill/bruit) thrill: Yes bruit: Yes Gastrointestinal: Present: normoactive bowel sounds, no tenderness, no guarding Integumentary: Present: warm and dry Neurologic: Present: no focal deficit, no asterixis, alert and oriented x3 Musculoskeletal: Present: no erythema, no cyanosis Psychiatric: Present: mood/affect appropriate, cooperative - Lab 02/21/17 04:00 02/21/17 04:00 Most recent lab results ABG pH 7.36 pH Units (7.32-7.45) 02/17/17 13:20 ABG pCO2 45 mmHg (35-45) 02/17/17 13:20 ABG pO2 106 mmHg (85-104) H 02/17/17 13:20 ABG HCO3 25 mEq/L (21-27) 02/17/17 13:20 ABG O2 Saturation 98 % (95-98) 02/17/17 13:20 Calcium 8.8 mg/dL (8.6-10.8) 02/21/17 04:00 Phosphorus 4.3 mg/dL (2.3-4.7) 02/18/17 06:53 Magnesium 2.3 mg/dL (1.6-2.6) 02/20/17 03:44 Consult Discharge Plan - Plan Referrals: NONE,PCP [Primary Care Provider] -
--- NOTE | 2017-02-21 10:15 | Internal Med Progress Note ---
Date of Encounter: 02/21/17 Time of Encounter: 09:00 - Assessment and plan (1) Sepsis Current Visit: No Status: Acute Assessment and plan: Mostly due to Pneumonia + Osteomyelitis of Rt foot proximal and distal phalanx Improving WBC trended down to normal Cont empirical broad spec abx blood cx - No growth so far Urine cx - No growth Qualifiers: Sepsis type: sepsis due to unspecified organism Qualified Code(s): A41.9 - Sepsis, unspecified organism (2) Acute and chronic respiratory failure with hypoxia Current Visit: Yes Status: Acute Assessment and plan: Multi factorial Improving..currently on 3 lit o2 she does use 2 lit O2 at home (3) Osteomyelitis Current Visit: Yes Status: Acute Assessment and plan: Rt foot 1st digit proximal and distal phalanx Cont broad spec abx Vanco and Cefepime on HD days after HD x 6 weeks #3 ID is on board [employer] wanted try medical and conservative management first Qualifiers: Osteomyelitis type: unspecified type Osteomyelitis location: foot Laterality: right Qualified Code(s): M86.9 - Osteomyelitis, unspecified (4) Acute encephalopathy Current Visit: Yes Status: Acute Assessment and plan: Mostly toxic encephalopathy Improved (5) Pneumonia Current Visit: Yes Status: Acute Assessment and plan: Mostly aspirational ..superimposed by bacterial cont broad spec abx Cefepime, vanco and Levaquin - renally dosed Duoneb and O2 Qualifiers: Pneumonia type: due to unspecified organism Laterality: bilateral Lung location: unspecified part of lung Qualified Code(s): J18.9 - Pneumonia, unspecified organism (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 Current Visit: Yes Status: Acute Assessment and plan: She does have pleural effusion / pulm edema - could be due to volume overload / Combine CHF exacerbation Her pleural effusions are improving Reviewed 2D Ech from 12/17 showed LVEF 45 -50% mild systolic dysfunction and mild diastolic dysfunction repeat 2 D Echo Cont ASA, Metoprolol and statin Qualifiers: Congestive heart failure chronicity: acute on chronic Qualified Code(s): I50.43 - Acute on chronic combined systolic (congestive) and diastolic ( congestive) heart failure (7) ESRD (end stage renal disease) Current Visit: Yes Status: Chronic Assessment and plan: HD as per Nephro (8) Hypertension Current Visit: No Status: Chronic Assessment and plan: stable cont close monitoring cont home med Metoprolol cont Hydrazine IV PRN for now Qualifiers: Hypertension type: secondary to other renal disorders Qualified Code(s): I15.1 - Hypertension secondary to other renal disorders; N28.89 - Other specified disorders of kidney and ureter (9) Pulmonary edema Current Visit: Yes Status: Acute Assessment and plan: Due to PNA + CHF exacerbation Improving Qualifiers: Chronicity: acute Qualified Code(s): J81.0 - Acute pulmonary edema (10) Bilateral pleural effusion Current Visit: Yes Status: Acute Assessment and plan: Pulm tried to do thoracocentesis in the ICU but were unsuccessful Improving..No need of thoracentesis now (11) Paroxysmal atrial fibrillation Current Visit: Yes Status: Acute Assessment and plan: rate controlled with Metoprolol and Amiodarone not a good candidate for anticoag cont ASA (12) Hypothyroidism (acquired) Current Visit: Yes Status: Acute Assessment and plan: Elevated TSH Inc Levothyroxine to 50mcg (13) Status post simultaneous kidney and pancreas transplant Current Visit: Yes Status: Acute (14) Physical deconditioning Current Visit: Yes Status: Acute Assessment and plan: PT / OT eval OOB to Chair May need SNF placement for short term PT / OT (15) DVT prophylaxis Current Visit: No Status: Acute Assessment and plan: on SQ Heparin - Subjective Interval history: Ms. Moore is a 71F with a Hx of ESRD on dialysis MWF, renal and pancreas transplant, afib, and HTN admitted to the ICU with AMS, Sepsis, Pneumonia, Acute hypoxic resp failure and osteomyelitis. The patient was diagnosed with osteomyelitis of the hallux of her right foot on 02/03 and initiated antibiotic treatment on 02/16 with vancomycin.Pt also happened to have BP issues, was little hypotensive y/d morning. She was placed on IV Abx Cefepime, Vancomycin after HD days. Today pt is alert, awake and O x 3. Her Rt side CP also better today. Denied any GI / complaints. Feeling better today. No events over night - Constitutional Vitals: Temp Pulse Resp BP Pulse Ox 98 F 58 18 152/50 99 02/21/17 08:00 02/21/17 08:00 02/21/17 08:00 02/21/17 08:00 02/21/17 08:00 General appearance: Present: A&O X 3, no acute distress, answers questions appropriately - Head Head exam: Present: atraumatic, normal inspection - Respiratory Respiratory exam: Present: decreased breath sounds, wheezes. Absent: rales, respiratory distress, rhonchi - Cardiovascular Cardiovascular exam: Present: RRR, +S1, +S2 - GI/Abdominal GI/Abdominal exam: Present: normal bowel sounds, soft. Absent: distended, rebound, rigid, tenderness - Extremities Exam Extremities exam: Absent: calf tenderness, pedal edema, tenderness - Back Exam Back exam: Absent: CVA tenderness (L), CVA tenderness (R) - Skin Skin exam: Absent: rash Internal Medicine: Result - Labs CBC & Chem 7: 02/21/17 04:00 02/21/17 04:00 Labs: Short CBC 02/21/17 Range/Units 04:00 WBC 8.2 (4.3-11.1) K/mcL Hgb 8.8 L (11.5-15.4) g/dL Hct 29.0 L (35.3-44.9) % Plt Count 183 (140-400) K/mcL BMP 02/21/17 04:00 Sodium 130 L Potassium 4.2 Chloride 91 L Carbon Dioxide 32 H BUN 14 Creatinine 3.05 H Glucose 98 Calcium 8.8 - ABG Interpretation ABG results: ABG ABG pH 7.36 pH Units (7.32-7.45) 02/17/17 13:20 ABG pCO2 45 mmHg (35-45) 02/17/17 13:20 ABG pO2 106 mmHg (85-104) H 02/17/17 13:20 ABG O2 Saturation 98 % (95-98) 02/17/17 13:20 PT/INR, D-dimer PT 12.0 Seconds (9.4-12.1) 02/17/17 17:40 Consult Discharge Plan - Plan Referrals: NONE,PCP [Primary Care Provider] -
[2017-02-21] MEDS: *HR* Amiodarone 200 MG TABLET PO SCH (13:53)
[2017-02-21] MEDS ORDERED: Melatonin 3 MG TABLET PO ONE (20:53)
[2017-02-22 03:36] LABS: Hematocrit 33.3 % (35.3-44.9); Hemoglobin 10.2 g/dL (11.5-15.4); Mean Corpuscular HGB Conc 30.6 g/dL (31.6-35.5); Mean Corpuscular Hemoglobin 30.4 pg (28.0-33.3); Mean Corpuscular Volume 99.1 fL (83.0-100.0); Mean Platelet Volume 9.2 fL (9.4-12.4); Platelet Count 168 K/mcL (140-400); Red Blood Count 3.36 M/mcL (3.82-4.97); Red Cell Distribution Width 15.9 % (11.5-14.5)
[2017-02-22 03:37] LABS: Calcium 9.5 mg/dL (8.6-10.8); Potassium 5.1 mEq/L (3.5-4.5)
[2017-02-22] MEDS: *HR* Heparin 5,000 UNIT/ML VIAL SQ SCH ×2 (05:39→17:40)
[2017-02-22] MEDS: Folic Acid 1 MG TABLET PO SCH (10:08)
[2017-02-22] MEDS: *HR* Amiodarone 200 MG TABLET PO SCH (10:08)
[2017-02-22] MEDS: hydrALAZINE 25 MG TABLET PO SCH ×3 (10:08→20:04)
[2017-02-22] MEDS: Aspirin Enteric Coated 81 MG Tablet PO SCH (10:08)
[2017-02-22] MEDS: CycloSPORINE, Mod (Neoral) 25 MG CAPSULE PO SCH ×2 (10:08→20:04)
[2017-02-22] MEDS: predniSONE 20 MG TABLET PO SCH (10:09)
--- NOTE | 2017-02-22 13:05 | Internal Med Progress Note ---
Date of Encounter: 02/22/17 Time of Encounter: 10:00 - Assessment and plan (1) Sepsis Current Visit: No Status: Acute Assessment and plan: Mostly due to Pneumonia + Osteomyelitis of Rt foot proximal and distal phalanx Improving WBC trended down to normal Cont broad spec abx blood cx - No growth so far Urine cx - No growth Pt was given stress dose steroids before.. will cont tapering them slowly Qualifiers: Sepsis type: sepsis due to unspecified organism Qualified Code(s): A41.9 - Sepsis, unspecified organism (2) Acute and chronic respiratory failure with hypoxia Current Visit: Yes Status: Acute Assessment and plan: Multi factorial Improving..currently on 3 lit o2 she does use 2 lit O2 at home cont symptomatic and supportive care (3) Osteomyelitis Current Visit: Yes Status: Acute Assessment and plan: Rt foot 1st digit proximal and distal phalanx Cont broad spec abx Vanco and Cefepime on HD days after HD x 6 weeks #4 ID is on board [employer] wanted try medical and conservative management first Qualifiers: Osteomyelitis type: unspecified type Osteomyelitis location: foot Laterality: right Qualified Code(s): M86.9 - Osteomyelitis, unspecified (4) Acute encephalopathy Current Visit: Yes Status: Acute Assessment and plan: Mostly toxic encephalopathy Improved (5) Pneumonia Current Visit: Yes Status: Acute Assessment and plan: Mostly aspirational ..superimposed by bacterial cont broad spec abx Cefepime, vanco and Levaquin - renally dosed Duoneb and O2 Levaquin # 4/ Qualifiers: Pneumonia type: due to unspecified organism Laterality: bilateral Lung location: unspecified part of lung Qualified Code(s): J18.9 - Pneumonia, unspecified organism (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 Current Visit: Yes Status: Acute Assessment and plan: She does have pleural effusion / pulm edema - could be due to volume overload / Combine CHF exacerbation Her pleural effusions are improving 2 D Echo showed mild systolic dysfunction with LVEF 45-50%, Moderate LV diastolic dysfunction Cont ASA, Metoprolol and statin Qualifiers: Congestive heart failure chronicity: acute on chronic Qualified Code(s): I50.43 - Acute on chronic combined systolic (congestive) and diastolic ( congestive) heart failure (7) ESRD (end stage renal disease) Current Visit: Yes Status: Chronic Assessment and plan: HD as per Nephro (8) Hypertension Current Visit: No Status: Chronic Assessment and plan: fairly controlled cont home med Metoprolol + also started on Hydralazine at 25mg TID cont Hydrazine IV PRN for now Qualifiers: Hypertension type: secondary to other renal disorders Qualified Code(s): I15.1 - Hypertension secondary to other renal disorders; N28.89 - Other specified disorders of kidney and ureter (9) Pulmonary edema Current Visit: Yes Status: Acute Assessment and plan: Due to PNA + CHF exacerbation Improving Qualifiers: Chronicity: acute Qualified Code(s): J81.0 - Acute pulmonary edema (10) Bilateral pleural effusion Current Visit: Yes Status: Acute Assessment and plan: Pulm tried to do thoracocentesis in the ICU but were unsuccessful Improving..No need of thoracentesis now (11) Paroxysmal atrial fibrillation Current Visit: Yes Status: Acute Assessment and plan: rate controlled with Metoprolol and Amiodarone not a good candidate for anticoag cont ASA (12) Hypothyroidism (acquired) Current Visit: Yes Status: Acute Assessment and plan: Elevated TSH Inc Levothyroxine to 50mcg (13) Status post simultaneous kidney and pancreas transplant Current Visit: Yes Status: Acute (14) Physical deconditioning Current Visit: Yes Status: Acute Assessment and plan: PT / OT eval OOB to Chair May need SNF placement for short term PT / OT (15) DVT prophylaxis Current Visit: No Status: Acute Assessment and plan: on SQ Heparin - Subjective Interval history: Ms. Moore is a 71F with a Hx of ESRD on dialysis MWF, renal and pancreas transplant, afib, and HTN admitted to the ICU with AMS, Sepsis, Pneumonia, Acute hypoxic resp failure and osteomyelitis. The patient was diagnosed with osteomyelitis of the hallux of her right foot on 02/03 and initiated antibiotic treatment on 02/16 with vancomycin.Pt also happened to have BP issues, was little hypotensive y/d morning. She was placed on IV Abx Cefepime, Vancomycin after HD days. Today pt is alert, awake and O x 3. Her Rt side CP also better today. Denied any GI / complaints. Feeling better today. No events over night - Constitutional Vitals: Temp Pulse Resp BP Pulse Ox 98.0 F 53 12 147/58 93 02/22/17 12:26 02/22/17 12:26 02/22/17 12:26 02/22/17 12:26 02/22/17 12:26 General appearance: Present: A&O X 3, no acute distress, answers questions appropriately - Head Head exam: Present: atraumatic, normal inspection - Neck Neck exam general surgery: Present: supple - Respiratory Respiratory exam: Present: decreased breath sounds, wheezes (mild). Absent: rales, respiratory distress, rhonchi - Cardiovascular Cardiovascular exam: Present: RRR, +S1, +S2. Absent: systolic murmur - GI/Abdominal GI/Abdominal exam: Present: normal bowel sounds, soft. Absent: rebound, rigid, tenderness - Extremities Exam Extremities exam: Absent: calf tenderness, pedal edema, tenderness - Back Exam Back exam: Absent: CVA tenderness (L), CVA tenderness (R) - Neurological Exam Neurological exam: Present: alert, oriented X3 - Psychiatric Psychiatric exam: Present: depressed Internal Medicine: Result - Labs CBC & Chem 7: 02/22/17 03:15 02/22/17 03:15 Labs: Short CBC 02/22/17 Range/Units 03:15 WBC 7.1 (4.3-11.1) K/mcL Hgb 10.2 L (11.5-15.4) g/dL Hct 33.3 L (35.3-44.9) % Plt Count 168 (140-400) K/mcL BMP 02/22/17 03:15 Sodium 129 L Potassium 5.1 H Chloride 90 L Carbon Dioxide 31 H BUN 21 H Creatinine 4.01 H Glucose 136 H Calcium 9.5 - ABG Interpretation ABG results: ABG ABG pH 7.36 pH Units (7.32-7.45) 02/17/17 13:20 ABG pCO2 45 mmHg (35-45) 02/17/17 13:20 ABG pO2 106 mmHg (85-104) H 02/17/17 13:20 ABG O2 Saturation 98 % (95-98) 02/17/17 13:20 PT/INR, D-dimer PT 12.0 Seconds (9.4-12.1) 02/17/17 17:40 Consult Discharge Plan - Plan Referrals: NONE,PCP [Primary Care Provider] -
[2017-02-22] MEDS: Levofloxacin 500 MG/100 ML 500 MG/100 ML BAG IVPB SCH (16:29)
[2017-02-23] MEDS: Acetaminophen 325 MG TABLET PO PRN (00:08)
[2017-02-23 04:14] LABS: Hematocrit 30.9 % (35.3-44.9); Hemoglobin 9.6 g/dL (11.5-15.4); Mean Corpuscular HGB Conc 31.1 g/dL (31.6-35.5); Mean Corpuscular Hemoglobin 29.7 pg (28.0-33.3); Mean Corpuscular Volume 95.7 fL (83.0-100.0); Mean Platelet Volume 9.5 fL (9.4-12.4); Platelet Count 175 K/mcL (140-400); Red Blood Count 3.23 M/mcL (3.82-4.97); Red Cell Distribution Width 15.5 % (11.5-14.5)
[2017-02-23 04:28] LABS: Calcium 9.9 mg/dL (8.6-10.8); Potassium 5.4 mEq/L (3.5-4.5)
[2017-02-23] MEDS: *HR* Heparin 5,000 UNIT/ML VIAL SQ SCH ×2 (05:57→19:11)
[2017-02-23] MEDS ORDERED: 0.9 % Sodium Chloride 250 ML IVC PRN (06:00)
[2017-02-23] MEDS: *HR* Amiodarone 200 MG TABLET PO SCH (08:03)
[2017-02-23] MEDS: Aspirin Enteric Coated 81 MG Tablet PO SCH (08:03)
[2017-02-23] MEDS: Folic Acid 1 MG TABLET PO SCH (08:03)
[2017-02-23] MEDS: CycloSPORINE, Mod (Neoral) 25 MG CAPSULE PO SCH ×2 (08:03→21:05)
[2017-02-23] MEDS: predniSONE 20 MG TABLET PO SCH (08:04)
[2017-02-23] MEDS ORDERED: 0.9 % Sodium Chloride 2,000 ML ONE (08:18)
--- NOTE | 2017-02-23 11:59 | Nephrology Progress Note ---
Date of Encounter: 02/23/17 Time of Encounter: 09:15 - Assessment and Plan (1) ESRD (end stage renal disease) Current Visit: Yes Status: Chronic HD today for clearance and further fluid removal. She voiced having generalized abd pain that started before admission: will defer to hospitalists Hx of renal transplant that failed but she also has a pancreas transplant that is reportedly still functional. I/S meds as per primary global account executive and [facility] Next HD is planned for Thursday. The hyponatremia and pleural effusions support the concern for a hypervolemic volume status. She said she only dialyzes for 3 hrs per treatment, which likely would be sufficient for clearance but she may need longer HD treatments for better volume status management. Continue home BP meds Hx of anemia of CKD: with goal Hgb 10-11. Will provide Aranesp only while as an inpatient otherwise at discharge she may return to using the outpatient [facility] at the [facility] HD unit Will follow with you. Thank you. (2) Bilateral pleural effusion Current Visit: Yes Status: Acute status post thoracentesis. (3) Hypertension Current Visit: No Status: Chronic Using HD to help augment her antihypertensive meds. Qualifiers: Hypertension type: secondary to other renal disorders Qualified Code(s): I15.1 - Hypertension secondary to other renal disorders; N28.89 - Other specified disorders of kidney and ureter (4) Anemia in chronic kidney disease Current Visit: Yes Status: Chronic Goal Hgb is 10-11. Will monitor. Qualifiers: Chronic kidney disease stage: on chronic dialysis Qualified Code(s): N18.6 - End stage renal disease; D63.1 - Anemia in chronic kidney disease; D63.1 - Anemia in chronic kidney disease; Z99.2 - Dependence on renal dialysis; Z99.2 - Dependence on renal dialysis; Z99.2 - Dependence on renal dialysis; Z99.2 - Dependence on renal dialysis (5) Hyponatremia Current Visit: Yes Status: Chronic See above (6) Kidney transplant failure Current Visit: No Status: Chronic Hx of prior kidney-pancreas transplants. Subjective Principal diagnosis: Osteomyelitis/Sepsis Interval history: Pt was s/e while on HD. She did not affirm N/V or cramping while on HD. She did report having mild abd discomfort that started before admission: about the same , no improving or alleviating factors she voiced. She said that she still sees [facility] since she has a functioning pancreas transplant. Objective - Vital Signs Vital signs: Vital Signs Temp Pulse Resp BP Pulse Ox 02/23/17 10:00 167/77 02/23/17 09:45 97.7 F 18 151/68 02/23/17 07:44 97.5 F L 55 16 170/80 98 02/23/17 04:09 97.8 F 59 18 190/84 100 02/22/17 23:39 97.4 F L 58 19 167/59 99 02/22/17 19:39 98.4 F 54 20 150/60 95 02/22/17 16:23 98.6 F 57 12 167/78 95 02/22/17 12:26 98.0 F 53 12 147/58 93 Intake and Output 02/22/17 02/23/17 02/23/17 23:59 07:59 15:59 Intake Total 600 / 600 Output Total 0 / 0 Balance 600 / 600 Intake: Oral 0 / 0 Intake, Rinseback and Flushes 600 / 600 Output: Urine 0 / 0 Other: Weight 56.331 kg 56.331 kg Hemodialysis Net Fluid Removed 200 (mL) Patient Weight 02/23/17 23:59 Weight 56.331 kg - General Appearance Exam: General appearance: Present: appears started age, cachectic, chronically ill, frail EENT: Present: ATNC, PERRL, mucous membranes moist Neck: Present: adenopathy Respiratory: Present: clear Cardiology: Present: no edema, regular rate, regular rhythm, normal S1, normal S2 Dialysis Vascular Access: Arteriovenous Fistula (Left AVF with +thrill/bruit) thrill: Yes bruit: Yes Gastrointestinal: Present: normoactive bowel sounds, no tenderness, no guarding Integumentary: Present: warm and dry Neurologic: Present: no focal deficit, no asterixis, alert and oriented x3 Musculoskeletal: Present: no erythema, no cyanosis Psychiatric: Present: mood/affect appropriate, cooperative - Lab 02/24/17 05:30 02/24/17 05:30 Most recent lab results ABG pH 7.36 pH Units (7.32-7.45) 02/17/17 13:20 ABG pCO2 45 mmHg (35-45) 02/17/17 13:20 ABG pO2 106 mmHg (85-104) H 02/17/17 13:20 ABG HCO3 25 mEq/L (21-27) 02/17/17 13:20 ABG O2 Saturation 98 % (95-98) 02/17/17 13:20 Calcium 9.9 mg/dL (8.6-10.8) 02/23/17 03:50 Phosphorus 4.3 mg/dL (2.3-4.7) 02/18/17 06:53 Magnesium 2.3 mg/dL (1.6-2.6) 02/20/17 03:44 Consult Discharge Plan - Plan Referrals: Mason Mixon MD [Non-Partnered Physician] - 03/02/17 10:15 am Prescriptions: Albuterol Sulfate [Albuterol Inhaler] 2 puff IH Q6HR PRN #1 [email or web address] PRN Reason: Wheezing Cefepime HCl/Dextrose, Iso-Osm [Cefepime 2 gm Injection] 2 gm IV QMWF 35 Days froz.piggy hydrALAZINE [HydrALAZINE] 25 mg PO TID #90 tablet Metoprolol [Lopressor] 25 mg PO BID #60 tablet Saccharomyces Boulardii [Florastor] 250 mg PO BID #80 capsule Vancomycin [Vancocin] 500 each IV QMWF 35 Days vial
--- NOTE | 2017-02-23 13:28 | Infectious Disease Progress No ---
Date of Encounter: 02/23/17 Time of Encounter: 13:26 - Assessment and Plan (1) Leukocytosis Current Visit: Yes Status: Resolved WBC elevated at 12.6 with neutrophilic predominance on admission. Etiology unclear: PNA vs. UTI vs. Osteomyelitis vs. other. Resolved. WBC normal this morning. Continue to trend. Qualifiers: Leukocytosis type: unspecified Qualified Code(s): D72.829 - Elevated white blood cell count, unspecified (2) Osteomyelitis Current Visit: Yes Status: Acute Location: Left foot first digit proximal and distal phalanx. Etiology unclear. Causative organism unclear. No cultures have been obtained and the patient has no open wounds. Patient was previously following with podiatry who recommended starting IV Vanc with HD to treat. Review of the medical record reveals that the podiatry team feels that the patient is too high risk for surgery and recommended treating empirically with IV antibiotics. Given that the patient is immunosuppressed, we will need to cover both gram negative and gram positive bacteria. X-ray in the ER shows increased soft tissue swelling and unchanged osseous destruction of the 1st digit proximal and distal phalanx. Podiatry consulted and following. ESR 67, CRP 199. Continue Vancomycin IV. Pharmacy to dose. Goal trough ~15. Continue Cefepime 2 grams IV on HD days only, given after HD. Duration of treatment depends on the clinical picture, but likely 6 weeks of IV antibiotics. Dose-adjust antibiotics for HD. Hoping we can arrange for the patient to get her antibiotics with HD in order to avoid having to put another line in the patient. Will discuss with nephrology. Qualifiers: Osteomyelitis type: unspecified type Osteomyelitis location: foot Laterality: right Qualified Code(s): M86.9 - Osteomyelitis, unspecified (3) Pneumonia Current Visit: Yes Status: Acute Causative organism unclear. CT of the chest shows large bilateral pleural effusions, left greater than right and ground glass opacities with associated pulmonary nodules bilaterally. Continue antibiotics as above. Continue Levaquin 500mg PO Q48H through 02/24/17, then discontinue (5 day course ). Duration of treatment depends on the clinical picture. Consider repeating CXR in the morning to re-evaluate. Qualifiers: Pneumonia type: due to unspecified organism Laterality: bilateral Lung location: unspecified part of lung Qualified Code(s): J18.9 - Pneumonia, unspecified organism (4) UTI (urinary tract infection) Current Visit: No Status: Ruled-out Urine culture negative. Qualifiers: Urinary tract infection type: acute cystitis Hematuria presence: without hematuria Qualified Code(s): N30.00 - Acute cystitis without hematuria (5) Acute encephalopathy Current Visit: Yes Status: Resolved Etiology unclear, but appears resolved. ABG unimpressive. CT head negative. Infectious etiology vs. other. 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 Continue to monitor closely. (6) Bilateral pleural effusion Current Visit: Yes Status: Acute Etiology unclear, but likely secondary to fluid overload. CT scan showed large, bilateral pleural effusions, left greater than right. Status post bedside thoracentesis by the pulmonology team, but only a small amount of fluid drained. No specimen sent for cell count or culture. Repeat CXR showed minimal improvement. Consider repeating CXR in the AM to re- evaluate. Defer management to the pulmonology team. (7) Acute and chronic respiratory failure Current Visit: Yes Status: Acute Required BIPAP on admission, but is currently on O2 via nasal cannula. Likely multifactorial: PNA + pleural effusions + AMS. Improved. Further management per the pulmonology team. Qualifiers: Respiratory failure complication: unspecified whether with hypoxia or hypercapnia Qualified Code(s): J96.20 - Acute and chronic respiratory failure , unspecified whether with hypoxia or hypercapnia (8) Pulmonary edema Current Visit: Yes Status: Acute Qualifiers: Chronicity: acute Qualified Code(s): J81.0 - Acute pulmonary edema (9) Diarrhea Current Visit: Yes Status: Resolved Etiology unclear: antibiotics vs. infectious. Improved. Clinically, does not appear to be C. diff. If number of stools increases to >=4 in a 24 hour period, send stool for C. diff. Qualifiers: Diarrhea type: unspecified type Qualified Code(s): R19.7 - Diarrhea, unspecified (10) Abdominal pain Current Visit: No Status: Acute Etiology unclear. Improved. CT of the abdomen and pelvis negative for acute findings. Supportive care per the primary team's recommendations. Qualifiers: Abdominal location: lower abdomen, unspecified Qualified Code(s): R10.30 - Lower abdominal pain, unspecified (11) TSH elevation Current Visit: Yes Status: Acute (12) Status post simultaneous kidney and pancreas transplant Current Visit: Yes Status: Acute Status post renal and pancreas transplant in 2000 at [facility]. Currently on cyclosporine at home dose. (13) Immunosuppressed status Current Visit: Yes Status: Acute Secondary to renal/pancreas transplant and cyclosporine. (14) ESRD (end stage renal disease) on dialysis Current Visit: No Status: Deleted Follows with [facility]. Gets HD M/W/F. Nephrology consulted and following. (15) Anemia of chronic disease Current Visit: No Status: Acute Hgb stable. No evidence of bleeding noted on exam. Further management per the primary team. (16) A-fib Current Visit: No Status: Acute Rate controlled. Management per the primary team. Qualifiers: Atrial fibrillation type: paroxysmal Qualified Code(s): I48.0 - Paroxysmal atrial fibrillation - Subjective Interval history: Patient seen and examined. Weekend notes reviewed. No acute events noted. Patient resting quietly in bed. Less somnolent today and states she feels better. Denies fevers, chills. Denies chest pain or shortness of breath or cough. She denies nausea, vomiting, or diarrhea today. She states her last BM was this morning and was loose. She denies abdominal pain. She complains of chronic bilateral leg pain. She denies oral thrush or new skin lesions. Infect Dis PN-Objective Data - Labs CBC & Chem 7: 02/23/17 03:50 02/23/17 03:50 Labs: Laboratory Results - last 24 hr 02/23/17 02/23/17 02/23/17 03:50 03:50 03:50 WBC 10.3 RBC 3.23 L Hgb 9.6 L Hct 30.9 L MCV 95.7 MCH 29.7 MCHC 31.1 L RDW 15.5 H Plt Count 175 MPV 9.5 Sodium 126 L Potassium 5.4 H Chloride 88 L Carbon Dioxide 30 H BUN 32 H D Creatinine 5.02 H Est GFR ( Amer) 10 L Est GFR (Non-Af Amer) 8 L BUN/Creatinine Ratio 6 Glucose 109 H Calculated Osmolality 269 L Calcium 9.9 Random Vancomycin 20.6 Cultures: Serology 02/18/17 Range/Units 07:49 Hep Bs Antigen Nonreactive (Nonreactive) Hep Bs Antibody 0.50 mIU/mL Exam - Constitutional Vitals: Temp Pulse Resp BP Pulse Ox 97.7 F 55 18 112/46 98 02/23/17 09:45 02/23/17 07:44 02/23/17 09:45 02/23/17 12:15 02/23/17 07:44 General appearance: average body habitus, cooperative, no acute distress - Head Head exam: Present: atraumatic, normal inspection, normocephalic - Eye Eye exam: Present: EOMI, normal appearance, PERRL Pupils: Present: normal accommodation - ENT ENT exam: Present: mucous membranes moist - Neck Neck exam: Present: normal inspection - Respiratory Respiratory exam: Present: CTAB. Absent: rales, respiratory distress, rhonchi, wheezes - Cardiovascular Cardiovascular exam: Present: RRR, +S1, +S2 - GI/Abdominal GI/Abdominal exam: Present: normal bowel sounds, soft. Absent: distended, tenderness - Extremities Exam Extremities exam: Present: normal inspection. Absent: joint swelling, pedal edema, tenderness Additional comments: Right great toe with minimal edema and non-tender. No erythema noted. - Neurological Exam Neurological exam: Present: alert, oriented X3, no focal deficits - Psychiatric Psychiatric exam: Present: normal affect, normal mood - Skin Skin exam: Present: dry, intact, normal color, warm Consult Discharge Plan - Plan Referrals: Mason Mixon MD [Non-Partnered Physician] - 03/02/17 10:15 am
[2017-02-23] MEDS: hydrALAZINE 25 MG TABLET PO SCH ×3 (15:22→21:04)
--- NOTE | 2017-02-23 17:21 | Internal Med Progress Note ---
Date of Encounter: 02/23/17 Time of Encounter: 09:00 - Assessment and plan (1) Sepsis Current Visit: No Status: Acute Assessment and plan: Mostly due to Pneumonia + Osteomyelitis of Rt foot proximal and distal phalanx Improving WBC trended down to normal Cont broad spec abx blood cx - No growth so far Urine cx - No growth Pt was given stress dose steroids before.. will cont tapering them slowly Qualifiers: Sepsis type: sepsis due to unspecified organism Qualified Code(s): A41.9 - Sepsis, unspecified organism (2) Acute and chronic respiratory failure with hypoxia Current Visit: Yes Status: Acute Assessment and plan: Multi factorial Repeated CXR showed improving pleural effusions Improving..currently on 3 lit o2 she does use 2 lit O2 at home will try to arrange for 3 lit home o2 cont symptomatic and supportive care (3) Osteomyelitis Current Visit: Yes Status: Acute Assessment and plan: Rt foot 1st digit proximal and distal phalanx Cont broad spec abx Vanco and Cefepime on HD days after HD x 6 weeks # 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 first Qualifiers: Osteomyelitis type: unspecified type Osteomyelitis location: foot Laterality: right Qualified Code(s): M86.9 - Osteomyelitis, unspecified (4) Acute encephalopathy Current Visit: Yes Status: Resolved Assessment and plan: Mostly toxic encephalopathy Improved (5) Pneumonia Current Visit: Yes Status: Acute Assessment and plan: Mostly aspirational ..superimposed by bacterial cont broad spec abx Cefepime, vanco and Levaquin - renally dosed Duoneb and O2 Levaquin Qualifiers: Pneumonia type: due to unspecified organism Laterality: bilateral Lung location: unspecified part of lung Qualified Code(s): J18.9 - Pneumonia, unspecified organism (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 Current Visit: Yes Status: Acute Assessment and plan: She does have pleural effusion / pulm edema - could be due to volume overload / Combine CHF exacerbation Her pleural effusions are improving 2 D Echo showed mild systolic dysfunction with LVEF 45-50%, Moderate LV diastolic dysfunction Cont ASA, Metoprolol and statin Qualifiers: Congestive heart failure chronicity: acute on chronic Qualified Code(s): I50.43 - Acute on chronic combined systolic (congestive) and diastolic ( congestive) heart failure (7) ESRD (end stage renal disease) Current Visit: Yes Status: Chronic Assessment and plan: HD as per Nephro (8) Hypertension Current Visit: No Status: Chronic Assessment and plan: fairly controlled cont home med Metoprolol + also started on Hydralazine at 25mg TID cont Hydrazine IV PRN for now Qualifiers: Hypertension type: secondary to other renal disorders Qualified Code(s): I15.1 - Hypertension secondary to other renal disorders; N28.89 - Other specified disorders of kidney and ureter (9) Pulmonary edema Current Visit: Yes Status: Acute Assessment and plan: Due to PNA + CHF exacerbation Improving Qualifiers: Chronicity: acute Qualified Code(s): J81.0 - Acute pulmonary edema (10) Bilateral pleural effusion Current Visit: Yes Status: Acute Assessment and plan: Pulm tried to do thoracocentesis in the ICU but were unsuccessful repeated CXR showing improving pleural effusion Improving..No need of thoracentesis now (11) Paroxysmal atrial fibrillation Current Visit: Yes Status: Acute Assessment and plan: rate controlled with Metoprolol and Amiodarone not a good candidate for anticoag cont ASA (12) Hypothyroidism (acquired) Current Visit: Yes Status: Acute Assessment and plan: Elevated TSH Inc Levothyroxine to 50mcg (13) Status post simultaneous kidney and pancreas transplant Current Visit: Yes Status: Acute (14) Physical deconditioning Current Visit: Yes Status: Acute Assessment and plan: PT / OT eval OOB to Chair May need SNF placement for short term PT / OT (15) DVT prophylaxis Current Visit: No Status: Acute Assessment and plan: on SQ Heparin - Subjective Interval history: Ms. Moore is a 71F with a Hx of ESRD on dialysis MWF, renal and pancreas transplant, afib, and HTN admitted to the ICU with AMS, Sepsis, Pneumonia, Acute hypoxic resp failure and osteomyelitis. The patient was diagnosed with osteomyelitis of the hallux of her right foot on 02/03 and initiated antibiotic treatment on 02/16 with vancomycin.Pt also happened to have BP issues. She was placed on IV Abx Cefepime, Vancomycin after HD days. Today pt is alert, awake and O x 3. Her Rt side CP also better today. Denied any GI / complaints. Feeling better today. No events over night - Constitutional Vitals: Temp Pulse Resp BP Pulse Ox 97.8 F 67 18 181/76 100 02/23/17 16:32 02/23/17 16:32 02/23/17 16:32 02/23/17 16:32 02/23/17 16:32 General appearance: Present: A&O X 3, no acute distress, answers questions appropriately - Head Head exam: Present: atraumatic, normal inspection - Respiratory Respiratory exam: Present: decreased breath sounds, wheezes (mild). Absent: rales, respiratory distress, rhonchi - Cardiovascular Cardiovascular exam: Present: RRR, +S1, +S2. Absent: systolic murmur - GI/Abdominal GI/Abdominal exam: Present: normal bowel sounds, soft. Absent: rebound, rigid, tenderness - Extremities Exam Extremities exam: Absent: calf tenderness, pedal edema, tenderness - Back Exam Back exam: Absent: CVA tenderness (L), CVA tenderness (R) - Psychiatric Psychiatric exam: Present: normal affect, normal mood Internal Medicine: Result - Labs CBC & Chem 7: 02/23/17 03:50 02/23/17 03:50 Labs: Short CBC 02/23/17 Range/Units 03:50 WBC 10.3 (4.3-11.1) K/mcL Hgb 9.6 L (11.5-15.4) g/dL Hct 30.9 L (35.3-44.9) % Plt Count 175 (140-400) K/mcL BMP 02/23/17 03:50 Sodium 126 L Potassium 5.4 H Chloride 88 L Carbon Dioxide 30 H BUN 32 H D Creatinine 5.02 H Glucose 109 H Calcium 9.9 - ABG Interpretation ABG results: ABG ABG pH 7.36 pH Units (7.32-7.45) 02/17/17 13:20 ABG pCO2 45 mmHg (35-45) 02/17/17 13:20 ABG pO2 106 mmHg (85-104) H 02/17/17 13:20 ABG O2 Saturation 98 % (95-98) 02/17/17 13:20 PT/INR, D-dimer PT 12.0 Seconds (9.4-12.1) 02/17/17 17:40 - Impressions Impressions Chest X-Ray 02/23/17 08:17 IMPRESSION: Mild decreased pleural fluid collection on the right which is small, with a stable appearing moderate to large left pleural effusion. D/ / Andres Moran MD / Andres Moran MD Interpreting Provider: Andres Moran MD Consult Discharge Plan - Plan Referrals: Mason Mixon MD [Non-Partnered Physician] - 03/02/17 10:15 am Prescriptions: Albuterol Sulfate [Albuterol Inhaler] 2 puff IH Q6HR PRN #1 hfa.aer.ad PRN Reason: Wheezing Cefepime HCl/Dextrose, Iso-Osm [Cefepime 2 gm Injection] 2 gm IV QMWF 35 Days froz.piggy hydrALAZINE [HydrALAZINE] 25 mg PO TID #90 tablet Metoprolol [Lopressor] 25 mg PO BID #60 tablet Saccharomyces Boulardii [Florastor] 250 mg PO BID #80 capsule Vancomycin [Vancocin] 500 each IV QMWF 35 Days vial
[2017-02-23] MEDS: Cefepime HCl 2,000 MG in D5% in Water (Mini-Bag+) 100 ML IVPB SCH (19:10)
[2017-02-23] MEDS: *HR* HYDROcodone/Acet 5/325 mg TABLET PO PRN (21:05)
[2017-02-24] MEDS: *HR* Heparin 5,000 UNIT/ML VIAL SQ SCH (05:25)
[2017-02-24 05:52] LABS: Hematocrit 31.4 % (35.3-44.9); Hemoglobin 9.7 g/dL (11.5-15.4); Mean Corpuscular HGB Conc 30.9 g/dL (31.6-35.5); Mean Corpuscular Hemoglobin 30.3 pg (28.0-33.3); Mean Corpuscular Volume 98.1 fL (83.0-100.0); Mean Platelet Volume 8.8 fL (9.4-12.4); Platelet Count 158 K/mcL (140-400)
[2017-02-24 06:14] LABS: Calcium 8.8 mg/dL (8.6-10.8); Potassium 5.1 mEq/L (3.5-4.5)
[2017-02-24] MEDS ORDERED: predniSONE 10 MG TABLET PO SCH (08:11)
--- NOTE | 2017-02-24 08:15 | Discharge Summary ---
Date of Encounter: 02/24/17 Time of Encounter: 08:10 - Discharge Diagnosis (1) Sepsis Priority: Primary Status: Acute Qualifiers: Sepsis type: sepsis due to unspecified organism Qualified Code(s): A41.9 - Sepsis, unspecified organism (2) Acute and chronic respiratory failure with hypoxia Priority: Primary Status: Acute (3) Osteomyelitis Priority: Primary Status: Acute Qualifiers: Osteomyelitis type: unspecified type Osteomyelitis location: foot Laterality: right Qualified Code(s): M86.9 - Osteomyelitis, unspecified (4) Acute encephalopathy Priority: Primary Status: Resolved (5) Pneumonia Priority: Secondary Status: Acute Qualifiers: Pneumonia type: due to unspecified organism Laterality: bilateral Lung location: unspecified part of lung Qualified Code(s): J18.9 - Pneumonia, unspecified organism (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 Priority: Secondary Status: Acute Qualifiers: Congestive heart failure chronicity: acute on chronic Qualified Code(s): I50.43 - Acute on chronic combined systolic (congestive) and diastolic ( congestive) heart failure (7) ESRD (end stage renal disease) Priority: Secondary Status: Chronic (8) Hypertension Priority: Secondary Status: Chronic Qualifiers: Hypertension type: secondary to other renal disorders Qualified Code(s): I15.1 - Hypertension secondary to other renal disorders; N28.89 - Other specified disorders of kidney and ureter (9) Pulmonary edema Priority: Secondary Status: Acute Qualifiers: Chronicity: acute Qualified Code(s): J81.0 - Acute pulmonary edema (10) Bilateral pleural effusion Priority: Secondary Status: Acute (11) Paroxysmal atrial fibrillation Priority: Secondary Status: Acute (12) Hypothyroidism (acquired) Priority: Secondary Status: Acute (13) Status post simultaneous kidney and pancreas transplant Priority: Secondary Status: Acute (14) Physical deconditioning Priority: Secondary Status: Acute (15) DVT prophylaxis Priority: Secondary Status: Acute - Discharge Medications Prescriptions: Albuterol Sulfate [Albuterol Inhaler] 2 puff IH Q6HR PRN #1 hfa.aer.ad PRN Reason: Wheezing Cefepime HCl/Dextrose, Iso-Osm [Cefepime 2 gm Injection] 2 gm IV QMWF 35 Days froz.piggy hydrALAZINE [HydrALAZINE] 25 mg PO TID #90 tablet Metoprolol [Lopressor] 25 mg PO BID #60 tablet Saccharomyces Boulardii [Florastor] 250 mg PO BID #80 capsule Vancomycin [Vancocin] 500 each IV QMWF 35 Days vial Home Medications: Acetaminophen [Tylenol] 650 mg PO Q4HR PRN 03/02/15 [History] Atorvastatin [Lipitor] 10 mg PO HS 03/02/15 [History] Folic Acid 1 mg PO DAILY 03/02/15 [History] predniSONE [Prednisone] 2.5 mg PO BID 03/02/15 [History] Amiodarone [Cordarone] 200 mg PO DAILY 09/18/15 [History] B Complex W-C No.20/Folic Acid [Nephrocaps Softgel] 1 mg PO DAILY 12/17/15 [ History] Loperamide [Imodium] 2 mg PO Q8H PRN 02/19/16 [History] Oxygen 2 l IH HS 02/19/16 [History] Cyclosporine, Modified [Gengraf] 75 mg PO BID 09/10/16 [History] Calcium Carbonate [Tums] 1,000 mg PO QID 30 Days tab.chew 09/18/16 [Rx] Aspirin Enteric Coated [Aspirin EC] 81 mg PO DAILY 10/14/16 [History] Ergocalciferol (VITAMIN D2) [Drisdol (50,000 Unit)] 50,000 unit PO FR 10/14/16 [ History] Lactose-Reduced Food [Ensure Plus] 1 bottle PO 1000,1400 10/14/16 [History] Levothyroxine [Synthroid] 25 mcg PO 0630 10/14/16 [History] Magnesium Hydroxide [Milk of Magnesia] 2,400 mg PO DAILY PRN 10/14/16 [History] Menthol/Zinc Ox/Aloe/Abdirashid Oil [Chamosyn Ointment] 1 appl TP TID PRN 10/14/16 [ History] Omeprazole [PriLOSEC] 40 mg PO DAILY 10/14/16 [History] Ondansetron ODT [Zofran ODT] 4 mg PO Q8H PRN 10/14/16 [History] Denosumab [Prolia (For Outpatient Infusion)] 60 mg SQ Q6M 02/17/17 [History] Oxycodone HCl/Acetaminophen [Percocet 5-325 mg Tablet] 1 tab PO Q6H PRN [History] Albuterol Sulfate [Albuterol Inhaler] 2 puff IH Q6HR PRN #1 hfa.aer.ad 02/23/17 [Rx] Cefepime HCl/Dextrose, Iso-Osm [Cefepime 2 gm Injection] 2 gm IV QMWF 35 Days froz.piggy 02/23/17 [Rx] Darbepoetin [Aranesp] 40 mcg SQ QWEEK syringe 02/23/17 [Rx] Folic Acid 1 mg PO DAILY tablet 02/23/17 [Rx] Metoprolol [Lopressor] 25 mg PO BID #60 tablet 02/23/17 [Rx] Saccharomyces Boulardii [Florastor] 250 mg PO BID #80 capsule 02/23/17 [Rx] Vancomycin [Vancocin] 500 each IV QMWF 35 Days vial 02/23/17 [Rx] hydrALAZINE [HydrALAZINE] 25 mg PO TID #90 tablet 02/23/17 [Rx] Allergies/Adverse Reactions: 3 Allergy/AdvReac Type Severity Reaction Status Date / Time Penicillins [PCN] Allergy Hives Verified 09/14/16 15:26 Date of admission: 02/17/17 13:18 Primary care physician: PCP NONE Consults: 02/17/17 15:39 Consult to Podiatry [CONS] Routine Consulting Provider: [facility] Reason for Consult: Storts Call Completed: Yes 02/17/17 15:57 Consult to Infectious Diseases [CONS] Stat Consulting Provider: [facility] Reason for Consult: Osteomyelitis Time Notified: 15:59 Call Completed: Yes 02/18/17 07:30 Consult to Dialysis [CONS] ONCE 02/18/17 09:30 Consult to Dialysis [CONS] ONCE 02/18/17 13:54 Consult to Invasive Line Access Team [CONS] Routine Reason for Consult: poor access Line Type: EPIV 02/19/17 07:30 Consult to Dialysis [CONS] ONCE 02/20/17 08:00 Consult to Dialysis [CONS] ONCE 02/21/17 07:30 Consult to Dialysis [CONS] ONCE 02/21/17 08:00 Consult to Dialysis [CONS] ONCE 02/21/17 10:19 Consult to Physical Therapy [CONS] Routine Comment: Evaluate, develop and implement POC Reason for Consult: Physical deconditioning OT [Consult to Occupational Therapy] [CONS] Routine Comment: Evaluate, develop and implement POC Reason for Consult: Physical deconditioning 02/23/17 06:00 Consult to Dialysis [CONS] ONCE 02/23/17 07:45 Consult to Dialysis [CONS] ONCE - Patient Status Disposition: Home Health Service Condition: Good Overall status at discharge: patient is back to baseline - Discharge Instructions Follow Up With: Mason Mixon MD [Non-Partnered Physician] - 03/02/17 10:15 am Cally Calderon MD [Partnered Physician] - Shahzad Garcia DPM [Partnered Physician] - Karie Guerrero MD [Partnered Physician] - Additional Instructions: Need to go for Q week CBC, BMP, ESR, CRP and Vanco trough levels Need to f/u with ID Dr. Guerrero in one week Need to f/u with Nephro in 1-2 weeks Need to f/u with Entry Level Financial Analyst in 2-3 weeks - Diet and Activity Activity: as per physical therapy, increase activity as tolerated Diet: low salt diet Hospital course: Ms. Moore is a 71F with a Hx of ESRD on dialysis MWF, renal and pancreas transplant, afib, and HTN admitted to the ICU with AMS, Sepsis, Pneumonia, Acute hypoxic resp failure and osteomyelitis. The patient was diagnosed with osteomyelitis of the hallux of her right foot on 02/03 and initiated antibiotic treatment on 02/16 with vancomycin.Pt also happened to have BP issues. She was placed on IV Abx Cefepime, Vancomycin after HD days. Pt was continued on frequent HD and her pelueral effusion and pulmonary edema also started improving. Her Oxygent requirement also came to 2 lit , which is her baseline. Will do home O2 eval again before she goes home today. Pt was evaluated by Entry Level Financial Analyst regarding her Rt foot 1st digit proximal and distal phalanx osteomyelitis, recommend medical management only. So far all her blood cx, and urine cx did not grown anything. Her WBC trended down to normal. Pt was seen by ID, who suggested to treat her with empirical abx Cefepime 2gm QMWF after HD and Vancomycin 500mg QMWF after HD, ID / Pharmacy will follow on Vanco trough levels. Also need to go for Q week CBC, BMP, ESR, CRP and Vanco trough levels. Pt was evaluated by PT / OT who recommend short term PT / OT at SNF, however pt and her family are so adamant to take home only. So will d/c her home with home health services. - Time Spent with Patient Total time spent providing and/or coordinating discharge services: Greater than 30 minutes (Spend 45 minutes due to complex medical probles and need to coordinate all the discharge instructions) - Constitutional Vitals: Temp Pulse Resp BP Pulse Ox 99.2 F 56 16 145/51 99 02/24/17 06:28 02/24/17 06:28 02/24/17 06:28 02/24/17 06:28 02/24/17 06:28 General appearance: Present: A&O X 3, no acute distress, answers questions appropriately - Head Head exam: Present: atraumatic, normal inspection - Neck Neck exam general surgery: Present: supple - Respiratory Respiratory exam: Present: decreased breath sounds. Absent: rales, respiratory distress, rhonchi, wheezes - Cardiovascular Cardiovascular exam: Present: RRR, +S1, +S2. Absent: systolic murmur - GI/Abdominal GI/Abdominal exam: Present: normal bowel sounds, soft. Absent: rebound, rigid, tenderness - Extremities Exam Extremities exam: Absent: calf tenderness, pedal edema, tenderness - Back Exam Back exam: Absent: CVA tenderness (L), CVA tenderness (R) - Neurological Exam Neurological exam: Present: alert, oriented X3 - Psychiatric Psychiatric exam: Present: normal affect, normal mood
--- NOTE | 2017-02-24 08:27 | Physician Discharge Referral ---
Home Health/Hosp Referral Info Transfer to: Home Health Provider in Charge Post Discharge: PCP - Diagnosis (1) Sepsis Status: Acute (2) Acute and chronic respiratory failure with hypoxia Status: Acute (3) Osteomyelitis Status: Acute (4) Acute encephalopathy Status: Resolved (5) Pneumonia Status: Acute (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 Status: Acute (7) ESRD (end stage renal disease) Status: Chronic (8) Hypertension Status: Chronic (9) Pulmonary edema Status: Acute (10) Bilateral pleural effusion Status: Acute (11) Paroxysmal atrial fibrillation Status: Acute (12) Hypothyroidism (acquired) Status: Acute (13) Status post simultaneous kidney and pancreas transplant Status: Acute (14) Physical deconditioning Status: Acute (15) DVT prophylaxis Status: Acute - Respiratory Orders Smoking Cessation: Smoking cessation has been advised. For more information, call the [place] Tobacco Quit Line at 8-211-BKTH-NOW. - Services Needed Following services are medically necessary services: Nursing, Physical Therapy, Occupational Therapy - Transfer Medications Prescriptions: Albuterol Sulfate [Albuterol Inhaler] 2 puff IH Q6HR PRN #1 hfa.aer.ad PRN Reason: Wheezing Cefepime HCl/Dextrose, Iso-Osm [Cefepime 2 gm Injection] 2 gm IV QMWF 35 Days froz.piggy hydrALAZINE [HydrALAZINE] 25 mg PO TID #90 tablet Metoprolol [Lopressor] 25 mg PO BID #60 tablet Saccharomyces Boulardii [Florastor] 250 mg PO BID #80 capsule Vancomycin [Vancocin] 500 each IV QMWF 35 Days vial Home Medications: Acetaminophen [Tylenol] 650 mg PO Q4HR PRN 03/02/15 [History] Atorvastatin [Lipitor] 10 mg PO HS 03/02/15 [History] Folic Acid 1 mg PO DAILY 03/02/15 [History] predniSONE [Prednisone] 2.5 mg PO BID 03/02/15 [History] Amiodarone [Cordarone] 200 mg PO DAILY 09/18/15 [History] B Complex W-C No.20/Folic Acid [Nephrocaps Softgel] 1 mg PO DAILY 12/17/15 [ History] Loperamide [Imodium] 2 mg PO Q8H PRN 02/19/16 [History] Oxygen 2 l IH HS 02/19/16 [History] Cyclosporine, Modified [Gengraf] 75 mg PO BID 09/10/16 [History] Calcium Carbonate [Tums] 1,000 mg PO QID 30 Days tab.chew 09/18/16 [Rx] Aspirin Enteric Coated [Aspirin EC] 81 mg PO DAILY 10/14/16 [History] Ergocalciferol (VITAMIN D2) [Drisdol (50,000 Unit)] 50,000 unit PO FR 10/14/16 [ History] Lactose-Reduced Food [Ensure Plus] 1 bottle PO 1000,1400 10/14/16 [History] Levothyroxine [Synthroid] 25 mcg PO 0630 10/14/16 [History] Magnesium Hydroxide [Milk of Magnesia] 2,400 mg PO DAILY PRN 10/14/16 [History] Menthol/Zinc Ox/Aloe/Abdirashid Oil [Chamosyn Ointment] 1 appl TP TID PRN 10/14/16 [ History] Omeprazole [PriLOSEC] 40 mg PO DAILY 10/14/16 [History] Ondansetron ODT [Zofran ODT] 4 mg PO Q8H PRN 10/14/16 [History] Denosumab [Prolia (For Outpatient Infusion)] 60 mg SQ Q6M 02/17/17 [History] Oxycodone HCl/Acetaminophen [Percocet 5-325 mg Tablet] 1 tab PO Q6H PRN [History] Albuterol Sulfate [Albuterol Inhaler] 2 puff IH Q6HR PRN #1 hfa.aer.ad 02/23/17 [Rx] Cefepime HCl/Dextrose, Iso-Osm [Cefepime 2 gm Injection] 2 gm IV QMWF 35 Days froz.piggy 02/23/17 [Rx] Darbepoetin [Aranesp] 40 mcg SQ QWEEK syringe 02/23/17 [Rx] Folic Acid 1 mg PO DAILY tablet 02/23/17 [Rx] Metoprolol [Lopressor] 25 mg PO BID #60 tablet 02/23/17 [Rx] Saccharomyces Boulardii [Florastor] 250 mg PO BID #80 capsule 02/23/17 [Rx] Vancomycin [Vancocin] 500 each IV QMWF 35 Days vial 02/23/17 [Rx] hydrALAZINE [HydrALAZINE] 25 mg PO TID #90 tablet 02/23/17 [Rx] Allergies/Adverse Reactions: 3 Allergy/AdvReac Type Severity Reaction Status Date / Time Penicillins [PCN] Allergy Hives Verified 09/14/16 15:26 Certification: Further, I certify that my clinical findings support that this patient is homebound (i.e. absences from home require considerable and taxing effort and are for medical reasons or confucianist services or infrequently or short duration when for other reasons) because: Homebound Reason: Patient requires assistance of a person or device to safely leave home Attestation: My signature below is to certify that this patient is under my care and that I, or nurse practitioner, or a physician's assistant city attorney working with me, has a face-to -face encounter with this patient.
--- NOTE | 2017-02-24 08:37 | Nephrology Progress Note ---
Date of Encounter: 02/24/17 Time of Encounter: 08:35 - Assessment and Plan (1) ESRD (end stage renal disease) on dialysis Current Visit: No Status: Deleted Plan for HD tomorrow, if discharged today will resume her outpatient dialysis treatments at [facility] Continue renal diet Avoid nephrotoxins if possible (2) Osteomyelitis Current Visit: Yes Status: Acute per podiatry and infectious disease teams Qualifiers: Osteomyelitis type: unspecified type Osteomyelitis location: foot Laterality: right Qualified Code(s): M86.9 - Osteomyelitis, unspecified (3) Hypertension Current Visit: No Status: Chronic per primary team Qualifiers: Hypertension type: secondary to other renal disorders Qualified Code(s): I15.1 - Hypertension secondary to other renal disorders; N28.89 - Other specified disorders of kidney and ureter (4) Hyperkalemia Current Visit: No Status: Resolved Improved-K+ 5.1 today Subjective Principal diagnosis: Osteomyelitis/Sepsis Interval history: Patient seen and examined. Sitting up in chair, states she is to be discharged today Objective - Vital Signs Vital signs: Vital Signs Temp Pulse Resp BP Pulse Ox 02/24/17 06:28 99.2 F 56 16 145/51 99 02/24/17 03:20 97.7 F 55 16 174/65 100 02/23/17 23:25 98.4 F 54 16 150/65 100 02/23/17 18:38 98.5 F 63 18 147/60 100 02/23/17 16:32 97.8 F 67 18 181/76 100 02/23/17 13:30 98.1 F 18 140/69 02/23/17 13:15 114/68 02/23/17 12:45 130/56 02/23/17 12:15 112/46 02/23/17 12:00 146/44 02/23/17 11:45 138/44 02/23/17 11:30 119/49 02/23/17 11:15 115/57 02/23/17 11:00 118/47 02/23/17 10:45 131/54 02/23/17 10:30 170/57 02/23/17 10:15 162/49 02/23/17 10:00 167/77 02/23/17 09:45 97.7 F 18 151/68 Intake and Output 10/02/24/17 02/24/17 23:59 07:59 15:59 Intake Total 0 / 0 Output Total 0 / 0 Balance 0 / 0 Intake: Oral 0 / 0 Output: Urine 0 / 0 Other: Meal Dinner Percent of Meal Consumed 70% Stool Size Moderate Stool Consistency soft formed Stool Color Brown Yellow Weight 55.384 kg Patient Weight 02/24/17 23:59 Weight 55.384 kg - General Appearance General appearance: Present: cachectic, chronically ill, frail EENT: Present: ATNC, mucous membranes moist, hearing intact, vision intact Neck: Present: supple Respiratory: Present: clear Cardiology: Present: no edema, normal S1, normal S2 Dialysis Vascular Access: Arteriovenous Fistula Gastrointestinal: Present: no tenderness, no guarding Integumentary: Present: warm and dry Neurologic: Present: alert and oriented x3 Psychiatric: Present: mood/affect appropriate, cooperative - Lab 02/24/17 05:30 02/24/17 05:30 Most recent lab results ABG pH 7.36 pH Units (7.32-7.45) 02/17/17 13:20 ABG pCO2 45 mmHg (35-45) 02/17/17 13:20 ABG pO2 106 mmHg (85-104) H 02/17/17 13:20 ABG HCO3 25 mEq/L (21-27) 02/17/17 13:20 ABG O2 Saturation 98 % (95-98) 02/17/17 13:20 Calcium 8.8 mg/dL (8.6-10.8) 02/24/17 05:30 Phosphorus 4.3 mg/dL (2.3-4.7) 02/18/17 06:53 Magnesium 2.3 mg/dL (1.6-2.6) 02/20/17 03:44 Consult Discharge Plan - Plan Additional Instructions: Need to go for Q week CBC, BMP, ESR, CRP and Vanco trough levels Need to f/u with ID Dr. Guerrero in one week Need to f/u with Nephro in 1-2 weeks Need to f/u with Inbound Customer Service Representative in 2-3 weeks Referrals: Shahzad Garcia DPM [Partnered Physician] - Cally Calderon MD [Partnered Physician] - Mason Mixon MD [Non-Partnered Physician] - 03/02/17:15 am Karie Guerrero MD [Partnered Physician] - Prescriptions: Albuterol Sulfate [Albuterol Inhaler] 2 puff IH Q6HR PRN #1 hfa.aer.ad PRN Reason: Wheezing Cefepime HCl/Dextrose, Iso-Osm [Cefepime 2 gm Injection] 2 gm IV QMWF 35 Days froz.piggy hydrALAZINE [HydrALAZINE] 25 mg PO TID #90 tablet Metoprolol [Lopressor] 25 mg PO BID #60 tablet Saccharomyces Boulardii [Florastor] 250 mg PO BID #80 capsule Vancomycin [Vancocin] 500 each IV QMWF 35 Days vial
[2017-02-24] MEDS: CycloSPORINE, Mod (Neoral) 25 MG CAPSULE PO SCH (09:19)
[2017-02-24] MEDS: hydrALAZINE 25 MG TABLET PO SCH (09:19)
[2017-02-24] MEDS: Folic Acid 1 MG TABLET PO SCH (09:20)
[2017-02-24] MEDS: *HR* Amiodarone 200 MG TABLET PO SCH (09:20)
[2017-02-24] MEDS: *HR* HYDROcodone/Acet 5/325 mg TABLET PO PRN (09:20)
[2017-02-24] MEDS: Aspirin Enteric Coated 81 MG Tablet PO SCH (09:21)
--- NOTE | 2017-02-24 09:49 | Infectious Disease Progress No ---
Date of Encounter: 02/24/17 Time of Encounter: 09:47 - Assessment and Plan (1) Leukocytosis Current Visit: Yes Status: Resolved WBC elevated at 12.6 with neutrophilic predominance on admission. Etiology unclear: PNA vs. UTI vs. Osteomyelitis vs. other. WBC slightly elevated this morning at 12.1. Continue to trend. Qualifiers: Leukocytosis type: unspecified Qualified Code(s): D72.829 - Elevated white blood cell count, unspecified (2) Osteomyelitis Current Visit: Yes Status: Acute Location: Left foot first digit proximal and distal phalanx. Etiology unclear. Causative organism unclear. No cultures have been obtained and the patient has no open wounds. Patient was previously following with podiatry who recommended starting IV Vanc with HD to treat. Review of the medical record reveals that the podiatry team feels that the patient is too high risk for surgery and recommended treating empirically with IV antibiotics. Given that the patient is immunosuppressed, we will need to cover both gram negative and gram positive bacteria. X-ray in the ER shows increased soft tissue swelling and unchanged osseous destruction of the 1st digit proximal and distal phalanx. Podiatry consulted and following. ESR 67, CRP 199. Continue Vancomycin IV. Pharmacy to dose. Goal trough ~15. This will be given at dialysis. Continue Cefepime 2 grams IV on HD days only, given after HD. Duration of treatment depends on the clinical picture, but likely 6 weeks of IV antibiotics. Dose-adjust antibiotics for HD. We are unable to give Cefepime at the dialysis center, so we will need to get the patient set up with home health or send to rehab for IV antibiotics. I'm not sure if the patient's family is comfortable doing her IV antibiotics at home. Her family is not in the room at this time to discuss this. She will need weekly CBC, BUN/Cr, ESR, CRP. Weekly EPIV care. Follow up with ID 03/10/17 at 0820. Qualifiers: Osteomyelitis type: unspecified type Osteomyelitis location: foot Laterality: right Qualified Code(s): M86.9 - Osteomyelitis, unspecified (3) Pneumonia Current Visit: Yes Status: Acute Causative organism unclear. CT of the chest shows large bilateral pleural effusions, left greater than right and ground glass opacities with associated pulmonary nodules bilaterally. Continue antibiotics as above. Continue Levaquin 500mg PO Q48H through 02/24/17, then discontinue (5 day course ). Duration of treatment depends on the clinical picture. Consider repeating CXR in the morning to re-evaluate. Qualifiers: Pneumonia type: due to unspecified organism Laterality: bilateral Lung location: unspecified part of lung Qualified Code(s): J18.9 - Pneumonia, unspecified organism (4) UTI (urinary tract infection) Current Visit: No Status: Ruled-out Urine culture negative. Qualifiers: Urinary tract infection type: acute cystitis Hematuria presence: without hematuria Qualified Code(s): N30.00 - Acute cystitis without hematuria (5) Acute encephalopathy Current Visit: Yes Status: Resolved Etiology unclear, but appears resolved. ABG unimpressive. CT head negative. Infectious etiology vs. other. No nuchal rigidity or meningeal signs to indicate DOUBLE END TRIMMER infection. Continue to monitor closely. (6) Bilateral pleural effusion Current Visit: Yes Status: Acute Etiology unclear, but likely secondary to fluid overload. CT scan showed large, bilateral pleural effusions, left greater than right. Status post bedside thoracentesis by the pulmonology team, but only a small amount of fluid drained. No specimen sent for cell count or culture. Repeat CXR showed minimal improvement. Consider repeating CXR in the AM to re- evaluate. Defer management to the pulmonology team. (7) Acute and chronic respiratory failure Current Visit: Yes Status: Acute Required BIPAP on admission, but is currently on O2 via nasal cannula. Likely multifactorial: PNA + pleural effusions + AMS. Improved. Further management per the pulmonology team. Qualifiers: Respiratory failure complication: unspecified whether with hypoxia or hypercapnia Qualified Code(s): J96.20 - Acute and chronic respiratory failure , unspecified whether with hypoxia or hypercapnia (8) Pulmonary edema Current Visit: Yes Status: Acute Qualifiers: Chronicity: acute Qualified Code(s): J81.0 - Acute pulmonary edema (9) Diarrhea Current Visit: Yes Status: Resolved Etiology unclear: antibiotics vs. infectious. Improved. Clinically, does not appear to be C. diff. If number of stools increases to >=4 in a 24 hour period, send stool for C. diff. Qualifiers: Diarrhea type: unspecified type Qualified Code(s): R19.7 - Diarrhea, unspecified (10) Abdominal pain Current Visit: No Status: Acute Etiology unclear. Improved. CT of the abdomen and pelvis negative for acute findings. Supportive care per the primary team's recommendations. Qualifiers: Abdominal location: lower abdomen, unspecified Qualified Code(s): R10.30 - Lower abdominal pain, unspecified (11) TSH elevation Current Visit: Yes Status: Acute (12) Status post simultaneous kidney and pancreas transplant Current Visit: Yes Status: Acute Status post renal and pancreas transplant in 2000 at [facility]. Currently on cyclosporine at home dose. (13) Immunosuppressed status Current Visit: Yes Status: Acute Secondary to renal/pancreas transplant and cyclosporine. (14) ESRD (end stage renal disease) on dialysis Current Visit: No Status: Deleted Follows with [facility]. Gets HD M/W/F. Nephrology consulted and following. (15) Anemia of chronic disease Current Visit: No Status: Acute Hgb stable. No evidence of bleeding noted on exam. Further management per the primary team. (16) A-fib Current Visit: No Status: Acute Rate controlled. Management per the primary team. Qualifiers: Atrial fibrillation type: paroxysmal Qualified Code(s): I48.0 - Paroxysmal atrial fibrillation - Subjective Interval history: Patient seen and examined. No acute events noted overnight. Patient sitting up in the bedside chair. States she feels better and is ready to go home. Denies fevers, chills. Denies chest pain or shortness of breath or cough. She denies nausea, vomiting, or diarrhea today. She states her last BM was this morning and was soft. She reports some chronic right sided abdominal pain. She complains of chronic bilateral leg pain. She denies oral thrush or new skin lesions. Infect Dis PN-Objective Data - Labs CBC & Chem 7: 02/24/17 05:30 02/24/17 05:30 Labs: Laboratory Results - last 24 hr 02/24/17 02/24/17 05:30 05:30 WBC 12.1 H RBC 3.20 L Hgb 9.7 L Hct 31.4 L MCV 98.1 MCH 30.3 MCHC 30.9 L RDW 16.0 H Plt Count 158 MPV 8.8 L Sodium 132 L Potassium 5.1 H Chloride 95 L Carbon Dioxide 29 BUN 19 D Creatinine 3.10 H Est GFR ( Amer) 18 L Est GFR (Non-Af Amer) 15 L BUN/Creatinine Ratio 6 Glucose 107 H Calculated Osmolality 277 L Calcium 8.8 Cultures: Serology 02/18/17 Range/Units 07:49 Hep Bs Antigen Nonreactive (Nonreactive) Hep Bs Antibody 0.50 mIU/mL - Impressions Impressions Chest X-Ray 02/23/17 08:17 IMPRESSION: Mild decreased pleural fluid collection on the right which is small, with a stable appearing moderate to large left pleural effusion. D/ / Andres Moran MD / Andres Moran MD Interpreting Provider: Andres Moran MD Exam - Constitutional Vitals: Temp Pulse Resp BP Pulse Ox 99.2 F 56 16 145/51 99 02/24/17 06:28 02/24/17 06:28 02/24/17 06:28 02/24/17 06:28 02/24/17 06:28 General appearance: average body habitus, cooperative, no acute distress - Head Head exam: Present: atraumatic, normal inspection, normocephalic - Eye Eye exam: Present: EOMI, normal appearance, PERRL Pupils: Present: normal accommodation - ENT ENT exam: Present: mucous membranes moist - Neck Neck exam: Present: normal inspection - Respiratory Respiratory exam: Present: CTAB. Absent: rales, respiratory distress, rhonchi, wheezes - Cardiovascular Cardiovascular exam: Present: RRR, +S1, +S2 - GI/Abdominal GI/Abdominal exam: Present: normal bowel sounds, soft. Absent: distended, tenderness - Extremities Exam Extremities exam: Present: tenderness (bilateral lower extremities.). Absent: joint swelling, pedal edema Additional comments: Right great toe with trace edema, non-tender, no erythema or warmth. - Neurological Exam Neurological exam: Present: alert, oriented X3, no focal deficits - Psychiatric Psychiatric exam: Present: normal affect, normal mood - Skin Skin exam: Present: dry, intact, normal color, warm - Additional findings Additional findings: AV fistula noted to the LUE +/+. AV fistula noted to the RUE + bruit/-thrill. Powerglide noted to the RUE with transparent dressing C/D/I. Consult Discharge Plan - Plan Additional Instructions: Need to go for Q week CBC, BMP, ESR, CRP and Vanco trough levels Need to f/u with ID Dr. Guerrero in one week Need to f/u with Nephro in 1-2 weeks Need to f/u with Rivet Flunky in 2-3 weeks Referrals: Shahzad Garcia DPM [Partnered Physician] - 03/31/17 3:25 pm (you have an appt. with Dr. Hall, if you need to see him soon Please call the office of Dr. Hall) Cally Calderon MD [Partnered Physician] - (physician will seee them in Dialysis center) Mason Mixon MD [Non-Partnered Physician] - 03/02/17 10:15 am Karie Guerrero MD [Partnered Physician] - (staff called and left a message [id number]) Sol Mascorro CNC CUTTING OPERATOR [Advanced Practice Nurse] - 03/10/17 8:20 am Prescriptions: Albuterol Sulfate [Albuterol Inhaler] 2 puff IH Q6HR PRN #1 hfa.aer.ad PRN Reason: Wheezing Cefepime HCl/Dextrose, Iso-Osm [Cefepime 2 gm Injection] 2 gm IV QMWF 35 Days froz.piggy hydrALAZINE [HydrALAZINE] 25 mg PO TID #90 tablet Metoprolol [Lopressor] 25 mg PO BID #60 tablet Saccharomyces Boulardii [Florastor] 250 mg PO BID #80 capsule Vancomycin [Vancocin] 500 each IV QMWF 35 Days vial
[2017-02-24 11:31] VITALS: BP 157/50
[2017-02-24] MEDS ORDERED: levoFLOXacin 500 MG TABLET PO SCH (17:00)
[2017-02-24] MEDS ORDERED: Aminoglycoside Consult 1 EACH MC ONE (17:44)
== END 2017-02-24 17:45 | disposition home health service (06) | DRG 871 ==
LOC: EMEROO 10:50 → ICNU 13:18 → SUATTDRO 13:18 → ICNU 15:23 → 2ANU 02-19 12:12
PROVIDERS: ADMIT Internal Medicine Pulmonary Disease; ATTEND Family Medicine

== ENCOUNTER 2017-03-09 06:08 | Inpatient (IN) ==
[2017-03-09] MEDS ORDERED: *HR* Dextrose 50 % in Water (Syg) 50 ML SYRINGE IVP ONE (06:19)
[2017-03-09 06:36] LABS: Basophils % 0.3 %; Eosinophils # 0.1 K/mcL (0.0-0.6); Eosinophils % 1.5 %; Hematocrit 26.2 % (35.3-44.9); Hemoglobin 8.1 g/dL (11.5-15.4); Immature Granulocytes % 0.5 % (0-4); Lymphocytes # 0.9 K/mcL (0.6-4.6); Lymphocytes % 13.7 %; Mean Corpuscular HGB Conc 30.9 g/dL (31.6-35.5); Mean Corpuscular Hemoglobin 30.6 pg (28.0-33.3); Mean Corpuscular Volume 98.9 fL (83.0-100.0); Mean Platelet Volume 9.2 fL (9.4-12.4); Monocytes # 0.3 K/mcL (0.0-1.3); Monocytes % 4.1 %; Neutrophils # 5.3 K/mcL (1.6-8.9); Platelet Count 140 K/mcL (140-400); Red Blood Count 2.65 M/mcL (3.82-4.97); Red Cell Distribution Width 17.2 % (11.5-14.5); Segmented Neutrophils % 79.9 %
--- NOTE | 2017-03-09 06:36 | Emergency Department Note ---
Disposition Clinical Impression: Hypoglycemia, Bradycardia Altered mental status Qualifiers: Altered mental status type: unspecified Qualified Code(s): R41.82 - Altered mental status, unspecified Hypothermia Qualifiers: Encounter type: initial encounter Qualified Code(s): T68.XXXA - Hypothermia, initial encounter Disposition: Still a Patient Condition: Good Referrals: NONE,PCP [Non-Partnered Physician] - Forms: ED Satisfaction Letter Altered Mental Status HPI - General Chief Complaint: ED Altered Mental Status Stated Complaint: ams/hypoglycemia Time Seen by Provider: 03/09/17 06:18 Source: EMS Mode of arrival: EMS Limitations: altered mental status Nursing Notes Reviewed: Yes Vital Signs Reviewed: Yes - History of Present Illness HPI Narrative: 71-year-old female history of ESRD dialysis dependent who presents to the ER via EMS due to hypotension and hypoglycemia. EMS reports she is usually and O 3 and conversational. When they picked her up this morning they noted that she was less responsive. They did check her glucose in route and it was 47. She went to dialysis and was found to be hypotensive at 60/30. Patient was brought for evaluation. Upon arrival she is alert and oriented 2. She fluctuates on answering questions here. She denies any complaints when directly asked. Blood pressure is improved here. She was noted to be hypoglycemic at 30 here and given an amp of D50. She is also bradycardic in the 40s with a stable blood pressure here. Patient's temp found to be hypothermic by rectal check. We will place her in a bear hugger and start an altered mental status workup. MD complaint: altered mental status Onset (ago): unknown Context: other (Dialysis dependent) Associated symptoms: Denies: chest pain, fever, nausea/vomiting - Related Data Home Medications Medication Instructions Recorded Confirmed Acetaminophen [Tylenol] 650 mg PO Q4HR PRN 03/02/15 02/17/17 Atorvastatin [Lipitor] 10 mg PO HS 03/02/15 02/17/17 Folic Acid 1 mg PO DAILY 03/02/15 02/17/17 predniSONE [Prednisone] 2.5 mg PO BID 03/02/15 02/17/17 Amiodarone [Cordarone] 200 mg PO DAILY 09/18/15 02/17/17 B Complex W-C No.20/Folic Acid 1 mg PO DAILY 12/17/15 02/17/17 [Nephrocaps Softgel] Loperamide [Imodium] 2 mg PO Q8H PRN 02/19/16 02/17/17 Oxygen 2 l IH HS 02/19/16 02/17/17 Cyclosporine, Modified [Gengraf] 75 mg PO BID 09/10/16 02/17/17 Aspirin Enteric Coated [Aspirin EC] 81 mg PO DAILY 10/14/16 02/17/17 Ergocalciferol (VITAMIN D2) 50,000 unit PO FR 10/14/16 02/17/17 [Drisdol (50,000 Unit)] Lactose-Reduced Food [Ensure Plus] 1 bottle PO 1000,1400 10/14/16 02/17/17 Levothyroxine [Synthroid] 25 mcg PO 0630 10/14/16 02/17/17 Magnesium Hydroxide [Milk of 2,400 mg PO DAILY PRN 10/14/16 02/17/17 Magnesia] Menthol/Zinc Ox/Aloe/Abdirashid Oil 1 appl TP TID PRN 10/14/16 02/17/17 [Chamosyn Ointment] Omeprazole [PriLOSEC] 40 mg PO DAILY 10/14/16 02/17/17 Ondansetron ODT [Zofran ODT] 4 mg PO Q8H PRN 10/14/16 02/17/17 Denosumab [Prolia (For Outpatient 60 mg SQ Q6M 02/17/17 02/17/17 Infusion)] Oxycodone HCl/Acetaminophen 1 tab PO Q6H PRN 02/17/17 02/17/17 [Percocet 5-325 mg Tablet] Previous Rx's Medication Instructions Recorded Calcium Carbonate [Tums] 1,000 mg PO QID 30 Days tab.chew 09/18/16 Albuterol Sulfate [Albuterol 2 puff IH Q6HR PRN #1 hfa.aer.ad 02/23/17 Inhaler] Cefepime HCl/Dextrose, Iso-Osm 2 gm IV QMWF 35 Days froz.piggy 02/23/17 [Cefepime 2 gm Injection] Darbepoetin [Aranesp] 40 mcg SQ QWEEK syringe 02/23/17 Folic Acid 1 mg PO DAILY tablet 02/23/17 Metoprolol [Lopressor] 25 mg PO BID #60 tablet 02/23/17 Saccharomyces Boulardii [Florastor] 250 mg PO BID #80 capsule 02/23/17 Vancomycin [Vancocin] 500 each IV QMWF 35 Days vial 02/23/17 hydrALAZINE [HydrALAZINE] 25 mg PO TID #90 tablet 02/23/17 Allergies Allergy/AdvReac Type Severity Reaction Status Date / Time Penicillins [PCN] Allergy Hives Verified 09/14/16 15:26 All systems ED: reviewed and negative except as stated. Constitutional: Denies: fever Cardiovascular: Denies: chest pain Respiratory: Denies: dyspnea Gastrointestinal: Denies: abdominal pain Genitourinary: Denies: dysuria Past Medical History - Past Medical History Attestation: Yes The following information was validated with the patient. Source: old records reviewed Medical history: Reports: arthritis, atrial fibrillation, diabetes, dialysis, osteoporosis, renal disease Surgical history: Reports: appendectomy, herniorrhaphy, other (renal/pancreas transplant 2000) Psychiatric history: Reports: no psych history BUTTER MAKER history: Reports: no BUTTER MAKER history - Social History Smoking Status: Never smoker Smokeless Tobacco Status: No Alcohol use: Reports: none Drug use: Reports: none Physical Exam - General Limitations: altered mental status General appearance: lethargic - Head Head exam: atraumatic, normocephalic - Eye Eye exam: Present: normal appearance - ENT ENT exam: normal exam - Neck Neck exam: Present: normal inspection - Chest Chest inspection: Present: normal inspection, symmetric chest wall rise - Respiratory Respiratory exam: Present: normal lung sounds bilaterally - Cardiovascular Cardiovascular exam: Present: normal rhythm, bradycardia, normal heart sounds - Abdominal Exam Abdominal exam: Present: soft, Non-Tender. Absent: distention, guarding, rigidity - Extremities Exam Extremities exam: Present: normal inspection - Expanded Upper Extremity Exam Shoulder exam: Present: normal inspection Arm exam: Present: normal inspection Elbow exam: Present: normal inspection Forearm/Wrist exam: Present: normal inspection Hand exam: Present: normal inspection - Expanded Lower Extremity Exam Hip/Pelvis exam: Present: normal inspection Upper leg exam: Present: normal inspection Knee exam: Present: normal inspection Lower leg exam: Present: normal inspection Ankle exam: Present: normal inspection Foot/toe exam: Present: normal inspection, other (Indurated area on the right great toe) - Neurological Exam Neurological exam: Present: alert, other (Alert and oriented 2. She answers some questions appropriately. She moves all extremities. No focal deficits.). Absent: oriented X3 - Skin Skin exam: Present: warm, dry, intact Course Course Narrative: Patient seen and examined. She is hypothermic here around 95 rectal temp. Also hypoglycemic at 30 given an amp of D50. Her blood pressure is stable with a heart rate of 46. We will order a CT scan of her head as well as labs and urinalysis. Vital Signs Temperature 94.6 F L 03/09/17 06:25 Pulse Rate 47 03/09/17 06:25 Respiratory Rate 14 03/09/17 06:25 Blood Pressure 163/58 03/09/17 06:25 O2 Sat by Pulse Oximetry 100 03/09/17 06:25 Temperature 94.6 F L 03/09/17 06:25 Pulse Rate 47 03/09/17 06:56 Respiratory Rate 14 03/09/17 06:56 Blood Pressure 154/47 03/09/17 06:56 O2 Sat by Pulse Oximetry 100 03/09/17 06:56 Oxygen Delivery Oxygen Delivery Room Air Altered Mental Status - MDM Narrative Medical decision making narrative: 71-year-old female dialysis dependent presents to the ER due to altered mental status and hypotension. She was noted to be hypothermic, hypoglycemic upon arrival. She was placed on a bear hugger and given an amp of D50. Her blood pressure stable here noted to be bradycardic at 48 likely secondary to her hypothermia versus infection. Altered mental status as well as septic workup initiated. She is signed out to the dayshift team pending labs, imaging and final disposition. - Lab Data Lab results reviewed: Yes I reviewed the patient's lab results. Result diagrams: 03/09/17 06:24 03/09/17 06:24 Lab Results 03/09/17 03/09/17 03/09/17 Range/Units 06:24 06:24 06:24 WBC 6.6 (4.3-11.1) K/mcL RBC 2.65 L (3.82-4.97) M/mcL Hgb 8.1 L (11.5-15.4) g/dL Hct 26.2 L (35.3-44.9) % MCV 98.9 (83.0-100.0) fL MCH 30.6 (28.0-33.3) pg MCHC 30.9 L (31.6-35.5) g/dL RDW 17.2 H (11.5-14.5) % Plt Count 140 (140-400) K/mcL MPV 9.2 L (9.4-12.4) fL Immature Gran % 0.5 (0-4) % Seg Neutrophils % 79.9 % Lymphocytes % 13.7 % Monocytes % 4.1 % Eosinophils % 1.5 % Basophils % 0.3 % Neutrophils # 5.3 (1.6-8.9) K/mcL Lymphocytes # 0.9 (0.6-4.6) K/mcL Monocytes # 0.3 (0.0-1.3) K/mcL Eosinophils # 0.1 (0.0-0.6) K/mcL Basophils # 0.0 (0.0-0.2) K/mcL PT 13.5 H (9.4-12.1) Seconds INR 1.2 APTT 32.3 (26.0-36.0) Seconds Sodium 135 L (136-145) mEq/L Potassium 5.0 H (3.5-4.5) mEq/L Chloride 100 (98-109) mEq/L Carbon Dioxide 22 (19-29) mEq/L BUN 42 H (7-20) mg/dL Creatinine 5.85 H (0.57-1.11) mg/dL Est GFR ( Amer) 9 L (> 60) Est GFR (Non-Af Amer) 7 L (> 60) BUN/Creatinine Ratio 7 (6-26) Glucose 165 H (70-99) mg/dL Calculated Osmolality 294 (280-300) Calcium 7.9 L (8.6-10.8) mg/dL Total Bilirubin 0.5 (0.2-1.2) mg/dL Direct Bilirubin 0.2 (0.0-0.5) mg/dL Indirect Bilirubin 0.3 (0.0-1.2) mg/dL AST 19 (5-34) Units/L ALT 6 (0-55) Units/L Alkaline Phosphatase 97 (38-126) Units/L Ammonia (18-72) mcmol/L Troponin I (0-0.03) ng/mL Serum Total Protein 4.4 L (6.0-8.3) g/dL Albumin 1.2 L (3.5-5.0) g/dL Globulin 3.2 (2.4-3.5) g/dL Albumin/Globulin Ratio 0.4 L (1.1-2.2) 03/09/17 03/09/17 Range/Units 06:24 06:24 WBC (4.3-11.1) K/mcL RBC (3.82-4.97) M/mcL Hgb (11.5-15.4) g/dL Hct (35.3-44.9) % MCV (83.0-100.0) fL MCH (28.0-33.3) pg MCHC (31.6-35.5) g/dL RDW (11.5-14.5) % Plt Count (140-400) K/mcL MPV (9.4-12.4) fL Immature Gran % (0-4) % Seg Neutrophils % % Lymphocytes % % Monocytes % % Eosinophils % % Basophils % % Neutrophils # (1.6-8.9) K/mcL Lymphocytes # (0.6-4.6) K/mcL Monocytes # (0.0-1.3) K/mcL Eosinophils # (0.0-0.6) K/mcL Basophils # (0.0-0.2) K/mcL PT (9.4-12.1) Seconds INR APTT (26.0-36.0) Seconds Sodium (136-145) mEq/L Potassium (3.5-4.5) mEq/L Chloride (98-109) mEq/L Carbon Dioxide (19-29) mEq/L BUN (7-20) mg/dL Creatinine (0.57-1.11) mg/dL Est GFR ( Amer) (> 60) Est GFR (Non-Af Amer) (> 60) BUN/Creatinine Ratio (6-26) Glucose (70-99) mg/dL Calculated Osmolality (280-300) Calcium (8.6-10.8) mg/dL Total Bilirubin (0.2-1.2) mg/dL Direct Bilirubin (0.0-0.5) mg/dL Indirect Bilirubin (0.0-1.2) mg/dL AST (5-34) Units/L ALT (0-55) Units/L Alkaline Phosphatase (38-126) Units/L Ammonia 28 (18-72) mcmol/L Troponin I 0.02 (0-0.03) ng/mL Serum Total Protein (6.0-8.3) g/dL Albumin (3.5-5.0) g/dL Globulin (2.4-3.5) g/dL Albumin/Globulin Ratio (1.1-2.2) - EKG Data EKG attestation: Yes I reviewed and interpreted this EKG. EKG results narrative: EKG demonstrates sinus bradycardia with first-degree AV block with rate of 48 bpm. Normal axis. Prolonged MN interval of 224. Other intervals normal. Normal R-wave progression. Nonspecific ST-T wave changes in leads 3 [address]VF. No gross ST elevations or depressions. No acute ischemic findings. No significant changes from previous EKG dated 02/17/17 with the exception of rate. Critical Care Time Critical Care Time: Yes Total Critical Care Time: 40 Attestation: Critical care performed: Time is exclusive of separately billable procedures. Time includes: direct patient care, patient reassessment, coordination of patient care, interpretation of data (laboratory data, radiology data, and respiratory data), review of patient's medical records, medical consultation and documentation of patient care. Procedures included in critical care time: Procedures excluded from critical care time: Attestation Statement - Attestation Attestation: I, Cesar Jim MD, personally evaluated this patient and discussed their management with the resident physician. I reviewed the resident's note and agree with the documented findings, medical decision making, and plan of care. 71-year-old female with history of end-stage renal disease on hemodialysis presents to the emergency department by ambulance after they picked her up for dialysis this morning and noted that the patient was less alert than usual for her. Her fingerstick blood sugar was 47. Also she was hypotensive with a blood pressure of 60/40 range. On arrival here the patient does respond to verbal stimuli. She is oriented to person and place but not time. She is very drowsy and slow to respond. Fingerstick blood sugar here was 30. She received an amp of D50 with minimal improvement in her mental status. Rectal temperature was 94.6. On examination patient is a thin elderly female in no distress. She was not hypotensive on arrival here and initial blood pressure was in the range of 138 over 70s. She has bradycardic with a heart rate of 48. There is no diaphoresis. Breath sounds are decreased bilaterally. Heart regular and bradycardic. Abdomen soft with normal bowel sounds. No pedal edema. EKG shows a sinus bradycardia with a first-degree block, no acute ischemic changes. Labs reviewed. Chest x-ray shows slight increase in pleural effusion but otherwise no acute abnormality. She was placed under warming blanket. At shift change she is signed out to the oncoming dayshift team, Dr. Dueñas and Dr. Aguilar.
[2017-03-09 06:41] LABS: INR 1.2; Prothrombin Time 13.5 Seconds (9.4-12.1)
[2017-03-09 06:43] LABS: Activated Partial Thrombo Time 32.3 Seconds (26.0-36.0)
[2017-03-09 06:50] LABS: Albumin 1.2 g/dL (3.5-5.0); Albumin/Globulin Ratio 0.4 (1.1-2.2); Bilirubin,Direct 0.2 mg/dL (0.0-0.5); Bilirubin,Indirect 0.3 mg/dL (0.0-1.2); Bilirubin,Total 0.5 mg/dL (0.2-1.2); Calcium 7.9 mg/dL (8.6-10.8); Globulin 3.2 g/dL (2.4-3.5); Total Protein 4.4 g/dL (6.0-8.3)
[2017-03-09 07:05] LABS: Bilirubin,Urine Negative (Negative); Blood,Urine Moderate (Negative); Clarity,Urine Cloudy (Clear); Color,Urine Yellow (Yellow); Glucose,Urine (UA) Normal (Normal); Ketones,Urine Negative (Negative); Leukocyte Esterase,Urine Large (Negative); Nitrite,Urine Negative (Negative); Protein,Urine Trace mg/dL (Neg-Trace); Urobilinogen,Urine Normal (Normal)
[2017-03-09 07:08] LABS: Squamous Epithelial Cell,Urine Many per lpf (None-Few); WBC,Urine TNTC per hpf (0-3)
[2017-03-09 07:11] LABS: Thyroid Stimulating Hormone 27.245 mcIU/mL (0.350-4.840)
--- NOTE | 2017-03-09 07:14 | Emergency Department Note ---
Disposition Clinical Impression: Hypoglycemia, Bradycardia, Bilateral pleural effusion, Immunosuppressed status , ESRD (end stage renal disease) Altered mental status Qualifiers: Altered mental status type: unspecified Qualified Code(s): R41.82 - Altered mental status, unspecified Hypothermia Qualifiers: Encounter type: initial encounter Qualified Code(s): T68.XXXA - Hypothermia, initial encounter Disposition: Admitted As Inpatient Condition: Good Time of Disposition: 09:17 Altered Mental Status HPI - General Chief Complaint: ED Altered Mental Status Stated Complaint: ams/hypoglycemia Time Seen by Provider: 03/09/17 06:18 Source: EMS Mode of arrival: EMS Limitations: altered mental status Nursing Notes Reviewed: Yes Vital Signs Reviewed: Yes - History of Present Illness Associated symptoms: Denies: chest pain, fever, nausea/vomiting - Related Data Home Medications Medication Instructions Recorded Confirmed Acetaminophen [Tylenol] 650 mg PO Q4HR PRN 03/02/15 03/09/17 Atorvastatin [Lipitor] 10 mg PO HS 03/02/15 03/09/17 predniSONE [Prednisone] 2.5 mg PO BID 03/02/15 03/09/17 Amiodarone [Cordarone] 200 mg PO DAILY 09/18/15 03/09/17 B Complex W-C No.20/Folic Acid 1 mg PO DAILY 12/17/15 03/09/17 [Nephrocaps Softgel] Loperamide [Imodium] 2 mg PO Q8H PRN 02/19/16 03/09/17 Oxygen 2 l IH HS 02/19/16 03/09/17 Cyclosporine, Modified [Gengraf] 75 mg PO BID 09/10/16 03/09/17 Aspirin Enteric Coated [Aspirin EC] 81 mg PO DAILY 10/14/16 03/09/17 Ergocalciferol (VITAMIN D2) 50,000 unit PO FR 10/14/16 03/09/17 [Drisdol (50,000 Unit)] Levothyroxine [Synthroid] 25 mcg PO 0630 10/14/16 03/09/17 Magnesium Hydroxide [Milk of 2,400 mg PO DAILY PRN 10/14/16 03/09/17 Magnesia] Omeprazole [PriLOSEC] 40 mg PO DAILY 10/14/16 03/09/17 Ondansetron ODT [Zofran ODT] 4 mg PO Q8H PRN 10/14/16 03/09/17 Denosumab [Prolia (For Outpatient 60 mg SQ Q6M 02/17/17 03/09/17 Infusion)] Oxycodone HCl/Acetaminophen 1 tab PO Q6H PRN 02/17/17 03/09/17 [Percocet 5-325 mg Tablet] Metoprolol [Lopressor] 12.5 mg PO BID 03/09/17 03/09/17 Previous Rx's Medication Instructions Recorded Albuterol Sulfate [Albuterol 2 puff IH Q6HR PRN #1 hfa.aer.ad 02/23/17 Inhaler] Cefepime HCl/Dextrose, Iso-Osm 2 gm IV QMWF 35 Days froz.piggy 02/23/17 [Cefepime 2 gm Injection] Darbepoetin [Aranesp] 40 mcg SQ QWEEK syringe 02/23/17 Folic Acid 1 mg PO DAILY tablet 02/23/17 Saccharomyces Boulardii [Florastor] 250 mg PO BID #80 capsule 02/23/17 Vancomycin [Vancocin] 500 each IV QMWF 35 Days vial 02/23/17 hydrALAZINE [HydrALAZINE] 25 mg PO TID #90 tablet 02/23/17 Allergies Allergy/AdvReac Type Severity Reaction Status Date / Time Penicillins [PCN] Allergy Hives Verified 03/09/17 08:37 Constitutional: Denies: fever Cardiovascular: Denies: chest pain Respiratory: Denies: dyspnea Gastrointestinal: Denies: abdominal pain Genitourinary: Denies: dysuria Past Medical History - Past Medical History Medical history: Reports: arthritis, atrial fibrillation, diabetes, dialysis, osteoporosis, renal disease Surgical history: Reports: appendectomy, herniorrhaphy, other (renal/pancreas transplant 2000) Psychiatric history: Reports: no psych history SUBSTANCE ABUSE SERVICES DIRECTOR history: Reports: no SUBSTANCE ABUSE SERVICES DIRECTOR history - Social History Smoking Status: Never smoker Smokeless Tobacco Status: No Alcohol use: Reports: none Drug use: Reports: none Physical Exam - General Limitations: altered mental status General appearance: lethargic Course Course Narrative: Assumed care at [address] Daniel. Briefly, patient is a 71-year-old female who presents with altered mental status when she was on her way to dialysis. Patient was found to be hypotensive and hypoglycemic and hypothermic. Patient currently undergoing AMS/sepsis workup including labs, CT head and blood cultures. Patient hypothermic with a temp of 94 degrees, bear hugger on now. - Reevaluation(s) Reevaluation #1: Lab work shows CBC and chemistry panel around her baseline. TSH elevated at 27. Free T4 is normal. At this time, patient is continuing to be hypothermic, bradycardic, normotensive. I discussed case with front desk receptionist Dr. Russo who states patient has had similar episodes of this in the past. There is some concern for patient decompensating since she was admitted to ICU last time. Does not feel patient needs emergent dialysis at this time but they will dialyze her once we decided she is stable for dialysis. She recommended critical care evaluation by ICU. I discussed case with Dr. Garner who does not feel patient meets criteria for ICU admission at this time. I spoke with hospitalist Dr. Ochoa who has accepted patient for admission to [facility]. Time: 09:16 Vital Signs Temperature 94.6 F L 03/09/17 06:25 Pulse Rate 47 03/09/17 06:25 Respiratory Rate 14 03/09/17 06:25 Blood Pressure 163/58 03/09/17 06:25 O2 Sat by Pulse Oximetry 100 03/09/17 06:25 Temperature 95.8 F L 03/09/17 09:21 Pulse Rate 52 03/09/17 09:21 Respiratory Rate 14 03/09/17 09:21 Blood Pressure 105/33 03/09/17 09:21 O2 Sat by Pulse Oximetry 98 03/09/17 09:21 Oxygen Delivery Oxygen Delivery Nasal Cannula Altered Mental Status - Medical Records Medical records reviewed: Yes I reviewed the patient's medical records. - Lab Data Lab results reviewed: Yes I reviewed the patient's lab results. Result diagrams: 03/09/17 06:24 03/09/17 06:24 Lab Results 03/09/17 03/09/17 03/09/17 Range/Units 06:24 06:24 06:24 WBC 6.6 (4.3-11.1) K/mcL RBC 2.65 L (3.82-4.97) M/mcL Hgb 8.1 L (11.5-15.4) g/dL Hct 26.2 L (35.3-44.9) % MCV 98.9 (83.0-100.0) fL MCH 30.6 (28.0-33.3) pg MCHC 30.9 L (31.6-35.5) g/dL RDW 17.2 H (11.5-14.5) % Plt Count 140 (140-400) K/mcL MPV 9.2 L (9.4-12.4) fL Immature Gran % 0.5 (0-4) % Seg Neutrophils % 79.9 % Lymphocytes % 13.7 % Monocytes % 4.1 % Eosinophils % 1.5 % Basophils % 0.3 % Neutrophils # 5.3 (1.6-8.9) K/mcL Lymphocytes # 0.9 (0.6-4.6) K/mcL Monocytes # 0.3 (0.0-1.3) K/mcL Eosinophils # 0.1 (0.0-0.6) K/mcL Basophils # 0.0 (0.0-0.2) K/mcL PT 13.5 H (9.4-12.1) Seconds INR 1.2 APTT 32.3 (26.0-36.0) Seconds Sodium 135 L (136-145) mEq/L Potassium 5.0 H (3.5-4.5) mEq/L Chloride 100 (98-109) mEq/L Carbon Dioxide 22 (19-29) mEq/L BUN 42 H (7-20) mg/dL Creatinine 5.85 H (0.57-1.11) mg/dL Est GFR ( Amer) 9 L (> 60) Est GFR (Non-Af Amer) 7 L (> 60) BUN/Creatinine Ratio 7 (6-26) Glucose 165 H (70-99) mg/dL Calculated Osmolality 294 (280-300) Lactic Acid (0.5-2.2) mmol/L Calcium 7.9 L (8.6-10.8) mg/dL Total Bilirubin 0.5 (0.2-1.2) mg/dL Direct Bilirubin 0.2 (0.0-0.5) mg/dL Indirect Bilirubin 0.3 (0.0-1.2) mg/dL AST 19 (5-34) Units/L ALT 6 (0-55) Units/L Alkaline Phosphatase 97 (38-126) Units/L Ammonia (18-72) mcmol/L Troponin I (0-0.03) ng/mL Serum Total Protein 4.4 L (6.0-8.3) g/dL Albumin 1.2 L (3.5-5.0) g/dL Globulin 3.2 (2.4-3.5) g/dL Albumin/Globulin Ratio 0.4 L (1.1-2.2) TSH 27.245 H (0.350-4.840) mcIU/mL Free T4 0.74 (0.70-1.48) ng/dl Urine Color (Yellow) Urine Clarity (Clear) Urine pH (5.0-8.0) pH Units Ur Specific [place] (1.010-1.025) Urine Protein (Neg-Trace) mg/dL Urine Glucose (UA) (Normal) mg/dL Urine Ketones (Negative) mg/dL Urine Blood (Negative) Urine Nitrite (Negative) Urine Bilirubin (Negative) Urine Urobilinogen (Normal) mg/dL Ur Leukocyte Esterase (Negative) Urine Microscopic RBC (0-3) per hpf Urine Microscopic WBC (0-3) per hpf Ur Squamous Epith Cells (None-Few) per lpf Urine Bacteria (None-Few) per hpf Hyaline Casts (None-Few) per lpf Urine Yeast (None Seen) per hpf Ur Culture Indicated? (NO) 03/09/17 03/09/17 03/09/17 Range/Units 06:24 06:24 06:56 WBC (4.3-11.1) K/mcL RBC (3.82-4.97) M/mcL Hgb (11.5-15.4) g/dL Hct (35.3-44.9) % MCV (83.0-100.0) fL MCH (28.0-33.3) pg MCHC (31.6-35.5) g/dL RDW (11.5-14.5) % Plt Count (140-400) K/mcL MPV (9.4-12.4) fL Immature Gran % (0-4) % Seg Neutrophils % % Lymphocytes % % Monocytes % % Eosinophils % % Basophils % % Neutrophils # (1.6-8.9) K/mcL Lymphocytes # (0.6-4.6) K/mcL Monocytes # (0.0-1.3) K/mcL Eosinophils # (0.0-0.6) K/mcL Basophils # (0.0-0.2) K/mcL PT (9.4-12.1) Seconds INR APTT (26.0-36.0) Seconds Sodium (136-145) mEq/L Potassium (3.5-4.5) mEq/L Chloride (98-109) mEq/L Carbon Dioxide (19-29) mEq/L BUN (7-20) mg/dL Creatinine (0.57-1.11) mg/dL Est GFR ( Amer) (> 60) Est GFR (Non-Af Amer) (> 60) BUN/Creatinine Ratio (6-26) Glucose (70-99) mg/dL Calculated Osmolality (280-300) Lactic Acid (0.5-2.2) mmol/L Calcium (8.6-10.8) mg/dL Total Bilirubin (0.2-1.2) mg/dL Direct Bilirubin (0.0-0.5) mg/dL Indirect Bilirubin (0.0-1.2) mg/dL AST (5-34) Units/L ALT (0-55) Units/L Alkaline Phosphatase (38-126) Units/L Ammonia 28 (18-72) mcmol/L Troponin I 0.02 (0-0.03) ng/mL Serum Total Protein (6.0-8.3) g/dL Albumin (3.5-5.0) g/dL Globulin (2.4-3.5) g/dL Albumin/Globulin Ratio (1.1-2.2) TSH (0.350-4.840) mcIU/mL Free T4 (0.70-1.48) ng/dl Urine Color Yellow (Yellow) Urine Clarity Cloudy A (Clear) Urine pH 8.0 (5.0-8.0) pH Units Ur Specific [place] 1.010 (1.010-1.025) Urine Protein Trace (Neg-Trace) mg/dL Urine Glucose (UA) Normal (Normal) mg/dL Urine Ketones Negative (Negative) mg/dL Urine Blood Moderate H (Negative) Urine Nitrite Negative (Negative) Urine Bilirubin Negative (Negative) Urine Urobilinogen Normal (Normal) mg/dL Ur Leukocyte Esterase Large H (Negative) Urine Microscopic RBC 15-30 H (0-3) per hpf Urine Microscopic WBC TNTC H (0-3) per hpf Ur Squamous Epith Cells Many H (None-Few) per lpf Urine Bacteria Moderate H (None-Few) per hpf Hyaline Casts None Seen (None-Few) per lpf Urine Yeast Many H (None Seen) per hpf Ur Culture Indicated? YES A (NO) 03/09/17 Range/Units 07:01 WBC (4.3-11.1) K/mcL RBC (3.82-4.97) M/mcL Hgb (11.5-15.4) g/dL Hct (35.3-44.9) % MCV (83.0-100.0) fL MCH (28.0-33.3) pg MCHC (31.6-35.5) g/dL RDW (11.5-14.5) % Plt Count (140-400) K/mcL MPV (9.4-12.4) fL Immature Gran % (0-4) % Seg Neutrophils % % Lymphocytes % % Monocytes % % Eosinophils % % Basophils % % Neutrophils # (1.6-8.9) K/mcL Lymphocytes # (0.6-4.6) K/mcL Monocytes # (0.0-1.3) K/mcL Eosinophils # (0.0-0.6) K/mcL Basophils # (0.0-0.2) K/mcL PT (9.4-12.1) Seconds INR APTT (26.0-36.0) Seconds Sodium (136-145) mEq/L Potassium (3.5-4.5) mEq/L Chloride (98-109) mEq/L Carbon Dioxide (19-29) mEq/L BUN (7-20) mg/dL Creatinine (0.57-1.11) mg/dL Est GFR ( Amer) (> 60) Est GFR (Non-Af Amer) (> 60) BUN/Creatinine Ratio (6-26) Glucose (70-99) mg/dL Calculated Osmolality (280-300) Lactic Acid 1.1 (0.5-2.2) mmol/L Calcium (8.6-10.8) mg/dL Total Bilirubin (0.2-1.2) mg/dL Direct Bilirubin (0.0-0.5) mg/dL Indirect Bilirubin (0.0-1.2) mg/dL AST (5-34) Units/L ALT (0-55) Units/L Alkaline Phosphatase (38-126) Units/L Ammonia (18-72) mcmol/L Troponin I (0-0.03) ng/mL Serum Total Protein (6.0-8.3) g/dL Albumin (3.5-5.0) g/dL Globulin (2.4-3.5) g/dL Albumin/Globulin Ratio (1.1-2.2) TSH (0.350-4.840) mcIU/mL Free T4 (0.70-1.48) ng/dl Urine Color (Yellow) Urine Clarity (Clear) Urine pH (5.0-8.0) pH Units Ur Specific [place] (1.010-1.025) Urine Protein (Neg-Trace) mg/dL Urine Glucose (UA) (Normal) mg/dL Urine Ketones (Negative) mg/dL Urine Blood (Negative) Urine Nitrite (Negative) Urine Bilirubin (Negative) Urine Urobilinogen (Normal) mg/dL Ur Leukocyte Esterase (Negative) Urine Microscopic RBC (0-3) per hpf Urine Microscopic WBC (0-3) per hpf Ur Squamous Epith Cells (None-Few) per lpf Urine Bacteria (None-Few) per hpf Hyaline Casts (None-Few) per lpf Urine Yeast (None Seen) per hpf Ur Culture Indicated? (NO) - Radiology Data Radiology results reviewed: Yes I reviewed the patient's radiology results. Chest X-Ray 03/09/17 06:19 IMPRESSION: Slight increase in left pleural effusion. No substantial change otherwise. D/ / Isidra Rodriguez MD / Isidra Rodriguez MD Interpreting Provider: Isidra Rodriguez MD Attestation Statement - Attestation Attestation: I, Cheo Aguilar DO, examined this patient [id number] and my medical decision-making was reviewed with Dr. Jeannie Dueñas, Resident Physician. I agree with the documented findings, disposition and treatment plan as described except to the extent set forth below. Please see my progress notes for details. 71-year-old female signed out with the nighttime physician Dr. Jim and Dr. Daniel. Patient presents with confusion and altered mentation. She is picked up by her EMS transport this morning on her way to dialysis. Patient has known osteomyelitis as well as possible urinary tract infection. She is currently being treated with IV antibiotics through PICC line. Patient was found to have hypoglycemia hypothermia and bradycardia on initial presentation. Screening laboratory workup was started with sepsis evaluation as well as altered mentation evaluation. Laboratory workup including blood cultures are pending. Patient CT imaging of the head ordered. Chest x-ray urinalysis to be resulted. Patient will not be started on antibiotics at this time until we know we have an infectious etiology overtreating. Patient could have potential infectious source from the PICC line is well as her osteomyelitis. Patient does appear to have asymptomatic bradycardia. After glucose was provided by the nighttime physicians patient is actually alert and oriented answering questions. She is still slightly lethargic. Laboratory workup to be completed and then discussion with the patient family and the appropriate subspecialty parties were disposition will be determined. Otherwise her physical exam is relatively stable. She does have chronic wounds of the lower extremity that appeared to be as stable as possible. Detailed workup to be completed. Patient will need admission. See detailed documentation of physical exam, medical intervention, medical decision-making and disposition and the resident physician's note [id number] Consultations placed with nephrology as well as the hospitals. Patient to be excepted to the floor. Patient otherwise is maintained stable vital signs at the course of care. She has been persistently bradycardic but her blood pressures been stable. Mentation is coming back more towards baseline at this point. Several minuses of infection are noted on exam but otherwise she is clinically being treated for all of these. Patient is stable and what appears to be fair medical condition. Will be admitted to the floor for further evaluation and management.
[2017-03-09 07:24] LABS: Bacteria,Urine Moderate per hpf (None-Few); Hyaline Casts,Urine None Seen per lpf (None-Few); RBC,Urine 15-30 per hpf (0-3); Yeast,Urine Many per hpf (None Seen)
[2017-03-09] MEDS ORDERED: Meropenem 500 MG in 0.9 % Sodium Chloride Mini Bag 100 ML IVPB SCH (09:15)
[2017-03-09] MEDS ORDERED: D5% in 0.9% NACL 1,000 ML IVC SCH (09:15)
--- NOTE | 2017-03-09 09:18 | Internal Med History&Physical ---
Date of Encounter: 03/09/17 Time of Encounter: 09:17 Assessment and Plan (1) Pleural effusion, left Current visit: Yes Status: Acute Patient had a large left-sided pleural effusion likely due to volume in this end -stage renal disease patient (2) UTI (urinary tract infection) Current visit: Yes Status: Acute Patient has been on cefepime colorful gram-negative organisms. Since she is currently septic despite antibiotics I will switch cefepime to meropenem. She will also be on vancomycin and Levaquin Qualifiers: Qualified Code(s): N39.0 - Urinary tract infection, site not specified; R31.9 - Hematuria, unspecified; R31.9 - Hematuria, unspecified (3) Osteomyelitis Current visit: Yes Status: Acute Vancomycin, neuropathy, Levaquin. Qualifiers: Qualified Code(s): M86.9 - Osteomyelitis, unspecified (4) Immunosuppressed status Current visit: Yes Status: Acute Patient on cyclosporine and steroids for prior kidney and pancreas transplant. Will keep patient on stress doses of steroids as she is currently septic. Start hydrocortisone 100 mg IV Q6 hours. (5) ESRD (end stage renal disease) Current visit: Yes Status: Chronic Nephrology consult. (6) Sepsis Current visit: Yes Status: Acute Source is UTI versus pneumonia versus osteomyelitis versus PICC line infection. Continue broad-spectrum antibiotic coverage. I will switch cefepime to meropenem. Continue vancomycin and levaquin. ID consult. Qualifiers: Qualified Code(s): A41.9 - Sepsis, unspecified organism Internal Medicine - H&P: HPI Chief complaint: weakness History of present illness: Ms. Moore is a 71 year old female with multiple medical problems recently diagnosed with osteomyelitis and was started on antibiotics vancomycin, cefepime , Levaquin which she takes with dialysis starting 2 weeks ago approximately was sent from dialysis center after she was found to be lethargic. Patient went to the dialysis center from home and was found on arrival to be less responsive. She was found to be hypoglycemic hypothermic and hypotensive with blood pressure 60s over 40s and was sent to our emergency room. Patient gets her antibiotics during dialysis. Patient is on immunosuppressive medications including steroids and cyclosporine for prior kidney and pancreas transplant. Patients received dextrose in the emergency room as well as bearhugger for hypothermia with some improvement on her level of alertness however she remains lethargic. Patient is unable to provide further history. Past Med Surg Social Fam HX - Past Medical History Medical history: arthritis, atrial fibrillation, diabetes, dialysis, osteoporosis, renal disease Psychiatric history: no psych history - Past Surgical History Surgical History: appendectomy, herniorrhaphy, other (renal/pancreas transplant 2000) - Social History Smoking Status: Never smoker Smokeless Tobacco Status: No Alcohol use: none Drug use: none - Family History Mother Living Status: Hx Family Cardiac Disorders: Yes Internal Medicine - H&P: Meds Acetaminophen [Tylenol] 650 mg PO Q4HR PRN 03/02/15 [History] Atorvastatin [Lipitor] 10 mg PO HS 03/02/15 [History] predniSONE [Prednisone] 2.5 mg PO BID 03/02/15 [History] Amiodarone [Cordarone] 200 mg PO DAILY 09/18/15 [History] B Complex W-C No.20/Folic Acid [Nephrocaps Softgel] 1 mg PO DAILY 12/17/15 [ History] Loperamide [Imodium] 2 mg PO Q8H PRN 02/19/16 [History] Oxygen 2 l IH HS 02/19/16 [History] Cyclosporine, Modified [Gengraf] 75 mg PO BID 09/10/16 [History] Aspirin Enteric Coated [Aspirin EC] 81 mg PO DAILY 10/14/16 [History] Ergocalciferol (VITAMIN D2) [Drisdol (50,000 Unit)] 50,000 unit PO FR 10/14/16 [ History] Levothyroxine [Synthroid] 25 mcg PO 0630 10/14/16 [History] Magnesium Hydroxide [Milk of Magnesia] 2,400 mg PO DAILY PRN 10/14/16 [History] Omeprazole [PriLOSEC] 40 mg PO DAILY 10/14/16 [History] Ondansetron ODT [Zofran ODT] 4 mg PO Q8H PRN 10/14/16 [History] Denosumab [Prolia (For Outpatient Infusion)] 60 mg SQ Q6M 02/17/17 [History] Oxycodone HCl/Acetaminophen [Percocet 5-325 mg Tablet] 1 tab PO Q6H PRN [History] Albuterol Sulfate [Albuterol Inhaler] 2 puff IH Q6HR PRN #1 hfa.aer.ad 10/23/17 [Rx] Cefepime HCl/Dextrose, Iso-Osm [Cefepime 2 gm Injection] 2 gm IV QMWF 35 Days froz.piggy 02/23/17 [Rx] Darbepoetin [Aranesp] 40 mcg SQ QWEEK syringe 02/23/17 [Rx] Folic Acid 1 mg PO DAILY tablet 02/23/17 [Rx] Saccharomyces Boulardii [Florastor] 250 mg PO BID #80 capsule 02/23/17 [Rx] Vancomycin [Vancocin] 500 each IV QMWF 35 Days vial 02/23/17 [Rx] hydrALAZINE [HydrALAZINE] 25 mg PO TID #90 tablet 02/23/17 [Rx] Metoprolol [Lopressor] 12.5 mg PO BID 03/09/17 [History] 3 Allergy/AdvReac Type Severity Reaction Status Date / Time Penicillins [PCN] Allergy Hives Verified 03/09/17 08:37 All Systems PM: A 10-system review of systems was performed and is negative for pertinent findings except as documented above in the HPI. Review of systems: Full review of systems could not be obtained given patient mental status. - Constitutional Vitals: Temp Pulse Resp BP Pulse Ox 93.7 F L 48 14 114/43 100 03/09/17 07:30 03/09/17 08:30 03/09/17 08:30 03/09/17 08:30 03/09/17 08:30 Exam: Gen.: patient is lethargic, oriented to self and place only cardiac: normal S1 S2 no additional sounds or murmurs chest: diminished air entry in left lung posteriorly abdomen soft minimal tenderness normal bowel sounds lower extremity no swelling. Neuro: no new focal deficits Internal Med - H&P Results - Labs CBC & Chem 7: 03/09/17 06:24 03/09/17 06:24 Labs: Short CBC 03/09/17 Range/Units 06:24 WBC 6.6 (4.3-11.1) K/mcL Hgb 8.1 L (11.5-15.4) g/dL Hct 26.2 L (35.3-44.9) % Plt Count 140 (140-400) K/mcL Neutrophils # 5.3 (1.6-8.9) K/mcL BMP 03/09/17 06:24 Sodium 135 L Potassium 5.0 H Chloride 100 Carbon Dioxide 22 BUN 42 H Creatinine 5.85 H Glucose 165 H Calcium 7.9 L Cardiac Enzymes 03/09/17 Range/Units 06:24 Troponin I 0.02 (0-0.03) ng/mL Liver Function 03/09/17 Range/Units 06:24 Total Bilirubin 0.5 (0.2-1.2) mg/dL Direct Bilirubin 0.2 (0.0-0.5) mg/dL AST 19 (5-34) Units/L ALT 6 (0-55) Units/L Alkaline Phosphatase 97 (38-126) Units/L Albumin 1.2 L (3.5-5.0) g/dL Urine 03/09/17 Range/Units 06:56 Urine Color Yellow (Yellow) Urine Clarity Cloudy A (Clear) Urine pH 8.0 (5.0-8.0) pH Units Ur Specific [place] 1.010 (1.010-1.025) Urine Protein Trace (Neg-Trace) mg/dL Urine Glucose (UA) Normal (Normal) mg/dL - Impressions ITS Impressions Chest X-Ray 03/09/17 06:19 IMPRESSION: Slight increase in left pleural effusion. No substantial change otherwise. D/ / Isidra Rodriguez MD / Isidra Rodriguez MD Interpreting Provider: Isidra Rodriguez MD Head CT 03/09/17 06:19 IMPRESSION: No acute intracranial abnormality. Left mastoid and middle ear effusion. D/ / Willy Gallardo MD / Willy Gallardo MD Interpreting Provider: Willy Gallardo MD
[2017-03-09 09:41] LABS: Basophils % 0.3 %; Eosinophils # 0.1 K/mcL (0.0-0.6); Eosinophils % 1.3 %; Hematocrit 27.3 % (35.3-44.9); Hemoglobin 8.4 g/dL (11.5-15.4); Immature Granulocytes % 0.7 % (0-4); Immature Platelets 1.3 % (1.1-6.1); Lymphocytes # 0.8 K/mcL (0.6-4.6); Lymphocytes % 9.5 %; Mean Corpuscular HGB Conc 30.8 g/dL (31.6-35.5); Mean Corpuscular Hemoglobin 30.3 pg (28.0-33.3); Mean Corpuscular Volume 98.6 fL (83.0-100.0); Mean Platelet Volume 9.3 fL (9.4-12.4); Monocytes # 0.6 K/mcL (0.0-1.3); Monocytes % 7.1 %; Neutrophils # 7.1 K/mcL (1.6-8.9); Platelet Count 165 K/mcL (140-400); Red Blood Count 2.77 M/mcL (3.82-4.97); Red Cell Distribution Width 17.2 % (11.5-14.5); Segmented Neutrophils % 81.1 %
[2017-03-09] MEDS ORDERED: Vancomycin 1,000 MG in D5% in Water 250 ML IVPB SCH (10:00)
[2017-03-09] MEDS ORDERED: Levofloxacin 500 MG/100 ML 500 MG/100 ML BAG IVPB SCH (10:00)
[2017-03-09 10:59] LABS: ABG Base Excess 1 mEq/L (-2 to 3); ABG HCO3 25 mEq/L (21-27); ABG Oxygen Saturation 98 % (95-98); ABG PCO2 38 mmHg (35-45); ABG PH 7.44 pH Units (7.32-7.45); ABG PO2 94 mmHg (85-104); ABG TCO2 26 mEq/L (20-26)
[2017-03-09] MEDS: Meropenem 500 MG in Water for inj. (sterile) 10 ML IVP SCH (11:09)
[2017-03-09] MEDS: Hydrocortisone Sodium Succ 100 MG/2 ML VIAL IVP SCH ×3 (11:09→19:18)
[2017-03-09] MEDS: Pantoprazole 40 MG VIAL IVP SCH (11:30)
--- NOTE | 2017-03-09 14:16 | Nephrology Consult Note ---
Date of Encounter: 03/09/17 Time of Encounter: 14:12 Assessment and Plan (1) ESRD (end stage renal disease) Current Visit: Yes Status: Chronic ESRD, on dialysis MWF patient has refused 2/3 dialysis sessions last week. her last dialysis session was Thursday. Plan: patient remains hypotensive. will wait until tomorrow for dialysis. consider psych consult, as patient's family reports that she has recently been very depressed and has "given up" on her life and her health. She has also been acting out of the ordinary lately. Also consider increasing dose of home synthroid, as TSH is significantly elevated. (2) Anemia Current Visit: No Status: Acute baseline Hg around 10 Etiology likely secondary to not receiving epo because of two missed dialysis sessions last week. Plan: will check iron panel, B12, folate, ferritin, stool guiac. Qualifiers: Anemia type: other cause Other causes of anemia: other cause, not classified Qualified Code(s): D64.89 - Other specified anemias (3) TSH elevation Current Visit: No Status: Acute TSH 27.2, consider adjusting synthroid dose. (4) UTI (urinary tract infection) Current Visit: Yes Status: Acute per primary Qualifiers: Urinary tract infection type: site unspecified Hematuria presence: without hematuria Qualified Code(s): N39.0 - Urinary tract infection, site not specified (5) Osteomyelitis Current Visit: Yes Status: Acute continue with antibiotics during dialysis sessions. Qualifiers: Osteomyelitis type: unspecified type Osteomyelitis location: unspecified site Qualified Code(s): M86.9 - Osteomyelitis, unspecified (6) Pleural effusion, left Current Visit: Yes Status: Acute likely secondary to volume overload. (7) Sepsis Current Visit: Yes Status: Acute source of infection unspecified at this point. blood cultures pending. per primary. Qualifiers: Sepsis type: sepsis due to unspecified organism Qualified Code(s): A41.9 - Sepsis, unspecified organism History of Present Illness - Reason for Consult Consult date: 03/09/17 end stage renal disease Requesting physician: Jeannie Dueñas - Chief Complaint lethargy after dialysis - History of Present Illness 71F with PMHx of arthritis, Afib, DM, ESRD dialysis MWF, osteoporosis, recently diagnosed osteomyelitis for which she is on antibiotics. patient arrived to [facility] on 02/06/17 after being sent from dialysis for lethargy. Per records, she was less responsive after her dialysis session. She was found to be hypoglycemic hypothermic and hypotensive with blood pressure 60s over 40s and was sent to our emergency room. patient is on immunosuppresive medications for prior kidney and pancreas transplant. patient is poor historian, as her mental status is slightly declined. she denies nausea, vomiting. Admits to diarrhea. denies fever, chills, chest pain, shortness of breath. patient is a poor historian and most of history was obtained from her and son. patient recently had taken one extra dose of her pain medication at home. she has also been acting different and her is stating she has "given up" on her life and had refused two dialysis sessions last week. Past Med Surg Social Fam HX - Past Medical History Medical history: arthritis, atrial fibrillation, diabetes, dialysis, osteoporosis, renal disease Psychiatric history: no psych history - Past Surgical History Surgical History: appendectomy, herniorrhaphy, other - Social History Smoking Status: Never smoker Smokeless Tobacco Status: No Alcohol use: none Drug use: none - Family History Mother Living Status: Hx Family Cardiac Disorders: Yes Medications and Allergies Acetaminophen [Tylenol] 650 mg PO Q4HR PRN 03/02/15 [History] Atorvastatin [Lipitor] 10 mg PO HS 03/02/15 [History] predniSONE [Prednisone] 2.5 mg PO BID 03/02/15 [History] Amiodarone [Cordarone] 200 mg PO DAILY 09/18/15 [History] B Complex W-C No.20/Folic Acid [Nephrocaps Softgel] 1 mg PO DAILY 12/17/15 [ History] Loperamide [Imodium] 2 mg PO Q8H PRN 02/19/16 [History] Oxygen 2 l IH HS 02/19/16 [History] Cyclosporine, Modified [Gengraf] 75 mg PO BID 09/10/16 [History] Aspirin Enteric Coated [Aspirin EC] 81 mg PO DAILY 10/14/16 [History] Ergocalciferol (VITAMIN D2) [Drisdol (50,000 Unit)] 50,000 unit PO FR 10/14/16 [ History] Levothyroxine [Synthroid] 25 mcg PO 0630 10/14/16 [History] Magnesium Hydroxide [Milk of Magnesia] 2,400 mg PO DAILY PRN 10/14/16 [History] Omeprazole [PriLOSEC] 40 mg PO DAILY 10/14/16 [History] Ondansetron ODT [Zofran ODT] 4 mg PO Q8H PRN 10/14/16 [History] Denosumab [Prolia (For Outpatient Infusion)] 60 mg SQ Q6M 02/17/17 [History] Oxycodone HCl/Acetaminophen [Percocet 5-325 mg Tablet] 1 tab PO Q6H PRN [History] Albuterol Sulfate [Albuterol Inhaler] 2 puff IH Q6HR PRN #1 hfa.aer.ad 02/23/17 [Rx] Cefepime HCl/Dextrose, Iso-Osm [Cefepime 2 gm Injection] 2 gm IV QMWF 35 Days froz.piggy 02/23/17 [Rx] Darbepoetin [Aranesp] 40 mcg SQ QWEEK syringe 02/23/17 [Rx] Folic Acid 1 mg PO DAILY tablet 02/23/17 [Rx] Saccharomyces Boulardii [Florastor] 250 mg PO BID #80 capsule 02/23/17 [Rx] Vancomycin [Vancocin] 500 each IV QMWF 35 Days vial 02/23/17 [Rx] hydrALAZINE [HydrALAZINE] 25 mg PO TID #90 tablet 02/23/17 [Rx] Metoprolol [Lopressor] 12.5 mg PO BID 03/09/17 [History] 3 Allergy/AdvReac Type Severity Reaction Status Date / Time Penicillins [PCN] Allergy Hives Verified 03/09/17 08:37 Review of Systems All Systems: reviewed and no additional remarkable complaints except as stated Exam - Vital Signs Vital signs: Initial Vital Signs Temp Pulse Resp BP Pulse Ox 94.6 F L 47 14 163/58 100 03/09/17 06:25 03/09/17 06:25 03/09/17 06:25 03/09/17 06:25 03/09/17 06:25 Vital Signs - Last 8 Hours Temp Pulse Resp BP Pulse Ox 03/09/17 12:13 97.8 F 55 15 82/44 99 03/09/17 11:08 96.9 F L 54 14 100 03/09/17 10:16 96.7 F L 03/09/17 09:21 95.8 F L 52 14 105/33 98 Intake and Output 03/08/17 03/09/17 03/09/17 23:59 07:59 15:59 Other: Blood Glucose* 75 - General Appearance General appearance: well-developed, appears started age, chronically ill Neck: JVD Respiratory: clear Cardiology: no murmurs, no rub, no gallops, regular rate, regular rhythm, normal S1, normal S2 - Dialysis Access Dialysis Vascular Access: Arteriovenous Fistula Gastrointestinal: normoactive bowel sounds, tenderness, no guarding, no organomegaly, no masses Integumentary: no rash Neurologic: alert and oriented x3 Additional Comments: upper extremity non pitting edema. Psychiatric: depressed Results - Lab Results 03/09/17 09:33 03/09/17 17:05 Most recent lab results ABG pH 7.44 pH Units (7.32-7.45) 03/09/17 10:56 ABG pCO2 38 mmHg (35-45) 03/09/17 10:56 ABG pO2 94 mmHg (85-104) 03/09/17 10:56 ABG HCO3 25 mEq/L (21-27) 03/09/17 10:56 ABG O2 Saturation 98 % (95-98) 03/09/17 10:56 Calcium 7.9 mg/dL (8.6-10.8) L 03/09/17 06:24 Consult Discharge Plan - Plan Referrals: Mason Mixon MD [Primary Care Provider] - 03/19/17 10:15 am ()
--- NOTE | 2017-03-09 16:37 | Electrocardiograph Report ---
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
[2017-03-09] MEDS ORDERED: Vancomycin 500 MG in D5% in Water (Mini-Bag+) 100 ML IVPB ONE (19:00)
[2017-03-09] MEDS: (Saccharomyces Boulardii [Florastor] 250 MG) PO SCH (19:51)
[2017-03-09] MEDS: predniSONE 5 MG TABLET PO SCH (19:51)
[2017-03-09] MEDS: CycloSPORINE, Mod (Neoral) 25 MG CAPSULE PO SCH (19:51)
[2017-03-09] MEDS ORDERED: NON-FORMULARY MEDICATION 1 EACH EACH (Oxygen [Oxygen] 2 L) IH SCH (21:00)
[2017-03-10] MEDS: Hydrocortisone Sodium Succ 100 MG/2 ML VIAL IVP SCH ×4 (00:17→18:23)
[2017-03-10 03:36] LABS: Calcium 7.9 mg/dL (8.6-10.8); Magnesium 1.9 mg/dL (1.6-2.6); Potassium 5.7 mEq/L (3.5-4.5)
[2017-03-10 04:19] LABS: Folate 18.8 ng/mL (7.0-31.4)
[2017-03-10] MEDS ORDERED: Levothyroxine 25 MCG TABLET PO SCH (06:30)
[2017-03-10] MEDS ORDERED: 0.9 % Sodium Chloride 250 ML IVC PRN (07:29)
[2017-03-10] MEDS ORDERED: 0.9 % Sodium Chloride 1,000 ML PRIME SCH (07:30)
--- NOTE | 2017-03-10 09:38 | Nephrology Progress Note ---
Date of Encounter: 03/10/17 Time of Encounter: 09:36 - Assessment and Plan (1) ESRD (end stage renal disease) Current Visit: Yes Status: Chronic ESRD, on dialysis MWF patient has refused 2/3 dialysis sessions last week. Plan: agree with palliative care consult to discuss goals of care. patient will receive dialysis today. (2) Anemia Current Visit: No Status: Acute baseline Hg around 10 Etiology likely secondary to not receiving epo because of two missed dialysis sessions last week. Plan: will check iron panel, B12, folate, ferritin, stool guiac. Qualifiers: Anemia type: other cause Other causes of anemia: other cause, not classified Qualified Code(s): D64.89 - Other specified anemias (3) TSH elevation Current Visit: No Status: Acute TSH 27.2, consider adjusting synthroid dose (4) UTI (urinary tract infection) Current Visit: Yes Status: Acute per primary Qualifiers: Urinary tract infection type: site unspecified Hematuria presence: without hematuria Qualified Code(s): N39.0 - Urinary tract infection, site not specified (5) Osteomyelitis Current Visit: Yes Status: Acute continue with antibiotics during dialysis sessions. Qualifiers: Osteomyelitis type: unspecified type Osteomyelitis location: unspecified site Qualified Code(s): M86.9 - Osteomyelitis, unspecified (6) Pleural effusion, left Current Visit: Yes Status: Acute likely secondary to volume overload. (7) Sepsis Current Visit: Yes Status: Acute source of infection unspecified at this point. blood cultures prelim: GPC Qualifiers: Sepsis type: sepsis due to unspecified organism Qualified Code(s): A41.9 - Sepsis, unspecified organism Subjective Principal diagnosis: esrd Interval history: 71F evaluated at bedside during her dialysis session today. patient states she feels a little bit better compared to yesterday. she admits to intermittent nasuea, denies vomiting, diarrhea, fever, chills, chest pain, shortness of breath. she denies any new problems today. Objective - Vital Signs Vital signs: Vital Signs Temp Pulse Resp BP Pulse Ox 03/10/17 08:10 98.1 F 19 158/56 03/10/17 07:40 98.1 F 72 22 143/42 03/10/17 03:02 98.1 F 67 16 167/75 98 03/09/17 23:29 98.2 F 65 15 149/88 98 03/09/17 19:21 97.7 F 62 16 137/58 98 Intake and Output 03/09/17 03/10/17 03/10/17 23:59 07:59 15:59 Intake Total 0 / 0 750 / 750 Output Total 0 / 0 Balance 0 / 0 750 / 750 Intake: Oral 0 / 0 150 / 150 Intake, Rinseback and Flushes 600 / 600 Output: Urine 0 / 0 Other: Meal Breakfast Percent of Meal Consumed 50% Stool Size Smear Stool Consistency loose Stool Color Brown # Urine Diapers 1 1 Weight 57.8 kg Blood Glucose* 123 112 Hemodialysis Net Fluid Removed 0 (mL) Patient Weight 03/10/17 23:59 Weight 57.8 kg - General Appearance General appearance: Present: well-developed, well-nourished, appears started age Neck: Present: no JVD Respiratory: Present: rales Cardiology: Present: no murmurs, no rub, no gallops, no edema, regular rate, regular rhythm, normal S1, normal S2 Dialysis Vascular Access: Arteriovenous Fistula Gastrointestinal: Present: hypoactive bowel sounds, no tenderness, no guarding, no organomegaly, no masses Integumentary: Present: no rash, warm and dry Neurologic: Present: no focal deficit, no asterixis, alert and oriented x3 Musculoskeletal: Present: no deformities, no erythema, no cyanosis, no clubbing Psychiatric: Present: depressed - Lab 03/09/17 09:33 03/10/17 09:09 Most recent lab results ABG pH 7.44 pH Units (7.32-7.45) 03/09/17 10:56 ABG pCO2 38 mmHg (35-45) 03/09/17 10:56 ABG pO2 94 mmHg (85-104) 03/09/17 10:56 ABG HCO3 25 mEq/L (21-27) 03/09/17 10:56 ABG O2 Saturation 98 % (95-98) 03/09/17 10:56 Calcium 7.9 mg/dL (8.6-10.8) L 03/10/17 03:14 Magnesium 1.9 mg/dL (1.6-2.6) 03/10/17 03:14 - VTE Documentation of Mechanical Device: Intermittent pneumatic compression device Consult Discharge Plan - Plan Referrals: Mason Mixon MD [Primary Care Provider] - 03/19/17 10:15 am ()
--- NOTE | 2017-03-10 09:40 | Palliative - Consult Note ---
<Fransico Guthrie - Last Filed: 03/10/17 10:58> Date of Encounter: 03/10/17 Time of Encounter: 09:15 - Assessment and Plan (1) Goals of care, counseling/discussion Current Visit: Yes Status: Acute Assessment and plan: Resuscitation status was discussed with patient. -She states that she does not want chest compressions and does not want intubated. -Code status updated to DNR-DNI. -Patient has refused last 2/3 dialysis treatments; Patient did not give clear answer as to why that is. -Patient's condition will be discussed with family. (2) ESRD (end stage renal disease) Current Visit: Yes Status: Chronic Assessment and plan: Patient is a MWF dialysis patient. -Refused 2/3 of the last sessions. -Patient is reportedly "depressed" and has given up on life. -Patient received dialysis this morning. -Will discuss further care with the family. (3) Anemia Current Visit: No Status: Acute Assessment and plan: Patient's baseline hemoglobin is approximately 10. -Recheck am labs. Qualifiers: Anemia type: other cause Other causes of anemia: other cause, not classified Qualified Code(s): D64.89 - Other specified anemias (4) TSH elevation Current Visit: No Status: Acute Assessment and plan: TSH 27.2. Adjustment of synthroid. (5) Pleural effusion, left Current Visit: Yes Status: Acute Assessment and plan: Likely a result of volume overload. (6) Osteomyelitis Current Visit: Yes Status: Acute Assessment and plan: Patient was prescribed vancomycin, cefepime, and levaquin starting 2 weeks ago. -Continue antibiotics during dialysis sessions. Qualifiers: Osteomyelitis type: unspecified type Osteomyelitis location: unspecified site Qualified Code(s): M86.9 - Osteomyelitis, unspecified (7) Sepsis Current Visit: Yes Status: Acute Assessment and plan: Unidentified infection source. Blood culture pending. Qualifiers: Sepsis type: sepsis due to unspecified organism Qualified Code(s): A41.9 - Sepsis, unspecified organism Palliative-CN HPI - Data of Consult Consult date: 03/10/17 Requesting Physician: Chandra Rodriguez Primary Care Provider: Mason Mixon MD - Consult Narrative Palliative Care/Comfort Measures: Palliative care History of present illness: Ms. Moore is a 71 year old female with a past medical history of arthritis, atrial fibrillation, DM, ESRD on dialysis MWF, and recently diagnosed osteomyelitis. Patient arrived on 02/06/17 after being sent from dialysis with chief complaint of lethargy. Patient went to dialysis center from home; was less responsive than ususal. She was found to be hypoglycemic, hypothermic, and hypotensive with a blood pressure in the 60s over 40s. Patient's recently diagnosed osteomyelitis has been treated with vancomycin, cefepime, and Levaquin which she takes during dialysis starting 2 weeks ago. Patient is also on steroids and cyclosporine for prior kidney pancreas transplant. Patient was treated for hypothermia in the emergency department with a bear hugger. Patient 's temperature has since improved. Patient had refused 2 out of 3 of her previous dialysis treatments. Patient was seen and examined at bedside this morning during dialysis. Patient is alert and oriented 3. Was counseled on resusitation. Patient was asked if she would like compressions or ventilator, patient says that she would not like either. Patient did not answer when asked about why she had been refusing dialysis. Patient condition will be discussed with family. Code status DNR-DNI. CC: Chandra Rodriguez Past Med Surg Social Fam HX - Past Medical History Medical history: arthritis, atrial fibrillation, diabetes, dialysis, osteoporosis, renal disease Psychiatric history: no psych history - Past Surgical History Surgical History: appendectomy, herniorrhaphy, other - Social History Smoking Status: Never smoker Smokeless Tobacco Status: No Alcohol use: none Drug use: none - Family History Mother Living Status: Hx Family Cardiac Disorders: Yes Medications and Allergies Acetaminophen [Tylenol] 650 mg PO Q4HR PRN 03/02/15 [History] Atorvastatin [Lipitor] 10 mg PO HS 03/02/15 [History] predniSONE [Prednisone] 2.5 mg PO BID 03/02/15 [History] Amiodarone [Cordarone] 200 mg PO DAILY 09/18/15 [History] B Complex W-C No.20/Folic Acid [Nephrocaps Softgel] 1 mg PO DAILY 12/17/15 [ History] Loperamide [Imodium] 2 mg PO Q8H PRN 02/19/16 [History] Oxygen 2 l IH HS 02/19/16 [History] Cyclosporine, Modified [Gengraf] 75 mg PO BID 09/10/16 [History] Aspirin Enteric Coated [Aspirin EC] 81 mg PO DAILY 10/14/16 [History] Ergocalciferol (VITAMIN D2) [Drisdol (50,000 Unit)] 50,000 unit PO FR 10/14/16 [ History] Levothyroxine [Synthroid] 25 mcg PO 0630 10/14/16 [History] Magnesium Hydroxide [Milk of Magnesia] 2,400 mg PO DAILY PRN 10/14/16 [History] Omeprazole [PriLOSEC] 40 mg PO DAILY 10/14/16 [History] Ondansetron ODT [Zofran ODT] 4 mg PO Q8H PRN 10/14/16 [History] Denosumab [Prolia (For Outpatient Infusion)] 60 mg SQ Q6M 02/17/17 [History] Oxycodone HCl/Acetaminophen [Percocet 5-325 mg Tablet] 1 tab PO Q6H PRN [History] Albuterol Sulfate [Albuterol Inhaler] 2 puff IH Q6HR PRN #1 hfa.aer.ad 02/23/17 [Rx] Cefepime HCl/Dextrose, Iso-Osm [Cefepime 2 gm Injection] 2 gm IV QMWF 35 Days froz.piggy 02/23/17 [Rx] Darbepoetin [Aranesp] 40 mcg SQ QWEEK syringe 02/23/17 [Rx] Folic Acid 1 mg PO DAILY tablet 02/23/17 [Rx] Saccharomyces Boulardii [Florastor] 250 mg PO BID #80 capsule 02/23/17 [Rx] Vancomycin [Vancocin] 500 each IV QMWF 35 Days vial 02/23/17 [Rx] hydrALAZINE [HydrALAZINE] 25 mg PO TID #90 tablet 02/23/17 [Rx] Metoprolol [Lopressor] 12.5 mg PO BID 03/09/17 [History] 3 Allergy/AdvReac Type Severity Reaction Status Date / Time Penicillins [PCN] Allergy Hives Verified 03/09/17 08:37 Palliative Care-Exam - Constitutional Vitals: Temp Pulse Resp BP Pulse Ox 98.1 F 72 19 158/56 98 03/10/17 08:10 03/10/17 07:40 03/10/17 08:10 03/10/17 08:10 03/10/17 03:02 - Head Head Exam: Present: atraumatic, normocephalic - Neck Neck exam: Absent: tenderness, thyromegaly - Expanded Neck Exam Neck exam: Absent: anterior neck swelling, tenderness - Respiratory Respiratory exam: Present: CTAB. Absent: stridor, wheezes - Cardiovascular Cardiovascular exam: Present: RRR - GI/Abdominal Exam GI/Abdominal exam: Present: diminished bowel sounds, soft - Neurological Exam Neurological exam: Present: oriented X3 - Psychiatric Psychiatric exam: Present: depressed - Skin Skin exam: Present: dry, intact Internal Medicine - CN: Reslt - Labs CBC & Chem 7: 03/09/17 09:33 03/10/17 09:09 Labs: BMP 03/09/17 03/10/17 03/10/17 17:05 03:14 09:09 Sodium 137 Potassium 5.5 H 5.7 H 3.5 D Chloride 100 Carbon Dioxide 21 BUN 48 H Creatinine 6.56 H Glucose 106 H Calcium 7.9 L - ABG Interpretation ABG results: ABG ABG pH 7.44 pH Units (7.32-7.45) 03/09/17 10:56 ABG pCO2 38 mmHg (35-45) 03/09/17 10:56 ABG pO2 94 mmHg (85-104) 03/09/17 10:56 ABG O2 Saturation 98 % (95-98) 03/09/17 10:56 PT/INR, D-dimer PT 13.5 Seconds (9.4-12.1) H 03/09/17 06:24 Consult Discharge Plan - Plan Referrals: Mason Mixon MD [Primary Care Provider] - 03/19/17 10:15 am () Palliative Quality Palliative Quality: Screen for Code Status: Yes, Screen for Goals of Care: Yes, Screen for Pain: No, If Pain Regimen Started, Initiate Bowel Regimen: No, Screen for Nausea/Vomitting: No Code Status: DNR-DNI <Kane Brown - Last Filed: 03/10/17 11:17> Date of Encounter: 03/10/17 Palliative-CN HPI - Data of Consult Requesting Physician: Chandra Rodriguez Primary Care Provider: Mason Mixon MD - Consult Narrative History of present illness: Ms. Moore is a 71 year old female CC: Chandra Pizano-Casey Palliative Care-Exam - Constitutional Vitals: Temp Pulse Resp BP Pulse Ox 98.1 F 72 19 118/36 98 03/10/17 08:10 03/10/17 07:40 03/10/17 08:10 03/10/17 11:10 03/10/17 03:02 Internal Medicine - CN: Reslt - Labs CBC & Chem 7: 03/09/17 09:33 03/10/17 09:09 Labs: BMP 03/09/17 03/10/17 03/10/17 17:05 03:14 09:09 Sodium 137 Potassium 5.5 H 5.7 H 3.5 D Chloride 100 Carbon Dioxide 21 BUN 48 H Creatinine 6.56 H Glucose 106 H Calcium 7.9 L - ABG Interpretation ABG results: ABG ABG pH 7.44 pH Units (7.32-7.45) 03/09/17 10:56 ABG pCO2 38 mmHg (35-45) 03/09/17 10:56 ABG pO2 94 mmHg (85-104) 03/09/17 10:56 ABG O2 Saturation 98 % (95-98) 03/09/17 10:56 PT/INR, D-dimer PT 13.5 Seconds (9.4-12.1) H 03/09/17 06:24 - Attending Attestation I examined this patient and my medical decision-making was reviewed with the Resident Physician. I agree with the documented findings, disposition and treatment plan as described except to the extent set forth below. Palliative Quality Code Status: 03/10/17 09:52 DNR [Resuscitation Status: Active] [RES] Routine Comment: Resuscitation Status: [id number]
[2017-03-10] MEDS ORDERED: 0.9 % Sodium Chloride 2,000 ML ONE (11:22)
[2017-03-10 11:42] LABS: Acinetobacter baumannii by PCR Not Detected (Not Detect); Candida albicans by PCR Not Detected (Not Detect); Candida glabrata by PCR Not Detected (Not Detect); Candida krusei by PCR Not Detected (Not Detect); Candida parapsilosis by PCR Not Detected (Not Detect); Candida tropicalis by PCR Not Detected (Not Detect); Enterococcus by PCR Not Detected (Not Detect); Escherichia coli by PCR Not Detected (Not Detect); Klebsiella oxytoca by PCR Not Detected (Not Detect); Klebsiella pneumoniae by PCR Not Detected (Not Detect); Pseudomonas aeruginosa by PCR Not Detected (Not Detect); Serratia marcescens by PCR Not Detected (Not Detect); Staphylococcus aureus by PCR Not Detected (Not Detect); Streptococcus agalactiae(B)PCR Not Detected (Not Detect); Streptococcus by PCR Not Detected (Not Detect); Streptococcus pneumoniae PCR Not Detected (Not Detect); Streptococcus pyogenes (A) PCR Not Detected (Not Detect); mecA Methicillin-Resist Gene ***DETECTED*** (Not Detect)
[2017-03-10] MEDS: Meropenem 500 MG in Water for inj. (sterile) 10 ML IVP SCH (12:31)
[2017-03-10] MEDS: predniSONE 5 MG TABLET PO SCH ×2 (12:31→21:52)
[2017-03-10] MEDS: Aspirin Enteric Coated 81 MG Tablet PO SCH (12:31)
[2017-03-10] MEDS: CycloSPORINE, Mod (Neoral) 25 MG CAPSULE PO SCH ×2 (12:31→21:52)
[2017-03-10] MEDS: Pantoprazole 40 MG VIAL IVP SCH (12:33)
[2017-03-10] MEDS: (Saccharomyces Boulardii [Florastor] 250 MG) PO SCH (12:33)
[2017-03-10] MEDS: Fluconazole 40 MG/ML UDC PO SCH (14:25)
--- NOTE | 2017-03-10 15:46 | Internal Med Progress Note ---
<Angelito Meade - Last Filed: 03/10/17 16:23> Date of Encounter: 03/10/17 Time of Encounter: 01:15 - Assessment and plan (1) Sepsis Current Visit: Yes Status: Acute Assessment and plan: G+c blood culture preliminary Possible source R toe soft tissue/osteo On vanc/levoquin/meropenem ID consulted Qualifiers: Sepsis type: sepsis due to unspecified organism Qualified Code(s): A41.9 - Sepsis, unspecified organism (2) Immunosuppressed status Current Visit: Yes Status: Acute Assessment and plan: Hx kidney and pancreas transplant Holding cyclosporine Hydrocortisone 100mg IV q6 (3) Pleural effusion, left Current Visit: Yes Status: Acute Assessment and plan: Possible volume overload, monitoring after dialysis currently clear to auscultation bilat, symmetrical chest rise (4) UTI (urinary tract infection) Current Visit: Yes Status: Acute Assessment and plan: Growing yeast Diflucan scheduled 200mg q48 + 100mg q48 alternating for renal dosing. Qualifiers: Urinary tract infection type: site unspecified Hematuria presence: without hematuria Qualified Code(s): N39.0 - Urinary tract infection, site not specified (5) ESRD (end stage renal disease) Current Visit: Yes Status: Chronic Assessment and plan: Dialysis this morning. Patient perception as detailed in HPI. Palliative and Nephrology on care team. (6) Osteomyelitis Current Visit: No Status: Acute Qualifiers: Osteomyelitis type: unspecified type Osteomyelitis location: foot Laterality: right Qualified Code(s): M86.9 - Osteomyelitis, unspecified - Subjective Interval history: Ms. Moore is a 71 year old female with past medical history of ESRD with dialysis MWF, s/p renal/pancreas transplant on cyclosporine, osteomyelitis diagnosed 02/03/17, picc line vanc/levoquin infusion, admitted for altered mental status and sepsis workup. Pt was brought to [facility] from dialysis Thursday due to hypotension, hypothermia, and altered mentation--symptoms occurred prior to dialysis administration. Father and son historian for dialysis history: Renal transplant [address] Newell, transplant surgeon/ground worker of [facility]. Currently sees Dr. Morales , Nephrology. 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 Did well on dialysis until a few months ago with increasing number of falls, first time missing dialysis was last week Thursday and Thursday when patient did not feel desire to go to dialysis. Direct patient conversation: Patient speaks in short phrases. Knows that missing dialysis means organ decline/, endorses that she went to dialysis at the insistence of her family rather than a desire to live. - Constitutional Vitals: Temp Pulse Resp BP Pulse Ox 97.4 F L 72 15 146/44 98 03/10/17 12:10 03/10/17 07:40 03/10/17 12:10 03/10/17 12:10 03/10/17 03:02 General appearance: Present: A&O X 3, loss of weight - Head Head exam: Present: atraumatic - Neck Neck exam general surgery: Present: full ROM. Absent: thyromegaly - Respiratory Respiratory exam: Absent: accessory muscle use, wheezes - Cardiovascular Cardiovascular exam: Present: RRR, +S1, +S2. Absent: systolic murmur - GI/Abdominal GI/Abdominal exam: Present: soft, no peritoneal signs. Absent: tenderness - Expanded Lower Extremities Exam Foot/Toe exam: Present: deformity (R foot bunyon; R foot 1st digit excoriation with ulceration) - Neurological Exam Neurological exam: Present: no focal deficits. Absent: facial droop Internal Medicine: Result - Labs CBC & Chem 7: 03/09/17 09:33 03/10/17 09:09 Labs: BMP 03/09/17 03/10/17 03/10/17 17:05 03:14 09:09 Sodium 137 Potassium 5.5 H 5.7 H 3.5 D Chloride 100 Carbon Dioxide 21 BUN 48 H Creatinine 6.56 H Glucose 106 H Calcium 7.9 L - ABG Interpretation ABG results: ABG ABG pH 7.44 pH Units (7.32-7.45) 03/09/17 10:56 ABG pCO2 38 mmHg (35-45) 03/09/17 10:56 ABG pO2 94 mmHg (85-104) 03/09/17 10:56 ABG O2 Saturation 98 % (95-98) 03/09/17 10:56 PT/INR, D-dimer PT 13.5 Seconds (9.4-12.1) H 03/09/17 06:24 - VTE Documentation of Mechanical Device: Intermittent pneumatic compression device Consult Discharge Plan - Plan Referrals: Mason Mixon MD [Primary Care Provider] - 03/19/17 10:15 am () <Augusto Ruby - Last Filed: 03/10/17 20:27> Date of Encounter: 03/10/17 - Constitutional Vitals: Temp Pulse Resp BP Pulse Ox 97.8 F 66 16 161/82 95 03/10/17 19:41 03/10/17 19:41 03/10/17 19:41 03/10/17 19:41 03/10/17 19:41 Internal Medicine: Result - Labs CBC & Chem 7: 03/09/17 09:33 03/10/17 09:09 Labs: BMP 03/10/17 03/10/17 03:14 09:09 Sodium 137 Potassium 5.7 H 3.5 D Chloride 100 Carbon Dioxide 21 BUN 48 H Creatinine 6.56 H Glucose 106 H Calcium 7.9 L - ABG Interpretation ABG results: ABG ABG pH 7.44 pH Units (7.32-7.45) 03/09/17 10:56 ABG pCO2 38 mmHg (35-45) 03/09/17 10:56 ABG pO2 94 mmHg (85-104) 03/09/17 10:56 ABG O2 Saturation 98 % (95-98) 03/09/17 10:56 PT/INR, D-dimer PT 13.5 Seconds (9.4-12.1) H 03/09/17 06:24 - Attending Attestation I examined this patient and my medical decision-making was reviewed with the Resident Physician, Dr. Angelito Meade. I agree with the documented findings, disposition and treatment plan as described except to the extent set forth below. I have independently obtained history and examined the patient and my findings are summarized below: Patient appears withdrawn, awake, in no acute distress. Plan: Consult palliative care service to address goals of care. Continue with hemodialysis. Increase levothyroxine to 50 g. Change antibiotics to cefepime. Add Diflucan for fungal UTI.
[2017-03-10] MEDS ORDERED: Perit. Dialysis with Dex 1.5 % 2,000 ML PERITONEAL SCH (16:00)
[2017-03-10] MEDS ORDERED: Vancomycin 500 MG in D5% in Water (Mini-Bag+) 100 ML IVPB ONE (17:00)
[2017-03-11] MEDS: Hydrocortisone Sodium Succ 100 MG/2 ML VIAL IVP SCH ×3 (00:56→15:41)
[2017-03-11] MEDS ORDERED: traMADol 50 MG TABLET PO ONE (02:35)
[2017-03-11 05:05] LABS: Hematocrit 25.1 % (35.3-44.9); Hemoglobin 7.9 g/dL (11.5-15.4); Immature Granulocytes % 0.8 % (0-4); Lymphocytes # 0.6 K/mcL (0.6-4.6); Lymphocytes % 8.6 %; Mean Corpuscular HGB Conc 31.5 g/dL (31.6-35.5); Mean Corpuscular Hemoglobin 30.4 pg (28.0-33.3); Mean Corpuscular Volume 96.5 fL (83.0-100.0); Mean Platelet Volume 8.8 fL (9.4-12.4); Monocytes # 0.3 K/mcL (0.0-1.3); Neutrophils # 5.7 K/mcL (1.6-8.9); Platelet Count 156 K/mcL (140-400); Red Cell Distribution Width 17.2 % (11.5-14.5); Segmented Neutrophils % 86.6 %
[2017-03-11 05:47] LABS: Calcium 7.6 mg/dL (8.6-10.8); Potassium 4.1 mEq/L (3.5-4.5)
[2017-03-11 06:08] LABS: Triiodothyronine (T3) Free 1.04 pg/mL (1.71-3.71)
[2017-03-11] MEDS ORDERED: 0.9 % Sodium Chloride 250 ML IVC PRN (08:13)
--- NOTE | 2017-03-11 09:40 | Internal Med Progress Note ---
Date of Encounter: 03/11/17 Time of Encounter: 09:39 - Assessment and plan (1) Sepsis Current Visit: Yes Status: Acute Qualifiers: Sepsis type: sepsis due to unspecified organism Qualified Code(s): A41.9 - Sepsis, unspecified organism (2) Immunosuppressed status Current Visit: Yes Status: Acute (3) Pleural effusion, left Current Visit: Yes Status: Acute (4) UTI (urinary tract infection) Current Visit: Yes Status: Acute Qualifiers: Urinary tract infection type: site unspecified Hematuria presence: without hematuria Qualified Code(s): N39.0 - Urinary tract infection, site not specified (5) ESRD (end stage renal disease) Current Visit: Yes Status: Chronic (6) Osteomyelitis Current Visit: No Status: Acute Qualifiers: Osteomyelitis type: unspecified type Osteomyelitis location: foot Laterality: right Qualified Code(s): M86.9 - Osteomyelitis, unspecified - Subjective Interval history: Ms. Moore is a 71 year old female with past medical history of ESRD with dialysis MWF, s/p renal/pancreas transplant on cyclosporine, osteomyelitis diagnosed 02/03/17, picc line vanc/levoquin infusion, admitted for altered mental status and sepsis workup. Pt was brought to [facility] ER from dialysis Thursday due to hypotension, hypothermia, and altered mentation--symptoms occurred prior to dialysis administration. Father and son historian for dialysis history: Renal transplant [address] Newell, transplant surgeon/clinical unit coordinator of [facility]. Currently sees Dr. Morales , Nephrology. 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 Did well on dialysis until a few months ago with increasing number of falls, first time missing dialysis was last week Thursday and Thursday when patient did not feel desire to go to dialysis. Direct patient conversation: Patient speaks in short phrases. Knows that missing dialysis means organ decline/, endorses that she went to dialysis at the insistence of her family rather than a desire to live. - Constitutional Vitals: Temp Pulse Resp BP Pulse Ox 97.2 F L 66 17 144/47 95 03/11/17 07:04 03/11/17 07:04 03/11/17 07:04 03/11/17 07:04 03/11/17 07:04 General appearance: Present: A&O X 3, loss of weight Internal Medicine: Result - Labs CBC & Chem 7: 03/11/17 04:34 03/11/17 04:34 Labs: Short CBC 03/11/17 Range/Units 04:34 WBC 6.5 (4.3-11.1) K/mcL Hgb 7.9 L (11.5-15.4) g/dL Hct 25.1 L (35.3-44.9) % Plt Count 156 (140-400) K/mcL Neutrophils # 5.7 (1.6-8.9) K/mcL BMP 03/11/17 04:34 Sodium 136 Potassium 4.1 Chloride 100 Carbon Dioxide 23 BUN 22 H D Creatinine 3.48 H Glucose 117 H Calcium 7.6 L - ABG Interpretation ABG results: ABG ABG pH 7.44 pH Units (7.32-7.45) 03/09/17 10:56 ABG pCO2 38 mmHg (35-45) 03/09/17 10:56 ABG pO2 94 mmHg (85-104) 03/09/17 10:56 ABG O2 Saturation 98 % (95-98) 03/09/17 10:56 PT/INR, D-dimer PT 13.5 Seconds (9.4-12.1) H 03/09/17 06:24 - VTE Documentation of Mechanical Device: Intermittent pneumatic compression device Consult Discharge Plan - Plan Referrals: Mason Mixon MD [Primary Care Provider] - 03/19/17 10:15 am ()
--- NOTE | 2017-03-11 09:42 | Nephrology Progress Note ---
Date of Encounter: 03/11/17 Time of Encounter: 09:40 - Assessment and Plan (1) ESRD (end stage renal disease) Current Visit: Yes Status: Chronic ESRD, on dialysis MWF patient has refused 2/3 dialysis sessions last week. Plan: agree with palliative care consult to discuss goals of care. continue dialysis today will try to set up family meeting to discuss goals of care from nephrology standpoint. (2) Anemia Current Visit: No Status: Acute baseline Hg around 10 Etiology likely secondary to not receiving epo because of two missed dialysis sessions last week. B12: 931 Folate: 18.8 iron panel reviewed. Plan: continue with epo during dialysis Qualifiers: Anemia type: other cause Other causes of anemia: other cause, not classified Qualified Code(s): D64.89 - Other specified anemias (3) TSH elevation Current Visit: No Status: Acute TSH 27.2, consider adjusting synthroid dose (4) UTI (urinary tract infection) Current Visit: Yes Status: Acute per primary Qualifiers: Urinary tract infection type: site unspecified Hematuria presence: without hematuria Qualified Code(s): N39.0 - Urinary tract infection, site not specified (5) Osteomyelitis Current Visit: Yes Status: Acute continue with antibiotics during dialysis sessions. Qualifiers: Osteomyelitis type: unspecified type Osteomyelitis location: unspecified site Qualified Code(s): M86.9 - Osteomyelitis, unspecified (6) Pleural effusion, left Current Visit: Yes Status: Acute likely secondary to volume overload. (7) Sepsis Current Visit: Yes Status: Acute source of infection unspecified at this point. blood cultures: GPC Qualifiers: Sepsis type: sepsis due to unspecified organism Qualified Code(s): A41.9 - Sepsis, unspecified organism Subjective Principal diagnosis: esrd Interval history: 71F evaluated at bedside during her dialysis session today. patient admits to nausea. she denies vomiting, diarrhea, fever, chills, chest pain, shortness of breath. she denies any new problems today. Objective - Vital Signs Vital signs: Vital Signs Temp Pulse Resp BP Pulse Ox 03/11/17 07:04 97.2 F L 66 17 144/47 95 03/11/17 04:52 97.9 F 65 16 148/65 96 03/10/17 23:38 97.7 F 65 16 151/75 96 03/10/17 19:41 97.8 F 66 16 161/82 95 03/10/17 16:43 98.0 F 68 20 140/68 93 03/10/17 12:10 97.4 F L 15 146/44 03/10/17 11:40 117/43 03/10/17 11:10 118/36 03/10/17 10:40 122/34 03/10/17 10:10 135/59 Intake and Output 03/10/17 03/11/17 03/11/17 23:59 07:59 15:59 Intake Total 0 / 0 0 / 0 360 / 360 Output Total 0 / 0 Balance 0 / 0 0 / 0 360 / 360 Intake: Oral 0 / 0 0 / 0 360 / 360 Output: Urine 0 / 0 Other: Meal Breakfast Percent of Meal Consumed 100% Weight 54.1 kg Blood Glucose* 235 139 - General Appearance General appearance: Present: well-developed, well-nourished, appears started age , chronically ill Neck: Present: no JVD Respiratory: Present: clear Cardiology: Present: no murmurs, no rub, no gallops, no edema, regular rate, regular rhythm, normal S1, normal S2 Dialysis Vascular Access: Arteriovenous Fistula Gastrointestinal: Present: normoactive bowel sounds, no tenderness, no guarding , no organomegaly, no masses Integumentary: Present: no rash Additional Comments: dry skin, especially in bilateral lower extremities. Neurologic: Present: alert and oriented x3 Musculoskeletal: Present: no deformities, no erythema Psychiatric: Present: depressed - Lab 03/11/17 04:34 03/11/17 04:34 Most recent lab results ABG pH 7.44 pH Units (7.32-7.45) 03/09/17 10:56 ABG pCO2 38 mmHg (35-45) 03/09/17 10:56 ABG pO2 94 mmHg (85-104) 03/09/17 10:56 ABG HCO3 25 mEq/L (21-27) 03/09/17 10:56 ABG O2 Saturation 98 % (95-98) 03/09/17 10:56 Calcium 7.6 mg/dL (8.6-10.8) L 03/11/17 04:34 Magnesium 1.9 mg/dL (1.6-2.6) 03/10/17 03:14 - VTE Documentation of Mechanical Device: Intermittent pneumatic compression device Consult Discharge Plan - Plan Referrals: Mason Mixon MD [Primary Care Provider] - 03/19/17 10:15 am ()
--- NOTE | 2017-03-11 10:46 | Internal Med Progress Note ---
<Angelito Meade - Last Filed: 03/11/17 11:40> Date of Encounter: 03/11/17 Time of Encounter: 10:00 - Assessment and plan (1) Sepsis Current Visit: Yes Status: Acute Assessment and plan: G+c blood culture preliminary - positive for MRSA Possible source R toe soft tissue/osteo On vanc/levoquin/cefepime ID consulted Qualifiers: Sepsis type: sepsis due to unspecified organism Qualified Code(s): A41.9 - Sepsis, unspecified organism (2) Immunosuppressed status Current Visit: Yes Status: Acute Assessment and plan: Hx kidney and pancreas transplant Holding cyclosporine Hydrocortisone 100mg IV q6, being tapered. (3) Pleural effusion, left Current Visit: Yes Status: Acute Assessment and plan: Likely volume overload, monitoring after dialysis x2 Continues to have lung cazares clear to auscultation bilat, symmetrical chest rise (4) UTI (urinary tract infection) Current Visit: Yes Status: Acute Assessment and plan: Growing yeast Diflucan scheduled 200mg q48 + 100mg q48 alternating for renal dosing. Qualifiers: Urinary tract infection type: site unspecified Hematuria presence: without hematuria Qualified Code(s): N39.0 - Urinary tract infection, site not specified (5) ESRD (end stage renal disease) Current Visit: Yes Status: Chronic Assessment and plan: Dialysis x2 this AM Patient perception as detailed in HPI. Unchanged. Palliative and Nephrology on care team. Dr. Rafaela Calderon organizing family meeting regarding goals of care. (6) Osteomyelitis Current Visit: No Status: Acute Assessment and plan: IVP Vanc/Levoquin/Meropenem Osteomyelitis abx initiated 02/03/17; on vanc/levo/cefepime Qualifiers: Osteomyelitis type: unspecified type Osteomyelitis location: foot Laterality: right Qualified Code(s): M86.9 - Osteomyelitis, unspecified (7) Iron (Fe) deficiency anemia Current Visit: Yes Status: Acute Assessment and plan: check levels, supplement Qualifiers: Iron deficiency anemia type: other iron deficiency Qualified Code(s): D50.8 - Other iron deficiency anemias - Subjective Interval history: Ms. Moore seen while in dialysis; she states she feels better/more comfortable than compared to day 1, choice regarding dialysis and goals of care remain the same. ROS: +weakness, denies dyspnea, chest pain, foot pain. - Constitutional Vitals: Temp Pulse Resp BP Pulse Ox 97.2 F L 66 17 144/47 95 03/11/17 07:04 03/11/17 07:04 03/11/17 07:04 03/11/17 07:04 03/11/17 07:04 General appearance: Present: A&O X 3, no acute distress, loss of weight - Head Head exam: Present: atraumatic - Neck Neck exam general surgery: Present: full ROM. Absent: lymphadenopathy - Respiratory Respiratory exam: Present: CTAB. Absent: rhonchi Additional comments: normal chest wall excursion - Cardiovascular Cardiovascular exam: Present: RRR, +S1, +S2 - Extremities Exam Extremities exam: Present: warm. Absent: calf tenderness - Expanded Lower Extremities Exam Foot/Toe exam: Present: abrasion (R toe, scabbed ulcer) Internal Medicine: Result - Labs CBC & Chem 7: 03/11/17 04:34 03/11/17 04:34 Labs: Short CBC 03/11/17 Range/Units 04:34 WBC 6.5 (4.3-11.1) K/mcL Hgb 7.9 L (11.5-15.4) g/dL Hct 25.1 L (35.3-44.9) % Plt Count 156 (140-400) K/mcL Neutrophils # 5.7 (1.6-8.9) K/mcL BMP 03/11/17 04:34 Sodium 136 Potassium 4.1 Chloride 100 Carbon Dioxide 23 BUN 22 H D Creatinine 3.48 H Glucose 117 H Calcium 7.6 L - ABG Interpretation ABG results: ABG ABG pH 7.44 pH Units (7.32-7.45) 03/09/17 10:56 ABG pCO2 38 mmHg (35-45) 03/09/17 10:56 ABG pO2 94 mmHg (85-104) 03/09/17 10:56 ABG O2 Saturation 98 % (95-98) 03/09/17 10:56 PT/INR, D-dimer PT 13.5 Seconds (9.4-12.1) H 03/09/17 06:24 - VTE Documentation of Mechanical Device: Intermittent pneumatic compression device Consult Discharge Plan - Plan Referrals: Mason Mixon MD [Primary Care Provider] - 03/19/17 10:15 am () <Ducu,Augusto - Last Filed: 03/11/17 18:11> Date of Encounter: 03/11/17 - Constitutional Vitals: Temp Pulse Resp BP Pulse Ox 98.6 F 69 17 173/78 99 03/11/17 16:07 03/11/17 16:07 03/11/17 16:07 03/11/17 16:07 03/11/17 16:07 Internal Medicine: Result - Labs CBC & Chem 7: 03/11/17 04:34 03/11/17 04:34 Labs: Short CBC 03/11/17 Range/Units 04:34 WBC 6.5 (4.3-11.1) K/mcL Hgb 7.9 L (11.5-15.4) g/dL Hct 25.1 L (35.3-44.9) % Plt Count 156 (140-400) K/mcL Neutrophils # 5.7 (1.6-8.9) K/mcL BMP 03/11/17 04:34 Sodium 136 Potassium 4.1 Chloride 100 Carbon Dioxide 23 BUN 22 H D Creatinine 3.48 H Glucose 117 H Calcium 7.6 L - ABG Interpretation ABG results: ABG ABG pH 7.44 pH Units (7.32-7.45) 03/09/17 10:56 ABG pCO2 38 mmHg (35-45) 03/09/17 10:56 ABG pO2 94 mmHg (85-104) 03/09/17 10:56 ABG O2 Saturation 98 % (95-98) 03/09/17 10:56 PT/INR, D-dimer PT 13.5 Seconds (9.4-12.1) H 03/09/17 06:24 - Attending Attestation I examined this patient and my medical decision-making was reviewed with the Resident Physician, Dr. Angelito Meade. I agree with the documented findings, disposition and treatment plan as described except to the extent set forth below. I have independently obtained history and examined the patient and my findings are summarized below: She reports feeling optimistic and in good spirits. She reports good appetite. Denies cough and chest pain. Blood cultures were positive for gram-positive cocci. Source is likely osteomyelitis to home. Continue broad-spectrum IV antibiotic. Continue hemodialysis. Follow-up with ID. Patient states firmly to me today in the presence of her and she wants to continue hemodialysis to see her grandchildren grow up into meet her great grandchildren.
[2017-03-11] MEDS ORDERED: Fluconazole 100 MG TABLET PO SCH (11:15)
[2017-03-11] MEDS ORDERED: 0.9 % Sodium Chloride 2,000 ML ONE (11:17)
[2017-03-11] MEDS: CycloSPORINE, Mod (Neoral) 25 MG CAPSULE PO SCH ×2 (13:08→20:30)
[2017-03-11] MEDS: Aspirin Enteric Coated 81 MG Tablet PO SCH (13:09)
[2017-03-11] MEDS: predniSONE 5 MG TABLET PO SCH ×2 (13:09→20:30)
[2017-03-11] MEDS: Lactobacillus 1 EACH CAP.SPRINK PO SCH ×2 (13:09→20:30)
[2017-03-11] MEDS ORDERED: Vancomycin 500 MG in D5% in Water (Mini-Bag+) 100 ML IVPB ONE ×2 (14:00→15:00)
[2017-03-11] MEDS ORDERED: Cefepime HCl 2,000 MG in Water for inj. (sterile) 20 ML IVP SCH (18:00)
[2017-03-11] MEDS: traMADol 50 MG TABLET PO PRN (18:24)
[2017-03-12] MEDS: Hydrocortisone Sodium Succ 100 MG/2 ML VIAL IVP SCH ×3 (00:43→17:28)
[2017-03-12] MEDS: traMADol 50 MG TABLET PO PRN ×2 (01:24→22:24)
[2017-03-12] MEDS ORDERED: Melatonin 3 MG TABLET PO PRN (04:46)
[2017-03-12 05:16] LABS: Calcium 7.8 mg/dL (8.6-10.8); Potassium 3.8 mEq/L (3.5-4.5)
[2017-03-12] MEDS: CycloSPORINE, Mod (Neoral) 25 MG CAPSULE PO SCH ×2 (09:13→20:15)
[2017-03-12] MEDS: predniSONE 5 MG TABLET PO SCH ×2 (09:13→20:16)
[2017-03-12] MEDS: Lactobacillus 1 EACH CAP.SPRINK PO SCH ×2 (09:14→20:15)
[2017-03-12] MEDS: hydrALAZINE 25 MG TABLET PO SCH ×3 (09:14→20:16)
[2017-03-12] MEDS: Aspirin Enteric Coated 81 MG Tablet PO SCH (09:15)
--- NOTE | 2017-03-12 10:54 | Nephrology Progress Note ---
Date of Encounter: 03/12/17 Time of Encounter: 10:51 - Assessment and Plan (1) ESRD on dialysis Current Visit: Yes Status: Acute Plan for HD tomorrow Family meetings to continue re: goals of care Continue renal diet Avoid nephrotoxins if possible (2) Osteomyelitis Current Visit: Yes Status: Acute per primary team Qualifiers: Osteomyelitis type: unspecified type Osteomyelitis location: unspecified site Qualified Code(s): M86.9 - Osteomyelitis, unspecified (3) Anemia Current Visit: No Status: Acute No CBC yet today Continue epo with dialysis Qualifiers: Anemia type: other cause Other causes of anemia: other cause, not classified Qualified Code(s): D64.89 - Other specified anemias Subjective Principal diagnosis: esrd Interval history: Patient seen and examined. States she is feeling ok Objective - Vital Signs Vital signs: Vital Signs Temp Pulse Resp BP Pulse Ox 03/12/17 09:10 97.5 F L 69 16 201/63 97 03/12/17 07:24 97.5 F L 69 16 201/63 97 03/12/17 04:09 98.0 F 69 14 176/73 99 03/12/17 00:24 98.2 F 68 15 164/44 100 03/11/17 20:50 70 182/63 03/11/17 19:21 97.3 F L 66 16 179/74 100 03/11/17 16:07 98.6 F 69 17 173/78 99 03/11/17 11:55 97.3 F L 17 143/59 03/11/17 11:45 134/51 03/11/17 11:15 129/53 Intake and Output 03/11/17 03/12/17 03/12/17 23:59 07:59 15:59 Intake Total 0 / 0 0 / 0 Balance 0 / 0 0 / 0 Intake: Oral 0 / 0 0 / 0 Other: Meal applesauce Percent of Meal Consumed 100% Stool Size Copious Stool Consistency soft Stool Color Brown # Urine Diapers 0 # Bowel Movement Diapers 1 Weight 54.6 kg Blood Glucose* 239 137 Patient Weight 03/12/17 23:59 Weight 54.6 kg - General Appearance General appearance: Present: cachectic, chronically ill, frail EENT: Present: ATNC, mucous membranes moist, hearing intact, vision intact Neck: Present: supple Cardiology: Present: no edema, normal S1, normal S2 Dialysis Vascular Access: Arteriovenous Fistula Gastrointestinal: Present: no tenderness, no guarding Integumentary: Present: warm and dry Neurologic: Present: alert and oriented x3 Psychiatric: Present: mood/affect appropriate, cooperative (appears sad, answers questions but otherwise is quiet) - Lab 03/11/17 04:34 03/12/17 04:20 Most recent lab results ABG pH 7.44 pH Units (7.32-7.45) 03/09/17 10:56 ABG pCO2 38 mmHg (35-45) 03/09/17 10:56 ABG pO2 94 mmHg (85-104) 03/09/17 10:56 ABG HCO3 25 mEq/L (21-27) 03/09/17 10:56 ABG O2 Saturation 98 % (95-98) 03/09/17 10:56 Calcium 7.8 mg/dL (8.6-10.8) L 03/12/17 04:20 Magnesium 1.9 mg/dL (1.6-2.6) 03/10/17 03:14 - VTE Documentation of Mechanical Device: Intermittent pneumatic compression device Consult Discharge Plan - Plan Referrals: Mason Mixon MD [Primary Care Provider] - 03/19/17 10:15 am ()
[2017-03-12] MEDS: Fluconazole 40 MG/ML UDC PO SCH (12:21)
--- NOTE | 2017-03-12 13:55 | Internal Med Progress Note ---
<Angelito Meade - Last Filed: 03/12/17 14:16> Date of Encounter: 03/12/17 Time of Encounter: 10:30 - Assessment and plan (1) Streptococcal bacteremia Current Visit: Yes Status: Acute Assessment and plan: Prior to admission patient using picc line with infusion of vanc/levoquin/ meropenem. Currently on IVPB vanc/levoquin/cefepime, no interruption of coverage. Initial blood cultures this admission grew S. warneri. Recent hx osteomyelitis of RLE 1st digit and proximal phalanx; has been on abx since 02/03/17. ID consulted Pending blood culture today x2. (2) Sepsis Current Visit: Yes Status: Acute Assessment and plan: G+c blood culture Staphylococcus warneri. Ordering 2 blood cultures today. Possible source R toe soft tissue/osteo On vanc/levoquin/cefepime ID consulted, plan for seeing patient this afternoon. Qualifiers: Sepsis type: sepsis due to unspecified organism Qualified Code(s): A41.9 - Sepsis, unspecified organism (3) Immunosuppressed status Current Visit: Yes Status: Acute Assessment and plan: Hx kidney and pancreas transplant Cont Cyclosprine On steroid taper; currently solu-cortef 50q12 (4) Pleural effusion, left Current Visit: Yes Status: Acute Assessment and plan: Likely volume overload, monitoring after dialysis x2 Continues to have lung cazares clear to auscultation bilat, symmetrical chest rise (5) UTI (urinary tract infection) Current Visit: Yes Status: Acute Assessment and plan: Growing yeast Diflucan scheduled 200mg q48 + 100mg q48 alternating for renal dosing. ID aware. Qualifiers: Urinary tract infection type: site unspecified Hematuria presence: without hematuria Qualified Code(s): N39.0 - Urinary tract infection, site not specified (6) ESRD (end stage renal disease) Current Visit: Yes Status: Chronic Assessment and plan: Dialysis x2, next this Tuesday 03/13 Patient perception as detailed in HPI changed to wanting dialysis "to see her grandchildren grow up." Palliative and Nephrology on care team. Dr. Rafaela Calderon organizing family meeting regarding goals of care. (7) Osteomyelitis Current Visit: No Status: Acute Assessment and plan: Osteomyelitis abx initiated 02/03/17; on vanc/levo/cefepime. Blood cultures this admission positive for S. warneri. ID consulted; plan to see this afternoon. Qualifiers: Osteomyelitis type: unspecified type Osteomyelitis location: foot Laterality: right Qualified Code(s): M86.9 - Osteomyelitis, unspecified (8) Iron (Fe) deficiency anemia Current Visit: Yes Status: Acute Assessment and plan: check levels, supplement Qualifiers: Iron deficiency anemia type: other iron deficiency Qualified Code(s): D50.8 - Other iron deficiency anemias - Subjective Interval history: Ms. Moore feeling better today, plans to do dialysis tomorrow Thursday as well, choice regarding dialysis and goals of care remain the same. ROS: +fatigue, denies dyspnea, chest pain, foot pain. Family discussion regarding goals of care with Dr. Calderon upcoming. To be determined. - Constitutional Vitals: Temp Pulse Resp BP Pulse Ox 97.9 F 72 17 186/63 97 03/12/17 11:49 03/12/17 11:49 03/12/17 11:49 03/12/17 11:49 03/12/17 12:30 General appearance: Present: A&O X 3, no acute distress, loss of weight - Head Head exam: Present: atraumatic - Neck Neck exam general surgery: Present: full ROM - Respiratory Respiratory exam: Present: CTAB. Absent: rhonchi - Cardiovascular Cardiovascular exam: Present: RRR, +S1, +S2 - Expanded Lower Extremities Exam Lower Leg exam: Present: abrasion (R 1st digit, old lesion) Internal Medicine: Result - Labs CBC & Chem 7: 03/11/17 04:34 03/12/17 04:20 Labs: BMP 03/12/17 04:20 Sodium 135 L Potassium 3.8 Chloride 97 L Carbon Dioxide 30 H BUN 21 H Creatinine 2.93 H Glucose 137 H Calcium 7.8 L - ABG Interpretation ABG results: ABG ABG pH 7.44 pH Units (7.32-7.45) 03/09/17 10:56 ABG pCO2 38 mmHg (35-45) 03/09/17 10:56 ABG pO2 94 mmHg (85-104) 03/09/17 10:56 ABG O2 Saturation 98 % (95-98) 03/09/17 10:56 PT/INR, D-dimer PT 13.5 Seconds (9.4-12.1) H 03/09/17 06:24 - VTE Documentation of Mechanical Device: Intermittent pneumatic compression device Consult Discharge Plan - Plan Referrals: Mason Mixon MD [Primary Care Provider] - 03/19/17 10:15 am () <Augusto Ruby - Last Filed: 03/12/17 17:16> Date of Encounter: 03/12/17 - Constitutional Vitals: Temp Pulse Resp BP Pulse Ox 97.8 F 75 17 183/71 97 03/12/17 16:35 03/12/17 16:35 03/12/17 16:35 03/12/17 16:35 03/12/17 16:35 Internal Medicine: Result - Labs CBC & Chem 7: 03/11/17 04:34 03/12/17 04:20 Labs: BMP 03/12/17 04:20 Sodium 135 L Potassium 3.8 Chloride 97 L Carbon Dioxide 30 H BUN 21 H Creatinine 2.93 H Glucose 137 H Calcium 7.8 L - ABG Interpretation ABG results: ABG ABG pH 7.44 pH Units (7.32-7.45) 03/09/17 10:56 ABG pCO2 38 mmHg (35-45) 03/09/17 10:56 ABG pO2 94 mmHg (85-104) 03/09/17 10:56 ABG O2 Saturation 98 % (95-98) 03/09/17 10:56 PT/INR, D-dimer PT 13.5 Seconds (9.4-12.1) H 03/09/17 06:24 - Attending Attestation I examined this patient and my medical decision-making was reviewed with the Resident Physician, Dr. Angelito Meade. I agree with the documented findings, disposition and treatment plan as described except to the extent set forth below. Continue broad-spectrum IV antibiotics. Continue hemodialysis. Follow-up with IV. I discussed the case with palliative care physician will be following from a distance since the patient and family do not agree on stopping dialysis.
--- NOTE | 2017-03-12 16:43 | Infectious Disease Consult ---
Date of Encounter: 03/12/17 Time of Encounter: 16:37 Assessment and Plan (1) Sepsis Status: Resolved Assessment and plan: The patient had two SIRS criteria on admission, but not sure that these were related to an infectious process. Resolved. Qualifiers: Sepsis type: sepsis due to unspecified organism Qualified Code(s): A41.9 - Sepsis, unspecified organism (2) Osteomyelitis Status: Acute Assessment and plan: Diagnosed 02/03/17. Location: Right great toe. Etiology unclear. Causative organism unclear. Due to the patient's comorbid conditions, Podiatry opted to defer surgical intervention and opted to pursue IV antibiotics only. Repeat ESR and CRP. Continue Cefepime 2 grams IV on HD days only. Continue Vancomycin IV. Pharmacy to dose. Goal trough ~15. Duration of treatment depends on the clinical picture, but likely 6 weeks total. Treat through 04/02/17. Vancomycin can be given at the HD center, but the patient will need continued home IV infusion. Get weekly CBC, BUN/Cr, ESR, and CRP every Thursday. Weekly EPIV care. Follow up with ID 03/31/17 at 0840. No further recommendations from the ID team. Will sign off. Please re-consult if needed. Qualifiers: Osteomyelitis type: unspecified type Osteomyelitis location: unspecified site Qualified Code(s): M86.9 - Osteomyelitis, unspecified (3) Candiduria Status: Acute Assessment and plan: Urine culture grew Sharri albicans. No indication to treat. Discontinue diflucan. (4) Hypoglycemia Status: Acute (5) Bacteremia Status: Acute (6) Pleural effusion, left Status: Acute Assessment and plan: Likely secondary to fluid volume overload from missed dialysis sessions. (7) TSH elevation Status: Acute (8) Physical deconditioning Status: Acute (9) Status post simultaneous kidney and pancreas transplant Status: Acute Assessment and plan: Status post renal/pancreas transplant in 2000. Continue cyclosporine home dose. (10) Immunosuppressed status Status: Acute Assessment and plan: Secondary to cyclosporine. (11) Anemia in chronic kidney disease Status: Chronic Qualifiers: Chronic kidney disease stage: on chronic dialysis Qualified Code(s): N18.6 - End stage renal disease; D63.1 - Anemia in chronic kidney disease; D63.1 - Anemia in chronic kidney disease; Z99.2 - Dependence on renal dialysis; Z99.2 - Dependence on renal dialysis; Z99.2 - Dependence on renal dialysis; Z99.2 - Dependence on renal dialysis (12) ESRD on dialysis Status: Acute Assessment and plan: Nephrology consulted and following. Infectious Disease HPI - Data of Consult Patient: known to practice within the last 3 years Consult date: 03/12/17 Requesting Physician: Augusto Ruby MD Primary Care Provider: Mason Mixon MD - Consult Narrative Reason for consult: Osteomyelitis, bacteremia History of present illness: Ms. Moore is a 71 year old female past medical history of arthritis, A. fib, diabetes, end-stage renal disease on hemodialysis, osteoporosis, osteomyelitis, and immunosuppression status post renal and pancreas transplant 15 years ago currently on cyclosporine. The patient was admitted to the hospital March 09 for hypoglycemia and bradycardia. We are consult on March 12 for recommendations regarding bacteremia and osteomyelitis. Briefly, the patient is a 71-year-old female with a past medical history as stated above. The patient is noted to the infectious disease service as we were following her on an outpatient basis for osteomyelitis of the right great toe. During a previous hospitalization we are asked to evaluate the patient and she was started on IV vancomycin and IV cefepime. Osteomyelitis of the great toe was diagnosed back in February via x-ray. No cultures were obtained and no surgery was pursued due to the patient's high risk and multiple comorbid conditions. The patient had missed the last couple dialysis sessions that she was scheduled for because she didn't want to go. She did attempt to go to dialysis on Thursday, but she was noted to be hypoglycemic with a blood sugar in the 40s and hypotensive and confused. Upon arrival, she was noted to be hypothermic with a rectal temperature of 94.6. She was bradycardic. She had a normal white blood cell count. Her TSH was markedly elevated at 27.245. Chest x- ray showed an increase in the left pleural effusion from a previous hospitalization. Urinalysis was obtained that was positive for [place]. Blood cultures were obtained 2 sets have come back +1 out of 2 sets for coag- negative staph. The patient was started on IV vancomycin, IV cefepime, and IV meropenem. She was admitted to the hospital for further evaluation. Since admission, the patient has been evaluated by the palliative care team and her code status was changed to DNR CCA DO NOT INTUBATE. Her white blood cell count has remained normal. Her temperature has normalized. Her hypoglycemia has resolved. Clinically, the patient is markedly improved. The patient's urine culture did grow Sharri albicans. Really, the patient is on IV cefepime, IV vancomycin, and IV Diflucan. We've been asked to evaluate and make further recommendations. My exam today, the patient endorses a history as stated above. She admits that she had not been going to dialysis because she was tired of being stuck and just did not wanted go anymore. She denies any fevers or chills or rigors at home. She denies any congestion, earache, or sore throat. She denied any chest pain, shortness of breath, or cough. She reports that her appetite was poor, but this improved since being admitted. She denies any nausea or vomiting. She does report some loose stools since being started on IV antibiotics. She denies any abdominal pain or urinary complaints. She does still make urine. She complains of chronic right lower extremity and back pain that is at baseline. She denies any pain at the site of her osteomyelitis. She denies any oral thrush or new skin lesions. The patient lives at home with her . She denies any tobacco, alcohol, or illicit drug use. CC: Augusto Ruby MD Past Med Surg Social Fam HX - Past Medical History Attestation: Yes The following information was validated with the patient. 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) Psychiatric history: no psych history - Past Surgical History Surgical History: appendectomy, herniorrhaphy, other (renal/pancreas transplant 2000) - Social History Smoking Status: Never smoker Smokeless Tobacco Status: No Alcohol use: none Drug use: none Occupational status: unemployed Current living situation: Home, With Family Activity Level: Wheelchair bound Recent Out of Country Travel Within the Last 8 Weeks: No Exposure or Possible Exposure to Illness During Travel: No - Family History Mother Living Status: Hx Family Cardiac Disorders: Yes Infectious Disease-CN:Meds Acetaminophen [Tylenol] 650 mg PO Q4HR PRN 03/02/15 [History] Atorvastatin [Lipitor] 10 mg PO HS 10/30/15 [History] predniSONE [Prednisone] 2.5 mg PO BID 03/02/15 [History] Amiodarone [Cordarone] 200 mg PO DAILY 09/18/15 [History] B Complex W-C No.20/Folic Acid [Nephrocaps Softgel] 1 mg PO DAILY 12/17/15 [ History] Loperamide [Imodium] 2 mg PO Q8H PRN 02/19/16 [History] Oxygen 2 l IH HS 02/19/16 [History] Cyclosporine, Modified [Gengraf] 75 mg PO BID 09/10/16 [History] Aspirin Enteric Coated [Aspirin EC] 81 mg PO DAILY 10/14/16 [History] Ergocalciferol (VITAMIN D2) [Drisdol (50,000 Unit)] 50,000 unit PO FR 10/14/16 [ History] Levothyroxine [Synthroid] 25 mcg PO 0630 10/14/16 [History] Magnesium Hydroxide [Milk of Magnesia] 2,400 mg PO DAILY PRN 10/14/16 [History] Omeprazole [PriLOSEC] 40 mg PO DAILY 10/14/16 [History] Ondansetron ODT [Zofran ODT] 4 mg PO Q8H PRN 10/14/16 [History] Denosumab [Prolia (For Outpatient Infusion)] 60 mg SQ Q6M 02/17/17 [History] Oxycodone HCl/Acetaminophen [Percocet 5-325 mg Tablet] 1 tab PO Q6H PRN [History] Albuterol Sulfate [Albuterol Inhaler] 2 puff IH Q6HR PRN #1 [id number].[email or web address] 02/23/17 [Rx] Cefepime HCl/Dextrose, Iso-Osm [Cefepime 2 gm Injection] 2 gm IV QMWF 35 Days froz.piggy 02/23/17 [Rx] Darbepoetin [Aranesp] 40 mcg SQ QWEEK syringe 02/23/17 [Rx] Folic Acid 1 mg PO DAILY tablet 02/23/17 [Rx] Saccharomyces Boulardii [Florastor] 250 mg PO BID #80 capsule 02/23/17 [Rx] Vancomycin [Vancocin] 500 each IV QMWF 35 Days vial 02/23/17 [Rx] hydrALAZINE [HydrALAZINE] 25 mg PO TID #90 tablet 02/23/17 [Rx] Metoprolol [Lopressor] 12.5 mg PO BID 03/09/17 [History] 3 Allergy/AdvReac Type Severity Reaction Status Date / Time Penicillins [PCN] Allergy Hives Verified 03/09/17 08:37 All systems: reviewed and no additional remarkable complaints except as stated Exam - Constitutional Vitals: Temp Pulse Resp BP Pulse Ox 97.8 F 75 17 183/71 97 03/12/17 16:35 03/12/17 16:35 03/12/17 16:35 03/12/17 16:35 03/12/17 16:35 General appearance: average body habitus, cooperative, no acute distress - Head Head exam: Present: atraumatic, normal inspection, normocephalic - Eye Eye exam: Present: EOMI, normal appearance, PERRL Pupils: Present: normal accommodation - ENT ENT exam: Present: mucous membranes moist - Neck Neck exam: Present: normal inspection - Respiratory Respiratory exam: Present: CTAB. Absent: rales, respiratory distress, rhonchi, wheezes - Cardiovascular Cardiovascular exam: Present: irregular rhythm. Absent: tachycardia - GI/Abdominal GI/Abdominal exam: Present: normal bowel sounds, soft. Absent: distended, tenderness - Extremities Exam Extremities exam: Present: normal inspection. Absent: joint swelling, pedal edema, tenderness - Neurological Exam Neurological exam: Present: alert, oriented X3, no focal deficits - Psychiatric Psychiatric exam: Present: normal affect, normal mood - Skin Skin exam: Present: dry, intact, normal color, warm Infectious Disease CN: Results - Labs CBC & Chem 7: 03/13/17 04:07 03/13/17 04:07 Cultures: Cultures 03/09/17 07:01 Blood Culture - Final Peripheral Venipuncture Staphylococcus warneri 03/09/17 06:56 Urine Culture - Final Urine,Catheterized Sharri albicans 03/09/17 06:59 Blood Culture - Preliminary Peripheral Venipuncture No growth. Serology: Serology 03/09/17 03/09/17 Range/Units 07:01 06:56 Urine Color Yellow (Yellow) Urine Clarity Cloudy A (Clear) Urine pH 8.0 (5.0-8.0) pH Units Ur Specific [place] 1.010 (1.010-1.025) Urine Protein Trace (Neg-Trace) mg/dL Urine Glucose (UA) Normal (Normal) mg/dL Urine Ketones Negative (Negative) mg/dL Urine Blood Moderate H (Negative) Urine Nitrite Negative (Negative) Urine Bilirubin Negative (Negative) Urine Urobilinogen Normal (Normal) mg/dL Ur Leukocyte Esterase Large H (Negative) Urine Microscopic RBC 15-30 H (0-3) per hpf Urine Microscopic WBC TNTC H (0-3) per hpf Ur Squamous Epith Cells Many H (None-Few) per lpf Urine Bacteria Moderate H (None-Few) per hpf Hyaline Casts None Seen (None-Few) per lpf Urine Yeast Many H (None Seen) per hpf Ur Culture Indicated? YES A (NO) A. baumannii (PCR) Not Detected (Not Detect) Sharri albicans (PCR) Not Detected (Not Detect) C. glabrata (PCR) Not Detected (Not Detect) C. krusei (PCR) Not Detected (Not Detect) C. parapsilosis (PCR) Not Detected (Not Detect) C. tropicalis (PCR) Not Detected (Not Detect) Enterobacteriac sp PCR Not Detected (Not Detect) E. cloacae complex PCR Not Detected (Not Detect) Enterococcus sp PCR Not Detected (Not Detect) E. coli (PCR) Not Detected (Not Detect) H. influenzae (PCR) Not Detected (Not Detect) Klebsiella oxytoca PCR Not Detected (Not Detect) Klebsiella pneumoniae Not Detected (Not Detect) List. monocytogenes PCR Not Detected (Not Detect) N. meningitidis (PCR) Not Detected (Not Detect) Proteus species (PCR) Not Detected (Not Detect) Serratia marcescens PCR Not Detected (Not Detect) Staphylococcus sp PCR DETECTED A (Not Detect) Staph aureus (PCR) Not Detected (Not Detect) mecA-Methicil Res Gene DETECTED A (Not Detect) Streptococcus sp PCR Not Detected (Not Detect) Group A Strep DNA Not Detected (Not Detect) Group B Strep (PCR) Not Detected (Not Detect) Strep pneumoniae (PCR) Not Detected (Not Detect) P. aeruginosa (PCR) Not Detected (Not Detect) Alon/B-Vanco Res Genes N/A (Not Detect) KPC (blaKPC) Detect PCR N/A (Not Detect) - VTE Documentation of Mechanical Device: Intermittent pneumatic compression device Consult Discharge Plan - Plan Referrals: Mason Mixon MD [Primary Care Provider] - 03/19/17 10:15 am ()
[2017-03-12] MEDS ORDERED: *HR* Dextrose 50 % in Water (Syg) 50 ML SYRINGE IVP PRN (16:51)
[2017-03-12] MEDS ORDERED: D5% in Water 1,000 ML IVC PRN (16:51)
[2017-03-12] MEDS ORDERED: Dextrose Gel 15 GM PO PRN ×2 (16:51)
[2017-03-12] MEDS: Insulin LISPRO 300 UNITS/3 ML VIAL SQ SCH (17:28)
[2017-03-12 18:02] LABS: Hemoglobin A1C 4.1 %
[2017-03-13] MEDS ORDERED: Acetaminophen 325 MG TABLET PO ONE (02:12)
[2017-03-13 04:14] LABS: Hematocrit 23.6 % (35.3-44.9); Hemoglobin 7.4 g/dL (11.5-15.4); Immature Granulocytes % 0.8 % (0-4); Lymphocytes % 6.8 %; Mean Corpuscular HGB Conc 31.4 g/dL (31.6-35.5); Mean Corpuscular Hemoglobin 30.5 pg (28.0-33.3); Mean Corpuscular Volume 97.1 fL (83.0-100.0); Mean Platelet Volume 9.2 fL (9.4-12.4); Platelet Count 134 K/mcL (140-400); Red Blood Count 2.43 M/mcL (3.82-4.97); Red Cell Distribution Width 16.1 % (11.5-14.5); Segmented Neutrophils % 87.7 %
[2017-03-13 04:15] LABS: Eosinophils % 0.1 %; Lymphocytes # 0.7 K/mcL (0.6-4.6); Monocytes # 0.5 K/mcL (0.0-1.3); Monocytes % 4.6 %; Neutrophils # 9.1 K/mcL (1.6-8.9)
[2017-03-13 04:28] LABS: Calcium 7.9 mg/dL (8.6-10.8); Potassium 3.3 mEq/L (3.5-4.5)
[2017-03-13] MEDS: Hydrocortisone Sodium Succ 100 MG/2 ML VIAL IVP SCH (05:21)
--- NOTE | 2017-03-13 07:24 | Event Note ---
Date of Encounter: 03/13/17 Time of Encounter: 07:15 Conversation with patient's this morning after she awoke. sHe woke easily, and was fully oriented, uses and able to carry on a conversation. He stated that she was pleased with the hospitalist care that she had gotten thus far. He was looking forward to dialysis and then going home. sHe is very hopeful that she will be discharged today. She was also very clear that she has no desire to stop dialysis at this time. Talked about her social network at dialysis that Dr. Russo had described to me yesterday and she confirmed all of this. Patient' s CODE STATUS has now been established, her goals of care clearly to continue her dialysis at least at this time therefore palliative care will go ahead and sign off. Please feel free to reconsult if we can help in any way.
[2017-03-13] MEDS ORDERED: 0.9 % Sodium Chloride 250 ML IVC PRN (07:59)
[2017-03-13] MEDS: predniSONE 5 MG TABLET PO SCH (08:19)
[2017-03-13] MEDS: CycloSPORINE, Mod (Neoral) 25 MG CAPSULE PO SCH (08:20)
[2017-03-13] MEDS: Aspirin Enteric Coated 81 MG Tablet PO SCH (08:20)
[2017-03-13] MEDS: hydrALAZINE 25 MG TABLET PO SCH ×2 (08:20→14:27)
[2017-03-13] MEDS: Lactobacillus 1 EACH CAP.SPRINK PO SCH (08:20)
[2017-03-13] MEDS: Insulin LISPRO 300 UNITS/3 ML VIAL SQ SCH ×2 (08:21→14:17)
--- NOTE | 2017-03-13 09:19 | Nephrology Progress Note ---
Date of Encounter: 03/13/17 Time of Encounter: 09:19 - Assessment and Plan (1) ESRD (end stage renal disease) Current Visit: Yes Status: Chronic HD today for clearance and volume mgt as well as HTN mgt with fluid removal. (2) Immunosuppressed status Current Visit: Yes Status: Chronic Hx of failed renal transplant but she originally had a K-P transplant and so the pancreas is presumably still functional; cont I/S meds. 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 (3) Anemia of chronic disease Current Visit: No Status: Chronic (4) Hypertension Current Visit: No Status: Chronic Fluid removal with HD today. Hold antihypertensive meds till after HD on //. Qualifiers: Hypertension type: secondary to other renal disorders Qualified Code(s): I15.1 - Hypertension secondary to other renal disorders; N28.89 - Other specified disorders of kidney and ureter Subjective Principal diagnosis: esrd Interval history: She reported feeling well and did not affirm N/V/D and voiced having a good appetite. She voiced that she still wants to continue with chronic HD as an outpatient. Objective - Vital Signs Vital signs: Vital Signs Temp Pulse Resp BP Pulse Ox 03/13/17 07:24 97.6 F 69 15 175/79 98 03/13/17 02:44 98.1 F 64 14 186/71 96 03/12/17 22:50 98.1 F 84 14 154/65 97 03/12/17 18:34 98.3 F 72 14 191/79 100 03/12/17 16:35 97.8 F 75 17 183/71 97 03/12/17 12:30 97 03/12/17 11:49 97.9 F 72 17 186/63 97 03/12/17 11:29 97.3 F L 75 16 172/60 100 Intake and Output 03/12/17 03/13/17 03/13/17 23:59 07:59 15:59 Intake Total 0 / 0 0 / 0 360 / 360 Output Total 0 / 0 Balance 0 / 0 0 / 0 360 / 360 Intake: Oral 0 / 0 0 / 0 360 / 360 Output: Urine 0 / 0 Other: Meal Dinner Breakfast Percent of Meal Consumed 50% 100% Stool Size Large Large Stool Consistency liquid soft Stool Color Brown Brown # Voids 1 # Bowel Movements 1 Weight 59.4 kg Blood Glucose* 180 122 Patient Weight 03/13/17 23:59 Weight 59.4 kg - General Appearance General appearance: Present: cachectic, chronically ill, fatigue, frail EENT: Present: ATNC, PERRL, mucous membranes moist Neck: Present: supple Respiratory: Present: clear Cardiology: Present: no edema, normal S1, normal S2 Dialysis Vascular Access: Arteriovenous Fistula (LUE AVF) thrill: Yes bruit: Yes Gastrointestinal: Present: normoactive bowel sounds, no tenderness, no guarding Neurologic: Present: no focal deficit, no asterixis, alert and oriented x3 Musculoskeletal: Present: no deformities, no erythema, no cyanosis Psychiatric: Present: mood/affect appropriate, cooperative - Lab 03/13/17 04:07 03/13/17 04:07 Most recent lab results ABG pH 7.44 pH Units (7.32-7.45) 03/09/17 10:56 ABG pCO2 38 mmHg (35-45) 03/09/17 10:56 ABG pO2 94 mmHg (85-104) 03/09/17 10:56 ABG HCO3 25 mEq/L (21-27) 03/09/17 10:56 ABG O2 Saturation 98 % (95-98) 03/09/17 10:56 Calcium 7.9 mg/dL (8.6-10.8) L 03/13/17 04:07 Magnesium 1.9 mg/dL (1.6-2.6) 03/10/17 03:14 - VTE Documentation of Mechanical Device: Intermittent pneumatic compression device Consult Discharge Plan - Plan Referrals: Mason Mixon MD [Primary Care Provider] - 03/19/17 10:15 am ()
--- NOTE | 2017-03-13 09:56 | Discharge Summary ---
<Angelito Meade - Last Filed: 03/13/17 12:41> Date of Encounter: 03/13/17 Time of Encounter: 11:01 - Discharge Diagnosis (1) Streptococcal bacteremia Priority: Primary Status: Acute (2) Sepsis Priority: Primary Status: Acute Qualifiers: Sepsis type: sepsis due to unspecified organism Qualified Code(s): A41.9 - Sepsis, unspecified organism (3) Immunosuppressed status Priority: Secondary Status: Chronic (4) Pleural effusion, left Priority: Secondary Status: Acute (5) UTI (urinary tract infection) Priority: Secondary Status: Acute Qualifiers: Urinary tract infection type: site unspecified Hematuria presence: without hematuria Qualified Code(s): N39.0 - Urinary tract infection, site not specified (6) ESRD (end stage renal disease) Priority: Secondary Status: Chronic (7) Osteomyelitis Priority: Secondary Status: Acute Qualifiers: Osteomyelitis type: unspecified type Osteomyelitis location: foot Laterality: right Qualified Code(s): M86.9 - Osteomyelitis, unspecified (8) Iron (Fe) deficiency anemia Priority: Secondary Status: Acute Qualifiers: Iron deficiency anemia type: other iron deficiency Qualified Code(s): D50.8 - Other iron deficiency anemias - Discharge Medications Prescriptions: Cefepime HCl/Dextrose, Iso-Osm [Cefepime 2 gm Injection] 2 gm IV QMWF 35 Days froz.piggy Levothyroxine [Synthroid] 50 mcg PO DAILY #30 tablet Vancomycin [Vancocin] 500 each IV QMWF 35 Days vial Home Medications: Acetaminophen [Tylenol] 650 mg PO Q4HR PRN 03/02/15 [History] Atorvastatin [Lipitor] 10 mg PO HS 03/02/15 [History] predniSONE [Prednisone] 2.5 mg PO BID 03/02/15 [History] Amiodarone [Cordarone] 200 mg PO DAILY 09/18/15 [History] B Complex W-C No.20/Folic Acid [Nephrocaps Softgel] 1 mg PO DAILY 12/17/15 [ History] Loperamide [Imodium] 2 mg PO Q8H PRN 02/19/16 [History] Oxygen 2 l IH HS 02/19/16 [History] Cyclosporine, Modified [Gengraf] 75 mg PO BID 09/10/16 [History] Aspirin Enteric Coated [Aspirin EC] 81 mg PO DAILY 10/14/16 [History] Ergocalciferol (VITAMIN D2) [Drisdol (50,000 Unit)] 50,000 unit PO FR 10/14/16 [ History] Magnesium Hydroxide [Milk of Magnesia] 2,400 mg PO DAILY PRN 10/14/16 [History] Omeprazole [PriLOSEC] 40 mg PO DAILY 10/14/16 [History] Ondansetron ODT [Zofran ODT] 4 mg PO Q8H PRN 10/14/16 [History] Denosumab [Prolia (For Outpatient Infusion)] 60 mg SQ Q6M 02/17/17 [History] Oxycodone HCl/Acetaminophen [Percocet 5-325 mg Tablet] 1 tab PO Q6H PRN [History] Albuterol Sulfate [Albuterol Inhaler] 2 puff IH Q6HR PRN #1 hfa.aer.ad 02/23/17 [Rx] Darbepoetin [Aranesp] 40 mcg SQ QWEEK syringe 02/23/17 [Rx] Folic Acid 1 mg PO DAILY tablet 02/23/17 [Rx] Saccharomyces Boulardii [Florastor] 250 mg PO BID #80 capsule 02/23/17 [Rx] hydrALAZINE [HydrALAZINE] 25 mg PO TID #90 tablet 02/23/17 [Rx] Metoprolol [Lopressor] 12.5 mg PO BID 03/09/17 [History] Cefepime HCl/Dextrose, Iso-Osm [Cefepime 2 gm Injection] 2 gm IV QMWF 35 Days froz.piggy 03/13/17 [Rx] Levothyroxine [Synthroid] 50 mcg PO DAILY #30 tablet 03/13/17 [Rx] Vancomycin [Vancocin] 500 each IV QMWF 35 Days vial 03/13/17 [Rx] Allergies/Adverse Reactions: 3 Allergy/AdvReac Type Severity Reaction Status Date / Time Penicillins [PCN] Allergy Hives Verified 03/09/17 08:37 Date of admission: 03/09/17 15:57 Primary care physician: Mason Mixon MD Consults: 03/09/17 20:00 Consult to Palliative Care [CONS] Routine Comment: Consulting Provider: [facility] Reason for Consult: End of life discussion Call Completed: No 11/07/17 07:30 Consult to Dialysis [CONS] ONCE 03/11/17 08:15 Consult to Dialysis [CONS] ONCE 03/11/17 18:01 Consult to Wound Care [CONS] Routine Reason for Consult: stage 2 coccyx Call Completed: No 03/12/17 10:36 Consult to Infectious Diseases [CONS] Routine Consulting Provider: [facility] Reason for Consult: Staph warneri bacteremia Call Completed: Yes 03/13/17 08:00 Consult to Dialysis [CONS] ONCE - Patient Status Disposition: Home, Self-Care Condition: Fair Functional capacity at discharge: wheelchair bound Overall status at discharge: patient is progressing back to baseline - Discharge Instructions Instructions: Sepsis (DC) Follow Up With: Sol Mascorro CNP [Advanced Practice Nurse] - Mason Mixon MD [Primary Care Provider] - 03/19/17 10:15 am () Cally Calderon MD [Partnered Physician] - Additional Instructions: F/u with PCP, appt is 03/19/17. F/u Nephrology Dr. Rafaela Calderon within 2 weeks. -Pt Cefepime through Home Infusion. -Pt Vancomycin, pharmacy to dose, at dialysis. Please let Dr. Calderon know pt's current Vanc/Cefepime regimen. F/u with ID, antibiotic coverage for Osteomyelitis, bacteremia, 03/31/17, as per ID. - Diet and Activity Activity: resume usual activities as tolerated Diet: advance to your usual diet Hospital course: Ms. 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 Pt had refused dialysis on 03/02 and 03/04, received on 03/06, on dialysis day 03/09, pt arrived in state of hypotension, lethargy, and hypoglycemia, was immediately sent to [facility] ED. Pt blood cultures grew S. wareni, nephrology, palliative, and ID consulted during duration of hospital course. Pt received x3 dialysis while in-patient, Dr. Calderon met with family and patient, pt ultimately coming to the decision that she wants to continue dialysis to see her grandchildren grow up. Infectious disease evaluated pt, will f/u with pt 03/31, will continue Cefepime 2g at home infusion, Vanc will be pharm dosed and continued as therapeutic trough of 15 requires. Repeat blood cultures will be followed-up outpatient. - Time Spent with Patient Total time spent providing and/or coordinating discharge services: - Constitutional Vitals: Temp Pulse Resp BP Pulse Ox 97.6 F 69 15 175/79 98 03/13/17 07:24 03/13/17 07:24 03/13/17 07:24 03/13/17 07:24 03/13/17 07:24 General appearance: Present: A&O X 3, no acute distress - Head Head exam: Present: atraumatic - Neck Neck exam general surgery: Present: full ROM. Absent: lymphadenopathy - Respiratory Respiratory exam: Present: decreased breath sounds. Absent: respiratory distress, rhonchi - Cardiovascular Cardiovascular exam: Present: RRR, +S1, +S2. Absent: JVD - Expanded Lower Extremities Exam Foot/Toe exam: Present: abrasion (R toe 1st digit, non-prurulent, non- erythematous) - VTE Documentation of Mechanical Device: Intermittent pneumatic compression device <Augusto Ruby - Last Filed: 03/13/17 18:22> Date of Encounter: 03/13/17 Date of admission: 03/09/17 15:57 Primary care physician: Mason Mixon MD Consults: 03/09/17 20:00 Consult to Palliative Care [CONS] Routine Comment: Consulting Provider: [facility] Reason for Consult: End of life discussion Call Completed: No 03/10/17 07:30 Consult to Dialysis [CONS] ONCE 03/11/17 08:15 Consult to Dialysis [CONS] ONCE 03/11/17 18:01 Consult to Wound Care [CONS] Routine Reason for Consult: stage 2 coccyx Call Completed: No 03/12/17 10:36 Consult to Infectious Diseases [CONS] Routine Consulting Provider: Infect[facility] Reason for Consult: Staph warneri bacteremia Call Completed: Yes 03/13/17 08:00 Consult to Dialysis [CONS] ONCE - Patient Status Functional capacity at discharge: wheelchair bound Overall status at discharge: patient is progressing back to baseline Hospital course: Ms. Moore is a 71 year old female - Time Spent with Patient Total time spent providing and/or coordinating discharge services: - Constitutional Vitals: Temp Pulse Resp BP Pulse Ox 97.9 F 69 18 161/69 98 03/13/17 13:30 03/13/17 07:24 03/13/17 13:30 03/13/17 13:30 03/13/17 07:24 - Attending Attestation I conducted a face to face diagnostic evaluation of this patient and my medical decision-making was reviewed with the Resident Physician, Dr. Angelito Meade. I agree with the documented findings, disposition and treatment plan as described except to the extent set forth below: I advised the patient will she was undergoing hemodialysis. She was asymptomatic. Heart is regular rhythm lungs clear. Abdomen is soft. Plan discharge home to continue IV antibiotics per ID recommendations.
[2017-03-13 15:06] VITALS: BP 161/69
[2017-03-13] MEDS ORDERED: Aminoglycoside Consult 1 EACH MC ONE (15:51)
[2017-03-13] MEDS ORDERED: Vancomycin 500 MG in D5% in Water (Mini-Bag+) 100 ML IVPB ONE (18:00)
== END 2017-03-13 15:52 | disposition home or self-care (01) | DRG 871 ==
LOC: EMEROO 06:08 → 2NNU 06:08 → SUATTDRO 15:57 → 2ANU 03-10 18:52
PROVIDERS: ADMIT Family Medicine; ATTEND Internal Medicine

== ENCOUNTER 2017-03-27 03:53 | Inpatient (IN) ==
[2017-03-27] MEDS ORDERED: *HR* Dextrose 50 % in Water (Syg) 50 ML SYRINGE ONE ×2 (04:01→10:58)
[2017-03-27] MEDS ORDERED: *HR* Dextrose 50 % in Water (Syg) 50 ML SYRINGE IVP ONE (04:08)
--- NOTE | 2017-03-27 04:14 | Emergency Department Note ---
Disposition Clinical Impression: ESRD on dialysis, Hypoglycemia Altered mental status Qualifiers: Altered mental status type: unspecified Qualified Code(s): R41.82 - Altered mental status, unspecified Disposition: Admitted As Inpatient Condition: Fair Time of Disposition: 06:48 Altered Mental Status HPI - General Chief Complaint: ED Altered Mental Status Stated Complaint: AMS Time Seen by Provider: 03/27/17 03:56 Source: family, EMS Mode of arrival: EMS Limitations: altered mental status Nursing Notes Reviewed: Yes Vital Signs Reviewed: Yes - History of Present Illness HPI Narrative: 71-year-old female history of end-stage renal disease hemodialysis Thursday presents to the ED via EMS for pocketing out of her head and altered mental state. is also president the room to assist with history. Reports that she woke up a few hours prior to arrival acting confused and requesting to be seen at the emergency department. He reports that she was previously seen over a week ago for similar complaints. At that time her blood sugar was low. Appointed care glucose was performed here read 69. She was given 1 amp of D50 and has responded appropriately. She is currently complaining of pain to her butt. She is currently being treated for decubitus ulcer. She is scheduled for her hemodialysis today at 6 o'clock. There reports by EMS that she was hypoxic 70% and placed on the non-rebreather. She is currently 90% on room air. She has been placed on nasal cannula. She has a fistula on the left arm. Dr. Russo is her travel registered nurse icu. She makes minimal urine. MD complaint: altered mental status - Related Data Home Medications Medication Instructions Recorded Confirmed Acetaminophen [Tylenol] 650 mg PO Q4HR PRN 03/02/15 03/27/17 Atorvastatin [Lipitor] 10 mg PO HS 03/02/15 03/27/17 predniSONE [Prednisone] 2.5 mg PO BID 03/02/15 03/27/17 Amiodarone [Cordarone] 200 mg PO DAILY 09/18/15 03/27/17 B Complex W-C No.20/Folic Acid 1 mg PO DAILY 12/17/15 03/27/17 [Nephrocaps Softgel] Loperamide [Imodium] 2 mg PO Q8H PRN 02/19/16 03/27/17 Oxygen 2 l IH HS 02/19/16 03/27/17 Cyclosporine, Modified [Gengraf] 75 mg PO BID 09/10/16 03/27/17 Aspirin Enteric Coated [Aspirin EC] 81 mg PO DAILY 10/14/16 03/27/17 Ergocalciferol (VITAMIN D2) 50,000 unit PO FR 10/14/16 03/27/17 [Drisdol (50,000 Unit)] Magnesium Hydroxide [Milk of 2,400 mg PO DAILY PRN 10/14/16 03/27/17 Magnesia] Omeprazole [PriLOSEC] 40 mg PO DAILY 10/14/16 03/27/17 Ondansetron ODT [Zofran ODT] 4 mg PO Q8H PRN 10/14/16 03/27/17 Denosumab [Prolia (For Outpatient 60 mg SQ Q6M 02/17/17 03/27/17 Infusion)] Oxycodone HCl/Acetaminophen 1 tab PO Q6H PRN 02/17/17 03/27/17 [Percocet 5-325 mg Tablet] Metoprolol [Lopressor] 12.5 mg PO BID 03/09/17 03/27/17 Previous Rx's Medication Instructions Recorded Albuterol Sulfate [Albuterol 2 puff IH Q6HR PRN #1 hfa.aer.ad 02/23/17 Inhaler] Darbepoetin [Aranesp] 40 mcg SQ QWEEK syringe 02/23/17 Folic Acid 1 mg PO DAILY tablet 02/23/17 Saccharomyces Boulardii [Florastor] 250 mg PO BID #80 capsule 02/23/17 hydrALAZINE [HydrALAZINE] 25 mg PO TID #90 tablet 02/23/17 Cefepime HCl/Dextrose, Iso-Osm 2 gm IV QMWF 35 Days froz.piggy 03/13/17 [Cefepime 2 gm Injection] Levothyroxine [Synthroid] 50 mcg PO DAILY #30 tablet 03/13/17 Vancomycin [Vancocin] 500 each IV QMWF 35 Days vial 03/13/17 Allergies Allergy/AdvReac Type Severity Reaction Status Date / Time Penicillins [PCN] Allergy Hives Verified 03/27/17 07:00 Limitations: ROS unobtainable due to patients medical condition Past Medical History - Past Medical History Source: old records reviewed Medical history: Reports: arthritis, atrial fibrillation, diabetes, dialysis, osteoporosis, renal disease, other Surgical history: Reports: appendectomy, herniorrhaphy, other (renal/pancreas transplant 2000) Psychiatric history: Reports: no psych history PRIMARY CARE NURSE PRACTITIONER history: Reports: no PRIMARY CARE NURSE PRACTITIONER history - Social History Smoking Status: Never smoker Smokeless Tobacco Status: No Alcohol use: Reports: none Drug use: Reports: none Physical Exam - General Limitations: altered mental status General appearance: alert, obtunded, other (responded to ) - Head Head exam: atraumatic, normocephalic, normal inspection - Eye Eye exam: Present: normal appearance, PERRL - ENT ENT exam: normal exam, normal oropharynx, mucous membranes dry - Neck Neck exam: Present: normal inspection, full ROM, trachea midline - Chest Chest inspection: Present: normal inspection, symmetric chest wall rise - Respiratory Respiratory exam: Present: other (coarse breath sound bilateral) - Cardiovascular Cardiovascular exam: Present: regular rate, normal rhythm, normal heart sounds - Abdominal Exam Abdominal exam: Present: soft, Non-Tender, normal bowel sounds, other ( lidocaine patch to mid abdomen). Absent: tenderness, distention, guarding, rebound, rigidity - Extremities Exam Extremities exam: Present: other (pressure ulcer, left arm fistula with palpable thrill and audible bruit) - Expanded Neurological Exam Coma Scale Eye Opening: To Voice Coma Scale Motor Response: Localizes to Pain Coma Scale Verbal Response: Confused Coma Scale Total: 12 - Skin Skin exam: Present: warm, dry, intact, normal color Course Course Narrative: 71-year-old female comes in for altered mental status. She was quite somnolent flats localizes pain and opens eyes to voice. Purported care glucose was 69. After D50 administered her glucose is 112 on chemistries. She is now awake and alert answering questions followed all commands without any neural deficits. Currently her GCS is now 15. She complains of discomfort to her sacrum from old decubitus ulcer. Before cup was initiated. She has a significant leukocytosis of 12 compared to the prior last week of 7. She has chronic stable anemia. Creatinine is 2.8. Electrolytes are stable. Her urinalysis appears consistent with infection. Her blood pressure continues to remain soft with the systolic and then upper 80s. Due to her fistula in the left arm and a pick on the right arm these blood pressures have been acquired on her right forearm. She continues to maintain well. I believe most of her confusion and disorientation was secondary to her hypoglycemia. As mentioned earlier and EMS report she was also found hypoxic and required non-rebreather. Chest x-ray appear stable from prior with stable pleural effusions. She will likely need admission for altered mental status, hypoglycemia and end-stage renal disease with urinary tract infection. Patient and family are in agreement with this plan. - Consultations Consultation #1: Spoke to the excepting physician hospitalist Dr. Ruby who excepts patient for altered mental status, hypoglycemia, end-stage renal disease. He does not believe this is a urinary tract infection despite being straight As she is end- stage renal patient and prior urine cultures have not grown much. Will hold off on ceftriaxone antibiotic treatment since she is denying any dysuria. Time: 06:49 Vital Signs Temperature 97.6 F 03/27/17 03:53 Pulse Rate 60 03/27/17 03:53 Respiratory Rate 12 03/27/17 03:53 Blood Pressure 102/35 03/27/17 03:53 O2 Sat by Pulse Oximetry 87 03/27/17 03:53 Temperature 97.1 F L 03/27/17 07:30 Pulse Rate 57 03/27/17 07:30 Respiratory Rate 16 03/27/17 07:30 Blood Pressure 107/62 03/27/17 07:30 O2 Sat by Pulse Oximetry 97 03/27/17 07:30 Oxygen Delivery Oxygen Delivery Nasal Cannula Altered Mental Status - MDM Narrative Medical decision making narrative: Patient's case was discussed with my attending physician agrees with their ED management and final disposition. They independently evaluated patient. Please refer to their attestation to this encounter for additional information. This note was generated by [employer] voice recognition software and as result grammatical or spelling errors may occur using this program. - Medical Records Medical records reviewed: Yes I reviewed the patient's medical records. - Lab Data Lab results reviewed: Yes I reviewed the patient's lab results. Result diagrams: 03/27/17 05:31 03/27/17 05:31 Lab Results 03/27/17 03/27/17 03/27/17 Range/Units 04:00 04:45 05:31 WBC 12.0 H D (4.3-11.1) K/mcL RBC 2.57 L (3.82-4.97) M/mcL Hgb 7.8 L (11.5-15.4) g/dL Hct 26.1 L (35.3-44.9) % MCV 101.6 H (83.0-100.0) fL MCH 30.4 (28.0-33.3) pg MCHC 29.9 L (31.6-35.5) g/dL RDW 19.7 H (11.5-14.5) % Plt Count 89 L D (140-400) K/mcL MPV 10.4 (9.4-12.4) fL Immature Gran % 1.1 (0-4) % Seg Neutrophils % 78.1 % Lymphocytes % 11.5 % Monocytes % 8.4 % Eosinophils % 0.6 % Basophils % 0.3 % Neutrophils # 9.4 H (1.6-8.9) K/mcL Lymphocytes # 1.4 (0.6-4.6) K/mcL Monocytes # 1.0 (0.0-1.3) K/mcL Eosinophils # 0.1 (0.0-0.6) K/mcL Basophils # 0.0 (0.0-0.2) K/mcL Platelet Estimate Decreased L (Normal) Immature Plt Fraction 2.3 (1.1-6.1) % Polychromasia 1+ A (Not Present) Anisocytosis 1+ A (Not Present) PT (9.4-12.1) Seconds INR APTT (26.0-36.0) Seconds Sodium (136-145) mEq/L Potassium (3.5-4.5) mEq/L Chloride (98-109) mEq/L Carbon Dioxide (19-29) mEq/L BUN (7-20) mg/dL Creatinine (0.57-1.11) mg/dL Est GFR ( Amer) (> 60) Est GFR (Non-Af Amer) (> 60) BUN/Creatinine Ratio (6-26) Glucose (70-99) mg/dL POC Glucose 69 (58-89) Calculated Osmolality (280-300) Calcium (8.6-10.8) mg/dL Total Bilirubin (0.2-1.2) mg/dL Direct Bilirubin (0.0-0.5) mg/dL Indirect Bilirubin (0.0-1.2) mg/dL AST (5-34) Units/L ALT (0-55) Units/L Alkaline Phosphatase (38-126) Units/L Troponin I (0-0.03) ng/mL Serum Total Protein (6.0-8.3) g/dL Albumin (3.5-5.0) g/dL Globulin (2.4-3.5) g/dL Albumin/Globulin Ratio (1.1-2.2) Urine Color Yellow (Yellow) Urine Clarity Cloudy A (Clear) Urine pH 7.5 (5.0-8.0) pH Units Ur Specific [place] 1.011 (1.010-1.025) Urine Protein Negative (Neg-Trace) mg/dL Urine Glucose (UA) Normal (Normal) mg/dL Urine Ketones Negative (Negative) mg/dL Urine Blood Large H (Negative) Urine Nitrite Negative (Negative) Urine Bilirubin Negative (Negative) Urine Urobilinogen Normal (Normal) mg/dL Ur Leukocyte Esterase Moderate H (Negative) Urine Microscopic RBC 3-5 H (0-3) per hpf Urine Microscopic WBC 30-50 H (0-3) per hpf Ur Squamous Epith Cells Many H (None-Few) per lpf Urine Bacteria Moderate H (None-Few) per hpf Hyaline Casts Test Not Performed Urine Yeast Moderate H (None Seen) per hpf Ur Culture Indicated? YES A (NO) 03/27/17 03/27/17 03/27/17 Range/Units 05:31 05:31 05:31 WBC (4.3-11.1) K/mcL RBC (3.82-4.97) M/mcL Hgb (11.5-15.4) g/dL Hct (35.3-44.9) % MCV (83.0-100.0) fL MCH (28.0-33.3) pg MCHC (31.6-35.5) g/dL RDW (11.5-14.5) % Plt Count (140-400) K/mcL MPV (9.4-12.4) fL Immature Gran % (0-4) % Seg Neutrophils % % Lymphocytes % % Monocytes % % Eosinophils % % Basophils % % Neutrophils # (1.6-8.9) K/mcL Lymphocytes # (0.6-4.6) K/mcL Monocytes # (0.0-1.3) K/mcL Eosinophils # (0.0-0.6) K/mcL Basophils # (0.0-0.2) K/mcL Platelet Estimate (Normal) Immature Plt Fraction (1.1-6.1) % Polychromasia (Not Present) Anisocytosis (Not Present) PT 13.9 H (9.4-12.1) Seconds INR 1.3 APTT 28.0 (26.0-36.0) Seconds Sodium 139 (136-145) mEq/L Potassium 3.5 (3.5-4.5) mEq/L Chloride 106 (98-109) mEq/L Carbon Dioxide 20 (19-29) mEq/L BUN 12 (7-20) mg/dL Creatinine 2.80 H (0.57-1.11) mg/dL Est GFR ( Amer) 20 L (> 60) Est GFR (Non-Af Amer) 17 L (> 60) BUN/Creatinine Ratio 4 L (6-26) Glucose 112 H (70-99) mg/dL POC Glucose (58-89) Calculated Osmolality 289 (280-300) Calcium 7.7 L (8.6-10.8) mg/dL Total Bilirubin 0.4 (0.2-1.2) mg/dL Direct Bilirubin 0.2 (0.0-0.5) mg/dL Indirect Bilirubin 0.2 (0.0-1.2) mg/dL AST 14 (5-34) Units/L ALT 10 (0-55) Units/L Alkaline Phosphatase 131 H (38-126) Units/L Troponin I 0.03 (0-0.03) ng/mL Serum Total Protein 4.1 L (6.0-8.3) g/dL Albumin 1.2 L (3.5-5.0) g/dL Globulin 2.9 (2.4-3.5) g/dL Albumin/Globulin Ratio 0.4 L (1.1-2.2) Urine Color (Yellow) Urine Clarity (Clear) Urine pH (5.0-8.0) pH Units Ur Specific [place] (1.010-1.025) Urine Protein (Neg-Trace) mg/dL Urine Glucose (UA) (Normal) mg/dL Urine Ketones (Negative) mg/dL Urine Blood (Negative) Urine Nitrite (Negative) Urine Bilirubin (Negative) Urine Urobilinogen (Normal) mg/dL Ur Leukocyte Esterase (Negative) Urine Microscopic RBC (0-3) per hpf Urine Microscopic WBC (0-3) per hpf Ur Squamous Epith Cells (None-Few) per lpf Urine Bacteria (None-Few) per hpf Hyaline Casts Urine Yeast (None Seen) per hpf Ur Culture Indicated? (NO) - Radiology Data Radiology results reviewed: Yes I reviewed the patient's radiology results. Chest X-Ray 03/27/17 04:07 IMPRESSION: Stable appearing chest with persistent findings as detailed above including large left and mild right pleural effusions. D/ / Sarina Bahena MD / Sarina Bahena MD Interpreting Provider: Sraina Bahena MD - EKG Data EKG attestation: Yes I reviewed and interpreted this EKG. EKG results narrative: EKG performed 040 normal sinus rhythm 63 bpm normal axis, moderate intraventricular conduction delay, diffuse T wave flattening no ST elevations or depression, intervals are within normal limits. Compared to old EKG performed 03/09/2017 shows similar findings of sinus bradycardia 40s 8 bpm with nonspecific T wave changes. No acute ischemic changes. Attestation Statement - Attestation Attestation: I, Cesar Jim MD, personally evaluated this patient and discussed their management with the resident physician. I reviewed the resident's note and agree with the documented findings, medical decision making, and plan of care. 71-year-old female with end-stage renal disease on hemodialysis presents to the emergency department from home because of her mental status. cares for her at home and he reports that this morning she was confused and talking out of her head and very weak. Patient's blood sugar on arrival here was 69. She did receive some dextrose with improvement clinically remains very weak with speech slow and slurred and difficult to understand. She also had some vomiting. On examination patient is an elderly female in no acute distress. She is very drowsy but responds to verbal stimuli and answers some questions. Breath sounds are decreased but equal bilaterally. There are a few coarse bilateral rales. Heart regular. Abdomen soft with present bowel sounds. Labs reviewed. The hospitalist, Dr. Ruby, was consulted and accepted admission of the patient.
[2017-03-27 04:58] LABS: Bilirubin,Urine Negative (Negative); Blood,Urine Large (Negative); Clarity,Urine Cloudy (Clear); Color,Urine Yellow (Yellow); Glucose,Urine (UA) Normal (Normal); Ketones,Urine Negative (Negative); Leukocyte Esterase,Urine Moderate (Negative); Nitrite,Urine Negative (Negative); PH,Urine 7.5 pH Units (5.0-8.0); Protein,Urine Negative (Neg-Trace); Specific Gravity,Urine 1.011 (1.010-1.025); Urobilinogen,Urine Normal (Normal)
[2017-03-27 05:01] LABS: Squamous Epithelial Cell,Urine Many per lpf (None-Few); WBC,Urine 30-50 per hpf (0-3)
[2017-03-27 05:17] LABS: Bacteria,Urine Moderate per hpf (None-Few)
[2017-03-27 05:19] LABS: Yeast,Urine Moderate per hpf (None Seen)
[2017-03-27 05:38] LABS: Basophils % 0.3 %; Eosinophils # 0.1 K/mcL (0.0-0.6); Eosinophils % 0.6 %; Hematocrit 26.1 % (35.3-44.9); Immature Granulocytes % 1.1 % (0-4); Immature Platelets 2.3 % (1.1-6.1); Lymphocytes # 1.4 K/mcL (0.6-4.6); Lymphocytes % 11.5 %; Mean Corpuscular HGB Conc 29.9 g/dL (31.6-35.5); Mean Corpuscular Hemoglobin 30.4 pg (28.0-33.3); Mean Corpuscular Volume 101.6 fL (83.0-100.0); Mean Platelet Volume 10.4 fL (9.4-12.4); Monocytes % 8.4 %; Neutrophils # 9.4 K/mcL (1.6-8.9); Red Blood Count 2.57 M/mcL (3.82-4.97); Red Cell Distribution Width 19.7 % (11.5-14.5); Segmented Neutrophils % 78.1 %
[2017-03-27 05:42] LABS: INR 1.3; Prothrombin Time 13.9 Seconds (9.4-12.1)
[2017-03-27 05:53] LABS: Albumin/Globulin Ratio 0.4 (1.1-2.2); Bilirubin,Direct 0.2 mg/dL (0.0-0.5); Bilirubin,Indirect 0.2 mg/dL (0.0-1.2); Bilirubin,Total 0.4 mg/dL (0.2-1.2); Calcium 7.7 mg/dL (8.6-10.8); Globulin 2.9 g/dL (2.4-3.5); Potassium 3.5 mEq/L (3.5-4.5); Total Protein 4.1 g/dL (6.0-8.3)
[2017-03-27 05:54] LABS: Albumin 1.2 g/dL (3.5-5.0)
[2017-03-27 05:59] LABS: Hemoglobin 7.8 g/dL (11.5-15.4); Platelet Count 89 K/mcL (140-400)
[2017-03-27 06:01] LABS: Platelet Estimate Decreased (Normal)
[2017-03-27 06:03] LABS: Anisocytosis 1+ (Not Present)
[2017-03-27 06:04] LABS: Polychromasia 1+ (Not Present)
[2017-03-27] MEDS ORDERED: cefTRIAXone 2,000 MG in Water for inj. (sterile) 20 ML IVP ONE (06:42)
[2017-03-27] MEDS ORDERED: Acetaminophen 325 MG TABLET PO PRN (08:08)
[2017-03-27] MEDS ORDERED: Ondansetron 4 MG/2 ML VIAL IVP PRN (08:08)
[2017-03-27] MEDS ORDERED: Naloxone 0.4 MG/ML INJ IVP PRN (08:08)
[2017-03-27] MEDS ORDERED: NON-FORMULARY MEDICATION 1 EACH EACH (Magnesium Hydroxide [Milk Of Magnesia] 2,400 MG) PO PRN (08:11)
--- NOTE | 2017-03-27 08:19 | Internal Med History&Physical ---
Date of Encounter: 03/27/17 Time of Encounter: 08:00 Assessment and Plan (1) Altered mental status Current visit: Yes Status: Acute Likely secondary to hypoglycemia, as symptoms resolved with D50 and states the confusion developed suddenly this morning. WBC slightly elevated, but I am not convinced that an infectious process contributed to the AMS, as she is also taking broad spectrum IV antibiotics (vanc and cefepime) - however patient is immunocompromised on cyclosporine and prednisone, so will monitor carefully. - Q4H glucose check - Monitor for evidence of infection - obtain blood cultures Qualifiers: Altered mental status type: unspecified Qualified Code(s): R41.82 - Altered mental status, unspecified (2) Transplant Current visit: Yes Status: Acute Immunosuppressed on cyclosporine and prednisone for pancreas transplant. Graft functioning. If significantly hypotensive or concern for sepsis will need stress dose steroids. (3) Decubital ulcer Current visit: Yes Status: Acute Consult wound nursing for assistance with management. Qualifiers: Pressure ulcer location: sacral region Pressure ulcer stage: stage 2 Qualified Code(s): L89.152 - Pressure ulcer of sacral region, stage 2 (4) A-fib Current visit: No Status: Acute Rate controlled - Continue home amiodarone and metoprolol Qualifiers: Atrial fibrillation type: paroxysmal Qualified Code(s): I48.0 - Paroxysmal atrial fibrillation (5) ESRD on dialysis Current visit: Yes Status: Acute Patient due for dialysis today. - Consult Dr. Calderon for assistance - Renally dose medications (6) Hypotension Current visit: Yes Status: Acute Borderline hypotension on arrival to medicine floor, likely related to volume depletion. - Hold home hydralazine - Appreciate balance truing inspector imput regarding volume status and management. Qualifiers: Hypotension type: unspecified hypotension type Qualified Code(s): I95.9 - Hypotension, unspecified Internal Medicine - H&P: HPI Chief complaint: Altered mentation Admitted From: Emergency Dept Plans for Post Hospital Care: Home History of present illness: Ms. Moore is a 71 year old female with history of ESRD on HD s/p pancreas/ renal transplant on cyclosporine, recent admission for osteomyelitis of the right great toe and sepsis currently on cefepime/vanc, who presented to the ED this morning from home because of altered mentation. Her who is present at bedside states that she was confused and "talking out of her head" this morning. Her blood glucose was found to be markedly low and she stated she wanted to come to the hospital so he called EMS. On arrival to the ED she was given D50 and her mentation returned to baseline and remains so during my evaluation of her on the medicine floor. She states that her bottom hurts, as it has been hurting for two weeks. Her notes that there has been skin breakdown and he has been putting salve on it. She endorses chills but has not had fever. She denies cough or chest pain. ED felt patient likely had UTI and gave rocephin. Past Med Surg Social Fam HX - Past Medical History Medical history: arthritis, atrial fibrillation, diabetes, dialysis, osteoporosis, renal disease, other Psychiatric history: no psych history - Past Surgical History Surgical History: appendectomy, herniorrhaphy, other (renal/pancreas transplant 2000) - Social History Smoking Status: Never smoker Smokeless Tobacco Status: No Alcohol use: none Drug use: none - Family History Mother Living Status: Hx Family Cardiac Disorders: Yes Internal Medicine - H&P: Meds Acetaminophen [Tylenol] 650 mg PO Q4HR PRN 03/02/15 [History] Atorvastatin [Lipitor] 10 mg PO HS 03/02/15 [History] predniSONE [Prednisone] 2.5 mg PO BID 03/02/15 [History] Amiodarone [Cordarone] 200 mg PO DAILY 09/18/15 [History] B Complex W-C No.20/Folic Acid [Nephrocaps Softgel] 1 mg PO DAILY 12/17/15 [ History] Loperamide [Imodium] 2 mg PO Q8H PRN 02/19/16 [History] Oxygen 2 l IH HS 02/19/16 [History] Cyclosporine, Modified [Gengraf] 75 mg PO BID 09/10/16 [History] Aspirin Enteric Coated [Aspirin EC] 81 mg PO DAILY 10/14/16 [History] Ergocalciferol (VITAMIN D2) [Drisdol (50,000 Unit)] 50,000 unit PO FR 10/14/16 [ History] Magnesium Hydroxide [Milk of Magnesia] 2,400 mg PO DAILY PRN 10/14/16 [History] Omeprazole [PriLOSEC] 40 mg PO DAILY 10/14/16 [History] Ondansetron ODT [Zofran ODT] 4 mg PO Q8H PRN 10/14/16 [History] Denosumab [Prolia (For Outpatient Infusion)] 60 mg SQ Q6M 02/17/17 [History] Oxycodone HCl/Acetaminophen [Percocet 5-325 mg Tablet] 1 tab PO Q6H PRN [History] Albuterol Sulfate [Albuterol Inhaler] 2 puff IH Q6HR PRN #1 hfa.aer.ad 02/23/17 [Rx] Darbepoetin [Aranesp] 40 mcg SQ QWEEK syringe 02/23/17 [Rx] Folic Acid 1 mg PO DAILY tablet 02/23/17 [Rx] Saccharomyces Boulardii [Florastor] 250 mg PO BID #80 capsule 02/23/17 [Rx] hydrALAZINE [HydrALAZINE] 25 mg PO TID #90 tablet 02/23/17 [Rx] Metoprolol [Lopressor] 12.5 mg PO BID 03/09/17 [History] Cefepime HCl/Dextrose, Iso-Osm [Cefepime 2 gm Injection] 2 gm IV QMWF 35 Days froz.piggy 03/13/17 [Rx] Levothyroxine [Synthroid] 50 mcg PO DAILY #30 tablet 03/13/17 [Rx] Vancomycin [Vancocin] 500 each IV QMWF 35 Days vial 03/13/17 [Rx] 3 Allergy/AdvReac Type Severity Reaction Status Date / Time Penicillins [PCN] Allergy Hives Verified 03/27/17 07:00 All Systems PM: A 10-system review of systems was performed and is negative for pertinent findings except as documented above in the HPI. - Constitutional Vitals: Temp Pulse Resp BP Pulse Ox 97.1 F L 57 16 107/62 97 03/27/17 07:30 03/27/17 07:30 03/27/17 07:30 03/27/17 07:30 03/27/17 07:30 General appearance: Present: cooperative, A&O X 3, no acute distress - Head Head exam: Present: atraumatic - Eye Eye exam: Present: EOMI, sclera anicteric - ENT ENT exam: Present: mucous membranes moist - Neck Neck exam general surgery: Present: supple - Respiratory Respiratory exam: Present: CTAB - Cardiovascular Cardiovascular exam: Present: RRR. Absent: gallop, rubs, systolic murmur - GI/Abdominal GI/Abdominal exam: Present: normal bowel sounds, soft. Absent: distended, tenderness - Extremities Exam Extremities exam: Absent: pedal edema - Neurological Exam Neurological exam: Present: no focal deficits - Skin Additional comments: several areas of skin breakdown over coxxyx, one area 1cm in diameter with yellow base. Internal Med - H&P Results - Labs CBC & Chem 7: 03/27/17 05:31 03/27/17 05:31
[2017-03-27] MEDS ORDERED: NON-FORMULARY MEDICATION 1 EACH EACH (Cefepime Hcl/Dextrose, Iso-Osm [Cefepime 2 Gm Inject IV SCH (09:00)
[2017-03-27] MEDS ORDERED: MOM Conc 10 ML UD.LIQ PO PRN (09:27)
[2017-03-27] MEDS: Folic Acid 1 MG TABLET PO SCH (10:27)
[2017-03-27] MEDS: Renal Vitamin 1 MG CAPSULE PO SCH ×2 (10:27→13:48)
[2017-03-27] MEDS: predniSONE 5 MG TABLET PO SCH (10:27)
[2017-03-27] MEDS: Aspirin Enteric Coated 81 MG Tablet PO SCH ×2 (10:27→13:48)
[2017-03-27] MEDS: *HR* Amiodarone 200 MG TABLET PO SCH (10:28)
[2017-03-27] MEDS ORDERED: Cefepime HCl 500 MG in D5% in Water 100 ML IVPB ONE (10:39)
[2017-03-27] MEDS: CycloSPORINE, Mod (Neoral) 25 MG CAPSULE PO SCH ×2 (10:39→13:48)
[2017-03-27] MEDS ORDERED: Vancomycin 1 EACH in D5% in Water 250 ML IVPB PRN (11:00)
[2017-03-27] MEDS ORDERED: Vancomycin 1 EACH in D5% in Water 250 ML IVPB SCH (11:00)
--- NOTE | 2017-03-27 11:27 | Event Note ---
Date of Encounter: 03/27/17 Time of Encounter: 11:00 Called by RN because patient somnolent. Patient evaluated promptly. Patient with pinpoint pupils, sluggish to respond, but did wake up completely after several minutes and was able to hold a conversation. Blood glucose 93. Explained to patient and that narcotics in setting of renal failure likely the cause of her symptoms, they state that she has not taken any extra doses and has been on the same amount of oxycodone for the past six months. If patient becomes obtunded will need IV narcan. Holding all narcotics.
[2017-03-27 11:34] LABS: Hepatitis B Surface Antibody 1.12 mIU/mL; Hepatitis B Surface Antigen Nonreactive (Nonreactive)
[2017-03-27] MEDS ORDERED: 0.9 % Sodium Chloride 250 ML IVC PRN (12:18)
[2017-03-27] MEDS ORDERED: Albumin 25% 25gram/100mL 25 GM/100 ML IV.SOLN IVPB PRN (12:21)
[2017-03-27] MEDS ORDERED: 0.9 % Sodium Chloride 1,000 ML PRIME SCH (12:30)
--- NOTE | 2017-03-27 14:14 | Electrocardiograph Report ---
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
--- NOTE | 2017-03-27 16:27 | Nephrology Consult Note ---
Date of Encounter: 03/27/17 Time of Encounter: 12:00 Assessment and Plan (1) Altered mental status Current Visit: Yes Status: Acute Likely due to hypoglycemia and pain meds, improving Qualifiers: Altered mental status type: unspecified Qualified Code(s): R41.82 - Altered mental status, unspecified (2) ESRD on dialysis Current Visit: Yes Status: Acute Will arrange for HD with UF as tolerated today (3) Failure to thrive in adult Current Visit: Yes Status: Acute Will discuss goals of care with pt and . In previous hospital stay, pt wanted comfort care but and family refused. Palliative care was involved then. (4) Anemia Current Visit: No Status: Acute Hgb noted low at 7.8, etiology unclear as pt receives EPO regulearly, agree with resumption Qualifiers: Anemia type: other cause Other causes of anemia: other cause, not classified Qualified Code(s): D64.89 - Other specified anemias History of Present Illness - Reason for Consult Consult date: 03/27/17 end stage renal disease Requesting physician: Esther Kam - History of Present Illness 71 y o female with PMH of ESRD on HD, failed renal transplant and intact pancreatic transplant recently hospitalized presenting back for altered mental status. She was noted hypoglycemic and was treated. Pain meds might have also contributed to this. Pt seen and examined awake but tearful and in pain from her sacral decubitus ulcers. Decreased po intak noted by and overall progressive decline Past Med Surg Social Fam HX - Past Medical History Medical history: arthritis, atrial fibrillation, diabetes, dialysis, osteoporosis, renal disease, other Psychiatric history: no psych history - Past Surgical History Surgical History: appendectomy, herniorrhaphy, other - Social History Smoking Status: Never smoker Smokeless Tobacco Status: No Alcohol use: none Drug use: none - Family History Mother History Unknown: Yes Living Status: Hx Family Cardiac Disorders: Yes Medications and Allergies Acetaminophen [Tylenol] 650 mg PO Q4HR PRN 03/02/15 [History] Atorvastatin [Lipitor] 10 mg PO HS 03/02/15 [History] predniSONE [Prednisone] 2.5 mg PO BID 03/02/15 [History] Amiodarone [Cordarone] 200 mg PO DAILY 09/18/15 [History] B Complex W-C No.20/Folic Acid [Nephrocaps Softgel] 1 mg PO DAILY 12/17/15 [ History] Loperamide [Imodium] 2 mg PO Q8H PRN 02/19/16 [History] Oxygen 2 l IH HS 02/19/16 [History] Cyclosporine, Modified [Gengraf] 75 mg PO BID 09/10/16 [History] Aspirin Enteric Coated [Aspirin EC] 81 mg PO DAILY 10/14/16 [History] Ergocalciferol (VITAMIN D2) [Drisdol (50,000 Unit)] 50,000 unit PO FR 10/14/16 [ History] Magnesium Hydroxide [Milk of Magnesia] 2,400 mg PO DAILY PRN 10/14/16 [History] Omeprazole [PriLOSEC] 40 mg PO DAILY 10/14/16 [History] Ondansetron ODT [Zofran ODT] 4 mg PO Q8H PRN 10/14/16 [History] Denosumab [Prolia (For Outpatient Infusion)] 60 mg SQ Q6M 02/17/17 [History] Oxycodone HCl/Acetaminophen [Percocet 5-325 mg Tablet] 1 tab PO Q6H PRN [History] Albuterol Sulfate [Albuterol Inhaler] 2 puff IH Q6HR PRN #1 hfa.aer.ad 02/23/17 [Rx] Darbepoetin [Aranesp] 40 mcg SQ QWEEK syringe 02/23/17 [Rx] Folic Acid 1 mg PO DAILY tablet 02/23/17 [Rx] Saccharomyces Boulardii [Florastor] 250 mg PO BID #80 capsule 02/23/17 [Rx] hydrALAZINE [HydrALAZINE] 25 mg PO TID #90 tablet 02/23/17 [Rx] Metoprolol [Lopressor] 12.5 mg PO BID 03/09/17 [History] Cefepime HCl/Dextrose, Iso-Osm [Cefepime 2 gm Injection] 2 gm IV QMWF 35 Days froz.piggy 03/13/17 [Rx] Levothyroxine [Synthroid] 50 mcg PO DAILY #30 tablet 03/13/17 [Rx] Vancomycin [Vancocin] 500 each IV QMWF 35 Days vial 03/13/17 [Rx] 3 Allergy/AdvReac Type Severity Reaction Status Date / Time Penicillins [PCN] Allergy Hives Verified 03/27/17 07:00 Review of Systems All Systems: reviewed and no additional remarkable complaints except as stated ( 10 systems reviewed) Exam - Vital Signs Vital signs: Initial Vital Signs Temp Pulse Resp BP Pulse Ox 97.6 F 60 12 102/35 87 03/27/17 03:53 03/27/17 03:53 03/27/17 03:53 03/27/17 03:53 03/27/17 03:53 Vital Signs - Last 8 Hours Temp Pulse Resp BP Pulse Ox 03/27/17 15:55 98.1 F 54 16 106/56 95 03/27/17 11:30 97.8 F 58 16 140/68 98 03/27/17 09:56 97 Intake and Output 03/27/17 03/27/17 03/27/17 07:59 15:59 23:59 Intake Total 60 / 60 Balance 60 / 60 Intake: Oral 60 / 60 Other: Blood Glucose* 88 - General Appearance General appearance: chronically ill, frail EENT: ATNC, mucous membranes dry Neck: no JVD, supple, adenopathy Respiratory: clear (ant bilat) Cardiology: edema (LE bilat), normal S1, normal S2 - Dialysis Access Dialysis Vascular Access: Arteriovenous Fistula thrill: Yes bruit: Yes Gastrointestinal: no tenderness, no guarding Integumentary: no rash Neurologic: no focal deficit Musculoskeletal: no deformities Psychiatric: depressed Results - Lab Results 03/29/17 07:02 03/29/17 07:02 Most recent lab results Calcium 7.7 mg/dL (8.6-10.8) L 03/27/17 05:31 Consult Discharge Plan - Plan Referrals: Mason Mixon MD [Primary Care Provider] -
[2017-03-27] MEDS ORDERED: Vancomycin 1,000 MG in D5% in Water 250 ML IVPB ONE (18:00)
[2017-03-27] MEDS ORDERED: NON-FORMULARY MEDICATION 1 EACH EACH (Oxygen [Oxygen] 2 L) IH SCH (21:00)
[2017-03-27] MEDS ORDERED: Albumin 25% 12.5gm/50mL 25.0 GM/100 ML IV.SOLN ONE (21:07)
[2017-03-27] MEDS ORDERED: 0.9 % Sodium Chloride 2,000 ML ONE (21:07)
[2017-03-27] MEDS: *HR* OxyCODONE/APAP 5/325 TABLET PO PRN (22:31)
[2017-03-28] MEDS: Cefepime HCl 2,000 MG in Water for inj. (sterile) 20 ML IVP SCH (01:04)
[2017-03-28] MEDS: predniSONE 5 MG TABLET PO SCH ×3 (01:05→22:56)
[2017-03-28] MEDS: CycloSPORINE, Mod (Neoral) 25 MG CAPSULE PO SCH ×3 (01:06→22:55)
[2017-03-28] MEDS: *HR* OxyCODONE/APAP 5/325 TABLET PO PRN (05:55)
[2017-03-28 06:21] LABS: Basophils % 0.2 %; Eosinophils % 0.3 %; Hematocrit 21.9 % (35.3-44.9); Hemoglobin 6.8 g/dL (11.5-15.4); Immature Granulocytes % 1.1 % (0-4); Lymphocytes # 1.2 K/mcL (0.6-4.6); Lymphocytes % 11.2 %; Mean Corpuscular HGB Conc 31.1 g/dL (31.6-35.5); Mean Corpuscular Hemoglobin 30.1 pg (28.0-33.3); Mean Corpuscular Volume 96.9 fL (83.0-100.0); Mean Platelet Volume 10.5 fL (9.4-12.4); Monocytes # 1.2 K/mcL (0.0-1.3); Monocytes % 11.6 %; Neutrophils # 7.8 K/mcL (1.6-8.9); Red Blood Count 2.26 M/mcL (3.82-4.97); Red Cell Distribution Width 20.3 % (11.5-14.5); Segmented Neutrophils % 75.6 %
[2017-03-28 06:23] LABS: Platelet Count 87 K/mcL (140-400)
[2017-03-28 06:49] LABS: Calcium 7.8 mg/dL (8.6-10.8); Potassium 3.8 mEq/L (3.5-4.5)
[2017-03-28] MEDS ORDERED: Albumin 25% 25gram/100mL 25 GM/100 ML IV.SOLN IVPB PRN (08:26)
--- NOTE | 2017-03-28 08:44 | Internal Med Progress Note ---
Date of Encounter: 03/28/17 Time of Encounter: 08:15 - Assessment and plan (1) Hypotension Current Visit: Yes Status: Acute Qualifiers: Hypotension type: idiopathic hypotension Qualified Code(s): I95.0 - Idiopathic hypotension (2) Protein malnutrition Current Visit: Yes Status: Acute (3) Diarrhea Current Visit: Yes Status: Acute Qualifiers: Diarrhea type: unspecified type Qualified Code(s): R19.7 - Diarrhea, unspecified (4) ESRD (end stage renal disease) Current Visit: No Status: Chronic (5) Anemia Current Visit: No Status: Acute Qualifiers: Anemia type: other cause Other causes of anemia: other cause, not classified Qualified Code(s): D64.89 - Other specified anemias (6) Hypoglycemia Current Visit: Yes Status: Acute (7) Altered awareness, transient Current Visit: Yes Status: Acute - Time Spent With Patient Plan summary Patient had severe routine malnutrition her abdomen is critically low, with her hypotension and severe deconditioning, will add the 2 bags of albumin, dietitian consult, add protein supplement. Patient refused to eat her meals because her severe diarrhea and abdominal discomfort. With discuss with nephrology for possible ordering CT scan abdomen with oral contrast especially with her abdominal pain. We will check stool studies for C. difficile and stool culture is patient currently on different antibiotic. Add lactobacillus twice daily. Possible saida infection buttock area, will add Diflucan wound care consult, with her hypotension low hemoglobin will order 1 unit of blood. Check TSH and T4 patient has hypothyroidism with low TSH and T4 last admission. Patient continued to have hypoglycemia will order D5 half-normal saline at 75 mL per hour hypoglycemia protocol. Check stool for occult blood. We will discuss with nephrology possible increase her Epogen and add iron supplement to help with her anemia secondary to chronic kidney disease. Physical therapy and a Mckenzie therapy consult. Patient needs hospital stay more than 2 Midnight Greater than 35 minutes - Subjective Interval history: Patient complained of buttock pain. Patient stated every time she eats she will have loose bowel movement. Patient stated it is hardly eating anything right now. Patient is complaining of diarrhea 3-4 loose bowel movement daily - Constitutional Vitals: Temp Pulse Resp BP Pulse Ox 99.1 F 74 17 96/75 91 03/28/17 07:23 03/28/17 07:23 03/28/17 07:23 03/28/17 07:23 03/28/17 07:23 General appearance: Present: cooperative, A&O X 3, no acute distress - Head Head exam: Present: atraumatic, normocephalic - Neck Neck exam general surgery: Present: supple, trachea midline. Absent: lymphadenopathy - Respiratory Respiratory exam: Present: decreased breath sounds (Especially bilateral lung bases). Absent: accessory muscle use, rales, rhonchi, wheezes - Cardiovascular Cardiovascular exam: Present: RRR, +S1, +S2. Absent: diastolic murmur, gallop, rubs, systolic murmur - GI/Abdominal GI/Abdominal exam: Present: distended, normal bowel sounds, soft, tenderness ( Mild diffuse abdominal tenderness), no peritoneal signs - Extremities Exam Extremities exam: Present: warm. Absent: cyanotic, pedal edema Internal Medicine: Result - Labs CBC & Chem 7: 03/28/17 05:47 03/28/17 05:47 Labs: Short CBC 03/28/17 Range/Units 05:47 WBC 10.3 (4.3-11.1) K/mcL Hgb 6.8 L (11.5-15.4) g/dL Hct 21.9 L (35.3-44.9) % Plt Count 87 L (140-400) K/mcL Neutrophils # 7.8 (1.6-8.9) K/mcL BMP 03/28/17 05:47 Sodium 139 Potassium 3.8 Chloride 105 Carbon Dioxide 24 BUN 8 Creatinine 2.07 H Glucose 69 L Calcium 7.8 L - ABG Interpretation ABG results: PT/INR, D-dimer PT 13.9 Seconds (9.4-12.1) H 03/27/17 05:31 Consult Discharge Plan - Plan Referrals: Mason Mixon MD [Primary Care Provider] -
[2017-03-28] MEDS ORDERED: D5% in 0.45% NACL 1,000 ML IVC ONE (08:52)
[2017-03-28] MEDS ORDERED: *HR* HYDROcodone/Acet 5/325 mg TABLET PO PRN (09:05)
[2017-03-28] MEDS ORDERED: Thiamine (B-1) 100 MG in D5% in Water 50 ML IVPB ONE (09:18)
[2017-03-28] MEDS: D5% in 0.45% NACL 1,000 ML IVC SCH (09:30)
[2017-03-28] MEDS ORDERED: Thiamine (B-1) 100 MG in D5% in Water 100 ML IVPB ONE (10:00)
[2017-03-28] MEDS: Lactobacillus 1 EACH CAP.SPRINK PO SCH ×3 (10:09→22:55)
[2017-03-28] MEDS: Aspirin Enteric Coated 81 MG Tablet PO SCH (10:09)
[2017-03-28] MEDS: *HR* Amiodarone 200 MG TABLET PO SCH (10:09)
[2017-03-28] MEDS: Fluconazole 100 MG/50 ML 100 MG/50 ML BAG IVPB SCH (10:10)
[2017-03-28] MEDS: Renal Vitamin 1 MG CAPSULE PO SCH (10:10)
[2017-03-28] MEDS: Folic Acid 1 MG TABLET PO SCH (10:10)
[2017-03-28 10:11] LABS: Estimated Average Glucose < 68 mg/dl; Hemoglobin A1C <= 3.9 %
[2017-03-28 10:58] LABS: Thyroid Stimulating Hormone 9.416 mcIU/mL (0.350-4.840)
[2017-03-28] MEDS ORDERED: 0.9 % Sodium Chloride 250 ML ONE (11:24)
[2017-03-28] MEDS: Nystatin Cream 15 GM TUBE TP SCH ×3 (14:10→23:07)
[2017-03-28] MEDS: Megestrol Acetate 400 MG/10 ML UDC PO SCH ×3 (14:10→22:55)
[2017-03-28] MEDS: Thiamine (B-1) 100 MG TABLET PO SCH (14:13)
--- NOTE | 2017-03-28 16:35 | Nephrology Progress Note ---
Date of Encounter: 03/28/17 Time of Encounter: 13:00 - Assessment and Plan (1) Failure to thrive in adult Current Visit: Yes Status: Acute No palliative care for now per Careful pain management to prevent mental status issues (2) ESRD on dialysis Current Visit: Yes Status: Acute s/p HD yesterday, next planned on thursday hold phos binders can liberalize renal diet since not eating much (3) Anemia Current Visit: No Status: Acute Agree with transfusion pRBCs per primary team Will continue EPO Will check iron levels Qualifiers: Anemia type: other cause Other causes of anemia: other cause, not classified Qualified Code(s): D64.89 - Other specified anemias Subjective Interval history: Pt seen and examined with at bedside resting. Still with poor po intake. Complains of generalized body pain when awake. Discussed goals of care discussed with once more, not open to palliative care. Ended HD 30mins early due to pain Objective - Vital Signs Vital signs: Vital Signs Temp Pulse Resp BP Pulse Ox 03/28/17 16:15 97.6 F 68 17 137/62 98 03/28/17 14:27 98 F 72 20 103/49 03/28/17 11:50 98.2 F 67 18 102/49 98 03/28/17 11:35 98.4 F 67 18 103/40 97 03/28/17 10:05 72 136/67 95 Intake and Output 03/28/17 03/28/17 03/28/17 07:59 15:59 23:59 Intake Total 300 / 300 Output Total 0 / 0 Balance 300 / 300 Intake: Blood Product 300 / 300 Rbcs Leuko Poor As-1 Unit 300 / 300 [id number] Output: Urine 0 / 0 - General Appearance General appearance: Present: chronically ill, frail EENT: Present: ATNC, mucous membranes dry Neck: Present: no JVD, supple Respiratory: Present: clear (ant bilat) Cardiology: Present: edema (trace LE bilat), normal S1, normal S2 Dialysis Vascular Access: Arteriovenous Fistula thrill: Yes bruit: Yes Gastrointestinal: Present: no tenderness, no guarding Integumentary: Present: warm and dry Neurologic: Present: no focal deficit Musculoskeletal: Present: no deformities Psychiatric: Present: depressed - Lab 03/29/17 07:02 03/29/17 07:02 Most recent lab results Calcium 7.8 mg/dL (8.6-10.8) L 03/28/17 05:47 Consult Discharge Plan - Plan Referrals: Mason Mixon MD [Primary Care Provider] -
[2017-03-28 18:28] LABS: Phosphorous 1.4 mg/dL (2.3-4.7); Uric Acid 2.3 mg/dL (2.6-6.0)
[2017-03-29] MEDS: *HR* OxyCODONE/APAP 5/325 TABLET PO PRN ×2 (00:38→16:39)
[2017-03-29] MEDS ORDERED: *HR* Morphine 2 MG/ML SYRINGE IVP ONE (02:00)
[2017-03-29] MEDS: D5% in 0.45% NACL 1,000 ML IVC SCH (05:02)
[2017-03-29 07:12] LABS: Mean Corpuscular HGB Conc 32.2 g/dL (31.6-35.5); Mean Platelet Volume 9.6 fL (9.4-12.4)
[2017-03-29 07:14] LABS: Basophils % 0.2 %; Eosinophils # 0.1 K/mcL (0.0-0.6); Eosinophils % 0.6 %; Hematocrit 26.1 % (35.3-44.9); Hemoglobin 8.4 g/dL (11.5-15.4); Immature Granulocytes % 1.1 % (0-4); Lymphocytes # 1.1 K/mcL (0.6-4.6); Mean Corpuscular Hemoglobin 30.1 pg (28.0-33.3); Mean Corpuscular Volume 93.5 fL (83.0-100.0); Monocytes # 1.2 K/mcL (0.0-1.3); Monocytes % 12.2 %; Red Blood Count 2.79 M/mcL (3.82-4.97); Segmented Neutrophils % 73.9 %
[2017-03-29 07:28] LABS: Calcium 7.6 mg/dL (8.6-10.8); Magnesium 1.3 mg/dL (1.6-2.6); Potassium 4.4 mEq/L (3.5-4.5)
[2017-03-29 07:32] LABS: Albumin 1.5 g/dL (3.5-5.0); Phosphorous 2.6 mg/dL (2.3-4.7)
[2017-03-29 07:35] LABS: Platelet Count 90 K/mcL (140-400)
[2017-03-29 07:49] LABS: Vancomycin,Trough 23.9 mcg/mL (10-20)
[2017-03-29 08:43] LABS: Anisocytosis 1+ (Not Present); Platelet Estimate Decreased (Normal); Toxic Granulation Present (Not Present)
[2017-03-29 08:44] LABS: Polychromasia 1+ (Not Present)
--- NOTE | 2017-03-29 10:30 | Internal Med Progress Note ---
Date of Encounter: 03/29/17 Time of Encounter: 11:00 - Assessment and plan (1) Hypotension Current Visit: Yes Status: Acute Qualifiers: Hypotension type: idiopathic hypotension Qualified Code(s): I95.0 - Idiopathic hypotension (2) Protein malnutrition Current Visit: Yes Status: Acute (3) Diarrhea Current Visit: Yes Status: Acute Qualifiers: Diarrhea type: unspecified type Qualified Code(s): R19.7 - Diarrhea, unspecified (4) ESRD (end stage renal disease) Current Visit: No Status: Chronic (5) Anemia Current Visit: No Status: Acute Qualifiers: Anemia type: other cause Other causes of anemia: other cause, not classified Qualified Code(s): D64.89 - Other specified anemias (6) Hypoglycemia Current Visit: Yes Status: Acute (7) Altered awareness, transient Current Visit: Yes Status: Acute (8) Bilateral buttock pain Current Visit: Yes Status: Acute (9) Cellulitis Current Visit: Yes Status: Acute Qualifiers: Site of cellulitis: buttock Qualified Code(s): L03.317 - Cellulitis of buttock - Time Spent With Patient Discussed with staff, urgent wound care consult, air mattress. Patient today down her side. Check MRI pelvic area, possible pneumonia on imaging study, urine culture was positive for UTI which was sensitive to cefepime, add flagyl and azithromycin, Awaiting stool study. Discussed with Renal , may need colostomy , PEG . With his severe malnutrition as well as severe cellulitis buttock area secondary to diarrhea, add Questran, protein supplement, nystatin mouthwash. Greater than 35 minutes - Subjective Interval history: Patient continued to have diarrhea, patient had significant skin breakdown on her buttock area significant cellulitis. She complained of severe pain if her buttock area. Complain of soreness in her mouth. Markedly diminished oral intake - Constitutional Vitals: Temp Pulse Resp BP Pulse Ox 98.1 F 62 17 85/42 97 03/29/17 07:08 03/29/17 07:08 03/29/17 07:08 03/29/17 07:08 03/29/17 07:08 General appearance: Present: cooperative, A&O X 3, no acute distress - Neck Neck exam general surgery: Present: supple, trachea midline. Absent: lymphadenopathy - Respiratory Respiratory exam: Present: decreased breath sounds, rales (Bilateral lung bases) . Absent: accessory muscle use, rhonchi, wheezes - Cardiovascular Cardiovascular exam: Present: RRR, +S1, +S2. Absent: gallop, rubs, systolic murmur - GI/Abdominal GI/Abdominal exam: Present: normal bowel sounds, soft. Absent: distended, tenderness - Extremities Exam Extremities exam: Present: warm. Absent: calf tenderness, cyanotic, pedal edema Internal Medicine: Result - Labs CBC & Chem 7: 03/29/17 07:02 03/29/17 07:02 Labs: Short CBC 03/29/17 Range/Units 07:02 WBC 9.5 (4.3-11.1) K/mcL Hgb 8.4 L D (11.5-15.4) g/dL Hct 26.1 L (35.3-44.9) % Plt Count 90 L (140-400) K/mcL Neutrophils # 7.0 (1.6-8.9) K/mcL BMP 03/29/17 07:02 Sodium 136 Potassium 4.4 Chloride 104 Carbon Dioxide 22 BUN 10 Creatinine 2.90 H Glucose 149 H Calcium 7.6 L Liver Function 03/29/17 Range/Units 07:02 Albumin 1.5 L D (3.5-5.0) g/dL - ABG Interpretation ABG results: PT/INR, D-dimer PT 13.9 Seconds (9.4-12.1) H 03/27/17 05:31 - Impressions Impressions Abdomen/Pelvis CT 03/28/17 12:00 IMPRESSION: Equivocal colonic wall thickening is favored to be artifactual due to underdistention given the lack of adjacent inflammation. Otherwise, no acute abnormality identified in the abdomen or pelvis. Unchanged pancreatic pseudocyst. Cholelithiasis. Unchanged appearance of the left lower quadrant transplant kidney. Moderate right and large left pleural effusions with associated atelectasis. Superimposed pneumonia is a possibility in the appropriate clinical setting. D/ / 03/28/2017 14:02:24 Justin Valdivia MD / Helga Vargas Interpreting Provider: Justin Valdivia MD Consult Discharge Plan - Plan Referrals: Mason Mixon MD [Primary Care Provider] -
[2017-03-29] MEDS: Lidocaine 4% CREAM (LMX) 5 GM TP PRN ×2 (12:06→17:15)
[2017-03-29] MEDS ORDERED: Albumin 25% 25gram/100mL 25 GM/100 ML IV.SOLN IVPB ONE (15:52)
[2017-03-29] MEDS ORDERED: Azithromycin 500 MG in D5% in Water 250 ML IVPB SCH (16:00)
--- NOTE | 2017-03-29 16:02 | Nephrology Progress Note ---
Date of Encounter: 03/29/17 Time of Encounter: 12:05 - Assessment and Plan (1) Failure to thrive in adult Current Visit: Yes Status: Acute Continue careful pain control Continue thrush care Continue megace for appetite Possible ECF to [facility] on discharge (2) ESRD on dialysis Current Visit: Yes Status: Acute next HD tomorrow Careful use of IVF in this patient as high risk for fluid overload (3) Anemia Current Visit: No Status: Acute hgb improved after transfusion continue EPO iron levels noted elevated and not typical for this pt, discussed with primary team Qualifiers: Anemia type: other cause Other causes of anemia: other cause, not classified Qualified Code(s): D64.89 - Other specified anemias Subjective Interval history: Pt seen and examined with at bedside resting. Still with poor po intake. Per nurse, decubitus ulcers concerning. might consider ECF on discharge if [facility] only. Mouth care done by nurse for thrush. IVF noted with NS at 50cc/hr Objective - Vital Signs Vital signs: Vital Signs Temp Pulse Resp BP Pulse Ox 03/29/17 15:35 98.0 F 61 17 140/71 100 03/29/17 11:39 97.9 F 64 18 128/62 95 03/29/17 07:08 98.1 F 62 17 85/42 97 03/29/17 04:07 98.4 F 64 16 138/50 94 03/29/17 00:42 98.3 F 66 18 146/65 94 03/28/17 19:47 98.6 F 68 16 145/50 97 03/28/17 16:15 97.6 F 68 17 137/62 98 Intake and Output 03/29/17 03/29/17 03/29/17 07:59 15:59 23:59 Intake Total 1101 / 1101 Balance 1101 / 1101 Intake: IV Fluids 1101 / 1101 D5% And 0.45% Nacl 1000 Ml Bag 1000 / 1000 1,000 ML @ 50 mls/hr IVC .Q20H TRINH Rx#:[id number] Other: Stool Size Small Stool Consistency loose liquid # Bowel Movement Diapers 1 Blood Glucose* 141 161 - General Appearance General appearance: Present: chronically ill, frail EENT: Present: ATNC, pharyngeal erythema Neck: Present: no JVD, supple Respiratory: Present: clear Cardiology: Present: edema (LE, UE bilat), normal S1, normal S2 Dialysis Vascular Access: Arteriovenous Fistula thrill: Yes bruit: Yes Gastrointestinal: Present: no tenderness, no guarding Integumentary: Present: warm and dry Neurologic: Present: no focal deficit Musculoskeletal: Present: no deformities Psychiatric: Present: depressed - Lab 03/29/17 07:02 03/29/17 07:02 Most recent lab results Calcium 7.6 mg/dL (8.6-10.8) L 03/29/17 07:02 Phosphorus 2.6 mg/dL (2.3-4.7) D 03/29/17 07:02 Magnesium 1.3 mg/dL (1.6-2.6) L 03/29/17 07:02 Consult Discharge Plan - Plan Referrals: Mason Mixon MD [Primary Care Provider] -
[2017-03-29] MEDS: Lactobacillus 1 EACH CAP.SPRINK PO SCH ×2 (16:31→21:35)
[2017-03-29] MEDS: *HR* Amiodarone 200 MG TABLET PO SCH (16:31)
[2017-03-29] MEDS: Folic Acid 1 MG TABLET PO SCH (16:31)
[2017-03-29] MEDS: Aspirin Enteric Coated 81 MG Tablet PO SCH (16:31)
[2017-03-29] MEDS: Megestrol Acetate 400 MG/10 ML UDC PO SCH ×3 (16:32→21:43)
[2017-03-29] MEDS: CycloSPORINE, Mod (Neoral) 25 MG CAPSULE PO SCH ×2 (16:33→21:35)
[2017-03-29] MEDS: Renal Vitamin 1 MG CAPSULE PO SCH (16:33)
[2017-03-29] MEDS: predniSONE 5 MG TABLET PO SCH ×2 (16:33→21:38)
[2017-03-29] MEDS: Nystatin Cream 15 GM TUBE TP SCH ×2 (16:33→21:49)
[2017-03-29] MEDS: Thiamine (B-1) 100 MG TABLET PO SCH (16:34)
[2017-03-29] MEDS: Fluconazole 100 MG/50 ML 100 MG/50 ML BAG IVPB SCH (16:35)
[2017-03-29] MEDS: Nystatin SUSP 5 ML UD.LIQ PO SCH ×3 (17:49→22:01)
[2017-03-29] MEDS: Cholestyramine 4 GM POWD.PACK PO SCH (17:52)
[2017-03-29] MEDS ORDERED: *HR* Morphine 2 MG/ML SYRINGE IVP PRN (18:00)
[2017-03-29] MEDS: MetroNIDAZOLE 500 MG/100 ML 500 MG/100 ML BAG IVPB SCH (22:00)
[2017-03-30] MEDS: MetroNIDAZOLE 500 MG/100 ML 500 MG/100 ML BAG IVPB SCH ×4 (00:52→23:23)
[2017-03-30] MEDS: D5% in 0.45% NACL 1,000 ML IVC SCH ×2 (00:52→23:20)
[2017-03-30] MEDS: Cholestyramine 4 GM POWD.PACK PO SCH ×2 (06:53→17:22)
[2017-03-30 08:15] LABS: Hematocrit 26.5 % (35.3-44.9); Hemoglobin 8.5 g/dL (11.5-15.4); Immature Platelets 2.9 % (1.1-6.1); Mean Corpuscular HGB Conc 32.1 g/dL (31.6-35.5); Mean Corpuscular Hemoglobin 30.2 pg (28.0-33.3); Mean Corpuscular Volume 94.3 fL (83.0-100.0); Mean Platelet Volume 10.4 fL (9.4-12.4); Red Blood Count 2.81 M/mcL (3.82-4.97); Red Cell Distribution Width 19.8 % (11.5-14.5)
[2017-03-30 08:26] LABS: Calcium 7.9 mg/dL (8.6-10.8); Potassium 4.1 mEq/L (3.5-4.5)
[2017-03-30] MEDS: *HR* Morphine 2 MG/ML SYRINGE IVP PRN ×2 (10:10→23:31)
[2017-03-30] MEDS ORDERED: 0.9 % Sodium Chloride 250 ML IVC PRN (10:30)
--- NOTE | 2017-03-30 11:34 | Internal Med Progress Note ---
Date of Encounter: 03/30/17 Time of Encounter: 10:30 - Assessment and plan (1) Hypotension Current Visit: Yes Status: Acute Qualifiers: Hypotension type: idiopathic hypotension Qualified Code(s): I95.0 - Idiopathic hypotension (2) Protein malnutrition Current Visit: Yes Status: Acute (3) Diarrhea Current Visit: Yes Status: Acute Qualifiers: Diarrhea type: unspecified type Qualified Code(s): R19.7 - Diarrhea, unspecified (4) ESRD (end stage renal disease) Current Visit: No Status: Chronic (5) Anemia Current Visit: No Status: Acute Qualifiers: Anemia type: other cause Other causes of anemia: other cause, not classified Qualified Code(s): D64.89 - Other specified anemias (6) Hypoglycemia Current Visit: Yes Status: Acute (7) Altered awareness, transient Current Visit: Yes Status: Acute (8) Bilateral buttock pain Current Visit: Yes Status: Acute (9) Cellulitis Current Visit: Yes Status: Acute Qualifiers: Site of cellulitis: buttock Qualified Code(s): L03.317 - Cellulitis of buttock - Time Spent With Patient Discussed with patient the hospital and the patient critical condition, with her severe malnutrition most likely she will need nasogastric tube and that every feeding, may need Peg tube. Discussed about her cellulitis bilateral buttocks and incontinence which make it more worse. With his stool incontinence , possible need colostomy, patient is very poor candidate for surgery. Discussed the risk and benefit. Patient does not want to go through any more invasive procedure. stated she has been sick for almost 50 years, patient had renal transplant and pancreatic transplant, with her failed transplant being in dialysis again and progressive decline of her house patient wanted to be comfortable, discussed with him about palliative care and comfort care, discussed with patient and about survival after holding dialysis. Patient understand that could be 2 weeks. Discussed with him about hospice consult for further evaluation and assessment. agreed with hospice consult. Discussed with hospice physician is going to come and evaluate patient. is going to call her sister as well as her son for meeting. He want to proceed with home hospice if possible based on patient wishes . Patient refused any blood pressure monitoring,oral medication 25 - 35 minutes - Subjective Interval history: Patient continued to have diarrhea, patient had significant skin breakdown on her buttock area significant cellulitis. She complained of severe pain if her buttock area. Complain of soreness in her mouth. Markedly diminished oral intake. Patient received nystatin mouthwash she received antiseptic mouthwash wash, patient refused any oral mid, patient does not want to go through any physical procedure, patient does not want to have dialysis, patient wanted to be comfortable, I had long discussion with patient and RN. Patient is alert oriented 3. Patient does not want any invasive procedure . - Constitutional Vitals: Temp Pulse Resp BP Pulse Ox 97.9 F 60 16 112/58 95 03/30/17 05:44 03/30/17 11:19 03/30/17 05:44 03/30/17 11:21 03/30/17 05:44 General appearance: Present: cooperative, A&O X 3, no acute distress - Neck Neck exam general surgery: Present: supple, trachea midline. Absent: lymphadenopathy - Respiratory Respiratory exam: Present: decreased breath sounds, rales. Absent: accessory muscle use, rhonchi, wheezes - Cardiovascular Cardiovascular exam: Present: diastolic murmur, RRR, +S1, +S2. Absent: gallop, rubs, systolic murmur - GI/Abdominal GI/Abdominal exam: Present: normal bowel sounds, soft, tenderness (Mild diffuse abdominal tenderness). Absent: distended - Extremities Exam Extremities exam: Present: calf tenderness, warm, radial pulses palpable and symmetrical. Absent: cyanotic, pedal edema Internal Medicine: Result - Labs CBC & Chem 7: 03/30/17 08:00 03/30/17 08:00 Labs: Short CBC 03/30/17 Range/Units 08:00 WBC 10.0 (4.3-11.1) K/mcL Hgb 8.5 L (11.5-15.4) g/dL Hct 26.5 L (35.3-44.9) % Plt Count 81 L (140-400) K/mcL BMP 03/30/17 08:00 Sodium 135 L Potassium 4.1 Chloride 103 Carbon Dioxide 22 BUN 14 Creatinine 3.56 H Glucose 141 H Calcium 7.9 L - ABG Interpretation ABG results: PT/INR, D-dimer PT 13.9 Seconds (9.4-12.1) H 03/27/17 05:31 Consult Discharge Plan - Plan Referrals: Mason Mixon MD [Primary Care Provider] -
--- NOTE | 2017-03-30 13:29 | Palliative - Consult Note ---
Date of Encounter: 03/30/17 Time of Encounter: 12:35 - Assessment and Plan (1) ESRD (end stage renal disease) Current Visit: No Status: Chronic Assessment and plan: The patient has been ambivalent about in her end-stage renal disease for quite some time. She has now very forcefully stated to the attending hospitalist as well as her family that she does not wish to have any further care with regard to dialysis. Therefore dialysis will be stopped patient be transitioned to hospice care. (2) Altered mental status Current Visit: Yes Status: Acute Assessment and plan: Ears to be mostly related to hypoglycemia. After discussion with patient's family, (currently the patient has been medicated and is very somnolent) is clear that her wishes are now that she not have any further dialysis and she does not wish to have any further invasive tests or procedures. Now understanding of this and is on board. Therefore the patient will be transitioned to hospice, at her request. Qualifiers: Altered mental status type: unspecified Qualified Code(s): R41.82 - Altered mental status, unspecified (3) Decubital ulcer Current Visit: Yes Status: Acute Assessment and plan: Continue local wound care, continue current medications for pain. Qualifiers: Pressure ulcer location: sacral region Pressure ulcer stage: stage 2 Qualified Code(s): L89.152 - Pressure ulcer of sacral region, stage 2 (4) Goals of care, counseling/discussion Current Visit: Yes Status: Acute Assessment and plan: Per patient request that she no longer have any further dialysis. She will be kept comfortable patient will transition to DNR CCA, DNI status and then did DNR Comfort Care status on discharge. Further she will be admitted to [facility] on discharge. Hospice will see the patient today to line up the equipment get it delivered probable discharge tomorrow home with hospice. Palliative-CN HPI - Data of Consult Patient: known to practice within the last 3 years Requesting Physician: Jeane Dyer MD Primary Care Provider: Mason Mixon MD - Consult Narrative Palliative Care/Comfort Measures: Hospice care Reason for consult: Hospice qualification History of present illness: Ms. Moore is a 71 year old female The patient is a well-known patient to me on long-term dialysis. I saw her approximately 2 weeks ago and had long discussions with her. Now presented yet again to the hospital now with altered mental status secondary to hypoglycemia and she is actively refusing all further interventions wishes to go home. Made this abundantly clear to her family and at this point in time her has fully signed off on her refusal to do dialysis and/or eat. The patient wishes to have hospice care at this point in time and this will be provided through [facility]. As the patient has decided to stop her dialysis. At this time she is comfortable but also very somnolent. She has however had a lot of buttock pain secondary to her decubitus. On medications for this and they seem to be effective. CC: Jeane Dyer MD Past Med Surg Social Fam HX - Past Medical History Medical history: arthritis, atrial fibrillation, diabetes, dialysis, osteoporosis, renal disease, other Psychiatric history: no psych history - Past Surgical History Surgical History: appendectomy, herniorrhaphy, other - Social History Smoking Status: Never smoker Smokeless Tobacco Status: No Alcohol use: none Drug use: none - Family History Mother History Unknown: Yes Living Status: Hx Family Cardiac Disorders: Yes Medications and Allergies Acetaminophen [Tylenol] 650 mg PO Q4HR PRN 03/02/15 [History] Atorvastatin [Lipitor] 10 mg PO HS 03/02/15 [History] predniSONE [Prednisone] 2.5 mg PO BID 03/02/15 [History] Amiodarone [Cordarone] 200 mg PO DAILY 09/18/15 [History] B Complex W-C No.20/Folic Acid [Nephrocaps Softgel] 1 mg PO DAILY 12/17/15 [ History] Loperamide [Imodium] 2 mg PO Q8H PRN 02/19/16 [History] Oxygen 2 l IH HS 02/19/16 [History] Cyclosporine, Modified [Gengraf] 75 mg PO BID 09/10/16 [History] Aspirin Enteric Coated [Aspirin EC] 81 mg PO DAILY 10/14/16 [History] Ergocalciferol (VITAMIN D2) [Drisdol (50,000 Unit)] 50,000 unit PO FR 10/14/16 [ History] Magnesium Hydroxide [Milk of Magnesia] 2,400 mg PO DAILY PRN 10/14/16 [History] Omeprazole [PriLOSEC] 40 mg PO DAILY 10/14/16 [History] Ondansetron ODT [Zofran ODT] 4 mg PO Q8H PRN 10/14/16 [History] Denosumab [Prolia (For Outpatient Infusion)] 60 mg SQ Q6M 02/17/17 [History] Oxycodone HCl/Acetaminophen [Percocet 5-325 mg Tablet] 1 tab PO Q6H PRN [History] Albuterol Sulfate [Albuterol Inhaler] 2 puff IH Q6HR PRN #1 [id number] 02/23/17 [Rx] Darbepoetin [Aranesp] 40 mcg SQ QWEEK syringe 02/23/17 [Rx] Folic Acid 1 mg PO DAILY tablet 02/23/17 [Rx] Saccharomyces Boulardii [Florastor] 250 mg PO BID #80 capsule 02/23/17 [Rx] hydrALAZINE [HydrALAZINE] 25 mg PO TID #90 tablet 02/23/17 [Rx] Metoprolol [Lopressor] 12.5 mg PO BID 03/09/17 [History] Cefepime HCl/Dextrose, Iso-Osm [Cefepime 2 gm Injection] 2 gm IV QMWF 35 Days froz.piggy 03/13/17 [Rx] Levothyroxine [Synthroid] 50 mcg PO DAILY #30 tablet 03/13/17 [Rx] Vancomycin [Vancocin] 500 each IV QMWF 35 Days vial 03/13/17 [Rx] 3 Allergy/AdvReac Type Severity Reaction Status Date / Time Penicillins [PCN] Allergy Hives Verified 03/27/17 07:00 ROS unobtainable: due to mental status Palliative Care-Exam - Constitutional Vitals: Temp Pulse Resp BP Pulse Ox 97.9 F 60 16 112/58 95 03/30/17 05:44 03/30/17 11:19 03/30/17 05:44 03/30/17 11:21 03/30/17 10:00 General appearance: Present: no acute distress - Head Head Exam: Present: atraumatic, normal inspection - Eye Eye exam: Present: normal appearance - ENT ENT exam: Present: mucous membranes moist - Respiratory Respiratory exam: Present: decreased breath sounds - Cardiovascular Cardiovascular exam: Present: RRR - GI/Abdominal Exam GI/Abdominal exam: Present: normal bowel sounds - Extremities Exam Extremities exam: Present: pedal edema. Absent: normal inspection, tenderness - Neurological Exam Neurological exam: Present: altered (Very sleepy at this time was recently medicated per the nursing staff.) - Psychiatric Psychiatric exam: Absent: agitated, anxious - Skin Skin exam: Present: dry, warm Internal Medicine - CN: Reslt - Labs CBC & Chem 7: 03/30/17 08:00 03/30/17 08:00 Labs: Short CBC 03/30/17 Range/Units 08:00 WBC 10.0 (4.3-11.1) K/mcL Hgb 8.5 L (11.5-15.4) g/dL Hct 26.5 L (35.3-44.9) % Plt Count 81 L (140-400) K/mcL BMP 03/30/17 08:00 Sodium 135 L Potassium 4.1 Chloride 103 Carbon Dioxide 22 BUN 14 Creatinine 3.56 H Glucose 141 H Calcium 7.9 L - ABG Interpretation ABG results: PT/INR, D-dimer PT 13.9 Seconds (9.4-12.1) H 03/27/17 05:31 Consult Discharge Plan - Plan Referrals: Mason Mixon MD [Primary Care Provider] - Palliative Quality Palliative Quality: Screen for Code Status: Yes, Screen for Goals of Care: Yes, Screen for Pain: Yes, If Pain Regimen Started, Initiate Bowel Regimen: Yes, Screen for Nausea/Vomitting: Yes
[2017-03-30] MEDS: *HR* OxyCODONE/APAP 5/325 TABLET PO PRN (13:33)
[2017-03-30] MEDS: Nystatin SUSP 5 ML UD.LIQ PO SCH ×4 (13:40→23:22)
[2017-03-30] MEDS: predniSONE 5 MG TABLET PO SCH ×2 (13:42→23:22)
[2017-03-30] MEDS: Lactobacillus 1 EACH CAP.SPRINK PO SCH ×3 (13:45→23:20)
[2017-03-30] MEDS: Fluconazole 100 MG TABLET PO SCH (13:47)
[2017-03-30] MEDS: Folic Acid 1 MG TABLET PO SCH (13:48)
[2017-03-30] MEDS: Thiamine (B-1) 100 MG TABLET PO SCH (13:49)
[2017-03-30] MEDS: *HR* Amiodarone 200 MG TABLET PO SCH (13:49)
[2017-03-30] MEDS: CycloSPORINE, Mod (Neoral) 25 MG CAPSULE PO SCH ×2 (13:50→23:22)
[2017-03-30] MEDS: Renal Vitamin 1 MG CAPSULE PO SCH (13:50)
[2017-03-30] MEDS: Nystatin Cream 15 GM TUBE TP SCH ×3 (13:50→23:22)
[2017-03-30] MEDS: Aspirin Enteric Coated 81 MG Tablet PO SCH (13:50)
[2017-03-30] MEDS: Megestrol Acetate 400 MG/10 ML UDC PO SCH ×3 (13:51→23:21)
--- NOTE | 2017-03-30 15:06 | Event Note ---
Date of Encounter: 03/30/17 Time of Encounter: 15:05 Hospice medical assistant per diem certification of terminal illness: Hospice benefit. Start: 03/31/2017 Hospice benefit. In: +90 days Palliative performance scale: 30% History: She with history of end-stage renal disease has been hospitalized several times recently, one for infection 1 for altered mental status secondary to hypoglycemia. The patient has very poor protein intake and now also has a very large decubitus ulcer ulcer. She also has end-stage renal disease for which she no longer wants to have dialysis. The patient is 100% dialysis dependent, with no urine output. I believe that These findings support a life expectancy of 6 months or less. I attest that I have compose the above narrative based on my review of the patient's medical records, and or on my examination of the patient. Kane Brown M.D. Associate manager medical writing. [facility]
[2017-03-30] MEDS ORDERED: *HR* Morphine 2 MG/ML SYRINGE IVP ONE (15:23)
[2017-03-30] MEDS ORDERED: Azithromycin 500 MG in D5% in Water 250 ML IVPB SCH (16:00)
--- NOTE | 2017-03-30 16:34 | Event Note ---
Date of Encounter: 03/30/17 Time of Encounter: 16:[address] Brown's note. Patient no longer wants dialysis and is now palliative care. Will sign off. Call if questions or if any other assistance is needed.
[2017-03-30] MEDS: Cefepime HCl 2,000 MG in Water for inj. (sterile) 20 ML IVP SCH (17:35)
[2017-03-31] MEDS: Cholestyramine 4 GM POWD.PACK PO SCH (08:01)
[2017-03-31] MEDS: D5% in 0.45% NACL 1,000 ML IVC SCH (08:02)
[2017-03-31] MEDS: MetroNIDAZOLE 500 MG/100 ML 500 MG/100 ML BAG IVPB SCH (08:02)
[2017-03-31] MEDS: Nystatin SUSP 5 ML UD.LIQ PO SCH ×2 (08:03→14:31)
--- NOTE | 2017-03-31 09:19 | Palliative Progress Note ---
Date of Encounter: 03/31/17 Time of Encounter: 09:17 - Time Spent With Patient Total time spent is greater than 50% in coordination of care (as documented) at patient's floor/unit and/or counseling patient: less than 15 minutes - Subjective Interval history: Patient continues to be very somnolent. Having bowel movements. Not complaining of pain or dyspnea. - Constitutional Vitals: Abnormal lab results RBC 2.81 M/mcL (3.82-4.97) L 03/30/17 08:00 Hgb 8.5 g/dL (11.5-15.4) L 03/30/17 08:00 Hct 26.5 % (35.3-44.9) L 03/30/17 08:00 RDW 19.8 % (11.5-14.5) H 03/30/17 08:00 Plt Count 81 K/mcL (140-400) L 03/30/17 08:00 Toxic Granulation Present (Not Present) A 03/29/17 07:02 Platelet Estimate Decreased (Normal) L 03/29/17 07:02 Polychromasia 1+ (Not Present) A 03/29/17 07:02 Anisocytosis 1+ (Not Present) A 03/29/17 07:02 PT 13.9 Seconds (9.4-12.1) H 03/27/17 05:31 Sodium 135 mEq/L (136-145) L 03/30/17 08:00 Creatinine 3.56 mg/dL (0.57-1.11) H 03/30/17 08:00 Est GFR ( Amer) 15 (> 60) L 03/30/17 08:00 Est GFR (Non-Af Amer) 13 (> 60) L 03/30/17 08:00 BUN/Creatinine Ratio 4 (6-26) L 03/30/17 08:00 Glucose 141 mg/dL (70-99) H 03/30/17 08:00 POC Glucose 129 (58-89) H 03/30/17 11:18 Uric Acid 2.3 mg/dL (2.6-6.0) L 03/28/17 08:38 Calcium 7.9 mg/dL (8.6-10.8) L 03/30/17 08:00 Magnesium 1.3 mg/dL (1.6-2.6) L 03/29/17 07:02 Iron 44 mcg/dL (50-170) L 03/28/17 08:38 % Saturation 112 % (15-50) H 03/28/17 08:38 Transferrin 28 mg/dL (180-382) L 03/28/17 08:38 Ferritin 2423 ng/ml (5-204) H 03/28/17 08:38 Alkaline Phosphatase 131 Units/L (38-126) H 03/27/17 05:31 Serum Total Protein 4.1 g/dL (6.0-8.3) L 03/27/17 05:31 Albumin 1.5 g/dL (3.5-5.0) L D 03/29/17 07:02 Albumin/Globulin Ratio 0.4 (1.1-2.2) L 03/27/17 05:31 Prealbumin 8.0 mg/dL (16.0-38.0) L 03/29/17 07:02 TSH 9.416 mcIU/mL (0.350-4.840) H 03/28/17 08:38 Urine Clarity Cloudy (Clear) A 03/27/17 04:45 Urine Blood Large (Negative) H 03/27/17 04:45 Ur Leukocyte Esterase Moderate (Negative) H 03/27/17 04:45 Urine Microscopic RBC 3-5 per hpf (0-3) H 03/27/17 04:45 Urine Microscopic WBC 30-50 per hpf (0-3) H 03/27/17 04:45 Ur Squamous Epith Cells Many per lpf (None-Few) H 03/27/17 04:45 Urine Bacteria Moderate per hpf (None-Few) H 03/27/17 04:45 Urine Yeast Moderate per hpf (None Seen) H 03/27/17 04:45 Ur Culture Indicated? YES (NO) A 03/27/17 04:45 Vancomycin Trough 23.9 mcg/mL (10-20) H* 03/29/17 07:02 General appearance: Present: no acute distress Exam: Somnolent - Head Head exam: Present: atraumatic, normal inspection, normocephalic - ENT ENT exam: Present: mucous membranes dry - Respiratory Respiratory exam: Present: rhonchi - Cardiovascular Cardiovascular exam: Present: RRR, +S1, +S2 - GI/Abdominal GI/Abdominal exam: Present: normal bowel sounds - Neurological Exam Neurological exam: Present: altered Additional comments: Somnolent. Opens eyes to name. Responds intermittently to questioning. - Skin Skin exam: Present: dry, warm Palliative Quality Palliative Quality: Screen for Code Status: Yes, Screen for Goals of Care: Yes, Screen for Pain: Yes, If Pain Regimen Started, Initiate Bowel Regimen: Yes, Screen for Nausea/Vomitting: Yes Code Status: 03/27/17 08:08 Resuscitation Status: Active [RES] Routine Comment: Resuscitation Status: DNR-Comfort Care - Labs CBC & Chem 7: 03/30/17 08:00 03/30/17 08:00 Labs: Laboratory Results - last 24 hr 03/30/17 03/31/17 11:18 05:10 POC Glucose 129 H Random Vancomycin 20.3 - Impressions Impressions Abdomen/Pelvis CT 03/28/17 12:00 IMPRESSION: Equivocal colonic wall thickening is favored to be artifactual due to underdistention given the lack of adjacent inflammation. Otherwise, no acute abnormality identified in the abdomen or pelvis. Unchanged pancreatic pseudocyst. Cholelithiasis. Unchanged appearance of the left lower quadrant transplant kidney. Moderate right and large left pleural effusions with associated atelectasis. Superimposed pneumonia is a possibility in the appropriate clinical setting. D/ / 03/28/2017 14:02:24 Justin Valdivia MD / Helga Vargas Interpreting Provider: Justin Valdivia MD - ABG Interpretation ABG results: PT/INR, D-dimer PT 13.9 Seconds (9.4-12.1) H 03/27/17 05:31 Consult Discharge Plan - Plan Referrals: Mason Mixon MD [Primary Care Provider] - Prescriptions: LORazepam [Ativan] 1 mg IV Q2H PRN #30 ml PRN Reason: anxiety n/v Morphine Oral CONC [Roxanol] 0.25 ml SL Q4H PRN #30 ml PRN Reason: sob or pain OxyCODONE Immed Rel [Roxicodone 5 MG] 5 mg PO Q2H PRN #30 tablet PRN Reason: pain or sob Sennosides/Docusate Sodium [Senna Plus] 1 each PO BID #20 tablet
--- NOTE | 2017-03-31 09:30 | Discharge Summary ---
Date of Encounter: 03/31/17 Time of Encounter: 09:28 - Discharge Medications Prescriptions: LORazepam [Ativan] 1 mg IV Q2H PRN #30 ml PRN Reason: anxiety n/v Morphine Oral CONC [Roxanol] 0.25 ml SL Q4H PRN #30 ml PRN Reason: sob or pain OxyCODONE Immed Rel [Roxicodone 5 MG] 5 mg PO Q2H PRN #30 tablet PRN Reason: pain or sob Sennosides/Docusate Sodium [Senna Plus] 1 each PO BID #20 tablet Home Medications: Acetaminophen [Tylenol] 650 mg PO Q4HR PRN 03/02/15 [History] Atorvastatin [Lipitor] 10 mg PO HS 03/02/15 [History] predniSONE [Prednisone] 2.5 mg PO BID 03/02/15 [History] Amiodarone [Cordarone] 200 mg PO DAILY 09/18/15 [History] B Complex W-C No.20/Folic Acid [Nephrocaps Softgel] 1 mg PO DAILY 12/17/15 [ History] Loperamide [Imodium] 2 mg PO Q8H PRN 02/19/16 [History] Oxygen 2 l IH HS 02/19/16 [History] Cyclosporine, Modified [Gengraf] 75 mg PO BID 09/10/16 [History] Aspirin Enteric Coated [Aspirin EC] 81 mg PO DAILY 10/14/16 [History] Ergocalciferol (VITAMIN D2) [Drisdol (50,000 Unit)] 50,000 unit PO FR 10/14/16 [ History] Magnesium Hydroxide [Milk of Magnesia] 2,400 mg PO DAILY PRN 10/14/16 [History] Omeprazole [PriLOSEC] 40 mg PO DAILY 10/14/16 [History] Ondansetron ODT [Zofran ODT] 4 mg PO Q8H PRN 10/14/16 [History] Denosumab [Prolia (For Outpatient Infusion)] 60 mg SQ Q6M 02/17/17 [History] Albuterol Sulfate [Albuterol Inhaler] 2 puff IH Q6HR PRN #1 hfa.aer.ad 02/23/17 [Rx] Darbepoetin [Aranesp] 40 mcg SQ QWEEK syringe 02/23/17 [Rx] Folic Acid 1 mg PO DAILY tablet 02/23/17 [Rx] Saccharomyces Boulardii [Florastor] 250 mg PO BID #80 capsule 02/23/17 [Rx] hydrALAZINE [HydrALAZINE] 25 mg PO TID #90 tablet 02/23/17 [Rx] Metoprolol [Lopressor] 12.5 mg PO BID 03/09/17 [History] Cefepime HCl/Dextrose, Iso-Osm [Cefepime 2 gm Injection] 2 gm IV QMWF 35 Days froz.piggy 03/13/17 [Rx] Levothyroxine [Synthroid] 50 mcg PO DAILY #30 tablet 03/13/17 [Rx] Vancomycin [Vancocin] 500 each IV QMWF 35 Days vial 03/13/17 [Rx] LORazepam [Ativan] 1 mg IV Q2H PRN #30 ml 03/30/17 [Rx] Morphine Oral CONC [Roxanol] 0.25 ml SL Q4H PRN #30 ml 03/30/17 [Rx] OxyCODONE Immed Rel [Roxicodone 5 MG] 5 mg PO Q2H PRN #30 tablet 03/30/17 [Rx] Sennosides/Docusate Sodium [Senna Plus] 1 each PO BID #20 tablet 03/30/17 [Rx] Allergies/Adverse Reactions: 3 Allergy/AdvReac Type Severity Reaction Status Date / Time Penicillins [PCN] Allergy Hives Verified 03/27/17 07:00 Labs on day of discharge: Labs from last 24 hours 03/31/17 03/30/17 05:10 11:18 POC Glucose 129 H Random Vancomycin 20.3 - Impressions ITS Impressions Abdomen/Pelvis CT 03/28/17 12:00 IMPRESSION: Equivocal colonic wall thickening is favored to be artifactual due to underdistention given the lack of adjacent inflammation. Otherwise, no acute abnormality identified in the abdomen or pelvis. Unchanged pancreatic pseudocyst. Cholelithiasis. Unchanged appearance of the left lower quadrant transplant kidney. Moderate right and large left pleural effusions with associated atelectasis. Superimposed pneumonia is a possibility in the appropriate clinical setting. D/ / 03/28/2017 14:02:24 Justin Valdivia MD / Helga Vargas Interpreting Provider: Justin Valdivia MD Internal Medicine - DS: Prov Date of admission: 03/28/17 08:57 Primary care physician: Mason Mixon MD Admitting clinician: Esther Kam Consults: 03/28/17 19:36 Consult to Spooling Machine Operator [CONS] Routine Reason for SW Consult: DISCHARGE PLANNING 03/29/17 09:15 Consult to Oncology [CONS] Routine Consulting Provider: [facility] Reason for Consult: possible hemochromatosis Call Completed: Yes 03/29/17 20:55 Consult to Speech Therapy [CONS] Routine Comment: Evaluate, develop and implement POC Reason for Consult: Pt having difficulty swallowing. Call Completed: No Consult to Wound Care [CONS] Routine Reason for Consult: Please reassess, thank you. Call Completed: No 03/30/17 10:30 Consult to Dialysis [CONS] ONCE 03/30/17 11:25 Consult to Palliative Care [CONS] Routine Comment: verbally spoke with Flores Consulting Provider: [facility] Reason for Consult: Possible hospice care Time Notified: 11:25 Call Completed: Yes 03/30/17 11:27 Consult to Palliative Care [CONS] Routine Comment: Consulting Provider: [facility] Reason for Consult: Into stage renal disease, severe malnutrition, bilateral buttock ulcer Call Completed: Yes 03/31/17 10:30 Consult to Dialysis [CONS] ONCE Attending physician on discharge: Leandra Schuler Discharging clinician: Alex Mcconnell - Patient Status Condition: Fair - Discharge Instructions Follow Up With: Mason Mixon MD [Primary Care Provider] - - Hospital Course Hospital course: Ms. Moore is a 71 year old female - Time Spent with Patient Total time spent providing and/or coordinating discharge services: Internal Medicine - DS: Exam - Constitutional Vitals: Vital Signs Pulse BP Pulse Ox 03/30/17 11:21 112/58 03/30/17 11:19 60 116/64 03/30/17 10:00 95 Intake and Output 03/30/17 03/31/17 03/31/17 23:59 07:59 15:59 Intake Total 1100 / 1100 Balance 1100 / 1100 Intake: IV Fluids 1100 / 1100 D5% And 0.45% Nacl 1000 Ml Bag 1000 / 1000 1,000 ML @ 50 mls/hr IVC .Q20H TRINH Rx#:[id number] Flagyl Premix 500 MG/100 ML 500 100 / 100 mg In 100 ml @ 100 mls/hr IVPB Q8HR TRINH Rx#:[id number] Other: Stool Size Large Stool Consistency loose liquid Stool Color Brown Bright Red Blood Blood Glucose* 146
[2017-03-31] MEDS: CycloSPORINE, Mod (Neoral) 25 MG CAPSULE PO SCH (09:49)
[2017-03-31] MEDS: Aspirin Enteric Coated 81 MG Tablet PO SCH (09:49)
[2017-03-31] MEDS: Renal Vitamin 1 MG CAPSULE PO SCH (09:50)
--- NOTE | 2017-03-31 10:04 | Discharge Summary ---
Date of Encounter: 03/31/17 Time of Encounter: 10:00 - Discharge Diagnosis (1) Acute encephalopathy Priority: Primary Status: Acute (2) Paroxysmal atrial fibrillation Priority: Secondary Status: Chronic (3) ESRD on dialysis Priority: Secondary Status: Chronic (4) Decubital ulcer Priority: Secondary Status: Chronic Qualifiers: Pressure ulcer location: sacral region Pressure ulcer stage: stage 2 Qualified Code(s): L89.152 - Pressure ulcer of sacral region, stage 2 (5) Protein malnutrition Priority: Secondary Status: Chronic (6) Hypoglycemia Priority: Primary Status: Acute (7) Failure to thrive in adult Priority: Primary Status: Chronic (8) Cellulitis Priority: Primary Status: Acute Qualifiers: Site of cellulitis: buttock Qualified Code(s): L03.317 - Cellulitis of buttock - Discharge Medications Prescriptions: LORazepam [Ativan] 1 mg IV Q2H PRN #30 ml PRN Reason: anxiety n/v Morphine Oral CONC [Roxanol] 0.25 ml SL Q4H PRN #30 ml PRN Reason: sob or pain OxyCODONE Immed Rel [Roxicodone 5 MG] 5 mg PO Q2H PRN #30 tablet PRN Reason: pain or sob Sennosides/Docusate Sodium [Senna Plus] 1 each PO BID #20 tablet Home Medications: Loperamide [Imodium] 2 mg PO Q8H PRN 02/19/16 [History] Oxygen 2 l IH HS 02/19/16 [History] Magnesium Hydroxide [Milk of Magnesia] 2,400 mg PO DAILY PRN 10/14/16 [History] Omeprazole [PriLOSEC] 40 mg PO DAILY 10/14/16 [History] Ondansetron ODT [Zofran ODT] 4 mg PO Q8H PRN 10/14/16 [History] Albuterol Sulfate [Albuterol Inhaler] 2 puff IH Q6HR PRN #1 hfa.aer.ad 02/23/17 [Rx] LORazepam [Ativan] 1 mg IV Q2H PRN #30 ml 03/30/17 [Rx] Morphine Oral CONC [Roxanol] 0.25 ml SL Q4H PRN #30 ml 03/30/17 [Rx] OxyCODONE Immed Rel [Roxicodone 5 MG] 5 mg PO Q2H PRN #30 tablet 03/30/17 [Rx] Sennosides/Docusate Sodium [Senna Plus] 1 each PO BID #20 tablet 03/30/17 [Rx] Cholestyramine 4 gm PO BIDAC powd.pack 03/31/17 [Rx] Lidocaine 4% CRM (LMX) [Lmx 4] 2.5 gm TP Q6H PRN cream 03/31/17 [Rx] Nystatin Cream [Mycostatin Cream] 1 appl TP TID tube 03/31/17 [Rx] Allergies/Adverse Reactions: 3 Allergy/AdvReac Type Severity Reaction Status Date / Time Penicillins [PCN] Allergy Hives Verified 03/27/17 07:00 Procedures/tests Complete & Pending: Procedures Performed prior 72 hours Category Date Time Status CT abd pelvis wo iv oral only [CT] Routine Cat Scan 03/28/17 12:00 Completed Venous Doppler [EV venous imaging LE BI] Routine Y 03/28/17 10:43 Completed Venous Doppler [EV venous imaging UE LT] Routine Y 03/30/17 11:26 Completed Date of admission: 03/28/17 08:57 Primary care physician: Mason Mixon MD Consults: 03/28/17 19:36 Consult to Hairspring Ii Inspector [CONS] Routine Reason for SW Consult: DISCHARGE PLANNING 03/29/17 09:15 Consult to Oncology [CONS] Routine Consulting Provider: [facility] Reason for Consult: possible hemochromatosis Call Completed: Yes 03/29/17 20:55 Consult to Speech Therapy [CONS] Routine Comment: Evaluate, develop and implement POC Reason for Consult: Pt having difficulty swallowing. Call Completed: No Consult to Wound Care [CONS] Routine Reason for Consult: Please reassess, thank you. Call Completed: No 03/30/17 10:30 Consult to Dialysis [CONS] ONCE 03/30/17 11:25 Consult to Palliative Care [CONS] Routine Comment: verbally spoke with Flores Consulting Provider: [facility] Reason for Consult: Possible hospice care Time Notified: 11:25 Call Completed: Yes 03/30/17 11:27 Consult to Palliative Care [CONS] Routine Comment: Consulting Provider: [facility]iative [facility] [place] Reason for Consult: Into stage renal disease, severe malnutrition, bilateral buttock ulcer Call Completed: Yes 03/31/17 10:30 Consult to Dialysis [CONS] ONCE Discharging clinician: Elise Farnsworth Anticipated date of discharge: 03/31/17 - Patient Status Disposition: Hospice - Home Condition: Serious Functional capacity at discharge: bed bound Overall status at discharge: patient is not back to baseline - Discharge Instructions Follow Up With: Mason Mixon MD [Primary Care Provider] - Additional Instructions: F/up with Home HOSPICE - Diet and Activity Activity: resume usual activities as tolerated Diet: advance to your usual diet Hospital course: Ms. Moore is a 71 year old female with multiple medical problems as listed above, admitted with altered mental status. Patient was noted to have hypoglycemia and she was given medical treatment for the same with improvement in mental status. She was also noted to have possible fungal cellulitis in inguinal and buttock area and was started on Diflucan. She has failure to thrive with poor oral intake, significant protein calorie malnutrition, hypoalbuminemia. Patient has history of pancreatic and renal transplant. She continued to decline despite medical management with PRBC transfusion, protein supplements. She refuses placement of PEG tube. Patient and family were agreeable to palliative care. Palliative care team was consulted and patient is currently stable for discharge on home hospice care. - Time Spent with Patient Total time spent providing and/or coordinating discharge services: Greater than 30 minutes (40 min) - Constitutional Vitals: Temp Pulse Resp BP Pulse Ox 97.9 F 60 16 112/58 95 03/30/17 05:44 03/30/17 11:19 03/30/17 05:44 03/30/17 11:21 03/30/17 10:00 General appearance: Present: A&O X 0 (somnolent, appears sick, cannot answer questions). Absent: answers questions appropriately
--- NOTE | 2017-03-31 10:07 | Physician Discharge Referral ---
Home Health/Hosp Referral Info Transfer to: Hospice Attending Provider: Elise Farnsworth Provider in Charge Post Discharge: PCP - Respiratory Orders Oxygen / L per min (4L/min via NC) Smoking Cessation: Smoking cessation has been advised. For more information, call the [place] Tobacco Quit Line at 2-273-AIAM-NOW. - Diet/Nutrition Diet/Nutrition: List: as tolerated - Activity Activity Orders: Bedrest - Services Needed Following services are medically necessary services: Nursing - Transfer Medications Prescriptions: LORazepam [Ativan] 1 mg IV Q2H PRN #30 ml PRN Reason: anxiety n/v Morphine Oral CONC [Roxanol] 0.25 ml SL Q4H PRN #30 ml PRN Reason: sob or pain OxyCODONE Immed Rel [Roxicodone 5 MG] 5 mg PO Q2H PRN #30 tablet PRN Reason: pain or sob Sennosides/Docusate Sodium [Senna Plus] 1 each PO BID #20 tablet Home Medications: Loperamide [Imodium] 2 mg PO Q8H PRN 02/19/16 [History] Oxygen 2 l IH HS 02/19/16 [History] Magnesium Hydroxide [Milk of Magnesia] 2,400 mg PO DAILY PRN 10/14/16 [History] Omeprazole [PriLOSEC] 40 mg PO DAILY 10/14/16 [History] Ondansetron ODT [Zofran ODT] 4 mg PO Q8H PRN 10/14/16 [History] Albuterol Sulfate [Albuterol Inhaler] 2 puff IH Q6HR PRN #1 hfa.aer.ad 02/23/17 [Rx] LORazepam [Ativan] 1 mg IV Q2H PRN #30 ml 03/30/17 [Rx] Morphine Oral CONC [Roxanol] 0.25 ml SL Q4H PRN #30 ml 03/30/17 [Rx] OxyCODONE Immed Rel [Roxicodone 5 MG] 5 mg PO Q2H PRN #30 tablet 03/30/17 [Rx] Sennosides/Docusate Sodium [Senna Plus] 1 each PO BID #20 tablet 03/30/17 [Rx] Cholestyramine 4 gm PO BIDAC powd.pack 03/31/17 [Rx] Lidocaine 4% CRM (LMX) [Lmx 4] 2.5 gm TP Q6H PRN cream 03/31/17 [Rx] Nystatin Cream [Mycostatin Cream] 1 appl TP TID tube 03/31/17 [Rx] Allergies/Adverse Reactions: 3 Allergy/AdvReac Type Severity Reaction Status Date / Time Penicillins [PCN] Allergy Hives Verified 03/27/17 07:00 Certification: Further, I certify that my clinical findings support that this patient is homebound (i.e. absences from home require considerable and taxing effort and are for medical reasons or shinto services or infrequently or short duration when for other reasons) because: Homebound Reason: Patient requires assistance of a person or device to safely leave home, Altered mental status requiring supervision when leaving home Attestation: My signature below is to certify that this patient is under my care and that I, or nurse practitioner, or a physician's automotive parts counter assistant working with me, has a face-to -face encounter with this patient.
--- NOTE | 2017-03-31 10:16 | Palliative Progress Note ---
<Alex Mcconnell - Last Filed: 03/31/17 09:44> Date of Encounter: 03/31/17 Time of Encounter: 09:44 - Time Spent With Patient Total time spent is greater than 50% in coordination of care (as documented) at patient's floor/unit and/or counseling patient: - Subjective Interval history: Patient continues to be somnolent. Having bowel movements. Denies pain or dyspnea. - Constitutional Vitals: Abnormal lab results RBC 2.81 M/mcL (3.82-4.97) L 03/30/17 08:00 Hgb 8.5 g/dL (11.5-15.4) L 03/30/17 08:00 Hct 26.5 % (35.3-44.9) L 03/30/17 08:00 RDW 19.8 % (11.5-14.5) H 03/30/17 08:00 Plt Count 81 K/mcL (140-400) L 03/30/17 08:00 Toxic Granulation Present (Not Present) A 03/29/17 07:02 Platelet Estimate Decreased (Normal) L 03/29/17 07:02 Polychromasia 1+ (Not Present) A 03/29/17 07:02 Anisocytosis 1+ (Not Present) A 03/29/17 07:02 PT 13.9 Seconds (9.4-12.1) H 03/27/17 05:31 Sodium 135 mEq/L (136-145) L 03/30/17 08:00 Creatinine 3.56 mg/dL (0.57-1.11) H 03/30/17 08:00 Est GFR ( Amer) 15 (> 60) L 03/30/17 08:00 Est GFR (Non-Af Amer) 13 (> 60) L 03/30/17 08:00 BUN/Creatinine Ratio 4 (6-26) L 03/30/17 08:00 Glucose 141 mg/dL (70-99) H 03/30/17 08:00 POC Glucose 129 (58-89) H 03/30/17 11:18 Uric Acid 2.3 mg/dL (2.6-6.0) L 03/28/17 08:38 Calcium 7.9 mg/dL (8.6-10.8) L 03/30/17 08:00 Magnesium 1.3 mg/dL (1.6-2.6) L 03/29/17 07:02 Iron 44 mcg/dL (50-170) L 03/28/17 08:38 % Saturation 112 % (15-50) H 03/28/17 08:38 Transferrin 28 mg/dL (180-382) L 03/28/17 08:38 Ferritin 2423 ng/ml (5-204) H 03/28/17 08:38 Alkaline Phosphatase 131 Units/L (38-126) H 03/27/17 05:31 Serum Total Protein 4.1 g/dL (6.0-8.3) L 03/27/17 05:31 Albumin 1.5 g/dL (3.5-5.0) L D 03/29/17 07:02 Albumin/Globulin Ratio 0.4 (1.1-2.2) L 03/27/17 05:31 Prealbumin 8.0 mg/dL (16.0-38.0) L 03/29/17 07:02 TSH 9.416 mcIU/mL (0.350-4.840) H 03/28/17 08:38 Urine Clarity Cloudy (Clear) A 03/27/17 04:45 Urine Blood Large (Negative) H 03/27/17 04:45 Ur Leukocyte Esterase Moderate (Negative) H 03/27/17 04:45 Urine Microscopic RBC 3-5 per hpf (0-3) H 03/27/17 04:45 Urine Microscopic WBC 30-50 per hpf (0-3) H 03/27/17 04:45 Ur Squamous Epith Cells Many per lpf (None-Few) H 03/27/17 04:45 Urine Bacteria Moderate per hpf (None-Few) H 03/27/17 04:45 Urine Yeast Moderate per hpf (None Seen) H 03/27/17 04:45 Ur Culture Indicated? YES (NO) A 03/27/17 04:45 Vancomycin Trough 23.9 mcg/mL (10-20) H* 03/29/17 07:02 General appearance: Present: no acute distress - Head Head exam: Present: atraumatic, normal inspection, normocephalic - ENT ENT exam: Present: mucous membranes dry - Respiratory Respiratory exam: Present: rhonchi - Cardiovascular Cardiovascular exam: Present: RRR, +S1, +S2 - GI/Abdominal GI/Abdominal exam: Present: normal bowel sounds, soft - Neurological Exam Neurological exam: Present: altered Palliative Quality Palliative Quality: Screen for Code Status: Yes, Screen for Goals of Care: Yes, Screen for Pain: Yes, If Pain Regimen Started, Initiate Bowel Regimen: Yes, Screen for Nausea/Vomitting: Yes Code Status: 03/27/17 08:08 Resuscitation Status: Active [RES] Routine Comment: Resuscitation Status: DNR-Comfort Care - Labs CBC & Chem 7: 03/30/17 08:00 03/30/17 08:00 Labs: Laboratory Results - last 24 hr 03/30/17 03/31/17 11:18 05:10 POC Glucose 129 H Random Vancomycin 20.3 - Impressions Impressions Abdomen/Pelvis CT 03/28/17 12:00 IMPRESSION: Equivocal colonic wall thickening is favored to be artifactual due to underdistention given the lack of adjacent inflammation. Otherwise, no acute abnormality identified in the abdomen or pelvis. Unchanged pancreatic pseudocyst. Cholelithiasis. Unchanged appearance of the left lower quadrant transplant kidney. Moderate right and large left pleural effusions with associated atelectasis. Superimposed pneumonia is a possibility in the appropriate clinical setting. D/ / 03/28/2017 14:02:24 Justin Validvia MD / Helga Vargas Interpreting Provider: Justin Valdivia MD - ABG Interpretation ABG results: PT/INR, D-dimer PT 13.9 Seconds (9.4-12.1) H 03/27/17 05:31 Consult Discharge Plan - Plan Additional Instructions: F/up with Home HOSPICE Referrals: Mason Mixon MD [Primary Care Provider] - Prescriptions: LORazepam [Ativan] 1 mg IV Q2H PRN #30 ml PRN Reason: anxiety n/v Morphine Oral CONC [Roxanol] 0.25 ml SL Q4H PRN #30 ml PRN Reason: sob or pain OxyCODONE Immed Rel [Roxicodone 5 MG] 5 mg PO Q2H PRN #30 tablet PRN Reason: pain or sob Sennosides/Docusate Sodium [Senna Plus] 1 each PO BID #20 tablet <Kane Brown - Last Filed: 03/31/17 11:36> Date of Encounter: 03/31/17 - Assessment and plan (1) ESRD (end stage renal disease) Current Visit: No Status: Chronic (2) Altered mental status Current Visit: Yes Status: Acute Qualifiers: Altered mental status type: unspecified Qualified Code(s): R41.82 - Altered mental status, unspecified (3) Decubital ulcer Current Visit: Yes Status: Acute Qualifiers: Pressure ulcer location: sacral region Pressure ulcer stage: stage 2 Qualified Code(s): L89.152 - Pressure ulcer of sacral region, stage 2 (4) Goals of care, counseling/discussion Current Visit: Yes Status: Acute - Time Spent With Patient Total time spent is greater than 50% in coordination of care (as documented) at patient's floor/unit and/or counseling patient: - Constitutional Vitals: Abnormal lab results RBC 2.81 M/mcL (3.82-4.97) L 03/30/17 08:00 Hgb 8.5 g/dL (11.5-15.4) L 03/30/17 08:00 Hct 26.5 % (35.3-44.9) L 03/30/17 08:00 RDW 19.8 % (11.5-14.5) H 03/30/17 08:00 Plt Count 81 K/mcL (140-400) L 03/30/17 08:00 Toxic Granulation Present (Not Present) A 03/29/17 07:02 Platelet Estimate Decreased (Normal) L 03/29/17 07:02 Polychromasia 1+ (Not Present) A 03/29/17 07:02 Anisocytosis 1+ (Not Present) A 03/29/17 07:02 PT 13.9 Seconds (9.4-12.1) H 03/27/17 05:31 Sodium 135 mEq/L (136-145) L 03/30/17 08:00 Creatinine 3.56 mg/dL (0.57-1.11) H 03/30/17 08:00 Est GFR ( Amer) 15 (> 60) L 03/30/17 08:00 Est GFR (Non-Af Amer) 13 (> 60) L 03/30/17 08:00 BUN/Creatinine Ratio 4 (6-26) L 03/30/17 08:00 Glucose 141 mg/dL (70-99) H 03/30/17 08:00 POC Glucose 129 (58-89) H 03/30/17 11:18 Uric Acid 2.3 mg/dL (2.6-6.0) L 03/28/17 08:38 Calcium 7.9 mg/dL (8.6-10.8) L 03/30/17 08:00 Magnesium 1.3 mg/dL (1.6-2.6) L 03/29/17 07:02 Iron 44 mcg/dL (50-170) L 03/28/17 08:38 % Saturation 112 % (15-50) H 03/28/17 08:38 Transferrin 28 mg/dL (180-382) L 03/28/17 08:38 Ferritin 2423 ng/ml (5-204) H 03/28/17 08:38 Alkaline Phosphatase 131 Units/L (38-126) H 03/27/17 05:31 Serum Total Protein 4.1 g/dL (6.0-8.3) L 03/27/17 05:31 Albumin 1.5 g/dL (3.5-5.0) L D 03/29/17 07:02 Albumin/Globulin Ratio 0.4 (1.1-2.2) L 03/27/17 05:31 Prealbumin 8.0 mg/dL (16.0-38.0) L 03/29/17 07:02 TSH 9.416 mcIU/mL (0.350-4.840) H 03/28/17 08:38 Urine Clarity Cloudy (Clear) A 03/27/17 04:45 Urine Blood Large (Negative) H 03/27/17 04:45 Ur Leukocyte Esterase Moderate (Negative) H 03/27/17 04:45 Urine Microscopic RBC 3-5 per hpf (0-3) H 03/27/17 04:45 Urine Microscopic WBC 30-50 per hpf (0-3) H 03/27/17 04:45 Ur Squamous Epith Cells Many per lpf (None-Few) H 03/27/17 04:45 Urine Bacteria Moderate per hpf (None-Few) H 03/27/17 04:45 Urine Yeast Moderate per hpf (None Seen) H 03/27/17 04:45 Ur Culture Indicated? YES (NO) A 03/27/17 04:45 Vancomycin Trough 23.9 mcg/mL (10-20) H* 03/29/17 07:02 - Attending Attestation I examined this patient and my medical decision-making was reviewed with the Resident Physician. I agree with the documented findings, disposition and treatment plan as described except to the extent set forth below. Have discussed case at length with hospice, and coordinated care with them. Have already done discharge prescriptions for the patient with regard to hospice meds. I discussed case with hospitalist physician. Hospice will roll the patient prior to discharge and then provide transportation home. Palliative Quality Code Status: 03/27/17 08:08 Resuscitation Status: Active [RES] Routine Comment: Resuscitation Status: DNR-Comfort Care - Labs CBC & Chem 7: 03/30/17 08:00 03/30/17 08:00 Labs: Laboratory Results - last 24 hr 03/30/17 03/31/17 11:18 05:10 POC Glucose 129 H Random Vancomycin 20.3 - Impressions Impressions Abdomen/Pelvis CT 03/28/17 12:00 IMPRESSION: Equivocal colonic wall thickening is favored to be artifactual due to underdistention given the lack of adjacent inflammation. Otherwise, no acute abnormality identified in the abdomen or pelvis. Unchanged pancreatic pseudocyst. Cholelithiasis. Unchanged appearance of the left lower quadrant transplant kidney. Moderate right and large left pleural effusions with associated atelectasis. Superimposed pneumonia is a possibility in the appropriate clinical setting. D/ / 03/28/2017 14:02:24 Justin Valdivia MD / Helga Vargas Interpreting Provider: Justin Valdivia MD - ABG Interpretation ABG results: PT/INR, D-dimer PT 13.9 Seconds (9.4-12.1) H 03/27/17 05:31
[2017-03-31] MEDS: Megestrol Acetate 400 MG/10 ML UDC PO SCH ×2 (10:44→14:35)
[2017-03-31] MEDS: Lactobacillus 1 EACH CAP.SPRINK PO SCH ×2 (10:44→14:35)
[2017-03-31] MEDS: *HR* Amiodarone 200 MG TABLET PO SCH (10:44)
[2017-03-31] MEDS: Fluconazole 100 MG TABLET PO SCH (10:44)
[2017-03-31] MEDS: Folic Acid 1 MG TABLET PO SCH (10:44)
[2017-03-31] MEDS: Nystatin Cream 15 GM TUBE TP SCH ×2 (10:45→14:31)
[2017-03-31] MEDS: predniSONE 5 MG TABLET PO SCH (10:45)
[2017-03-31] MEDS: Thiamine (B-1) 100 MG TABLET PO SCH (10:48)
[2017-03-31] MEDS ORDERED: Miconazole w/zinc oxide&karaya 92 APPL/92 GM TUBE TP SCH (11:00)
[2017-03-31 11:03] VITALS: BP 81/39
[2017-03-31] MEDS ORDERED: *HR* HYDROmorphone (PF) 1 MG/ML SYRINGE IVP ONE (13:15)
[2017-03-31] MEDS ORDERED: Aminoglycoside Consult 1 EACH MC ONE (14:59)
== END 2017-03-31 15:00 | disposition hospice, home (50) | DRG 637 ==
LOC: 2ANU 03:53 → EMEROO 03:53 → 2ANU 07:11 → SUATTDRO 03-28 08:57
PROVIDERS: ADMIT Internal Medicine; ATTEND Internal Medicine